=== PATIENT | female | born 1960 | race Caucasian/White ===

== ENCOUNTER 2017-10-02 16:07 | Observation (INO) | payer MEDICAID, SELFPAY ==
[2017-10-02] VITALS (10 sets, daily range): BP systolic 95–159; BP diastolic 58–91; PULSE 98–165; RESP 13–20; TEMP 36.9; O2SAT 95–97; BMI 38.9
--- NOTE | 2017-10-02 16:10 | EKG12_ITS ---
Test Reason : SYNCOPE Blood Pressure : / mmHG Vent. Rate : 105 BPM Atrial Rate : 105 BPM P-R Int : 170 ms QRS Dur : 084 ms QT Int : 352 ms P-R-T Axes : 019 005 010 degrees QTc Int : 465 ms Sinus tachycardia Otherwise normal ECG Confirmed by ASHLEY POTTER, FELIPE ([id number]), food editor EDWIGE FAN ([id number]) on 10/12/2017 6:56:52 PM Referred By: FRIEDA Confirmed By:FELIPE RAMIREZ MD
--- NOTE | 2017-10-02 16:30 | ED.VISSUMM ---
- ER Visit Summary Date of Service: 10/02/17 Chief Complaint: Passed out History of Present Illness: The patient is a 57 F who was at her daughter's graduation ceremony. She states she got up to walk to the car. She became nauseous, lightheaded and significant other commented she was pale and pasty. She passed out. She has had problems with passing out since March. She also reports problems with nausea and vomiting since March. She states she has had problems with dizziness with no determine etiology for 4+ months. She presently feels lightheaded. She denies fever, chills night sweats. She denies any ocular, visual or auditory symptoms. Denies trouble with speech or swallowing. She denies chest pain, palpitations or rapid heartbeat. She denies dyspnea, dyspnea on exertion or cough. She does complain of nausea without abdominal pain, diarrhea or constipation. She denies black or maroon stool. She denies dysuria, frequency, urgency or hematuria. She does report generalized weakness and dizziness, which she means is lightheadedness with standing. She denies headache, trouble with speech swallowing. She denies paresthesia, anesthesia motor weakness. She denies unsteady gait. Please read written note for complete detail Physical Examination: Vital signs remarkable for a pressure of 103/58 heart rate of 130. She appears pale. HEENT exam is remarkable dry mucosa. Heart is rapid and regular without murmur, gallop or rub. Lungs are clear to auscultation. Abdomen soft flabby nontender. There is no asymmetry, swelling, discoloration, leg vein distention, palpable cords or tenderness along the distribution of the deep venous system. Patient is alert and oriented ?3. Motor is 5 over 5. Sensory is intact. DTRs are symmetric with no clonus or Babinski sign. Cranial 2 through 12 are intact. Cerebellar testing is normal. Test Results: H&H 10.8 and 33.2. Electronic panels unremarkable with a normal BUN to creatinine and BUN to creatinine ratio. Emergency Department Course and Treatment: Orthostatic vital signs are positive. EKG was obtained per nursing protocol and reveals a sinus tachycardia 105. She received 1 L of normal saline. Since she reports chronic nausea and vomiting and dizziness BMP and CBC will be obtained. Since patient made no urine after first liter of normal saline she was given a second liter. When orthostatics were checked she was markedly positive. She was able to stand this time. After third liter she still is orthostatic with the increase of heart rate from 105-140. Treatment Plan: IV fluids for orthostatic hypotension. Since patient did not resolve after 3 L hospitalist was paged for 23 observation Disposition: [facility] 23 observation for continued monitoring hydration for orthostatic hypotension Impression: 1. Syncopal episode 2. Orthostatic hypotension This note was generated with [employer] dictation software. It may contain incorrect words, spelling, and punctuation that were not noted in review of the chart prior to signing ED Disposition - Plan for ED Patient: Chief Complaint: Dizziness Referrals: Helen Rouse MD [Primary Care Provider] -
[2017-10-02] MEDS: 0.9% Normal Saline 1,000 ML 1000 ML IV ×3 (16:40→21:51)
[2017-10-02 16:47] LABS: Absolute Lymphocyte Count 1.18 X10^3/ul (0.83-4.51); Absolute Neutrophil Count 4.2 X10^3/uL (2.0-7.7); Basophil# 0.02 X10^3/uL; Basophil% 0.3 % (0-1); Eosinophil# 0.03 X10^3/uL; Eosinophils% 0.5 % (0-5); Hematocrit 33.2 % (37-47); Hemoglobin 10.8 g/dl (12.0-15.0); Lymphocyte # 1.18 X10^3/ul (4.0); Lymphocyte % 19.8 % (19-41); Mean Corp Hgb Conc 32.5 g/gl (32-36); Mean Corpuscular Hgb 26.4 pg (27.0-32.0); Mean Corpuscular Volume 81.2 fL (81-99); Mean Platelet Vol. 11.4 fl (6.2-12.0); Monocyte# 0.53 X10^3/uL; Monocyte% 8.9 % (0-10); Neutrophil % 70.5 % (47-70); Platelet Count 205 K/mm3 (150-450); RBC Distribution Width CV 12.7 % (11.6-14.6); RBC Distribution Width SD 37.1 fl (35.1-43.9); Red Blood Count 4.09 M/mm3 (4.2-5.4)
[2017-10-02 16:53] LABS: POSITIVE COUNT NO; POSITIVE DIFFERENTIAL NO; POSITIVE MORPHOLOGY NO
[2017-10-02 17:07] LABS: BUN 9 mg/dL (7-18); Creatinine, Serum 0.72 mg/dL (0.55-1.02); EST Glomerular Filtration Rate 88 mL/min (>60); Estimated Creatinine Clearance 70.45 ml/min; Glucose 115 mg/dL (74-106)
[2017-10-02 17:08] LABS: Anion Gap 12 (5-15); BUN/Creat Ratio 12.5 RATIO (10-20); Calcium,Total 9.1 mg/dL (8.5-10.1); Chloride 108 mmol/L (98-107); Est Glom Filt Rate - Afr Amer 107 mL/min (>60); Potassium 3.2 mmol/L (3.5-5.1); Sodium Level 141 mmol/L (136-145)
--- NOTE | 2017-10-02 23:20 | DT_ITS ---
This patient was seen during an EMR downtime October 03, 2017 - October 10, 2017. This patient may have a combination of paper and electronic documentation or all paper documentation. All documentation is viewable within the e-chart portion of [employer] for each patient visit.
--- NOTE | 2017-10-02 23:51 | PCM.HP.STD ---
Problem List (1) Hyperthyroidism Status: Acute (2) Tachycardia Status: Acute (3) Orthostatic hypotension Status: Acute (4) Orthostatic hypotension Status: Acute (5) History of acute pyelonephritis Status: Chronic History of Present Illness Date of Admission: 10/02/17 Chief Complaint: Syncope The patient is a 57 year old female w/ h/o depression admitted for syncope. She had an episode of syncope several weeks ago when she was shopping. She does not drink much water. She was at her daughter high school graduation and she felt light-headed whenever she stands. She tried to walk to her car and felt nausea and pale. She felt like passing out but she did not pass out. Whenever she sits down, she would feel better. Standing up made it worse. It would last for hours. Her light-headedness was severe and she went to the ED for further workup. Past Medical History Past Medical History (Chronic Problems): Chronic Problems Gallbladder calculus (Chronic) History of acute pyelonephritis (Chronic) Allergies No Known Allergies Allergy (Verified 10/02/17 16:10) Home Medications: Ambulatory Orders Medication Instructions Recorded Ibuprofen [Ibuprofen] 800 mg PO TID PRN 03/19/17 Lorazepam [Ativan] 0.5 mg PO QHS 03/19/17 Oxycodone HCl/Acetaminophen 1 tablet PO Q6H PRN PRN #20 tablet 03/19/17 [Percocet 5/325] Sertraline HCl [Zoloft] 50 mg PO DAILY 03/19/17 Lives: With Family Smoking Status: Never smoker Alcohol: None Drugs: None - *Family History Maternal History Items: No pertinent history Review of Systems Constitutional: Denies: Chills, Fever, Weight Change HEENT: Reports: Head Aches. Denies: Sinus Congestion, Sinus Drainage Cardiovascular: Denies: Chest Pain, Palpitations Respiratory: Denies: Cough, Shortness of breath at rest, Sputum production Gastrointestinal: Denies: Abdominal Pain, Nausea, Vomiting Genitourinary: Denies: Dysuria Musculoskeletal: Denies: Joint Pain, Joint Tenderness Skin: Denies: Rash, Wounds Neurological: Denies: Numbness, Tingling, Focal weakness Psychiatric: Denies: Anxiety, Depression, Homicidal Ideations, Suicidal Ideations Hematologic/ Lymphatic: Denies: Easy Bruising, Easy Bleeding VTE Information - Inpt Only VTE Present on Admission: No VTE Mechan Device Prophylaxis: SCD's VTE Pharm Prophylaxis ordered?: Yes Patient Problems: Active and Suspected Problems Hyperthyroidism (Acute) Tachycardia (Acute) Orthostatic hypotension (Acute) Orthostatic hypotension (Acute) - Physical Exam General: Alert, Oriented x3, Cooperative HEENT: Atraumatic, PERRLA, EOMI, Normocephalic Neck: Supple, No JVD, Negative Carotid Bruits Lungs: Clear to auscultation, Normal air movement Cardiovascular: Regular rate, No murmurs Abdomen: Bowel Sounds Present, Soft, Non Tender Extremities: No edema, Capillary Refill Less than 3 Seconds Skin: No rashes, No breakdown Musculoskeletal: No Tenderness to Palpation of Joints or Extremities Neurological: Cranial nerves II-XII grossly intact Psych/Mental Status: Normal Affect, Appropriate Vital Signs Temp Pulse Resp BP Pulse Ox 98.5 F 109 H 20 H 154/71 H 97 10/02/17 16:07 10/02/17 23:36 10/02/17 23:36 10/02/17 23:36 10/02/17 23:36 Oxygen Delivery Method Room Air Weight: 99.8 kg Body Mass Index (BMI) 38.9 Laboratory Tests Past 24 Hrs 10/02/17 10/02/17 16:30 16:30 WBC 6.0 RBC 4.09 L Hgb 10.8 L Hct 33.2 L MCV 81.2 MCH 26.4 L MCHC 32.5 RDW 12.7 RDW Differential 37.1 Plt Count 205 MPV 11.4 Immature Gran % (Auto) 0.000 Neut % (Auto) 70.5 H Lymph % (Auto) 19.8 [place] % (Auto) 8.9 Eos % (Auto) 0.5 Baso % (Auto) 0.3 Absolute Neuts (auto) 4.2 Absolute Lymphs (auto) 1.18 Total Counted Not Reportable Sodium 141 Potassium 3.2 L Chloride 108 H Carbon Dioxide 21.0 Anion Gap 12 BUN 9 Creatinine 0.72 Estim Creat Clear Calc 70.45 Est GFR (MDRD) Af Amer 107 Est GFR (MDRD) Non-Af 88 BUN/Creatinine Ratio 12.5 Glucose 115 H Calcium 9.1 Assessment/Plan All Active Problems Hyperthyroidism (Acute) Tachycardia (Acute) Orthostatic hypotension (Acute) Orthostatic hypotension (Acute) 57 year old female w/ h/o depression admitted for syncope. 1) Syncope: Probably orthostatic hypotension given clinical symptoms. However will r/o cardiac etiology with ECHO and stress test. Monitor. 2) Hyperthyroid: Will get T3 and T4. No e/o nodular thyroid on exam. Will consider thyrotropin receptor antibodies, radioactive iodine uptake, and thyroid US with doppler. Currently no anxiety, emotional lability, weakness, tremor, palpitations, heat intolerance, increased perspiration, and weight loss. Likely will need endo followup outpt. 3) Orthostatic hypotension: Tachycardia noted. Hydration. Monitor. 4) Hypokalemia: Replace. Serial labs.
[2017-10-03 00:10] VITALS: BP 140/71; PULSE 110; RESP 18; TEMP 37.4; O2SAT 96
[2017-10-03 00:21] VITALS: PULSE 114
[2017-10-03 00:26] VITALS: BMI 39.0; BMI 39.7
[2017-10-03] MEDS: 0.9% Normal Saline 1,000 ML 150 ML IV (01:20)
[2017-10-03 01:42] LABS: Magnesium 1.3 mg/dL (1.6-2.6); Thyroid Stim Hormone (TSH) < 0.01 uIU/mL (0.358-3.74)
[2017-10-03 01:53] VITALS: PULSE 141
[2017-10-03 03:09] VITALS: BP 125/76; BP 128/90; BP 144/82; PULSE 102; PULSE 115; PULSE 123
[2017-10-03 03:19] VITALS: BP 144/82; PULSE 102; RESP 16; TEMP 36.8; O2SAT 96
--- NOTE | 2017-10-03 05:55 | ECHOD_ITS ---
Reason For Study: HTN Procedure This was a 2D Doppler, Color Flow transthoracic echocardiogram. Exam performed portable in patient room. Left Ventricle Normal LV size. Left ventricular systolic function is normal. The estimated ejection fraction is 65 %. No regional wall motion abnormalities noted. Right Ventricle Normal RV size. Normal systolic function. Atria The left atrium is mildly enlarged. Normal right atrium. No doppler evidence for ASD. Mitral Valve There is no mitral annular calcification. Normal mitral valve. Mild-Moderate (1-2+) mitral valve insufficiency. Tricuspid Valve Normal tricuspid valve. Mild tricuspid valve insufficiency. Right ventricular systolic pressure estimated to be 45 mmHg. Aortic Valve Trisinus/trileaflet aortic valve. Normal aortic valve. Trivial aortic valve insufficiency. Pulmonic Valve The pulmonic valve is not well visualized. Great Vessels Normal sized aortic root. Pericardium/Pleural No pericardial effusion. MMode/2D Measurements & Calculations LVIDd: 4.6 cm IVSd: 1.0 cm Ao root diam: 2.9 cm LVIDs: 3.2 cm LVPWd: 1.0 cm LA dimension: 4.1 cm RVDd: 3.0 cm FS: 31.0 % LAV(MOD-bp): 60.7 ml EDV(MOD-sp4): 92.7 ml SV(MOD-sp4): 48.1 ml LAV(MOD-bp) Indexed: 29.9 ml/m2 ESV(MOD-sp4): 44.6 ml LAV(MOD-sp2): 56.7 ml EF(MOD-sp4): 51.9 % LAV(MOD-sp4): 62.5 ml LA A4 area: 21.8 cm2 RA A4 area: 18.5 cm2 Doppler Measurements & Calculations MV E max [place]: 105.0 cm/sec Lat Peak E' [place]: 15.2 cm/sec Med Peak E' [place]: 11.2 cm/sec MV A max [place]: 94.4 cm/sec E/E' lat: 6.9 E/E' med: 9.3 MV E/A: 1.1 Ao V2 max: 197.1 cm/sec LV V1 max: 142.3 cm/sec PA V2 max: 118.1 cm/sec Ao max P.5 mmHg LV V1 max P.1 mmHg TR max [place]: 321.9 cm/sec TR max P.5 mmHg Interpretation Summary Left ventricular systolic function is normal. The estimated ejection fraction is 65 %. The left atrium is mildly enlarged. Mild-Moderate (1-2+) mitral valve insufficiency. Mild tricuspid valve insufficiency. Trivial aortic valve insufficiency. Right ventricular systolic pressure estimated to be 45 mmHg. Diastolic function: considered indeterminate. Comment / Disclaimer: The offiial transthoracic echocardiogram report was delayed secondary to [facility] Information Systems technical issues. A hand writtern preliminary report was previously made available for review. Ordering Physician: Bobby Amin Referring Physician: Helen Rouse Performed By: Meme Canales RDCS
--- NOTE | 2017-10-03 05:55 | EKG12_ITS ---
Test Reason : AM EKG Blood Pressure : / mmHG Vent. Rate : 102 BPM Atrial Rate : 102 BPM P-R Int : 176 ms QRS Dur : 086 ms QT Int : 358 ms P-R-T Axes : 071 027 046 degrees QTc Int : 466 ms Sinus tachycardia Otherwise normal ECG Confirmed by ASHLEY POTTER, FELIPE ([id number]), map editor EDWIGE FAN ([id number]) on 10/14/2017 2:15:45 PM Referred By: YANCY Confirmed By:FELIPE RAMIREZ MD
--- NOTE | 2017-10-04 11:39 | EKG12_ITS ---
Test Reason : AM EKG Blood Pressure : / mmHG Vent. Rate : 092 BPM Atrial Rate : 092 BPM P-R Int : 150 ms QRS Dur : 086 ms QT Int : 360 ms P-R-T Axes : 033 017 024 degrees QTc Int : 445 ms Normal sinus rhythm Normal ECG Confirmed by ASHLEY POTTER, FELIPE ([id number]), video editor EDWIGE FAN ([id number]) on 10/14/2017 2:12:53 PM Referred By: LINDSAY Confirmed By:FELIPE RAMIREZ MD
--- NOTE | 2017-10-04 11:48 | STEWCON_ITS ---
Reason For Study: Chest Pain Stress Results Protocol: Dobutamine Stress Echocardiogram Maximum Predicted HR: 162 bpm Target HR: 138 bpm% Maximum Predicted HR: 145 % DurationHeart Rate Stage (mm:ss) (bpm) BPDos e Comment BASELINE 96 141/85 DEFINITY 4 CC USED DURING STRESS DSE- 10 MCG 3:15 10 0 142/6610.00 DSE- 20 MCG 4:23 23 5 151/7120.00RUNS OF SVT, VT RECOVERY 106 155/7 0 Stress Duration: 7:38 mm:ss Maximum Stress HR: 235 bpm Baseline Echocardiogram Findings Stress Echo Wall motion Data Resting WMIntermediate WMStress WM Resting Wall Motion Wall Motion Int. Wall Motion Stress All segments Normal. All segments Hyperkinetic. All segments Hyperkinetic. Ejection Fraction 65 %. Ejection Fraction 70 %. Ejection Fraction 75 %. Stress Results Study discontinued secondary to: target heart rate achieved. EKG Data BASELINE EKG: NSR. STRESS EKG: NO OBVIOUS EKG CHANGES. Symptoms with Stress No c/o chest discomfort during infusion / recovery. Interpretation Summary The study was technically difficult. Contrast injection was performed. NEGATIVE(ADEQUATE) DOBUTAMINE STRESS ECHOCARDIOGRAM. CARDIAC RHYTHM: DURING DOBUTMAINE INFUSION: OCCASIONAL PACS/REPETITIVE PACS, OCCASIONAL PVCS/ REPETITIVE PVCS (COUPLETS/TRIPLETS). BRIEF EPISODES OF PSVT. CARDIAC RHYTHM IN RECOVERY: OCCCASIONAL PVCS; RARE VENTRICULAR COUPLETS. Comment / Disclaimer: The offiial transthoracic echocardiogram report was delayed secondary to [facility] Information Systems technical issues. A hand writtern preliminary report was previously made available for review. Doppler Measurements & Calculations TR max taylor: 282.1 cm/sec TR max P.8 mmHg Ordering Physician: Bobby Amin Referring Physician: Helen Rouse Performed By: Pushpa Baptiste, ZANDERCS, RVT
[2017-10-06 16:50] LABS: Hematocrit 27.2 % (37-47); Hemoglobin 8.8 g/dl (12.0-15.0); Mean Corp Hgb Conc 32.4 g/gl (32-36); Mean Corpuscular Hgb 27.4 pg (27.0-32.0); Mean Corpuscular Volume 84.7 fL (81-99); Mean Platelet Vol. 12.8 fl (6.2-12.0); Platelet Count 180 K/mm3 (150-450); RBC Distribution Width SD 38.6 fl (35.1-43.9); Red Blood Count 3.21 M/mm3 (4.2-5.4); White Blood Count 4.5 K/mm3 (4.4-11.0)
[2017-10-06 16:51] LABS: Absolute Lymphocyte Count 1.38 X10^3/ul (0.83-4.51); Absolute Neutrophil Count 2.5 X10^3/uL (2.0-7.7); Basophil# 0.01 X10^3/uL; Basophil% 0.2 % (0-1); Eosinophil# 0.08 X10^3/uL; Eosinophils% 1.8 % (0-5); Lymphocyte # 1.38 X10^3/ul (4.0); Lymphocyte % 3.7 % (19-41); Monocyte# 0.57 X10^3/uL; Monocyte% 12.7 % (0-10); Neutrophil # 2.46 X10^3/uL (2.7-7.7); Neutrophil % 54.6 % (47-70); POSITIVE COUNT NO; POSITIVE DIFFERENTIAL NO; POSITIVE MORPHOLOGY NO
[2017-10-06 17:47] LABS: International Normalized Ratio 1.2; Partial Thromboplast Time 29.5 Seconds (24.1-36.2); Prothrombin Time (Protime)PT. 15.1 SECONDS (11.7-14.9)
[2017-10-07 09:33] LABS: Magnesium 1.3 mg/dL (1.6-2.6); Phosphorus 2.9 mg/dL (2.5-4.9)
[2017-10-07 11:49] LABS: Hematocrit 26.6 % (37-47); Hemoglobin 8.6 g/dl (12.0-15.0); Red Blood Count 3.19 M/mm3 (4.2-5.4); White Blood Count 4.1 K/mm3 (4.4-11.0)
[2017-10-07 11:50] LABS: Mean Corp Hgb Conc 32.3 g/gl (32-36); Mean Corpuscular Volume 83.4 fL (81-99); Mean Platelet Vol. 12.1 fl (6.2-12.0); Platelet Count 180 K/mm3 (150-450); RBC Distribution Width CV 12.5 % (11.6-14.6); RBC Distribution Width SD 36.8 fl (35.1-43.9); Scan Indicated on CBC? Y/N NO
[2017-10-08 11:05] LABS: Anion Gap 7 (5-15); BUN 4 mg/dL (7-18); Calcium,Total 8.1 mg/dL (8.5-10.1); Chloride 114 mmol/L (98-107); EST Glomerular Filtration Rate 174 mL/min (>60); Est Glom Filt Rate - Afr Amer 211 mL/min (>60); Estimated Creatinine Clearance 126.82 ml/min; Glucose 95 mg/dL (74-106); Potassium 3.2 mmol/L (3.5-5.1); Sodium Level 145 mmol/L (136-145)
[2017-10-11 03:14] LABS: International Normalized Ratio 1.2; Partial Thromboplast Time 29.5 Seconds (24.1-36.2); Prothrombin Time (Protime)PT. 15.1 SECONDS (11.7-14.9)
[2017-10-12 14:25] LABS: ALB/GLOB Ratio 0.6 RATIO (0.9-2.4); AST(SGOT) 14 U/L (15-37); Alanine Aminotransfer ALT/SGPT 16 U/L (13-56); Albumin, Serum 2.4 g/dL (3.2-5.0); Alkaline Phosphatase 54 U/L (45-117); BUN 7 mg/dL (7-18); BUN/Creat Ratio 18.9 RATIO (10-20); Calcium,Total 8.1 mg/dL (8.5-10.1); Creatinine, Serum 0.37 mg/dL (0.55-1.02); EST Glomerular Filtration Rate 191 mL/min (>60); Est Glom Filt Rate - Afr Amer 231 mL/min (>60); Globulin 3.7 g/dL (2.2-4.2); Glucose 94 mg/dL (74-106); Protein, Total 6.1 g/dL (6.4-8.2)
[2017-10-12 14:26] LABS: Anion Gap 9 (5-15); Chloride 114 mmol/L (98-107); Potassium 3.3 mmol/L (3.5-5.1); Sodium Level 146 mmol/L (136-145)
== END 2017-10-04 16:35 | disposition home or self-care (01) ==
LOC: ED 18:59 → PCU 10-03 00:13
PROVIDERS: Physician Assistant; Admitting Provider Internal Medicine; Emergency Provider Emergency Medicine; Family Provider Internal Medicine; PCP Internal Medicine; Visit Provider Internal Medicine
DX: I95.1 Orthostatic hypotension (principal); E87.6 Hypokalemia; F41.9 Anxiety disorder, unspecified; F32.9 Major depressive disorder, single episode, unspecified; E66.01 Morbid (severe) obesity due to excess calories; Z68.38 Body mass index [BMI] 38.0-38.9, adult; Z71.3 Dietary counseling and surveillance; D64.9 Anemia, unspecified; E05.90 Thyrotoxicosis, unspecified without thyrotoxic crisis or storm
CPT/HCPCS: 36415; 80048; 80053; 83735; 84100; 84439; 84443; 84480; 84481; 84482; 84484; 85025; 85027; 85610; 85730; 93005; 93017; 93306; 93350; 96361; 96374; 96376; 97110; 97162; 97166; 97530; 97802; 99218; 99285; J7030; J7040; Q9957; A4216; C8928; G0378

== ENCOUNTER 2018-04-21 11:22 | Emergency (ER) | payer MEDICAID, SELFPAY ==
[2018-04-21 11:24] VITALS: BP 163/83; PULSE 74; RESP 16; TEMP 36.7; O2SAT 98; BMI 33.8
[2018-04-21 11:32] VITALS: BP 163/83; PULSE 74; RESP 16; TEMP 36.7; O2SAT 98
[2018-04-21 11:35] LABS: Bedside Glucose 107 mg/dL (70-110)
[2018-04-21 11:36] VITALS: O2SAT 98
--- NOTE | 2018-04-21 11:36 | EKG12_ITS ---
Test Reason : SYNCOPE Blood Pressure : / mmHG Vent. Rate : 071 BPM Atrial Rate : 071 BPM P-R Int : 148 ms QRS Dur : 086 ms QT Int : 396 ms P-R-T Axes : 035 008 047 degrees QTc Int : 430 ms Normal sinus rhythm Nonspecific ST abnormality Abnormal ECG Confirmed by IMMANUEL CEDENO ([id number]), editorial clerk EDWIGE FAN ([id number]) on 04/26/2018 2:35:25 PM Referred By: FRIEDA Confirmed By:IMMANUEL CEDENO
--- NOTE | 2018-04-21 11:43 | RAD_ITS ---
STUDY: X-RAY CHEST REASON FOR EXAM: Female, 57 years old. Chest pain. TECHNIQUE: Single AP portable view of the chest. COMPARISON: Comparison is made with prior study dated March 19, 2017. FINDINGS: EKG electrodes are seen. The lungs are clear and expanded. There is no demonstrated pleural abnormality. Normal size heart. Normal mediastinum and suzie. Normal visualized pulmonary arteries. Normal visualized aortic arch and descending thoracic aorta. There are mild degenerative changes of the visualized thoracic spine. Normal visualized ribs, clavicles, and shoulders. There is no demonstrated abnormality of the visualized soft tissue structures of the upper abdomen. RAD/Chest 1 View (Portable) IMPRESSION: Normal x-ray examination of the chest. Electronically Signed: Jong Hermosillo MD at 12:31 EST Tel [phone], Service support ,
[2018-04-21 11:45] LABS: Absolute Lymphocyte Count 1.02 X10^3/ul (0.83-4.51); Absolute Neutrophil Count 2.7 X10^3/uL (2.0-7.7); Basophil# 0.01 X10^3/uL; Basophil% 0.2 % (0-1); Eosinophil# 0.05 X10^3/uL; Eosinophils% 1.2 % (0-5); Hematocrit 35.6 % (37-47); Hemoglobin 11.9 g/dl (12.0-15.0); Lymphocyte # 1.02 X10^3/ul (4.0); Lymphocyte % 25.1 % (19-41); Mean Corp Hgb Conc 33.4 g/gl (32-36); Mean Corpuscular Hgb 28.4 pg (27.0-32.0); Mean Platelet Vol. 11.1 fl (6.2-12.0); Monocyte# 0.29 X10^3/uL; Monocyte% 7.1 % (0-10); Neutrophil # 2.68 X10^3/uL (2.7-7.7); Neutrophil % 66.2 % (47-70); POSITIVE COUNT NO; POSITIVE DIFFERENTIAL NO; POSITIVE MORPHOLOGY NO; Platelet Count 245 K/mm3 (150-450); RBC Distribution Width SD 36.2 fl (35.1-43.9); Red Blood Count 4.19 M/mm3 (4.2-5.4); White Blood Count 4.1 K/mm3 (4.4-11.0)
--- NOTE | 2018-04-21 11:51 | ED.VISSUMM ---
- ER Visit Summary Date of Service: 04/21/18 Chief Complaint: Passed out History of Present Illness: The patient is a 57 F history of hyperthyroidism. Patient states she has been eating or drinking much for the last several days is because she has not felt like it. She is developed diarrhea in the last 2 days and today while in the bathroom when she was finished having diarrhea bowel movement she passed out. Denies any injuries. No headache. No neck pain. No chest pain or shortness of breath. She is not on any blood thinners. She has passed out before and was worked up for syncope within the last year or so. Physical Examination: Well-appearing middle-age female. Vital signs are stable. She is afebrile. She does not look septic toxic or in distress. Pulse ox 90% on room air no signs of hypoxia. H EENT exam atraumatic. Pupils round reactive light. Moist weeks membranes. Neck nontender. Trachea midline. Lungs clear to auscultation bilaterally. Heart regular rhythm no murmur. Chest wall nontender. Abdomen soft nontender. Normal bowel sounds no peritoneal signs. Pelvic girdle intact. Extremities moves all 4. Neurovascularly intact. Calves nontender, no edema no cords. No shortening or rotation. Back exam nontender. Neurologically she is awake alert with no focal motor deficits. Test Results: Chest x-ray one view portable shows no acute abnormality read both by myself and the radiologist. Normal cardiac silhouette mediastinum. EKG sinus rhythm rate of 71 with normalities. White count of 4. Hemoglobin 11 she is chronically anemic her hemoglobin often runs around 8. Electrolytes unremarkable gap of 9. BUN of 6 creatinine 0.7. Troponin normal. Orthostatic vital signs were positive. Patient's being treated with a liter of normal saline. Emergency Department Course and Treatment: Patient with acute syncopal episode. On repeat exam patient is doing well at 1320. She is receiving IV fluids. Once was written she will be discharged. Treatment Plan: Fluids and rest. Follow-up with your doctor as needed. Return if worse. Disposition: Discharge Impression: Acute syncope Acute diarrhea Acute orthostatic hypotension This note was generated with [employer] dictation software. It may contain incorrect words, spelling, and punctuation that were not noted in review of the chart prior to signing ED Disposition - Plan for ED Patient: Chief Complaint: Syncope Referrals: Helen Rouse MD [Primary Care Provider] -
[2018-04-21 12:03] LABS: Anion Gap 9 (5-15); BUN 6 mg/dL (7-18); BUN/Creat Ratio 7.8 RATIO (10-20); Calcium,Total 9.1 mg/dL (8.5-10.1); Chloride 107 mmol/L (98-107); Creatinine, Serum 0.77 mg/dL (0.55-1.02); EST Glomerular Filtration Rate 82 mL/min (>60); Est Glom Filt Rate - Afr Amer 99 mL/min (>60); Estimated Creatinine Clearance 65.88 ml/min; Glucose 116 mg/dL (74-106); Potassium 3.5 mmol/L (3.5-5.1); Sodium Level 140 mmol/L (136-145)
[2018-04-21] MEDS: 0.9% Normal Saline 1,000 ML 999 ML IV (12:16)
[2018-04-21 12:27] VITALS: BP 104/72; BP 129/71; BP 134/73; PULSE 114; PULSE 66; PULSE 68
--- NOTE | 2018-04-21 13:24 | ED.DEP ---
ED Disposition - Plan for ED Patient: Disposition: Home or Assisted Living Chief Complaint: Syncope Instructions: ED Hypotension Orthostatic Referrals: Helen Rouse MD [Primary Care Provider] - As Needed Additional Instructions: Plenty fluids and rest. Follow-up with your doctor as needed.
[2018-04-21 13:45] VITALS: BP 128/73; PULSE 61; RESP 14; O2SAT 100
== END 2018-04-21 13:47 | disposition home or self-care (01) ==
PROVIDERS: Emergency Provider Emergency Medicine; Family Provider Internal Medicine; PCP Internal Medicine
DX: I95.1 Orthostatic hypotension (principal); R19.7 Diarrhea, unspecified; E05.90 Thyrotoxicosis, unspecified without thyrotoxic crisis or storm; D64.9 Anemia, unspecified; Z79.899 Other long term (current) drug therapy
CPT/HCPCS: 71045; 80048; 82962; 84484; 85025; 93005; 96360; 99285; J7030; A4216

== ENCOUNTER 2022-11-23 13:38 | Inpatient (IN) | payer MEDICAID, SELFPAY ==
[2022-11-23] VITALS (9 sets, daily range): BP systolic 121–140; BP diastolic 58–89; PULSE 71–93; RESP 16–18; TEMP 36.6–37.7; O2SAT 92–99; BMI 41.0
--- NOTE | 2022-11-23 14:10 | CT_ITS ---
STUDY: CT ABDOMEN AND PELVIS WITH CONTRAST - URINARY TRACT REASON FOR EXAM: Female, 62 years old. Lower abd pain RADIATION DOSAGE (If Supplied By Facility): CTDIvol = ( 18.67 ) mGy, DLP = ( 1364.82 ) mGycm TECHNIQUE: IV 100mL Isovue-300 was administered. Transaxial images were obtained from the dome of the diaphragm to the symphysis pubis in the arterial, nephrographic and excretory phases. Multiplanar coronal and sagittal images were reformatted. Individualized Dose Optimization Techniques Were Used For This CT. COMPARISON: No prior examinations are available for comparison. FINDINGS: The visualized lung bases are unremarkable. The visualized portions of the heart are within normal limits. No focal lesion is definitely identified in the liver. Pneumobilia the central intrahepatic biliary ducts extending to the left lobe. Contracted gallbladder. Linear air density extending from the gallbladder fossa to the region of the duodenum which may represent fistula. The spleen is within normal limits in size. Normal pancreas. Normal bilateral adrenal glands. Moderate size hiatal hernia. Markedly dilated fluid-filled proximal small bowel loops. Large calcification in the mid small bowel loop measuring about 2.7 cm. The more distal small bowel loops are normal in caliber. There is obstruction at this level. Gallstone ileus cannot be excluded. Colon is not distended and thickened. The appendix is not identified. The abdominal aorta is not dilated. No retroperitoneal adenopathy. Normal right kidney. Normal left kidney. Normal urinary bladder. Mild free fluid in the pelvis. Normal abdominal wall. No demonstrated acute osseous changes. CT/Abdomen/Pelvis W IV Cont ONLY IMPRESSION: 1. Small bowel obstruction due to large stone in mid ileal loop concerning for gallstone ileus. 2. Pneumobilia. 3. Contracted gallbladder with possible air extending from the gallbladder fossa to the duodenum. Fistula cannot be excluded. Electronically Signed: Brett Guerrero MD at 16:19 EDT ,
--- NOTE | 2022-11-23 14:11 | EDS_ITS ---
HPI HPI - GI History of Present Illness Chief Complaint: Nausea/Vomiting Informant: patient Abdominal Pain/Flank Pain Onset: Days (2-3) Context: Gradual Onset Timing: Continuous and Waxes and wanes Quality: Aching and Cramping Location: - (lower abd, worse on L) Current Severity: Severe Maximum Severity: Severe Worsened by: Nothing Relieved by: Nothing Nausea/Vomiting/Emesis GI Symptom: Positive for Nausea and Vomiting Quality: Negative for Blood streaks or Coffee ground Diarrhea/Melena/Hematochezia GI Symptom: Negative for Diarrhea, Melena or Hematochezia Associated Symptoms Associated Symptoms: Negative for Dysuria, Frequency or Hematuria Narrative Narrative: Patient with a couple days of lower abdominal pain, nausea, vomiting. No fevers or chills. No diarrhea. No blood in her stool or melena. No urinary symptoms. Prior no other abdominal surgeries in the past. Never had this before. Pain occasionally goes into her right mid back. Usually not radiating. Also has some discomfort of her chest after vomiting. No dyspnea, cough. PFSH PFS Medical History (Updated 11/23/22 @ 15:[address] Sean Sanders MD) Anxiety Gallbladder calculus Graves disease History of acute pyelonephritis Home Medications lorazepam 0.5 mg tablet 0.5 mg PO QHS PRN Anxiety 03/19/17 [History Last Taken 10/02/17 20:00] sertraline 50 mg tablet 25 mg PO DAILY 03/19/17 [History Last Taken 10/02/17 10:00] atenolol 25 mg tablet 25 mg PO DAILY 04/21/18 [History Last Taken Unknown] methimazole 5 mg tablet (Tapazole) 5 mg PO TID 04/21/18 [History Last Taken Unknown] Allergy/AdvReac Type Severity Reaction Status Date / Time azithromycin Allergy Itching Verified 11/23/22 13:43 Surgical History (Updated 11/23/22 @ 14:[address] Sean Sanders MD) Previous section Social History Smoking Status: Never smoker ROS ROS ED Constitutional Constitutional ED: Denies chills or fever(s) Eyes Eyes: Denies change in vision or diplopia ENT ENT ED: Denies rhinorrhea or sore throat Cardiovascular Cardiovascular: Reports as per HPI and chest pain; Denies palpitations Respiratory/Chest Respiratory/Chest: Denies cough or dyspnea Gastrointestinal Gastrointestinal: Reports abdominal pain, nausea and vomiting; Denies diarrhea, hematemesis, hematochezia or melena Genitourinary Genitourinary ED: Denies dysuria or hematuria Musculoskeletal Musculoskeletal: Reports back pain; Denies neck pain Integumentary Denies abscess or rash Neurologic Neurologic: Denies headache(s), paresthesias or weakness Psychiatric Psychiatric: Denies anxiety or suicidal thoughts EXAM Physical Exam Const Vital Signs: 11/23/22 13:39 Temperature 98.4 F Temperature Source Temporal Pulse Rate 93 Respiratory Rate 16 Blood Pressure 131/89 H Blood Pressure Mean 103 Pulse Ox 95 Oxygen Delivery Method Room Air Positive well nourished, well developed and obese General Appearance ED: well developed and NAD Nutritional Appearance: obese HEENT Reports moist mucous membranes normocephalic and atraumatic Eyes PERRL and EOMs intact bilaterally Neck full ROM and supple Resp normal respiratory effort and clear to auscultation bilaterally Cardio regular rate, regular rhythm and no murmurs GI non-distended GI Narrative: Very tender lower abdomen worse on the left than the right, but includes the suprapubic area as well. No guarding or rebound tenderness. No pulsatile mass. No [place] sign. Auscultation: hypoactive bowel sounds Palpation: soft Back/Spine no CVA tenderness General Back: other FROM Extremity normal to inspection General Extremety ED: Negative for edema, pulses abnormal or tenderness General Extremity: Negative for edema or pulses abnormal Neuro oriented x3, CN's II-XII intact bilaterally and no sensory deficits noted Sensorium / Orientation: awake and alert Motor Exam: strength 5/5 throughout Skin no rashes or lesions noted and no wounds MDM MDM MDM Narrative Medical decision making narrative: Labs, CT were obtained, I reviewed the images and the report which I agree with, and spoke with Dr. Camacho. Basically patient has a gallstone ileus/jejunal obstruction because of a gallstone that eroded into the duodenum from the gallbladder. Patient is doing better after IV fluids, morphine, Zofran, we will place an NG tube, add liver enzymes upon request, and patient is going to the OR for definitive repair. Lab Data Attestation: I reviewed the patient's lab results. Labs: Laboratory Results - last 24 hr 11/23/22 13:27 WBC 7.9 RBC 4.46 Hgb 12.7 Hct 38.9 MCV 87.2 MCH 28.5 MCHC 32.6 RDW Std Deviation 41.4 RDW Coeff of Peace 13.2 Plt Count 262 MPV 11.6 Immature Gran % (Auto) 0.300 Neut % (Auto) 80.6 H Lymph % (Auto) 8.7 L [place] % (Auto) 10.0 Eos % (Auto) 0.0 Baso % (Auto) 0.4 Absolute Neuts (auto) 6.4 Absolute Lymphs (auto) 0.69 L Nucleated RBC % 0 Sodium 138 Potassium 3.3 L Chloride 106 Carbon Dioxide 23.0 Anion Gap 9 BUN 17 Creatinine 1.02 Estim Creat Clear Calc 46.70 Est GFR (MDRD) Af Amer 70 Est GFR (MDRD) Non-Af 58 L BUN/Creatinine Ratio 16.7 Glucose 144 H Calcium 9.2 Management Discussion w/another healthcare provider: Airline Transport Pilot Critical Care Time Critical Care Time: Yes Critical care time (excluding procedures): 30-74 minutes (33 min), Including time spent:, Discussing w/Patient &/or Family/Eyeglass Frames Inspector, Discussing w/Consultants, Arranging Admission or Transfer and Performing Direct Patient Care at Bedside Discharge Plan Triage Chief Complaint: Nausea/Vomiting ED Provider: Sean Sanders Dx/Rx/DC Orders Clinical Impression: Gallstone ileus of small intestine Prescriptions: No Action lorazepam 0.5 MG tablet 0.5 mg PO QHS PRN (Reason: Anxiety) Patient Comments: TAKE 1 TABLET THREE TIMES DAILY NEEDED sertraline 50 MG tablet 25 mg PO DAILY Patient Comments: Take 1 tablet by mouth once daily. atenolol 25 tablet 25 mg PO DAILY methimazole [Tapazole] 5 MG tablet 5 mg PO TID Primary Care Provider: Helen Rouse Referrals: Helen Rouse MD [Primary Care Provider] - Disposition Disposition: Acute Care Hospital [facility]
[2022-11-23] MEDS: 0.9% Normal Saline 1,000 ML 1000 ML IV (14:23)
[2022-11-23] MEDS: Ondansetron 4 MG/2 ML Vial IV (14:24)
[2022-11-23] MEDS: Morphine 4 MG/ML Syringe IV (14:24)
[2022-11-23 14:38] LABS: Absolute Lymphocyte Count 0.69 X10^3/uL (0.83-4.51); Absolute Neutrophil Count 6.4 X10^3/uL (2.0-7.7); Basophil# 0.03 X10^3/uL; Basophil% 0.4 % (0-1); Hematocrit 38.9 % (37-47); Hemoglobin 12.7 g/dL (12.0-15.0); Lymphocyte # 0.69 X10^3/ul (0.83-4.51); Lymphocyte % 8.7 % (19-41); Mean Corp Hgb Conc 32.6 g/dL (32-36); Mean Corpuscular Hgb 28.5 pg (27.0-32.0); Mean Corpuscular Volume 87.2 fL (81-99); Mean Platelet Vol. 11.6 fl (6.2-12.0); Monocyte# 0.79 X10^3/uL; NRBC Flagged by Analyzer 0 % (0-5); Neutrophil # 6.39 X10^3/uL (2.7-7.7); Neutrophil % 80.6 % (47-70); Platelet Count 262 K/mm3 (150-450); RBC Distribution Width CV 13.2 % (11.6-14.6); RBC Distribution Width SD 41.4 fl (35.1-43.9); Red Blood Count 4.46 M/mm3 (4.2-5.4); White Blood Count 7.9 K/mm3 (4.4-11.0)
[2022-11-23 14:50] LABS: Anion Gap 9 (5-15); BUN 17 mg/dL (7-18); BUN/Creat Ratio 16.7 RATIO (10-20); Calcium,Total 9.2 mg/dL (8.5-10.1); Chloride 106 mmol/L (98-107); Creatinine, Serum 1.02 mg/dL (0.55-1.02); EST Glomerular Filtration Rate 58 mL/min (>60); Est Glom Filt Rate - Afr Amer 70 mL/min (>60); Glucose 144 mg/dL (74-106); Potassium 3.3 mmol/L (3.5-5.1); Sodium Level 138 mmol/L (136-145)
--- NOTE | 2022-11-23 15:35 | CON.PCM.SX_ITS ---
Assessment & Plan Assessment/Plan (1) Gallstone ileus of small intestine: HPI Consult Data Date of Consult: 11/23/22 HPI Narrative HPI Narrative: SUSANNA LEIJA, is a 62 F who presents [facility] Medical History (Updated 11/23/22 @ 15:[address] Alma Camacho MD) Anxiety Gallbladder calculus Graves disease History of acute pyelonephritis Home Medications lorazepam 0.5 mg tablet 0.5 mg PO QHS PRN Anxiety 03/19/17 [History Last Taken 10/02/17 20:00] sertraline 50 mg tablet 25 mg PO DAILY 03/19/17 [History Last Taken 10/02/17 10:00] atenolol 25 mg tablet 25 mg PO DAILY 04/21/18 [History Last Taken Unknown] methimazole 5 mg tablet (Tapazole) 5 mg PO TID 04/21/18 [History Last Taken Unknown] Allergy/AdvReac Type Severity Reaction Status Date / Time azithromycin Allergy Itching Verified 11/23/22 13:43 Surgical History (Updated 11/23/22 @ 14:[address] Sean Sanders MD) Previous section Social History Smoking Status: Never smoker Lab / Micro Data 11/23/22 13:27 11/23/22 13:27 Labs: Laboratory Results - last 24 hr 11/23/22 13:27: WBC 7.9, RBC 4.46, Hgb 12.7, Hct 38.9, MCV 87.2, MCH 28.5, MCHC 32.6, RDW Std Deviation 41.4, RDW Coeff of Peace 13.2, Plt Count 262, MPV 11.6, Immature Gran % (Auto) 0.300, Neut % (Auto) 80.6 H, Lymph % (Auto) 8.7 L, [place] % (Auto) 10.0, Eos % (Auto) 0.0, Baso % (Auto) 0.4, Absolute Neuts (auto) 6.4, Absolute Lymphs (auto) 0.69 L, Nucleated RBC % 0, Sodium 138, Potassium 3.3 L, Chloride 106, Carbon Dioxide 23.0, Anion Gap 9, BUN 17, Creatinine 1.02, Estim Creat Clear Calc 46.70, Est GFR (MDRD) Af Amer 70, Est GFR (MDRD) Non-Af 58 L, BUN/Creatinine Ratio 16.7, Glucose 144 H, Calcium 9.2
--- NOTE | 2022-11-23 15:39 | RAD_ITS ---
INDICATION: NG Insertion 1 OF 2 EXAMINATION/TECHNIQUE: X-RAY - XR Abdomen 1 View COMPARISON: None RAD/Abdomen Single View (Portable) IMPRESSION: Enteric tube loops over the distal esophagus. Electronically Signed: Ricky Roblero MD at 16:31 EDT ,
--- NOTE | 2022-11-23 16:02 | RAD_ITS ---
INDICATION: NG INSERT 2 OF 2 EXAMINATION/TECHNIQUE: X-RAY - XR Abdomen 1 View COMPARISON: 3 minutes earlier RAD/Abdomen Single View IMPRESSION: NG tube terminates over the gastric fundus with sidehole below the diaphragm. Partially visualized bowel gas pattern is nonobstructive. Electronically Signed: Ricky Roblero MD at 16:30 EDT ,
--- NOTE | 2022-11-23 16:06 | PCM.HP.STD ---
HPI - General General Date of Admission: 11/23/22 HPI Narrative SUSANNA ELIJA, is a 62 F who presents to the ER due to abdominal pain nausea vomiting. Patient states her abdominal pain started on Tuesday along with her nausea and vomiting nothing really eat since then. Patient CT abdomen pelvis shows a gallstone ileus in the mid jejunum along with pneumobilia. Patient states has been having right upper quadrant pain for about the last year. Patient white blood count is within. [facility] Medical History (Updated 11/23/22 @ 15:[address] Sean Sanders MD) Anxiety Gallbladder calculus Graves disease History of acute pyelonephritis Home Medications lorazepam 0.5 mg tablet 0.5 mg PO QHS PRN Anxiety 03/19/17 [History Last Taken 10/02/17 20:00] sertraline 50 mg tablet 25 mg PO DAILY 03/19/17 [History Last Taken 10/02/17 10:00] atenolol 25 mg tablet 25 mg PO DAILY 04/21/18 [History Last Taken Unknown] methimazole 5 mg tablet (Tapazole) 5 mg PO TID 04/21/18 [History Last Taken Unknown] Allergy/AdvReac Type Severity Reaction Status Date / Time azithromycin Allergy Itching Verified 11/23/22 13:43 Surgical History (Updated 11/23/22 @ 14:[address] Sean Sanders MD) Previous section Social History Smoking Status: Never smoker Vital Signs Vital Signs Vital Signs: 11/23/22 13:39 Temperature 98.4 F Temperature Source Temporal Pulse Rate 93 Respiratory Rate 16 Blood Pressure 131/89 H Blood Pressure Mean 103 Pulse Ox 95 Oxygen Delivery Method Room Air Weight Weight: 231 lb 7.766 oz Body Mass Index (BMI) 41.0 Physical Exam Const oriented x3 Resp normal respiratory effort Cardio regular rate GI soft to palpation GI Narrative: Tender mid abdomen, no guarding or rebound. Extremity General Extremity: edema Results Lab / Micro Data 11/23/22 13:27 11/23/22 13:27 Labs: Laboratory Results - last 24 hr 11/23/22 13:27: WBC 7.9, RBC 4.46, Hgb 12.7, Hct 38.9, MCV 87.2, MCH 28.5, MCHC 32.6, RDW Std Deviation 41.4, RDW Coeff of Peace 13.2, Plt Count 262, MPV 11.6, Immature Gran % (Auto) 0.300, Neut % (Auto) 80.6 H, Lymph % (Auto) 8.7 L, [place] % (Auto) 10.0, Eos % (Auto) 0.0, Baso % (Auto) 0.4, Absolute Neuts (auto) 6.4, Absolute Lymphs (auto) 0.69 L, Nucleated RBC % 0, Sodium 138, Potassium 3.3 L, Chloride 106, Carbon Dioxide 23.0, Anion Gap 9, BUN 17, Creatinine 1.02, Estim Creat Clear Calc 46.70, Est GFR (MDRD) Af Amer 70, Est GFR (MDRD) Non-Af 58 L, BUN/Creatinine Ratio 16.7, Glucose 144 H, Calcium 9.2 Assessment & Plan Assessment/Plan (1) Gallstone ileus of small intestine: PLAN: Plan We will plan for laparotomy, removal of gallstone, possible small bowel resection. Discussed with procedure including but not limited to risk of bleeding, infection, injury to another organ, and anesthesia. Also discussed with patient there and does not appear to be any other stones in the gallbladder would not plan to do any surgery for the fistula tract between the duodenum and gallbladder. IV Zosyn. NG placed in the ER. Alma Camacho M.D. Pager: [phone] [facility] [address] [place] [address], [address] [place] [address] Office: [phone]
[2022-11-23] MEDS: Oxymetazoline 0.05% 1 SPRAY SPRAY.BTL 2 SPRAY NASAL (16:16)
[2022-11-23 16:22] LABS: Mucous, Urine 0 SEEN /hpf (<or=2+)
[2022-11-23 16:29] LABS: Color, Urine Yellow (Yellow); Glucose, Dipstick Normal (Normal); Ketone-Dipstick 5 mg/dl (Negative); Leukocyte Esterase-Dipstick 25 /ul (Negative); Nitrite-Dipstick Negative (Negative); Occult Blood-Urine 25 /ul (Negative); Protein-Dipstick 30 mg/dl (Negative); Urine Bilirubin Dipstick Negative (Negative); Urine Clarity Clear (Clear); Urine Urobilinogen Normal (Normal); Urine pH 6.5 (5.0 - 8.0)
[2022-11-23] MEDS: Lactated Ringers 1,000 ML 15 ML IV (16:41)
[2022-11-23 16:42] LABS: Bacteria RARE /hpf (None Seen); Red Blood Cells-Urine 0-5 SEEN /hpf (0-5); Squamous Epithelial Cells - UA 0-5 SEEN /hpf (5-10); White Blood Cells 0-5 SEEN /hpf (0-5)
[2022-11-23 16:51] LABS: AST(SGOT) 12 U/L (15-37); Alanine Aminotransfer ALT/SGPT 13 U/L (13-56); Albumin, Serum 3.3 g/dL (3.2-5.0); Alkaline Phosphatase 67 U/L (45-117); Bilirubin, Direct 0.25 mg/dL (0.00-0.30); Globulin 4.7 g/dL (2.2-4.2)
[2022-11-23] MEDS: Bupivacaine Mpf 0.5% 30 ML VIAL (17:47)
--- NOTE | 2022-11-23 17:47 | OP.PCM_ITS ---
Report of Operation Date of Procedure: 11/23/22 Pre-Operative Diagnosis: Gallstone ileus Post-Operative Diagnosis: Same Surgery/Procedure Performed:: Laparotomy, removal of gallstone from small bowel Surgeon: Alma Camacho stove refinisher: Angela Enriquez Type of Anesthesia: General/Supplemental Anesthesiologist: Alma Camacho Special Medications: Zosyn 3.375 g IV x1 Specimen's removed: gallstone Drains: none Estimated Blood Loss (mL): 10 cc Description of Procedure: Patient presents operating room placed spine on operating table. Timeout was completed verifying correct patient, procedure, site, positioning, special equipment and procedure. General anesthesia was induced. Midline laparotomy incision was made with a 15 blade scalpel this was deepened to the fascia with electrocautery. Entry into the abdomen after elevating the fascia with hemostats. No injury was noted upon entry to the abdomen. Wound protector was placed. The gallstone and obstructive transition site of the small bowel was brought into the wound. Small bowel was run proximally to the ligament of Treitz. All small bowel appeared viable. The gallstone was milked proximally and a longitudinal enterotomy was made with Metzenbaums small bowel to allow removal of the gallstone. Incision was closed transversely 2 layers?running 3-0 Vicryl then [place]bert 3-0 silk. Small bowel contents were milked distally no leakage from small bowel enterotomy repair site. Fluid was suctioned. Incision was closed with 1 PDS running sutures. A few interrupted subdermal 3-0 Vicryl sutures were placed. Skin was closed with skin candelaria. Incision was dressed with Telfa and OpSite. Patient was extubated. Patient tolerated procedure well was taken the postanesthesia care unit in stable condition. Complications none
[2022-11-23] MEDS: 0.9% Normal Saline 1,000 ML 120 ML IV (19:09)
[2022-11-23] MEDS: Sertraline 50 MG Tablet 25 MG PO (21:55)
--- NOTE | 2022-11-24 | CALC_PTH ---
PATIENT: SUSANNA LEIJA LOC: MS3 U#:[id number] AGE/SX: 62/F ROOM: [facility] RE11/23/[address]: Dr. Alma Camacho MD : 1960 BED: 1 DIS: 11/27/2022 SPEC #: [id number] RECD: 11/24/22 11:52 STATUS: ROBERT RERyan #: [id number] NILS: 11/24/22 00:[address]: Alma Camacho DEPT: SURGICAL PATHOLOGY RECD BY: Blake Mortensen ENTERED: 11/24/22 11:53 SP TYPE: Calculi OTHR DR: Dr. Helen Rouse MD Tissues: CALCULI Procedures: Surgery Specimen Level I HEADER OPERATION: Exploratory laparotomy, removal of gallstone PRE-OP DIAGNOSIS: Gallstone ileus of small intestine TISSUE SUBMITTED: Gallstone GROSS DIAGNOSIS A stone, clinically gallstone (gross only). EDISON:geoffrey 11/25/2022 MICROSCOPIC DESCRIPTION Slides are reviewed. GROSS DESCRIPTION Received is one container labeled with the patient's name and designated gallstone. The specimen consists of a ovoid rough surfaced greenish-brown stone measuring 3.5 x 2.5 x 2.0 cm. The specimen is for gross identification only. / EDISNO:geoffrey 11/24/2022 CPT: 32550
[2022-11-24] MEDS: Acetaminophen 325 MG Tablet 650 MG PO (01:38)
[2022-11-24 02:33] VITALS: BP 113/67; PULSE 103; RESP 16; TEMP 37.2; O2SAT 94
[2022-11-24] MEDS: 0.9% Normal Saline 1,000 ML 120 ML IV ×3 (03:20→21:24)
[2022-11-24 06:13] LABS: Absolute Lymphocyte Count 0.93 X10^3/uL (0.83-4.51); Basophil# 0.02 X10^3/uL; Basophil% 0.4 % (0-1); Eosinophil# 0.01 X10^3/uL; Eosinophils% 0.2 % (0-5); Hematocrit 31.9 % (37-47); Hemoglobin 10.4 g/dL (12.0-15.0); Lymphocyte # 0.93 X10^3/ul (0.83-4.51); Lymphocyte % 16.8 % (19-41); Mean Corp Hgb Conc 32.6 g/dL (32-36); Mean Corpuscular Hgb 28.7 pg (27.0-32.0); Mean Corpuscular Volume 88.1 fL (81-99); Mean Platelet Vol. 11.5 fl (6.2-12.0); Monocyte# 0.58 X10^3/uL; Monocyte% 10.5 % (0-10); NRBC Flagged by Analyzer 0 % (0-5); Neutrophil # 3.98 X10^3/uL (2.7-7.7); Neutrophil % 71.7 % (47-70); Platelet Count 201 K/mm3 (150-450); RBC Distribution Width CV 13.2 % (11.6-14.6); RBC Distribution Width SD 42.7 fl (35.1-43.9); Red Blood Count 3.62 M/mm3 (4.2-5.4); White Blood Count 5.5 K/mm3 (4.4-11.0)
[2022-11-24] MEDS: methIMAzole 10 MG TABLET 5 MG PO ×3 (06:22→22:12)
[2022-11-24 06:33] VITALS: BP 99/58; PULSE 88; RESP 16; TEMP 36.9; O2SAT 94
[2022-11-24 07:00] VITALS: BP 122/62; PULSE 84; RESP 16; TEMP 36.6; O2SAT 97
--- NOTE | 2022-11-24 07:21 | PN.SURG_ITS ---
Subjective Subjective Patient denies any nausea or vomiting overnight states Tylenol controls pain. Patient states she has had minimal flatus. Objective Data Objective Data Vital Signs: Vital Signs Temp Pulse Resp BP Pulse Ox O2 Del Method O2 Flow Rate 98 F 84 16 122/62 H 97 Room Air 4 11/24/22 07:00 11/24/22 07:00 11/24/22 07:00 11/24/22 07:00 11/24/22 07:00 11/24/22 07:00 11/23/22 18:00 Oxygen Flow Rate (L/min) 4 Oxygen Delivery Method Room Air Weight: 231 lb 7.766 oz Body Mass Index (BMI) 41.0 Intake & Output: Intake and Output for Last 24 Hours 11/22/22 11/23/22 11/24/22 23:59 23:59 23:59 Intake Total 1192.25 / 1192.25 1032 / 1032 Output Total 775 / 775 Balance 1192.25 / 792.25 257 / 257 Lab / Micro Data 11/24/22 05:18 11/24/22 05:18 Labs: Laboratory Results - last 24 hr 11/23/22 13:27: WBC 7.9, RBC 4.46, Hgb 12.7, Hct 38.9, MCV 87.2, MCH 28.5, MCHC 32.6, RDW Std Deviation 41.4, RDW Coeff of Peace 13.2, Plt Count 262, MPV 11.6, Immature Gran % (Auto) 0.300, Neut % (Auto) 80.6 H, Lymph % (Auto) 8.7 L, [place] % (Auto) 10.0, Eos % (Auto) 0.0, Baso % (Auto) 0.4, Absolute Neuts (auto) 6.4, Absolute Lymphs (auto) 0.69 L, Nucleated RBC % 0, Sodium 138, Potassium 3.3 L, Chloride 106, Carbon Dioxide 23.0, Anion Gap 9, BUN 17, Creatinine 1.02, Estim Creat Clear Calc 46.70, Est GFR (MDRD) Af Amer 70, Est GFR (MDRD) Non-Af 58 L, BUN/Creatinine Ratio 16.7, Glucose 144 H, Calcium 9.2, Total Bilirubin 0.80, Direct Bilirubin 0.25, AST 12 L, ALT 13, Alkaline Phosphatase 67, Total Protein 8.0, Albumin 3.3, Globulin 4.7 H 11/23/22 16:10: Urine Color Yellow, Urine Clarity Clear, Urine pH 6.5, Ur Specific [place] 1.010, Urine Protein 30 H, Urine Glucose (UA) Normal, Urine Ketones 5 H, Urine Occult Blood 25 H, Urine Nitrite Negative, Urine Bilirubin Negative, Urine Urobilinogen Normal, Ur Leukocyte Esterase 25 H, Urine RBC 0-5 SEEN, Urine WBC 0-5 SEEN, Ur Squamous Epith Cells 0-5 SEEN, Urine Bacteria RARE, Urine Mucus 0 SEEN 11/24/22 05:18: WBC 5.5, RBC 3.62 L, Hgb 10.4 L, Hct 31.9 L, MCV 88.1, MCH 28.7, MCHC 32.6, RDW Std Deviation 42.7, RDW Coeff of Peace 13.2, Plt Count 201, MPV 11.5, Immature Gran % (Auto) 0.400, Neut % (Auto) 71.7 H, Lymph % (Auto) 16.8 L, [place] % (Auto) 10.5 H, Eos % (Auto) 0.2, Baso % (Auto) 0.4, Absolute Neuts (auto) 4.0, Absolute Lymphs (auto) 0.93, Nucleated RBC % 0 Radiography Diagnostic Testing: Radiology Impression Abdomen/Pelvis CT 11/23/22 14:10 IMPRESSION: 1. Small bowel obstruction due to large stone in mid ileal loop concerning for gallstone ileus. 2. Pneumobilia. 3. Contracted gallbladder with possible air extending from the gallbladder fossa to the duodenum. Fistula cannot be excluded. Electronically Signed: Brett Guerrero MD at 16:19 EDT , KUB X-Ray 11/23/22 15:39 IMPRESSION: Enteric tube loops over the distal esophagus. Electronically Signed: Ricky Roblero MD at 16:31 EDT , KUB X-Ray 11/23/22 16:02 IMPRESSION: NG tube terminates over the gastric fundus with sidehole below the diaphragm. Partially visualized bowel gas pattern is nonobstructive. Electronically Signed: Ricky Roblero MD at 16:30 EDT , Physical Exam Resp normal respiratory effort Cardio regular rate GI GI Narrative: Abdomen: Soft, nondistended, tender near incision's dressed clean dry and intact, no peritoneal signs Assessment & Plan Assessment/Plan (1) Gallstone ileus of small intestine: (2) Hyperthyroidism: (3) Hypertension: (4) Morbid obesity: PLAN: Plan Okay for patient to have sips if patient does have increased flatus will advance to clears. Hypertension continue home meds, Graves' disease continue home meds Continue ambulating out of bed to chair. Continue IV Zosyn due to inflammation in the right upper quadrant with the fistula tract. Alma Camacho M.D. Pager: [phone] [facility] [address] [place] [address], [facility], [address] [place] [address] Office: [phone]
[2022-11-24 07:28] LABS: Anion Gap 4 (5-15); BUN 12 mg/dL (7-18); BUN/Creat Ratio 15.6 RATIO (10-20); Calcium,Total 7.6 mg/dL (8.5-10.1); Chloride 113 mmol/L (98-107); Creatinine, Serum 0.77 mg/dL (0.55-1.02); EST Glomerular Filtration Rate 80 mL/min (>60); Est Glom Filt Rate - Afr Amer 97 mL/min (>60); Estimated Creatinine Clearance 61.86 ml/min; Glucose 114 mg/dL (74-106); Potassium 3.1 mmol/L (3.5-5.1); Sodium Level 142 mmol/L (136-145)
[2022-11-24] MEDS: Atenolol 25 MG Tablet PO (09:24)
[2022-11-24 10:00] VITALS: BP 128/64; PULSE 81; RESP 16; TEMP 36.7; O2SAT 96
[2022-11-24] MEDS: Potassium Chloride Oral Tablet 20 MEQ 40 MEQ PO (13:12)
--- NOTE | 2022-11-24 13:35 | CASEMGMT ---
JIMMY RIGGS Assessment: Face to Face with pt for initial transition planning/care coordination assessment. RN KEELY introduced self and role at [facility], pt voices understanding and consents to assessment. Pt is A/O x4 and answers all questions appropriately at this time. Pt sitting up in bed in no distress with sister at bedside. Pt agreeable to assessment with sister present. Care providers, pharmacy, and demographics verified/updated. Admitting Dx: nausea, vomiting PCP:Padma Specialists: sen Jacobs Pharmacy: [facility] Insurance: [facility] Prescription Benefit: yes LNOK: Fer Vu, ; Kalyn Perez, dtr Living Arrangements: Pt lives with and dtr in a single story home with no steps to enter. Pt reports she is I in ADL's and denies concerns at home. Transportation: Pt drives self and denies concerns with transportation. DME/HHC/SNF: Pt denies having any DME in the home, previous HHC or SNF stays. Pt states no concerns with going home at time of dc. Pt states no further concerns/needs. CM to follow. Advised pt to ask CM if any further question/concerns/needs arise, voices understanding. Pt Goal: Home Plan: Home
[2022-11-24 16:00] VITALS: BP 130/68; PULSE 80; RESP 18; TEMP 36.8; O2SAT 97
[2022-11-24 22:00] VITALS: BP 130/76; PULSE 86; RESP 16; TEMP 36.9; O2SAT 96
[2022-11-24] MEDS: Sertraline 50 MG Tablet 25 MG PO (22:12)
[2022-11-25 04:00] VITALS: BP 145/66; PULSE 88; RESP 16; TEMP 36.9; O2SAT 94
[2022-11-25] MEDS: 0.9% Normal Saline 1,000 ML 120 ML IV (05:25)
[2022-11-25] MEDS: methIMAzole 10 MG TABLET 5 MG PO ×3 (05:26→21:32)
[2022-11-25 06:03] LABS: Absolute Lymphocyte Count 0.74 X10^3/uL (0.83-4.51); Absolute Neutrophil Count 4.5 X10^3/uL (2.0-7.7); Basophil# 0.03 X10^3/uL; Basophil% 0.5 % (0-1); Eosinophil# 0.02 X10^3/uL; Eosinophils% 0.3 % (0-5); Hematocrit 30.8 % (37-47); Hemoglobin 9.6 g/dL (12.0-15.0); Lymphocyte # 0.74 X10^3/ul (0.83-4.51); Lymphocyte % 12.6 % (19-41); Mean Corp Hgb Conc 31.2 g/dL (32-36); Mean Corpuscular Hgb 28.2 pg (27.0-32.0); Mean Corpuscular Volume 90.3 fL (81-99); Mean Platelet Vol. 11.6 fl (6.2-12.0); Monocyte# 0.54 X10^3/uL; Monocyte% 9.2 % (0-10); NRBC Flagged by Analyzer 0 % (0-5); Neutrophil # 4.51 X10^3/uL (2.7-7.7); Neutrophil % 76.9 % (47-70); Platelet Count 178 K/mm3 (150-450); RBC Distribution Width SD 42.6 fl (35.1-43.9); Red Blood Count 3.41 M/mm3 (4.2-5.4); White Blood Count 5.9 K/mm3 (4.4-11.0)
[2022-11-25 06:34] LABS: Anion Gap 6 (5-15); BUN 7 mg/dL (7-18); BUN/Creat Ratio 9.3 RATIO (10-20); Calcium,Total 7.8 mg/dL (8.5-10.1); Chloride 112 mmol/L (98-107); Creatinine, Serum 0.75 mg/dL (0.55-1.02); EST Glomerular Filtration Rate 83 mL/min (>60); Est Glom Filt Rate - Afr Amer 100 mL/min (>60); Estimated Creatinine Clearance 63.51 ml/min; Glucose 101 mg/dL (74-106); Magnesium 1.7 mg/dL (1.6-2.6); Potassium 3.1 mmol/L (3.5-5.1); Sodium Level 141 mmol/L (136-145)
--- NOTE | 2022-11-25 08:23 | PCM.PN.SRG ---
Subjective Subjective Patient denies any nausea or vomiting or pain. Patient has been ambulating up in the chair. Patient only has minimal flatus. Patient has not been tolerating sips. Objective Data Objective Data Vital Signs: Vital Signs Temp Pulse Resp BP Pulse Ox O2 Del Method O2 Flow Rate 98.4 F 88 16 145/66 H 94 Room Air 4 11/25/22 04:00 11/25/22 04:00 11/25/22 04:00 11/25/22 04:00 11/25/22 04:00 11/25/22 04:00 11/23/22 18:00 Oxygen Flow Rate (L/min) 4 Oxygen Delivery Method Room Air Weight: 231 lb 7.766 oz Body Mass Index (BMI) 41.0 Intake & Output: Intake and Output for Last 24 Hours 11/23/22 11/24/22 11/25/22 23:59 23:59 23:59 Intake Total 1192.25 / 1192.25 3242 / 3242 1012 / 1012 Output Total 775 / 775 Balance 1192.25 / 792.25 2467 / 2467 1012 / 1012 Lab / Micro Data 11/25/22 05:17 11/25/22 05:17 Labs: Laboratory Results - last 24 hr 11/25/22 05:17: WBC 5.9, RBC 3.41 L, Hgb 9.6 L, Hct 30.8 L, MCV 90.3, MCH 28.2, MCHC 31.2 L, RDW Std Deviation 42.6, RDW Coeff of Peace 13.0, Plt Count 178, MPV 11.6, Immature Gran % (Auto) 0.500, Neut % (Auto) 76.9 H, Lymph % (Auto) 12.6 L, [place] % (Auto) 9.2, Eos % (Auto) 0.3, Baso % (Auto) 0.5, Absolute Neuts (auto) 4.5, Absolute Lymphs (auto) 0.74 L, Nucleated RBC % 0, Sodium 141, Potassium 3.1 L, Chloride 112 H, Carbon Dioxide 23.0, Anion Gap 6, BUN 7, Creatinine 0.75, Estim Creat Clear Calc 63.51, Est GFR (MDRD) Af Amer 100, Est GFR (MDRD) Non-Af 83, BUN/Creatinine Ratio 9.3 L, Glucose 101, Calcium 7.8 L, Magnesium 1.7 Physical Exam Resp normal respiratory effort Cardio regular rate GI GI Narrative: Abdomen: Soft, nondistended, tender near incision's dressed clean dry and intact, no peritoneal signs Assessment & Plan Assessment/Plan (1) Gallstone ileus of small intestine: (2) Hyperthyroidism: (3) Hypertension: (4) Morbid obesity: (5) Hypokalemia: PLAN: Plan Continue sips of clears patient has increased flatus. Hypertension continue home meds, Graves' disease continue home meds Continue ambulating/out of bed to chair. Continue IV Zosyn due to inflammation in the right upper quadrant with the fistula tract. Hypokalemia?replace Alma Camacho M.D. Pager: [phone] [facility] [address] [place] [address], [address] [place] [address] Office: [phone]
[2022-11-25] MEDS: Potassium Chloride Oral Tablet 20 MEQ 60 MEQ PO (09:23)
[2022-11-25] MEDS: Atenolol 25 MG Tablet PO (09:24)
[2022-11-25 09:33] VITALS: O2SAT 93
[2022-11-25 09:59] VITALS: BP 121/64; PULSE 85; RESP 14; TEMP 37; O2SAT 95
[2022-11-25 11:00] VITALS: BP 120/61; PULSE 75; RESP 18; TEMP 36.4; O2SAT 97
[2022-11-25 16:42] VITALS: BP 131/63; PULSE 73; RESP 16; TEMP 36.6; O2SAT 97
[2022-11-25 21:27] VITALS: BP 137/72; PULSE 75; RESP 18; TEMP 36.7; O2SAT 96
[2022-11-25] MEDS: Sertraline 50 MG Tablet 25 MG PO (21:31)
[2022-11-26 00:21] VITALS: BP 132/72; PULSE 78; RESP 18; TEMP 37.2; O2SAT 95
[2022-11-26 03:46] VITALS: BP 140/76; PULSE 72; RESP 20; TEMP 36.8; O2SAT 96
[2022-11-26] MEDS: methIMAzole 10 MG TABLET 5 MG PO ×3 (05:34→20:52)
[2022-11-26 08:14] VITALS: BP 143/69; PULSE 67; RESP 16; TEMP 36.6; O2SAT 96
[2022-11-26 09:34] LABS: Anion Gap 5 (5-15); BUN 4 mg/dL (7-18); BUN/Creat Ratio 6.2 RATIO (10-20); Calcium,Total 8.1 mg/dL (8.5-10.1); Chloride 110 mmol/L (98-107); Creatinine, Serum 0.64 mg/dL (0.55-1.02); EST Glomerular Filtration Rate 99 mL/min (>60); Est Glom Filt Rate - Afr Amer 120 mL/min (>60); Estimated Creatinine Clearance 74.43 ml/min; Glucose 95 mg/dL (74-106); Magnesium 1.8 mg/dL (1.6-2.6); Potassium 3.2 mmol/L (3.5-5.1); Sodium Level 141 mmol/L (136-145)
[2022-11-26] MEDS: Atenolol 25 MG Tablet PO (09:42)
--- NOTE | 2022-11-26 11:16 | PN.SURG_ITS ---
Subjective Subjective Patient is having more flatus denies any nausea or vomiting, tolerating clears Objective Data Objective Data Vital Signs: Vital Signs Temp Pulse Resp BP Pulse Ox O2 Del Method O2 Flow Rate 97.9 F 67 16 143/69 H 96 Room Air 4 11/26/22 08:14 11/26/22 08:14 11/26/22 08:14 11/26/22 08:14 11/26/22 08:14 11/26/22 08:21 11/23/22 18:00 Oxygen Flow Rate (L/min) 4 Oxygen Delivery Method Room Air Weight: 231 lb 7.766 oz Body Mass Index (BMI) 41.0 Intake & Output: Intake and Output for Last 24 Hours 11/24/22 11/25/22 11/26/22 23:59 23:59 23:59 Intake Total 3242 / 3242 2934 / 3134 805.75 / 805.75 Output Total 775 / 775 300 / 300 Balance 2467 / 2467 2934 / 3034 505.75 / 505.75 Lab / Micro Data 11/25/22 05:17 11/26/22 08:30 Labs: Laboratory Results - last 24 hr 11/26/22 08:30: Sodium 141, Potassium 3.2 L, Chloride 110 H, Carbon Dioxide 26.0, Anion Gap 5, BUN 4 L, Creatinine 0.64, Estim Creat Clear Calc 74.43, Est GFR (MDRD) Af Amer 120, Est GFR (MDRD) Non-Af 99, BUN/Creatinine Ratio 6.2 L, Glucose 95, Calcium 8.1 L, Magnesium 1.8 Physical Exam Resp normal respiratory effort Cardio regular rate GI GI Narrative: Abdomen: Soft, nondistended, tender near incision's dressed clean dry and intact, no peritoneal signs Assessment & Plan Assessment/Plan (1) Gallstone ileus of small intestine: (2) Hyperthyroidism: (3) Hypertension: (4) Morbid obesity: (5) Hypokalemia: PLAN: Plan Tolerating clears did have more flatus will advance to transitional diet Hypertension continue home meds, Graves' disease continue home meds Continue ambulating/out of bed to chair. We will DC Zosyn after this bag this morning. Hypokalemia?replace Alma Camacho M.D. Pager: [phone] [facility] [address] [place] [address], [facility], [address] [place] [address] Office: [phone]
[2022-11-26] MEDS: Potassium Chloride Oral Tablet 20 MEQ 60 MEQ PO (11:36)
[2022-11-26 14:47] VITALS: BP 118/65; PULSE 76; RESP 16; TEMP 36.7; O2SAT 98
--- NOTE | 2022-11-26 16:48 | PCM.DC.SUM ---
Providers Date of Admission: 11/23/22 Primary Care Physician: Dr. Helen Rouse MD Reason For Visit: GALLSTONE ILEUS Diagnosis Discharge Diagnosis (1) Gallstone ileus of small intestine: Status: Resolved Code(s): K56.3 - Gallstone ileus (2) Hyperthyroidism: Status: Acute Code(s): E05.90 - Thyrotoxicosis, unspecified without thyrotoxic crisis or storm (3) Hypertension: Status: Chronic Code(s): I10 - Essential (primary) hypertension (4) Morbid obesity: Status: Acute Code(s): E66.01 - Morbid (severe) obesity due to excess calories (5) Hypokalemia: Status: Acute Code(s): E87.6 - Hypokalemia Plan Tolerating clears did have more flatus will advance to transitional diet Hypertension continue home meds, Graves' disease continue home meds Continue ambulating/out of bed to chair. We will DC Zosyn after this bag this morning. Hypokalemia?replace Alma Camacho M.D. Pager: [phone] [facility] [address] [place] [address], [facility], [address] [place] [address] Office: [phone] Medications at Discharge Home Medications lorazepam 0.5 mg tablet 0.5 mg PO QHS PRN Anxiety 03/19/17 atenolol 25 mg tablet 25 mg PO DAILY blood pressure 04/21/18 ibuprofen 800 mg tablet 800 mg PO TID PRN pain 11/23/22 methimazole 5 mg tablet 10 mg PO BID thyroid 11/23/22 sertraline 50 mg tablet 50 mg PO BID depression 11/23/22 tramadol 50 mg tablet 50 mg PO Q6H PRN pain 3 days #3 tabs 11/26/22 Hospital Course Operations - (Laparotomy-removal of gallstone from small bowel and repair of enterotomy 10/2022) Procedures None Summary of Care Provided Minutes Spent on Discharge: 15 Hospital Course: Patient initially came in CT abdomen pelvis showed gallstone ileus in patient's mid small bowel. patient was taken to surgery for laparotomy removal of gallstone and repair of enterotomy. Postoperatively patient is doing well denies any nausea or vomiting having minimal flatus which did increase over couple days. Patient was tolerating clear liquids and then advance to transitional and again tolerated was able to have a bowel movement and DC'd. During this time patient was kept on her home medications for hypertension and Graves' disease and depression. Physical Exam Resp normal respiratory effort Cardio regular rate GI GI Narrative: Abdomen: Soft, nondistended, tender near incision's dressed clean dry and intact-?with candelaria, no peritoneal signs Weight / BMI Weight Weight: 231 lb 7.766 oz Body Mass Index (BMI) 41.0 ABG / Lab / Microbiology Data 11/25/22 05:17 11/26/22 08:30 Laboratory: Laboratory Results - last 24 hr 11/26/22 08:30: Sodium 141, Potassium 3.2 L, Chloride 110 H, Carbon Dioxide 26.0, Anion Gap 5, BUN 4 L, Creatinine 0.64, Estim Creat Clear Calc 74.43, Est GFR (MDRD) Af Amer 120, Est GFR (MDRD) Non-Af 99, BUN/Creatinine Ratio 6.2 L, Glucose 95, Calcium 8.1 L, Magnesium 1.8 D/C Instructions Discharge Diet: - (Transitional diet/low fiber) Discharge Activity: May Not Drive (while taking narcotic pain medications.) May shower in (days): 1 Lifting Restrictions: no lifting >20 lbs x 2 wks, no strenuous exercise for 4 wks Call your doctor if your incision/area has: Continuous Slow Oozing, Sudden Increased Bleeding, Increased Pain/ Swelling, Increased Redness, Foul Smelling Discharge and Swelling at the incision site Call your doctor if you observe: Fever of 101 or Higher Cleanse incision/area with: Soap & Water Please Follow Up With: Alma Camacho MD When: Call the office for a follow-up appointment 10 to 12 days from surgery for staple removal; after 5:00 PM and on the weekends call [phone] with any concerns Meaningful Use Info Meaningful Use Diagnoses (Choose all that apply): None applicable Discharge Plan Admission Admit Date/Time: 11/23/22 16:08 Attending Provider: Alma Camacho Primary Care Provider: Helen Rouse Discharge Orders/Prescriptions Prescriptions: New tramadol 50 mg tablet 50 mg PO Q6H PRN (Reason: pain) 3 Days Qty: 3 0RF Continued lorazepam 0.5 MG tablet 0.5 mg PO QHS PRN (Reason: Anxiety) atenolol 25 tablet 25 mg PO DAILY ibuprofen 800 mg tablet 800 mg PO TID PRN (Reason: pain) methimazole 5 mg tablet 10 mg PO BID sertraline 50 mg tablet 50 mg PO BID Referrals / Follow Up: Helen Rouse MD [Primary Care Provider] -
[2022-11-26 20:47] VITALS: BP 151/79; PULSE 70; RESP 18; TEMP 36.9; O2SAT 98
[2022-11-26] MEDS: Sertraline 50 MG Tablet PO (20:52)
[2022-11-26] MEDS: 0.9% Saline Lock 10 ML Syringe IV (20:53)
[2022-11-26 23:52] VITALS: BP 145/69; PULSE 66; RESP 18; TEMP 36.7; O2SAT 96
[2022-11-27 05:54] VITALS: BP 136/79; PULSE 66; RESP 18; TEMP 36.5; O2SAT 95
[2022-11-27] MEDS: methIMAzole 10 MG TABLET 5 MG PO ×2 (06:12→13:16)
[2022-11-27 07:34] LABS: Anion Gap 5 (5-15); BUN 2 mg/dL (7-18); BUN/Creat Ratio 3.8 RATIO (10-20); Calcium,Total 8.5 mg/dL (8.5-10.1); Chloride 110 mmol/L (98-107); Creatinine, Serum 0.52 mg/dL (0.55-1.02); EST Glomerular Filtration Rate 126 mL/min (>60); Est Glom Filt Rate - Afr Amer 152 mL/min (>60); Glucose 98 mg/dL (74-106); Magnesium 1.7 mg/dL (1.6-2.6); Sodium Level 141 mmol/L (136-145)
[2022-11-27] MEDS: Atenolol 25 MG Tablet PO (07:52)
[2022-11-27] MEDS: Sertraline 50 MG Tablet PO (07:52)
--- NOTE | 2022-11-27 08:01 | PCM.PN.SRG ---
Subjective Subjective Patient tolerated transitional diet, had bowel movement last night. Objective Data Objective Data Vital Signs: Vital Signs Temp Pulse Resp BP Pulse Ox O2 Del Method O2 Flow Rate 97.7 F L 66 18 136/79 H 95 Room Air 4 11/27/22 05:54 11/27/22 05:54 11/27/22 05:54 11/27/22 05:54 11/27/22 05:54 11/27/22 05:54 11/23/22 18:00 Oxygen Flow Rate (L/min) 4 Oxygen Delivery Method Room Air Weight: 231 lb 7.766 oz Body Mass Index (BMI) 41.0 Intake & Output: Intake and Output for Last 24 Hours 11/25/22 11/26/22 11/27/22 23:59 23:59 23:59 Intake Total 2934 / 3134 805.75 / 805.75 Output Total 300 / 300 Balance 2934 / 3034 505.75 / 505.75 Lab / Micro Data 11/25/22 05:17 11/27/22 06:27 Labs: Laboratory Results - last 24 hr 11/26/22 08:30: Sodium 141, Potassium 3.2 L, Chloride 110 H, Carbon Dioxide 26.0, Anion Gap 5, BUN 4 L, Creatinine 0.64, Estim Creat Clear Calc 74.43, Est GFR (MDRD) Af Amer 120, Est GFR (MDRD) Non-Af 99, BUN/Creatinine Ratio 6.2 L, Glucose 95, Calcium 8.1 L, Magnesium 1.8 11/27/22 06:27: Sodium 141, Potassium 3.0 L, Chloride 110 H, Carbon Dioxide 26.0, Anion Gap 5, BUN 2 L, Creatinine 0.52 L, Estim Creat Clear Calc 91.60, Est GFR (MDRD) Af Amer 152, Est GFR (MDRD) Non-Af 126, BUN/Creatinine Ratio 3.8 L, Glucose 98, Calcium 8.5, Magnesium 1.7 Physical Exam Resp normal respiratory effort Cardio regular rate GI GI Narrative: Abdomen: Soft, nondistended, tender near incision's dressed clean dry and intact-?with candelaria, no peritoneal signs Assessment & Plan Assessment/Plan (1) Gallstone ileus of small intestine: (2) Hyperthyroidism: (3) Hypertension: (4) Morbid obesity: (5) Hypokalemia: PLAN: Plan Tolerated transitional diet, had bowel movement. May DC today. Hypertension continue home meds, Graves' disease continue home meds Continue ambulating/out of bed to chair. Hypokalemia?replace 60 now and 40 at 1 PM with plan to give patient KCl to go home with. Also encourage high potassium foods and have a recheck of her potassium in a couple days. Alma Camacho M.D. Pager: [phone] [facility] [address] [place] [address], [address] [place] [address] Office: [phone]
[2022-11-27 09:05] VITALS: BP 152/88; PULSE 68; RESP 16; TEMP 36.7; O2SAT 95
[2022-11-27] MEDS: Potassium Chloride Oral Tablet 20 MEQ 60 MEQ PO (09:21)
[2022-11-27 11:34] VITALS: BP 135/77; PULSE 65; RESP 16; TEMP 36.6; O2SAT 97
[2022-11-27] MEDS: Potassium Chloride Oral Tablet 20 MEQ 40 MEQ PO (13:15)
== END 2022-11-27 13:38 | disposition home or self-care (01) | DRG 223 ==
LOC: ED 15:46 → SDC 15:50 → MS3 11-24 08:39
PROVIDERS: Admitting Provider Surgery; Emergency Provider Emergency Medicine; PCP Internal Medicine; Visit Provider Surgery
PROC: 0DC80ZZ Extirpation of Matter from Small Intestine, Open Approach (ICD-10-PCS; CPT 49000; principal; 2022-11-23 16:30)
DX: K56.3 Gallstone ileus (principal); K82.3 Fistula of gallbladder; E66.01 Morbid (severe) obesity due to excess calories; Z68.41 Body mass index [BMI] 40.0-44.9, adult; K80.21 Calculus of gallbladder without cholecystitis with obstruction; E05.00 Thyrotoxicosis with diffuse goiter without thyrotoxic crisis or storm; I10 Essential (primary) hypertension; E87.6 Hypokalemia; Z79.899 Other long term (current) drug therapy
CPT/HCPCS: 36415; 74018; 74177; 80048; 80076; 81001; 83735; 85025; 88300; 88304; 94668; 99252; 99285; J7030; J7120; Q9967; A4216; G0463; J2405

== ENCOUNTER 2025-02-01 22:51 | Emergency (ER) | payer MEDICARE, MEDICAID, SELFPAY ==
[2025-02-01 22:53] VITALS: BP 168/76; PULSE 77; RESP 18; TEMP 36.9; O2SAT 95; BMI 39.9
[2025-02-01 22:56] VITALS: O2SAT 96
[2025-02-01] MEDS: Lidocaine/Epi/Tetracaine 50 ML 1 APPLIC TOPICAL (23:30)
--- OUTSIDE RECORDS SUMMARY | 2025-02-01 23:53 | XMS RPT_ITS | CCD ---
Author Organization [facility] CliniSyms Care Team Providers Care Lifestyle Block Farmer Name Role Phone Padma POTTER, Eduardo Primary Care Provider Dr. Eduardo Sheffield Primary Care Provider Dr. Sean Sanders Emergency Provider Dr. Alma Camacho Attending Provider Dr. Alma Camacho Other Provider Dr. Alma Camacho Admit Provider Padma POTTER, Eduardo Primary Care Provider RobotDanyel kimera Attending Unavailable Ganta, Eduardo Primary Care Unavailable Robotham, Alma Consulting Unavailable Ganta, Eduardo Primary Care Unavailable Robotham, Alma Admitting Unavailable Robotham, Alma Consulting Unavailable Robotham, Alma Attending Unavailable Robotham, Alma Attending Unavailable Ganta, Eduardo Primary Care Unavailable Robotham, Alma Admitting Unavailable Robotham, Alma Referring Unavailable Robotham, Alma Attending Unavailable Ganta, Eduardo Primary Care Unavailable Eduardo Sheffield MD Primary Care Provider Margaret Page PA-C Unavailable [phone] Older FIELD AUTO APPRAISER.ORE WASHER, Kerline Unavailable Jocelin Swenson PA-C Unavailable Margaret Page PA-C Unavailable Jocelin Swenson PA-C Unavailable TRUDY STEWRAT Attending Unavailable GANTA, EDUARDO Primary Care Unavailable HASAN, SASKIA Referring Unavailable GANTA, EDUARDO Primary Care Unavailable HASAN, SASKIA Attending Unavailable GANTA, EDUARDO Primary Care Unavailable GANTA, EDUARDO Referring Unavailable GANTA, EDUARDO Primary Care Unavailable EDUARDO SHEFFIELD Attending Unavailable EDUARDO SHEFFIELD Primary Care Unavailable ROSSI BUTCHER Attending Unavailable EDUARDO SHEFFIELD Referring Unavailable EDUARDO SHEFFIELD Primary Care Unavailable Allergies Allergy Classification Reported Allergen(s) Allergy Type Date of Onset Reaction(s) Facility (20 sources) Azithromycin; Translations: [AZITHROMYCIN] Drug Allergy 03-03-2006 Itching [facility] Work Phone: (1 source) Azithromycin Drug Allergy 12-02-2022 [facility] Medications Current Medications Medication Drug Class(es) Dates Sig (Normalized) Sig (Original) atenolol 25 mg oral tablet (20 sources) beta-Adrenergic Maria Fernanda Start: 06-12-2024 take 0.5 tablet by mouth once daily atenolol (TENORMIN) 25 mg tablet Indications: Hyperthyroidism Take 0.5 tablets by mouth once daily. 90 tablet 3 06/12/2024 Active Start: 04-21-2018 End: 06-12-2024 take 1 tablet by mouth once daily atenolol (TENORMIN) 25 mg tablet Indications: Hyperthyroidism Take 1 tablet by mouth once daily. 90 tablet 3 06/12/2024 06/12/2024 Discontinued (Adjust Sig - Block E-Cancel) Comment on above: Take 1 tablet by roshni once daily. fluticasone propionate 0.05 mg/actuat metered dose nasal spray (20 sources) Corticosteroid Start: 4 take 2 spray(s) by mouth once daily fluticasone (FLONASE) 50 mcg/actuation nasal spray Indications: Suspected COVID-19 virus infection Use 2 Sprays in each nostril once daily. Rinse mouth after use. 1 Each 1 01/16/2024 Active Start: 01-26-2021 End: 01-14-2024 take 2 spray(s) by mouth once daily fluticasone (FLONASE) 50 mcg/actuation nasal spray Indications: Suspected COVID-19 virus infection Use 2 Sprays in each nostril once daily. Rinse mouth after use. 1 Each 1 04/15/2022 01/14/2024 Discontinued Comment on above: Use 2 Sprays in each nostril once daily. Rinse mouth after use. ibuprofen 800 mg oral tablet (20 sources) Nonsteroidal Anti-inflammatory Drug Start: 5 take 1 tablet by mouth three times daily as needed for pain ibuprofen (MOTRIN) 800 mg tablet Indications: Left knee pain, unspecified chronicity Take 1 tablet by mouth three times a day as needed for pain. Take with food. 90 tablet 08/17/2024 Active Start: 09-07-2022 End: 08-15-2024 take 1 tablet by mouth three times daily as needed for pain ibuprofen (MOTRIN) 800 mg tablet Indications: Left knee pain, unspecified chronicity Take 1 tablet by mouth three times a day as needed for pain. Take with food. 90 tablet 06/15/2024 08/15/2024 Discontinued Start: 01-26-2021 End: 04-15-2022 take 1 tablet by mouth three times daily as needed for pain ibuprofen (MOTRIN) 800 mg tablet Indications: Left knee pain, unspecified chronicity Take 1 tablet by mouth three times daily as needed for pain. Take with food. 90 tablet 0 04/15/2022 Active Comment on above: Take 1 tablet by roshni th three times daily as needed for pain. Take with food. LORazepam 0.5 mg oral tablet (4 sources) Benzodiazepine Start: 3 End: 3 take 1 tablet by mouth at bedtime as needed LORazepam (ATIVAN) 0.5 mg Indications: Insomnia, unspecified type Take 1 tablet by mouth at bedtime as needed for up to 90 days. 30 tablet 0 12/17/2022 03/17/2023 Active Start: 03-19-2017 take 0.5 mg by mouth at bedtim e Lorazepam Active 0.5 MG PO AT BEDTIME March 19, 2017 1:00am Comment on above: Take 1 tablet by roshni th at bedtime as needed for up to 90 days. methIMAzole 5 mg oral tablet (20 sources) Thyroid Hormone Synthesis Inhibitor Start: take 1 tablet by mouth once daily methIMAzole (TAPAZOLE) 5 mg tablet Indications: Hyperthyroidism Take 1/2 tablet by mouth once daily. 45 tablet 1 11/05/2024 Active Start: 10-13-2023 End: 11-05-2024 take 0.5 tablet by mouth once daily methIMAzole (TAPAZOLE) 5 mg tablet Indications: Hyperthyroidism Take 0.5 tablets by mouth once daily. 45 tablet 1 03/15/2024 11/05/2024 Discontinued Start: 12-23-2022 End: 10-13-2023 take 1 tablet by mouth once daily methIMAzole (TAPAZOLE) 5 mg tablet Indications: Hyperthyroidism take 1 tablet by mouth once daily. 90 tablet 1 03/09/2023 10/13/2023 Discontinued Start: 12-10-2022 take 1 tablet by roshni th twice daily methIMAzole (TAPAZOLE) 10 mg tablet Indications: Graves disease Take 1 tablet by mouth twice daily 180 tablet 3 12/10/2022 Active Start: 11-23-2022 take 10 mg by mouth twice daily Methimazole Active 10 MG PO TWICE A DAY November 23, 2022 12:00am Start: 10-26-2021 End: 12-10-2022 take 1 tablet by mouth twice daily methIMAzole (TAPAZOLE) 5 mg tablet Indications: Graves disease Take 1 tablet by mouth twice daily. 180 tablet 2 10/26/2021 12/10/2022 Discontinued Start: 04-21-2018 End: 11-23-2022 methIMAzole (TAPAZOLE) 5 mg tablet Indications: Graves disease TAKE 2 TABLETS TWICE DAILY 360 tablet 3 10/06/2021 10/26/2021 Discontinued Comment on above: Take 2 tablets by mo [facility] twice daily. TAKE 2 TABLETS TWICE DAILY Take 1 tablet by roshni th twice daily. Take 1 tablet by roshni th twice daily take 1 tablet by roshni th once daily. omeprazole 20 mg delayed release oral capsule (20 sources) Proton Pump Inhibitor Start: 06-20-19 End: 10-06-19 take 1 capsule by mouth once daily before breakfast omeprazole (PRILOSEC) 20 mg capsule Indications: gastroesophageal reflux disease , heartburn Take 1 capsule by mouth daily before breakfast. 90 capsule 3 10/11/2023 10/05/2024 Active Start: 03-10-2023 End: 06-08-2023 take 1 capsule by mouth once daily before breakfast omeprazole (PRILOSEC) 20 mg capsule Indications: gastroesophageal reflux disease , heartburn Take 1 capsule by mouth daily before breakfast. 90 capsule 0 03/10/2023 Active Start: 05-29-2022 End: 08-27-2022 take 1 capsule by mouth once daily before breakfast omeprazole (PRILOSEC) 20 mg capsule Indications: gastroesophageal reflux disease , heartburn Take 1 capsule by mouth daily before breakfast. 90 capsule 0 05/29/2022 Active Start: 05-29-2022 End: 04-15-2022 take 1 capsule by mouth once daily before breakfast omeprazole (PRILOSEC) 20 mg capsule Indications: gastroesophageal reflux disease , heartburn Take 1 capsule by mouth daily before breakfast. 30 capsule 2 05/29/2022 04/15/2022 Discontinued Start: 05-29-2022 End: 08-27-2022 take 1 capsule by mouth once daily before breakfast omeprazole (PRILOSEC) 20 mg capsule Indications: gastroesophageal reflux disease , heartburn Take 1 capsule by mouth daily before breakfast. 90 capsule 0 05/29/2022 08/27/2022 Active Start: 01-26-2021 End: 04-15-2022 take 1 capsule by mouth once daily before breakfast omeprazole (PRILOSEC) 20 mg capsule Indications: gastroesophageal reflux disease , heartburn Take 1 capsule by mouth daily before breakfast. 30 capsule 2 02/27/2022 04/15/2022 Discontinued Comment on above: Take 1 capsule by mo [facility] daily before breakfast. polymyxin b [id number] unt/ml / trimethoprim 1 mg/ml ophthalmic solution (1 source) Dihydrofolate Reductase Inhibitor Antibacterial, Polymyxin-class Antibacterial Start: 2 End: 2 take 1 drop(s) into the eye(s) every four hours trimethoprim-polym yxin (POLYTRIM) 10,000 unit- 1 mg/mL ophthalmic solution Use 1 Drop in both eyes every 4 hours for 7 days. 10 mL 0 04/15/2022 04/22/2022 Active Comment on above: Use 1 Drop in both e yes every 4 hours for 7 days. potassium chloride 20 meq extended release oral tablet (1 source) Start: 3 take 20-40 mEq by mouth once daily Potassium Chloride Active 20 - 40 MEQ PO DAILY November 27, 2022 10:23am sertraline 50 mg oral tablet (20 sources) Serotonin Reuptake Inhibitor Start: 4 take 1 tablet by mouth twice daily sertraline (ZOLOFT) 50 mg tablet Take 1 tablet by mouth two times a day. 180 tablet 3 01/16/2024 Active Start: 11-23-2022 End: 11-23-2022 take 50 mg by mouth twice daily Sertraline Discontinue d 50 MG PO TWICE A DAY November 23, 2022 12:00am November 23, 2022 4:32pm Start: 03-01-2022 End: 01-14-2024 take 1 tablet by mouth twice daily sertraline (ZOLOFT) 50 mg tablet Take 1 tablet by mouth two times a day. 180 tablet 3 10/11/2023 01/14/2024 Discontinued Start: 06-04-2021 End: 02-26-2022 take 1 tablet by mouth twice daily sertraline (ZOLOFT) 50 mg tablet Take 1 tablet by mouth twice daily. 60 tablet 5 06/04/2021 02/26/2022 Discontinued Start: 03-19-2017 End: 11-23-2022 take 25 mg by mouth once daily Sertraline Discontinued 25 MG PO DAILY March 19, 2017 1:00am November 23, 2022 4:28pm Comment on above: Take 1 tablet by roshni twice daily. Take 1 tablet by roshni two times a day. traMADol hydrochloride 50 mg oral tablet (1 source) Opioid Agonist Start: 11-26-2022 take 50 mg by mouth every six hours Tramadol Active 50 MG PO EVERY 6 HOURS 3 3 November 26, 2022 12:00am Completed/Discontinued Medications Medication Drug Class(es) Dates Sig (Normalized) Sig (Original) benzonatate 100 mg oral capsule (20 sources) Non-narcotic Antitussive Start: End: 3 take 1-2 capsules by mouth three times daily as needed for cough benzonatate (TESSALON PERLES) 100 mg capsule Indications: Suspected COVID-19 virus infection Take 1-2 capsules by mouth three times daily as needed for cough. 60 capsule 0 04/15/2022 12/17/2022 Discontinued Comment on above: Take 1 capsule by mo [facility] three times daily as needed. Take 1-2 capsules by mouth three times daily as needed for cough. cholecalciferol 1.25 mg oral capsule (1 source) Vitamin D Start: 8 take 1 capsule by mouth every week cholecalciferol, Vitamin D3, (VITAMIN D3) 50,000 unit cap capsule Indications: Vitamin D deficiency Take 1 capsule by mouth once each week. 4 capsule 3 11/23/2017 Active Comment on above: Take 1 capsule by [facility] once each week. hydrOXYzine pamoate 25 mg oral capsule (12 sources) Antihistamine Start: 1 End: 2 take 1 capsule by mouth three times daily as needed hydrOXYzine pamoate (VISTARIL) 25 mg capsule Indications: Panic disorder with agoraphobia , Depression, unspecified depression type Take 1 capsule by mouth three times daily as needed. 30 capsule 2 01/26/2021 04/15/2022 Discontinued Comment on above: Take 1 capsule by [facility] three times daily as needed. methylPREDNISolone (20 sources) Corticosteroid Start: 2 End: 3 methylPREDNISolone (MEDROL DOSE-PACK) 4 mg Dose-Pack Indications: Suspected COVID-19 virus infection Take medications as directed on packaging. Take with food. 21 tablet 0 04/15/2022 12/17/2022 Discontinued Start: 04-15-2022 methylPREDNISo lone (MEDROL DOSE-PACK) 4 mg Dose-Pack Indications: Suspected COVID-19 virus infection Take medications as directed on packaging. Take with food. 21 tablet 0 04/15/2022 Active Start: 01-26-2021 End: 04-15-2022 methylPREDNISolone (MEDROL D OSE-PACK) 4 mg Dose-Pack Indications: Suspected COVID-19 virus infection Take medications as directed on packaging. Take with food. 1 Package 0 01/26/2021 04/15/2022 Discontinued Start: 01-26-2021 methylPREDNISo lone (MEDROL DOSE-PACK) 4 mg Dose-Pack Indications: Suspected COVID-19 virus infection Take medications as directed on packaging. Take with food. 1 Package 0 01/26/2021 Active Comment on above: Take medications as directed on packaging. Take with food. ondansetron 4 mg disintegrating oral tablet (20 sources) Serotonin-3 Receptor Antagonist Start: 10-11-19 24 End: 07-12-19 take 1 tablet by mouth every six hours as needed for nausea and vomiting ondansetron orally disintegrating (ZOFRAN ODT) 4 mg disintegrating tablet Indications: Gallstone ileus (HCC) Take 1 tablet by mouth every 6 hours as needed. For nausea and vomiting 20 tablet 10/11/2023 07/11/2024 Discontinued (Discontinued by Patient) Start: 01-26-2021 End: 12-17-2022 take 1 tablet by mouth every six hours as needed for nausea ondansetron orally disintegrating (ZOFRAN ODT) 4 mg disintegrating tablet Indications: Gallbladder disease , Nausea and vomiting, unspecified vomiting type Take 1 tablet by mouth every 6 hours as needed for nausea/vomiting. 10 tablet 0 04/15/2022 12/17/2022 Discontinued Comment on above: Take 1 tablet by roshni every 6 hours as needed for nausea/vomiting. Problems Active Problems Problem Classification Problem Date Documented Date Episodic/Chronic Abdominal pain (1 source) Left upper quadrant pain; Translations: [Left upper quadrant pain] 07-11-2024 Episodic Adjustment disorders (1 source) Grief finding; Translations: [Adjustment disorder with depressed mood] Chronic Anxiety disorders (20 sources) Panic disorder with agoraphobia; Translations: [Agoraphobia with panic disorder] Onset: 12-27-2005 04-04-2015 Chronic Deficiency and other anemia (1 source) Anemia due to blood loss; Translations: [Iron deficiency anemia secondary to blood loss (chronic)] 12-17-2022 Chronic Disorders usually diagnosed in infancy, childhood, or adolescence (20 sources) Eating disorder; Translations: [Other disorders of eating] Onset: 09-16-2009 09-16-2009 Chronic Esophageal disorders (20 sources) Gastroesophageal reflux disease; Translations: [Gastro-esophageal reflux disease without esophagitis] 02-24-2005 Chronic Essential hypertension (20 sources) Essential hypertension; Translations: [Essential (primary) hypertension] Onset: 12-11-2014 12-11-2014 Chronic Fluid and electrolyte disorders (3 sources) Hypokalemia; Translations: [Hypokalemia] Onset: 12-10-2022 11-25-2022 Episodic Heart valve disorders (20 sources) Rheumatic mitral valve disease, unspecified; Translations: [Mitral valve disorders] 02-24-2005 Chronic Intestinal obstruction without hernia (7 sources) Gallstone ileus of small intestine; Translations: [Gallstone ileus] Onset: 12-13-2022 11-24-2022 Episodic Mood disorders (20 sources) Recurrent major depression in partial remission; Translations: [Major depressive disorder, recurrent, in partial remission] Onset: 04-16-2006 08-21-2015 Chronic Nausea and vomiting (20 sources) Nausea; Translations: [Nausea] Onset: 07-11-2024 Episodic Nutritional deficiencies (4 sources) Vitamin D deficiency; Translations: [Vitamin D deficiency, unspecified] Chronic Nutritional deficiencies (1 source) Cobalamin deficiency; Translations: [Deficiency of other specified B group vitamins] 06-12-2024 Episodic Osteoarthritis (20 sources) Osteoarthritis; Translations: [Osteoarthrosis, unspecified whether generalized or localized, lower leg] Onset: 01-03-2008 01-03-2008 Chronic Other complications of (20 sources) Recurrent loss, unspecified as to episode of care or not applicable; Translations: [Recurrent loss, unspecified as to episode of care or not applicable(646.30)] 02-24-2005 Episodic Other disorders of stomach and duodenum (3 sources) Indigestion; Translations: [Epigastric pain] 06-12-2024 Episodic Other nervous system disorders (1 source) Other acute postprocedural pain; Translations: [Other acute postprocedural pain] Onset: 12-10-2022 Episodic Other non-traumatic joint disorders (6 sources) Pain in left knee; Translations: [Pain in joint, lower leg] Episodic Other nutritional; endocrine; and metabolic disorders (20 sources) Body mass index 40+ - severely obese; Translations: [Morbid (severe) obesity due to excess calories] Onset: 11-25-2005 09-12-2017 Chronic Other nutritional; endocrine; and metabolic disorders (1 source) Morbid obesity; Translations: [Morbid (severe) obesity due to excess calories] 11-24-2022 Chronic Other nutritional; endocrine; and metabolic disorders (2 sources) Morbid (severe) obesity due to excess calories; Translations: [Morbid obesity] Onset: 12-10-2022 11-27-2022 Chronic Other nutritional; endocrine; and metabolic disorders (1 source) Abnormal weight loss; Translations: [Abnormal weight loss] 04-10-2024 Episodic Other nutritional; endocrine; and metabolic disorders (5 sources) Weight loss; Translations: [Abnormal weight loss] 06-12-2024 Episodic Other nutritional; endocrine; and metabolic disorders (1 source) Abnormal weight loss; Translations: [Weight loss] Onset: 07-11-2024 Episodic Residual codes; unclassified (1 source) Insomnia; Translations: [Insomnia, unspecified] 12-17-2022 Episodic Residual codes; unclassified (2 sources) Menopause present; Translations: [Asymptomatic menopausal state] 06-12-2024 Episodic Thyroid disorders (20 sources) Hyperthyroidism; Translations: [Thyrotoxicosis, unspecified without thyrotoxic crisis or storm] Onset: 04-15-2022 Chronic Unclassified (1 source) Patient encounter status 06-12-2024 Past or Other Problems Problem Classification Problem Date Documented Date Episodic/Chronic Biliary tract disease (20 sources) Gallstone; Translations: [Calculus of gallbladder without cholecystitis without obstruction] Onset: 06-09-2011 06-09-2011 Episodic Cardiac dysrhythmias (20 sources) Tachycardia; Translations: [Tachycardia, unspecified] Onset: 11-28-2017 04-15-2022 Episodic Genitourinary symptoms and ill-defined conditions (20 sources) H/O: kidney infection; Translations: [Personal history of urinary (tract) infections] Onset: 04-15-2022 04-15-2022 Episodic Immunizations and screening for infectious disease (6 sources) Suspected disease caused by 2019-nCoV; Translations: [Suspected COVID-19 virus infection] Onset: 10-11-2023 Episodic Other circulatory disease (20 sources) Orthostatic hypotension; Translations: [Orthostatic hypotension] Onset: 10-02-2017 10-11-2017 Episodic Other connective tissue disease (20 sources) Soft tissue lesion of shoulder region; Translations: [Bursopathy, unspecified] Onset: 06-14-2011 06-14-2011 Episodic Other screening for suspected conditions (not mental disorders or infectious disease) (10 sources) Patient encounter status; Translations: [Encounter for screening mammogram for malignant neoplasm of breast] Onset: 10-11-2023 Episodic Syncope (20 sources) Syncope and collapse; Translations: [Syncope and collapse] Onset: 11-09-2017 04-15-2022 Episodic Results Test Name Value Interpretation Reference Range Facility [facility] 07-11-2024 CNOV Office Visit (GENSWS) SUSANNA VU ([id number]) 1960 F Date Time Provider Department 07/11/24 11:30 AM ROSSI BUTCHER During your visit today, we recorded the following information about you: Temperature Pulse Respiration Blood pressure 97 degrees 90/minute 14/minute 106/70 Weight Height 94.3 kg 1.6 m Rossi Butcher APRN.CNP 07/11/2024 1:38 PM Addendum HISTORY AND PHYSICAL Susanna Vu : 1960 REFERRING PHYSICIAN: Eduardo Sheffield [address] [facility] [id number] CHIEF COMPLAINT: Patient presents with: Consult HPI: Susanna is a 64 year old female referred for endoscopy. Susanna notes nausea, vomiting AND weight loss. October 2022 she was admitted to [facility] for gallstone ileus. Dr. Bustamante preformed laparotomy, removal of gallstone and repair of enterotomy. 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 Susanna was seen by Trudy Stewart CNP in October 2023 with c/o intermittent vomitng d/t food intolerance especially eggs. RUQ US was ordered/recommended at this time along with follow up with Dr. Camacho who she hasn't seen since her procedure Susanna was seen by Dr. Sheffield 06/12/24 with c/o unintentional weight loss d/t vomiting with every meal. RUQ US AND Gastric emptying study was also recommended at this visit Susanna denies heartburn. Ssuanna denies dysphagia. Susanna denies a history of ulcers/ peptic ulcer disease. Susanna notes 38lb weight loss- she is unable to identify a time frame -vomiting about everything she eats -able to tolerate protein shakes -LUQ pain- no radiation to RUQ or back -pain is constant, is not aggravated by food, not relieved by anything - PCP has ordered gastric emptying study and RUQ US which haven't been completed yet - Pt was also taking Zofran but didn't notice any improvement Susanna has not undergone prior endoscopy. Current Outpatient Medications Medication Sig ibuprofen (MOTRIN) 800 mg tablet Take 1 tablet by mouth three times a day as needed for pain. Take with food. atenolol (TENORMIN) 25 mg tablet Take 0.5 tablets by mouth once daily. methIMAzole (TAPAZOLE) 5 mg tablet Take 0.5 tablets by mouth once daily. fluticasone (FLONASE) 50 mcg/actuation nasal spray Use 2 Sprays in each nostril once daily. Rinse mouth after use. sertraline (ZOLOFT) 50 mg tablet Take 1 tablet by mouth two times a day. omeprazole (PRILOSEC) 20 mg capsule Take 1 capsule by mouth daily before breakfast. ondansetron orally disintegrating (ZOFRAN ODT) 4 mg disintegrating tablet Take 1 tablet by mouth every 6 hours as needed. For nausea and vomiting No current facility-administere d medications for this visit. ALLERGIES: Zithromax [Azithromycin] PAST MEDICAL HISTORY Diagnosis Date Dysthymic disorder Depression (non-psychotic) Esophageal reflux Graves disease Mitral valve disorders(424.0) Panic disorder without agoraphobia PMH - PAST MEDICAL HISTORY OF ?arthritis, knee problem Recurrent loss, unspecified as to episode of care or not applicable(646.30) PAST SURGICAL HISTORY Procedure Laterality Date DILATION AND CURETTAGE DXAND/THER NONOBSTETRIC Dilation AND curettage LIG/TRNSXJ FLP TUBE ABDL/VAG APPR UNI/BI 05/02/1999 Tubal ligation PAST SURGICAL HISTORY OF 05/02/1999 /TL PT ED DIGESTIVE DISEASE 10/2022 Gallstone removed from lower intestine FAMILY HISTORY Problem Relation Age of Onset other (Intestinal problem) Mother Diabetes Father Cancer Father lung ca., skin cancer No Known Problems Sister Diabetes Sister other (Paralyzed) Sister other (Diya barre syndrome) Sister No Known Problems Brother Diabetes Maternal Grandmother No Known Problems Maternal Grandfather No Known Problems Paternal Grandmother Diabetes Paternal Grandfather Social History Tobacco Use Smoking status: Never Smokeless tobacco: Never Vaping Use Vaping status: Never Used Substance Use Topics Alcohol use: Not Currently Drug use: Not Currently Types: Marijuana REVIEW OF SYMPTOMS: REVIEW OF SYSTEMS: General: The patient + fatigue, + weight loss, denies weight gain, + feeling hot, and feelings of cold. Eyes: The patient denies glaucoma, denies eye injury/surgery, + glasses or contacts. Ear/Nose/Throat: The patient + allergies, denies hayfever, denies ear infections, and denies bloody noses. Cardiovascular: The patient denies chest pain, denies heart disease, denies high blood pressure, denies high cholesterol, and denies poor circulation. Respiratory: The patient denies tuberculosis, denies pneumonia, denies frequent cough, denies shortness of breath, and denies coughing up blood. Gastrointestinal: The patient denies difficulty swallowing, + acid reflux, denies (more content not included)... Normal [facility] CNPNon 07-05-2024 [facility] Telephone (4CQ) SUSANNA VU ([id number]) 1960 F Date Time Provider Department 07/05/24 EDUARDO SHEFFIELD 4CQ During your visit today, we recorded the following information about you: Chanel Rodriguez 07/05/2024 12:56 PM Signed Patient is calling to cancel and declining to r/s solid gastric empty test until after she see's General Surgery. Allergies As of Date: 07/05/2024 Noted Allergy Reaction ZITHROMAX (AZITHROMYCIN) 03/03/2006 9 - Itching Comments: caused roof of mouth to itch and pt unable to complete course of medication. Date Reviewed: 06/12/2024 Reviewed by: Ly Jeffrey LPN - Fully Assessed Reason for Visit: Orders [681] Patient Update [1234] Prescriptions as of 09/03/2024 - ibuprofen (MOTRIN) 800 mg tablet Take 1 tablet by mouth three times a day as needed for pain. Take with food. - atenolol (TENORMIN) 25 mg tablet Take 0.5 tablets by mouth once daily. - methIMAzole (TAPAZOLE) 5 mg tablet Take 0.5 tablets by mouth once daily. - fluticasone (FLONASE) 50 mcg/actuation nasal spray Use 2 Sprays in each nostril once daily. Rinse mouth after use. - sertraline (ZOLOFT) 50 mg tablet Take 1 tablet by mouth two times a day. - omeprazole (PRILOSEC) 20 mg capsule Take 1 capsule by mouth daily before breakfast. Problem List As Of Date 07/05/2024 Noted Resolved HABITUAL ABORTER-UNSPEC [[id number]] MITRAL VALVE DISORDER [I05.9] ESOPHAGEAL REFLUX [K21.9] Obesity, Class III, BMI 40-49.9 (morbid obesity*11/25/2005 AGORAPHOBIA W PANIC ATTACKS [F40.01] 12/27/2005 Recurrent major depression in partial remission*04/16/2006 OSTEOARTHROS NOS-L/LEG [PSN5916] 01/03/2008 Panic Disorder with Agoraphobia [F40.01] 09/16/2009 Eating Disorder NEC 09/16/2009 Depression [F32.A] 09/16/2009 Cholelithiasis [K80.20] 06/09/2011 Disorders of bursae and tendons in shoulder reg*06/14/2011 Primary hypertension [I10] 12/11/2014 Orthostatic hypotension [I95.1] 10/02/2017 Tachycardia [R00.0] 11/28/2017 Syncope and collapse [R55] 11/09/2017 Hyperthyroidism [E05.90] 04/15/2022 History of kidney infection [Z87.440] 04/15/2022 Encounter Status:Closed by CHANEL RODRIGUEZ on 09/03/24 [facility] S[facility] VU ([id number]) 1960 F Date Time Provider Department 06/19/24 EDUARDO SHEFFIELD INTMWS During your visit today, we recorded the following information about you: Cheryle Woodruff LPN 06/19/2024 12:33 PM Signed Pt calling to see if you received a fax from [facility]. This is regarding the protein shakes. They had received paperwork but something was incorrect and they had to fax iit back this am to be corrected. As soon as they get this back they can send out the protein shakes to pt. Please advise pt also . Please look fax. SWATI Arnold LPN Stoll, Mary, LPN 06/21/2024 10:43 AM Addendum See additional message from 06/07/24 regarding same Called and spoke to patient who gave us the number to call and contact the Nutritional Supplier ([facility]) Paper work on Dr Padma comer to be completed. [phone] Meeta Prabhakar MA 06/25/2024 8:20 AM Signed Paper completed. Faxed to:[phone]. Meeta Prabhakar MA Allergies As of Date: 06/19/2024 Noted Allergy Reaction ZITHROMAX (AZITHROMYCIN) 03/03/2006 9 - Itching Comments: caused roof of mouth to itch and pt unable to complete course of medication. Date Reviewed: 06/12/2024 Reviewed by: Ly Jeffrey LPN - Fully Assessed Reason for Visit: [facility] [Other] Cmt: RE: protein shakes Prescriptions as of 06/25/2024 - ibuprofen (MOTRIN) 800 mg tablet Take 1 tablet by mouth three times a day as needed for pain. Take with food. - atenolol (TENORMIN) 25 mg tablet Take 0.5 tablets by mouth once daily. - methIMAzole (TAPAZOLE) 5 mg tablet Take 0.5 tablets by mouth once daily. - fluticasone (FLONASE) 50 mcg/actuation nasal spray Use 2 Sprays in each nostril once daily. Rinse mouth after use. - sertraline (ZOLOFT) 50 mg tablet Take 1 tablet by mouth two times a day. - omeprazole (PRILOSEC) 20 mg capsule Take 1 capsule by mouth daily before breakfast. - ondansetron orally disintegrating (ZOFRAN ODT) 4 mg disintegrating tablet Take 1 tablet by mouth every 6 hours as needed. For nausea and vomiting Problem List As Of Date 06/19/2024 Noted Resolved HABITUAL ABORTER-UNSPEC [[id number]] MITRAL VALVE DISORDER [I05.9] ESOPHAGEAL REFLUX [K21.9] Obesity, Class III, BMI 40-49.9 (morbid obesity*11/25/2005 AGORAPHOBIA W PANIC ATTACKS [F40.01] 12/27/2005 Recurrent major depression in partial remission*04/16/2006 OSTEOARTHROS NOS-L/LEG [IBG1716] 01/03/2008 Panic Disorder with Agoraphobia [F40.01] 09/16/2009 Eating Disorder NEC 09/16/2009 Depression [F32.A] 09/16/2009 Cholelithiasis [K80.20] 06/09/2011 Disorders of bursae and tendons in shoulder reg*06/14/2011 Primary hypertension [I10] 12/11/2014 Orthostatic hypotension [I95.1] 10/02/2017 Tachycardia [R00.0] 11/28/2017 Syncope and collapse [R55] 11/09/2017 Hyperthyroidism [E05.90] 04/15/2022 History of kidney infection [Z87.440] 04/15/2022 Encounter Status:Closed by MEETA PRABHAKAR on 06/25/24 [facility] CNOVon 06-12-2024 CNOV Office Visit (INTMWS) SUSANNA VU ([id number]) 1960 F Date Time Provider Department 06/12/24 2:00 PM EDUARDO SHEFFIELD INTMWS During your visit today, we recorded the following information about you: Pulse Blood pressure Weight Height 76/minute 95/59 94.1 kg 1.6 m Eduardo Sheffield MD 06/12/2024 3:12 PM Signed Reason for Visit Susanna Horace is a 64 year oldfemale who presents here Patient presents with: Recheck: Nutritional suppliment, Gastro consult? Gallbladder, unintentional weight loss, d/t vomiting after eating almost everyday Health Maintenance Shingrix Vaccine(1 of 2) Pneumococcal Vaccine: 50+(1 of 1 - PCV) Mammogram Screening Colorectal Cancer Screening RSV Vaccine(1 - Risk 60-74 years 1-dose series) Annual PCP Team Chronic Disease Visit Influenza Vaccine(1) Covid-19 Vaccine(3 - season) Bone Density Screening Advance Directive Discussion HPI This is a 64-year-old woman with a past medical history of primary hypertension, hypothyroidism, depression, obesity. Since 2022 after intestinal obstruction surgery, she has not been able to eat well. She vomits each time after eating after surgery, at least majority of time. She is able to tolerate the protein shakes well. She is vomiting eggs, spaghetti , chilli, greasy foods, anything fatty. She has lost around 38 pounds Not very active, bp is on the lower side today but denies feeling tired, or lightheaded. No problem-specific Assessment AND Plan notes found for this encounter. PAST MEDICAL HISTORY Diagnosis Date Dysthymic disorder Depression (non-psychotic) Esophageal reflux Graves disease Mitral valve disorders(424.0) Panic disorder without agoraphobia PMH - PAST MEDICAL HISTORY OF ?arthritis, knee problem Recurrent loss, unspecified as to episode of care or not applicable(646.30) PAST SURGICAL HISTORY Procedure Laterality Date DILATION AND CURETTAGE DXAND/THER NONOBSTETRIC Dilation AND curettage LIG/TRNSXJ FLP TUBE ABDL/VAG APPR UNI/BI 1999 Tubal ligation PAST SURGICAL HISTORY OF 1999 /TL FAMILY HISTORY Problem Relation Age of Onset Colon Cancer Mother Diabetes Father Cancer Father lung ca., skin cancer Diabetes Maternal Grandmother Diabetes Paternal Grandfather Social History Tobacco Use Smoking status: Never Smokeless tobacco: Never Vaping Use Vaping status: Never Used Substance Use Topics Alcohol use: Yes Comment: occasional Drug use: No Past medical history, appointments, medications, allergies reviewed. Pertinent Lab/Diagnostic Studies are reviewed and discussed today Current Outpatient Medications: atenolol (TENORMIN) 25 mg tablet ibuprofen (MOTRIN) 800 mg tablet methIMAzole (TAPAZOLE) 5 mg tablet fluticasone (FLONASE) 50 mcg/actuation nasal spray sertraline (ZOLOFT) 50 mg tablet omeprazole (PRILOSEC) 20 mg capsule ondansetron orally disintegrating (ZOFRAN ODT) 4 mg disintegrating tablet Review of Systems CONSTITUTIONAL: No fevers, chills night sweats, unintended weight loss CARDIOVASCULAR: No chest pain, dyspnea, palpitations, orthopnea, PND, ankle edema. PULM: No dyspnea, unexplained cough. GI: No dysphagia/odynophagi a, problematic reflux, constipation, diarrhea, changes in stool habits, hematochezia, melena. : No new urinary complaints, including dysuria, gross hematuria or pyuria. NEURO: No new balance problems, peripheral weakness/paresthesia s or numbness of concern. Physical Exam BP 95/59 Pulse 76 Ht 160 cm (5' 3) Wt 94.1 kg (207 lb 6.4 oz) LMP 08/21/2007 SpO2 99% BMI 36.74 kg/m? General appearance: Well appearing, alert, in no acute distress, well nourished. Skin: Skin color, texture, turgor normal, no suspicious rashes or lesions Head: Normocephalic, no masses, lesions, tenderness or abnormalities Eyes: Anicteric sclera. Pupils are equally round and reactive to light. Extraocular movements are intact. Lungs:Normal breathing efforts, Lungs clear to auscultation. No wheezing, rhonchi, rales Heart: RRR without murmur, gallop, or rubs. Extremities: No deformities, edema, skin discoloration, clubbing or cyanosis. Good capillary refill. ASSESSMENT/PLAN: 1. Vomiting without nausea, unspecified vomiting type - ICD9: 787.03, ICD10: R11.11 (primary diagnosis) - US ABD RIGHT UPPER QUADRANT - CONSULT TO GENERAL SURGERY 2. Hyperthyroidism - ICD9: 242.90, ICD10: E05.90 - ATENOLOL 25 MG TABLET - ATENOLOL 25 MG TABLET 3. Recurrent vomiting - ICD9: 787.03, ICD10: R11.10 - US ABD RIGHT UPPER QUADRANT 4. Dyspepsia - ICD9: 536.8, ICD10: R10.13 - US ABD RIGHT UPPER QUADRANT - NM GASTRIC EMPTYING SOLID 5. Weight loss - ICD9: 783.21, ICD10: R63.4 - US ABD RIGHT UPPER QUADRANT - CONSULT TO GENERAL SURGERY 6. Nausea and vomiting, unspecified vomiting type - ICD9: 787.01, ICD10: R11.2 - US ABD (more content not included)... Normal [facility] HORACESUSANNA ([id number]) 1960 F Date Time Provider Department 06/07/24 EDUARDO SHEFFIELD INTMWS During your visit today, we recorded the following information about you: Carmelita Conte RN 06/07/2024 1:06 PM Signed Jovita Castellano from [facility] calls and reports that she is faxing over [facility] for Nutritional supplies. Asking if this can be filled out and faxed back to [phone]. Please watch for this fax. JIMMY LamarrChe MA 06/07/2024 1:36 PM Addendum Fax received and can be addressed at upcoming appointment. Patient has not been seen by PCP in over a year. Cheryle Woodruff LPN 06/08/2024 9:23 AM Signed Spoke with pt and information listed below given. Pt verbalizes understanding. Cheryle Woodruff LPN Allergies As of Date: 06/07/2024 Noted Allergy Reaction ZITHROMAX (AZITHROMYCIN) 03/03/2006 9 - Itching Comments: caused roof of mouth to itch and pt unable to complete course of medication. Date Reviewed: 10/11/2023 Reviewed by: Tomasa Arechiga LPN - Fully Assessed Reason for Visit: Electronic Communication [890] Prescriptions as of 06/08/2024 - atenolol (TENORMIN) 25 mg tablet Take 1 tablet by mouth once daily. - ibuprofen (MOTRIN) 800 mg tablet Take 1 tablet by mouth three times a day as needed for pain. Take with food. - methIMAzole (TAPAZOLE) 5 mg tablet Take 0.5 tablets by mouth once daily. - fluticasone (FLONASE) 50 mcg/actuation nasal spray Use 2 Sprays in each nostril once daily. Rinse mouth after use. - sertraline (ZOLOFT) 50 mg tablet Take 1 tablet by mouth two times a day. - omeprazole (PRILOSEC) 20 mg capsule Take 1 capsule by mouth daily before breakfast. - ondansetron orally disintegrating (ZOFRAN ODT) 4 mg disintegrating tablet Take 1 tablet by mouth every 6 hours as needed. For nausea and vomiting Problem List As Of Date 06/07/2024 Noted Resolved HABITUAL ABORTER-UNSPEC [[id number]] MITRAL VALVE DISORDER [I05.9] ESOPHAGEAL REFLUX [K21.9] Obesity, Class III, BMI 40-49.9 (morbid obesity*11/25/2005 AGORAPHOBIA W PANIC ATTACKS [F40.01] 12/27/2005 Recurrent major depression in partial remission*04/16/2006 OSTEOARTHROS NOS-L/LEG [SLB8673] 01/03/2008 Panic Disorder with Agoraphobia [F40.01] 09/16/2009 Eating Disorder NEC 09/16/2009 Depression [F32.A] 09/16/2009 Cholelithiasis [K80.20] 06/09/2011 Disorders of bursae and tendons in shoulder reg*06/14/2011 Primary hypertension [I10] 12/11/2014 Orthostatic hypotension [I95.1] 10/02/2017 Tachycardia [R00.0] 11/28/2017 Syncope and collapse [R55] 11/09/2017 Hyperthyroidism [E05.90] 04/15/2022 History of kidney infection [Z87.440] 04/15/2022 Encounter Status:Closed by CHERYLE WOODRUFF on 06/08/24 Normal [facility] Lipid 1996 panelon 4 Cholesterol [Mass/Vol] 280 mg/dL High <200 Cl [facility] Comment on above: Order Comment: Speci men Type: BLOOD SPECIMENOrdering Facility: [facility] Address: [address] [place] [address] Result Comment: <200 mg/dL, Desirable 200-239 mg/dL, Borderline high >239 mg/dL, High Performed By: #### 3 016-3, 98853-0, 3023-10 ####[facility] LABCLIA [id number] [address] [place] Cholesterol in HDL [Mass/Vol] 47 mg/dL Normal >39 [facility] Comment on above: Order Comment: [place] Type: BLOOD SPECIMENOrdering Facility: [facility] Address: [address] [place] [address] Result Comment: 40-5 9 mg/dL, Acceptable >59 mg/dL, High: Negative risk factor for coronary heart disease <40 mg/dL, Low: Positive risk factor for coronary heart disease Performed By: #### 3 016-3, 17723-6, 3023-10 ####[facility] LABCLIA [id number] [address] [place] Cholesterol in LDL [Mass/Vol] 205 mg/dL High <100 [facility] Comment on above: Order Comment: [place] Type: BLOOD SPECIMENOrdering Facility: [facility] Address: [address] [place] [address] Result Comment: <100 mg/dL, Optimal 100-129 mg/dL, Near optimal/above optimal 130-159 mg/dL, Borderline high 160-189 mg/dL, High >189 mg/dL, Very high Secondary prevention optimal LDL Cholesterol levels are recommended to be < 70 mg/dL Performed By: #### 3 016-3, 23141-9, 3023-10 ####[facility] LABIA [id number] [address] STATES OF [facility] Cholesterol in LDL/Cholesterol in HDL [Mass ratio] 4.36 {ratio} High <2.54 [facility] Comment on above: Order Comment: [place] Type: BLOOD SPECIMENOrdering Facility: [facility] Address: [address] [place] [address] Result Comment: Refe rence: 1. National Cholesterol Education Program ATP III Guideline At-A-Glance Quick Desk Reference: National Heart, Lung, and Blood [place]. National Institutes of Health. 2001: NIH Publication No. 01-3305. 2. An International Atherosclerosis Society position paper: global recommendations for the management of dyslipidemia: executive summary, Atherosclerosis. 2014: 232(2):410-413. Performed By: #### 3 016-3, 04250-4, 3023-10 ####[facility] LABCLIA [id number] [place] [id number] [place] Cholesterol in VLDL [Mass/Vol] 28 mg/dL Normal <30 [facility] Comment on above: Order Comment: [place] Type: BLOOD SPECIMENOrdering Facility: [facility] Address: [address] [place] [address] Performed By: #### 3 016-3, 06166-7, 3023-10 ####[facility] LABCLIA [id number] [place] [address] [place] Cholesterol non HDL [Mass/Vol] 233 mg/dL High <130 [facility] Comment on above: Order Comment: [place] men Type: BLOOD SPECIMENOrdering Facility: [facility] Address: [address] [place] [address] Result Comment: <130 mg/dL, Optimal 130-159 mg/dL, Near optimal/above optimal 160-189 mg/dL, Borderline high 190-219 mg/dL, High >219 mg/dL, Very high Secondary prevention optimal non HDL Cholesterol levels are recommended to be <100 mg/dL Performed By: #### 3 016-3, 62285-7, 3023-10 ####[facility] LABCLIA [id number] [place] [address] [place] Cholesterol.total/Choles terol in HDL [Mass ratio] 5.96 {ratio} High <5.10 [facility] Comment on above: Order Comment: [place] Type: BLOOD SPECIMENOrdering Facility: [facility] Address: [address] [place] [address] Performed By: #### 3 016-3, 59670-3, 3023-10 ####[facility] LABCLIA [id number] [place] [id number] [place] FASTING TIME 12 hrs Normal [facility] Comment on above: Order Comment: Speci men Type: BLOOD SPECIMENOrdering Facility: [facility] Address: [address] [place] [address] Performed By: #### 3 016-3, 33307-3, 3023-10 ####[facility] LABCLIA [id number] [place] [address] [place] Triglyceride [Mass/Vol] 138 mg/dL Normal <150 [facility] Comment on above: Order Comment: Speci men Type: BLOOD SPECIMENOrdering Facility: [facility] Address: [address] [place] [address] Result Comment: <150 mg/dL, Normal 150-199 mg/dL, Borderline high 200-499 mg/dL, High >499 mg/dL, Very high Performed By: #### 3 016-3, 00485-8, 3023-10 ####[facility] LABCLIA [id number] [place] [address] [place] T4 Free SerPl-mCncon 024 Free T4 [Mass/Vol] 0.9 ng/dL Normal 0.9-1.7 [facility] Comment on above: Order Comment: Speci men Type: BLOOD SPECIMENOrdering Facility: [facility] Address: [address] [place] [address] Performed By: #### 3 016-3, 96570-3, 3023-10 ####[facility] LABCLIA [id number] [place] [address] [place] TSH SerPl-aCncon 04-26-2024 TSH Qn 1.680 m[IU]/L Normal 0.270-4.200 [facility] Comment on above: Order Comment: Speci men Type: BLOOD SPECIMENOrdering Facility: [facility] Address: [address] [place] [address] Performed By: #### 3 016-3, 65038-1, 3024-7 ####[facility] LABCLIA [id number] [place] [address] [place] CBC W Auto Differential pane l (Bld)on 10-11-2023 Basophils (Bld) [#/Vol] 0.10 10*3/uL Normal <0.11 [facility] Comment on above: Order Comment: Speci men Type: BLOOD SPECIMENOrdering Facility: [facility] Address: [address] [place] [address] Performed By: #### 5 7021-8 ####[facility] LABCLIA [id number] [place] [address] [place] Basophils/100 WBC (Bld) 2.0 % Normal [facility] Comment on above: Order Comment: Speci men Type: BLOOD SPECIMENOrdering Facility: [facility] Address: [address] [place] [address] Performed By: #### 5 7021-8 ####[facility] LABCLIA [id number] [place] [address] [place] Differential cell count method Nom (Bld) Auto Normal [facility] Comment on above: Order Comment: Speci men Type: BLOOD SPECIMENOrdering Facility: [facility] Address: [address] [place] [address] Performed By: #### 5 7021-8 ####[facility] LABCLIA [id number] [place] [address] [place] Eosinophils (Bld) [#/Vol] 0.24 10*3/uL Normal <0.46 [facility] Comment on above: Order Comment: Speci men Type: BLOOD SPECIMENOrdering Facility: [facility] Address: [address] [place] [address] Performed By: #### 5 7021-8 ####[facility] LABCLIA [id number] [place] [address] [place] Eosinophils/100 WBC (Bld) 4.7 % Normal [facility] Comment on above: Order Comment: Speci men Type: BLOOD SPECIMENOrdering Facility: [facility] Address: [address] [place] [address] Performed By: #### 5 7021-8 ####[facility] LABIA [id number] [place] [address] [place] Erythrocyte distribution width (RBC) [Ratio] 13.3 % Normal 11.5-15.0 [facility] Comment on above: Order Comment: Speci men Type: BLOOD SPECIMENOrdering Facility: [facility] Address: [address] [place] [address] Performed By: #### 5 7021-8 ####[facility] LABIA [id number] [place] [address] [place] Hematocrit (Bld) [Volume fraction] 41.0 % Normal 36.0-46.0 [facility] Comment on above: Order Comment: Speci men Type: BLOOD SPECIMENOrdering Facility: [facility] Address: [address] [place] [address] Performed By: #### 5 7021-8 ####[facility] LABIA [id number] [place] [address] [place] Hemoglobin (Bld) [Mass/Vol] 13.1 g/dL Normal 11.5-15.5 [facility] Comment on above: Order Comment: Speci men Type: BLOOD SPECIMENOrdering Facility: [facility] Address: [address] [place] [address] Performed By: #### 5 7021-8 ####[facility] LABIA [id number] [place] [address] [place] Immature granulocytes (Bld) [#/Vol] 10*3/uL Normal <0.10 [facility] Comment on above: Order Comment: Speci men Type: BLOOD SPECIMENOrdering Facility: [facility] Address: [address] [place] [address] Performed By: #### 5 7021-8 ####[facility] LABCLIA [id number] [place] [address] [place] Immature granulocytes/100 WBC (Bld) 0.2 % Normal [facility] Comment on above: Order Comment: Speci men Type: BLOOD SPECIMENOrdering Facility: [facility] Address: [address] [place] [address] Performed By: #### 5 7021-8 ####[facility] LABCLIA [id number] [place] [address] [place] Lymphocytes (Bld) [#/Vol] 1.60 10*3/uL Normal 1.00-4.00 [facility] Comment on above: Order Comment: Speci men Type: BLOOD SPECIMENOrdering Facility: [facility] Address: [address] [place] [address] Performed By: #### 5 7021-8 ####[facility] LABIA [id number] [place] [address] [place] Lymphocytes/100 WBC (Bld) 31.3 % Normal [facility] Comment on above: Order Comment: Speci men Type: BLOOD SPECIMENOrdering Facility: [facility] Address: [address] [place] [address] Performed By: #### 5 7021-8 ####[facility] LABCLIA [id number] [place] [address] [place] MCH (RBC) [Entitic mass] 28.4 pg Normal 26.0-34.0 [facility] Comment on above: Order Comment: Speci men Type: BLOOD SPECIMENOrdering Facility: [facility] Address: [address] [place] [address] Performed By: #### 5 7021-8 ####[facility] LABCLIA [id number] [place] [address] [place] MCHC (RBC) [Mass/Vol] 32.0 g/dL Normal 30.5-36.0 [facility] Comment on above: Order Comment: Speci men Type: BLOOD SPECIMENOrdering Facility: [facility] Address: [address] [place] [address] Performed By: #### 5 7021-8 ####[facility] LABCLIA [id number] [place] [address] [place] MCV (RBC) [Entitic vol] 88.9 fL Normal 80.0-100.0 [facility] Comment on above: Order Comment: Speci men Type: BLOOD SPECIMENOrdering Facility: [facility] Address: [address] [place] [address] Performed By: #### 5 7021-8 ####[facility] LABCLIA [id number] [place] [address] [place] Monocytes (Bld) [#/Vol] 0.46 10*3/uL Normal <0.87 [facility] Comment on above: Order Comment: Speci men Type: BLOOD SPECIMENOrdering Facility: [facility] Address: [address] [place] [address] Performed By: #### 5 7021-8 ####[facility] LABCLIA [id number] [place] [address] [place] Monocytes/100 WBC (Bld) 9.0 % Normal [facility] Comment on above: Order Comment: Speci men Type: BLOOD SPECIMENOrdering Facility: [facility] Address: [address] [place] [address] Performed By: #### 5 7021-8 ####[facility] LABIA [id number] [place] [address] [place] Neutrophils (Bld) [#/Vol] 2.70 10*3/uL Normal 1.45-7.50 [facility] Comment on above: Order Comment: Speci men Type: BLOOD SPECIMENOrdering Facility: [facility] Address: [address] [place] [address] Performed By: #### 5 7021-8 ####[facility] LABCLIA [id number] [place] [address] [place] Neutrophils/100 WBC (Bld) 52.8 % Normal [facility] Comment on above: Order Comment: Speci men Type: BLOOD SPECIMENOrdering Facility: [facility] Address: [address] [place] [address] Performed By: #### 5 7021-8 ####[facility] LABCLIA [id number] [place] [address] [place] Nucleated RBC (Bld) [#/Vol] 10*3/uL Normal <0.01 [facility] Comment on above: Order Comment: Speci men Type: BLOOD SPECIMENOrdering Facility: [facility] Address: [address] [place] [address] Performed By: #### 5 7021-8 ####[facility] LABIA [id number] [place] [address] [place] Nucleated RBC/100 WBC (Bld) [Ratio] 0.0 /100 WBC Normal [facility] Comment on above: Order Comment: Speci men Type: BLOOD SPECIMENOrdering Facility: [facility] Address: [address] [place] [address] Performed By: #### 5 7021-8 ####[facility] LABCLIA [id number] [place] [address] [place] Platelet mean volume (Bld) [Entitic vol] 11.9 fL Normal 9.0-12.7 [facility] Comment on above: Order Comment: Speci men Type: BLOOD SPECIMENOrdering Facility: [facility] Address: [address] [place] [address] Performed By: #### 5 7021-8 ####[facility] LABCLIA [id number] [place] [address] [place] Platelets (Bld) [#/Vol] 237 10*3/uL Normal 150-400 [facility] Comment on above: Order Comment: Speci men Type: BLOOD SPECIMENOrdering Facility: [facility] Address: [address] [place] [address] Performed By: #### 5 7021-8 ####[facility] LABCLIA [id number] [place] [address] [place] RBC (Bld) [#/Vol] 4.61 10*6/uL Normal 3.90-5.20 [facility] Comment on above: Order Comment: Speci men Type: BLOOD SPECIMENOrdering Facility: [facility] Address: [address] [place] [address] Performed By: #### 5 7021-8 ####[facility] LABCLIA [id number] [place] [address] [place] WBC (Bld) [#/Vol] 5.11 10*3/uL Normal 3.70-11.00 [facility] Comment on above: Order Comment: Speci men Type: BLOOD SPECIMENOrdering Facility: [facility] Address: [address] [place] [address] Performed By: #### 5 7021-8 ####[facility] LABIA [id number] [place] [address] [place] CNOVon 10-11-2023 CNOV Office Visit (INTMWS) SUSANNA VU ([id number]) 1960 F Date Time Provider Department 10/11/23 10:40 AM TRUDY STEWART INTMWS During your visit today, we recorded the following information about you: Pulse Respiration Blood pressure 61/minute 16/minute 104/65 Trudy Stewart, FIELD AUTO APPRAISER.ENTERTAINMENT & MEDIA CORRESPONDENT 10/11/2023 11:32 AM Signed SUBJECTIVE: Shingrix Vaccine(1 of 2) Never done Mammogram Screening due on 12/26/2015 Colorectal Cancer Screening due on 10/17/2018 RSV Vaccine(1 - 1-dose 60+ series) Never done Cervical Cancer Screening due on 08/09/2021 Covid-19 Vaccine( season) due on 12/31/2022 HPI Susanna Vu is a 63 year old female. 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 Since last seen she had an appointment with Dr. Carrizales endocrinology August 2023. Lab work was recommended but not yet completed. HPI excerpted from previous visit: She was admitted to the hospital November 23 through for gallstone ileus. She came in through the ER via squad. CT of abdomen and pelvis showed gallstone ileus in the mid small bowel. She was taken to surgery for laparotomy, removal of gallstone and repair of enterotomy. She underwent surgery November 23, 2022. She had a follow-up appointment with her surgeon Dr. Alma Camacho December 02, 2022. She underwent staple removal at this visit. Noted to be recovering well. She noted tolerating diet and having normal bowel function. 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 Follow-up in 2 weeks advised. Today Susanna Vu reports overall feeling improved. Still with some fatigue. She was anemic postoperatively. Reports tolerating a mild diet but intolerant of harder to digest foods. Noted nausea and loose stools with tomato soup and salad. She reports appetite is down. Weight is decreased. Has been able to maintain oral fluid intake. No fever. Incision is well-healed with scant amount of drainage at the umbilicus where she has a tiny partial-thickness open area. Currently open to air. Decreased pain at the incision site. Today notes continued nausea, vomiting 2-3 times per week of late. She notes certain foods are bothersome such as eggs. Has not followed up with surgeon since her surgery in 2022. Without report of GERD or abdominal pain currently. No reported diarrhea or constipation, BRBPR or black or tarry stools. She notes mood is stable on current medication. Likes taking the dose of Zoloft twice daily, seems more effective now. Review of Systems Gastrointestinal: Positive for nausea and vomiting. Objective BP 104/65 Pulse 61 Resp 16 LMP 08/21/2007 Physical Exam Vitals and nursing note reviewed. Constitutional: Appearance: Normal appearance. HENT: Head: Normocephalic and atraumatic. Eyes: Conjunctiva/sclera: Conjunctivae normal. Neck: Thyroid: No thyromegaly. Vascular: Normal carotid pulses. No JVD. Cardiovascular: Rate and Rhythm: Normal rate and regular rhythm. Pulses: Carotid pulses are 2+ on the right side and 2+ on the left side. Radial pulses are 2+ on the right side and 2+ on the left side. Heart sounds: Normal heart sounds. Pulmonary: Effort: Pulmonary effort is normal. Breath sounds: Normal breath sounds. Abdominal: General: Bowel sounds are normal. Palpations: Abdomen is soft. Musculoskeletal: Right lower leg: No edema. Left lower leg: No edema. Skin: General: Skin is warm and dry. Neurological: General: No focal deficit present. Mental Status: She is alert and oriented to person, place, and time. ALLERGIES Allergen Reactions Zithromax [Azithrom* Itching caused roof of mouth to itch and pt unable to complete course of medication. Medication atenolol (TENORMIN) 25 mg tablet Take 1 tablet by mouth once daily. methIMAzole (TAPAZOLE) 5 mg tablet take 1 tablet by mouth once daily. fluticasone (FLONASE) 50 mcg/actuation nasal spray Use 2 Sprays in each nostril once daily. Rinse mouth after use. ibuprofen (MOTRIN) 800 mg tablet Take 1 tablet by mouth three times a day as needed for pain. Take with food. omeprazole (PRILOS (more content not included)... Normal [facility] Comprehensive metabolic 2000 panelon 10-11-2023 Albumin [Mass/Vol] 4.1 g/dL Normal 3.9-4.9 [facility] Comment on above: Order Comment: Speci men Type: BLOOD SPECIMENOrdering Facility: [facility] Address: [address] [place] [address] Performed By: #### 3 016-3, 91834-6, 3023-10 ####[facility] LABCLIA [id number] [place] [address] [place] ALP [Catalytic activity/Vol] 75 U/L Normal 34-123 [facility] Comment on above: Order Comment: Speci men Type: BLOOD SPECIMENOrdering Facility: [facility] Address: [address] [place] [address] Performed By: #### 3 016-3, 43754-9, 7 ####[facility] LABCLIA [id number] [place] [address] [place] ALT [Catalytic activity/Vol] 9 U/L Normal 7-38 [facility] Comment on above: Order Comment: Speci men Type: BLOOD SPECIMENOrdering Facility: [facility] Address: [address] [place] [address] Performed By: #### 3 016-3, 53786-0, 7 ####[facility] LABCLIA [id number] [facility] [place] [id number] [place] Anion gap [Moles/Vol] 12 mmol/L Normal 8-15 [facility] Comment on above: Order Comment: Speci men Type: BLOOD SPECIMENOrdering Facility: [facility] Address: [address] [place] [address] Performed By: #### 3 016-3, 03710-2, 7 ####[facility] LABCLIA [id number] [place] [address] [place] AST [Catalytic activity/Vol] 16 U/L Normal 13-35 [facility] Comment on above: Order Comment: Speci men Type: BLOOD SPECIMENOrdering Facility: [facility] Address: [address] [place] [address] Performed By: #### 3 016-3, 11477-9, 3023-10 ####[facility] LABCLIA [id number] [place] [address] [place] Bilirubin [Mass/Vol] 0.4 mg/dL Normal 0.2-1.3 [facility] Comment on above: Order Comment: Speci men Type: BLOOD SPECIMENOrdering Facility: [facility] Address: [address] [place] [address] Performed By: #### 3 016-3, 56412-5, 3023-10 ####[facility] LABCLIA [id number] [place] [address] [place] Calcium [Mass/Vol] 9.7 mg/dL Normal 8.5-10.2 [facility] Comment on above: Order Comment: Speci men Type: BLOOD SPECIMENOrdering Facility: [facility] Address: [address] [place] [address] Performed By: #### 3 016-3, 10911-0, 3023-10 ####[facility] LABCLIA [id number] [place] [address] [place] Chloride [Moles/Vol] 105 mmol/L Normal 98-107 [facility] Comment on above: Order Comment: Speci men Type: BLOOD SPECIMENOrdering Facility: [facility] Address: [address] [place] [address] Performed By: #### 3 016-3, 58813-2, 3023-10 ####[facility] LABCLIA [id number] [place] [address] [place] CO2 [Moles/Vol] 22 mmol/L Normal 22-30 [facility] Comment on above: Order Comment: Speci men Type: BLOOD SPECIMENOrdering Facility: [facility] Address: [address] [place] [address] Performed By: #### 3 016-3, 30184-7, 3023-10 ####[facility] LABCLIA [id number] [place] [address] [place] Creatinine [Mass/Vol] 0.82 mg/dL Normal 0.58-0.96 [facility] Comment on above: Order Comment: Speci men Type: BLOOD SPECIMENOrdering Facility: [facility] Address: [address] [place] [address] Performed By: #### 3 016-3, 80418-2, 3023-10 ####[facility] LABCLIA [id number] [place] [address] [place] Creatinine and Glomerular filtration rate.predicted panel (S/P/Bld) 80 mL/min/1.73m??? Normal >=60 [facility] Comment on above: Order Comment: Speci men Type: BLOOD SPECIMENOrdering Facility: [facility] Address: [address] [place] [address] Result Comment: Fiona mated Glomerular Filtration Rate (eGFR) is calculated using the 2020 CKD-EPI creatinine equation. This equation utilizes serum creatinine, sex, and age as parameters. The creatinine assay has traceable calibration to isotope dilution-mass spectrometry. Refer to KDIGO guidelines for clinical interpretation. In patients with unstable renal function, e.g. those with acute kidney injury, the eGFR may not accurately reflect actual GFR. Performed By: #### 3 016-3, 22691-1, 3023-10 ####[facility] LABCLIA [id number] [place] [address] [place] Glucose [Mass/Vol] 101 mg/dL High 74-99 [facility] Comment on above: Order Comment: Speci men Type: BLOOD SPECIMENOrdering Facility: [facility] Address: [address] [place] [id number] Result Comment: The [place] Diabetes Association (ADA) provides guidance for cutoff values for fasting glucose and random glucose. The ADA defines fasting as no caloric intake for at least 8 hours. Fasting plasma glucose results between 100 to 125 mg/dL indicate increased risk for diabetes (prediabetes). Fasting plasma glucose results greater than or equal to 126 mg/dL meet the criteria for diagnosis of diabetes. In the absence of unequivocal hyperglycemia, results should be confirmed by repeat testing. In a patient with classic symptoms of hyperglycemia or hyperglycemic crisis, random plasma glucose results greater than or equal to 200 mg/dL meet the criteria for diagnosis of diabetes. Reference: Standards of Medical Care in Diabetes 2016, [place] Diabetes Association. Diabetes Care. 2016.39(Suppl 1). Performed By: #### 3 016-3, 00349-8, 3023-10 ####[facility] LABCLIA [id number] [place] [address] [place] Potassium [Moles/Vol] 4.5 mmol/L Normal 3.7-5.1 [facility] Comment on above: Order Comment: Speci men Type: BLOOD SPECIMENOrdering Facility: [facility] Address: [address] [place] [address] Performed By: #### 3 016-3, 47568-8, 3023-10 ####[facility] LABIA [id number] [place] [id number] [place] Protein [Mass/Vol] 7.5 g/dL Normal 6.3-8.0 [facility] Comment on above: Order Comment: Speci men Type: BLOOD SPECIMENOrdering Facility: [facility] Address: [address] [place] [address] Performed By: #### 3 016-3, 21047-2, 3023-10 ####[facility] LABCLIA [id number] [address] [address] [place] Sodium [Moles/Vol] 139 mmol/L Normal 136-144 [facility] Comment on above: Order Comment: Speci men Type: BLOOD SPECIMENOrdering Facility: [facility] Address: [address] [place] [address] Performed By: #### 3 016-3, 53107-6, 7 ####[facility] LABIA [id number] [place] [address] [place] Urea nitrogen [Mass/Vol] 8 mg/dL Normal 7-21 [facility] Comment on above: Order Comment: Speci men Type: BLOOD SPECIMENOrdering Facility: [facility] Address: [address] [place] [address] Performed By: #### 3 016-3, 73450-5, 7 ####[facility] LABIA [id number] [place] [address] [place] T4 Free SerPl-mCncon 024 Free T4 [Mass/Vol] 0.8 ng/dL Low 0.9-1.7 [facility] Comment on above: Order Comment: Speci men Type: BLOOD SPECIMENOrdering Facility: [facility] Address: [address] [place] [address] Performed By: #### 3 016-3, 29701-5, 3023-10 ####[facility] LABIA [id number] [place] [address] [place] TSH SerPl-aCncon 10-11-2023 TSH Qn 3.830 m[IU]/L Normal 0.270-4.200 [facility] Comment on above: Order Comment: Speci men Type: BLOOD SPECIMENOrdering Facility: [facility] Address: [address] [place] [address] Performed By: #### 3 016-3, 46307-3, 3023-10 ####[facility] LABIA [id number] [place] [address] [place] CBC W Auto Differential pane l (Bld)on 12-17-2022 Basophils (Bld) [#/Vol] 0.04 10*3/uL <0.11 k/uL [facility] Basophils/100 WBC (Bld) 0.9 % [facility] Differential cell count method Nom (Bld) Auto [facility] Eosinophils (Bld) [#/Vol] <0.46 k/uL [facility] Eosinophils/100 WBC (Bld) 0.5 % [facility] Erythrocyte distribution width (RBC) [Ratio] 13.2 % 11.5 - 15.0 % [facility] Hematocrit (Bld) [Volume fraction] 38.0 % 36.0 - 46.0 % [facility] Hemoglobin (Bld) [Mass/Vol] 12.4 g/dL 11.5 - 15.5 g/dL [facility] Immature granulocytes (Bld) [#/Vol] <0.10 k/uL [facility] Immature granulocytes/100 WBC (Bld) 0.2 % [facility] Lymphocytes (Bld) [#/Vol] 1.55 10*3/uL 1.00 - 4.00 k/uL [facility] Lymphocytes/100 WBC (Bld) 35.7 % [facility] MCH (RBC) [Entitic mass] 27.8 pg 26. 0 - 34.0 pg [facility] MCHC (RBC) [Mass/Vol] 32.6 g/dL 30.5 - 36.0 g/dL [facility] MCV (RBC) [Entitic vol] 85.2 fL 80.0 - 100.0 fL [facility] Monocytes (Bld) [#/Vol] 0.48 10*3/uL <0.87 k/uL [facility] Monocytes/100 WBC (Bld) 11.1 % [facility] Neutrophils (Bld) [#/Vol] 2.24 10*3/uL 1.45 - 7.50 k/uL [facility] Neutrophils/100 WBC (Bld) 51.6 % [facility] Nucleated RBC (Bld) [#/Vol] <0.01 k/uL [facility] Nucleated RBC/100 WBC (Bld) [Ratio] 0.0 /100 WBC [facility] Platelet mean volume (Bld) [Entitic vol] 11.9 fL 9.0 - 12.7 fL [facility] Platelets (Bld) [#/Vol] 250 10*3/uL 150 - 400 k/uL [facility] RBC (Bld) [#/Vol] 4.46 10*6/uL 3.90 - 5.2 0 m/uL [facility] WBC (Bld) [#/Vol] 4.34 10*3/uL 3.70 - 11. 00 k/uL [facility] Surgery Visit Reporton 12-02 Surgery Visit Report [facility] [address] [facility]. [address] [place] [address] OFFICE VISIT Date of Service: 12/02/22 MR#: [id number] Acct: [id number] Name: SUSANNA VU Rep #: [id number] : 1960 Provider: Dr. Alma kim MD Age/Sex: 62/F Location: [facility] Status: Signed Intake Vital Signs 11/24/22 15:36 Height 5 ft 3 in Intake Visit Reasons: ER Staple Removal/Gall Stones Ileus Surgery 11/23 Chief Complaint: Staple removal/gall stones ileus surgery 11/23. Is patient in pain?: No Allergies azithromycin Allergy (Verified 12/02/22 08:35) Itching Medications lorazepam 0.5 mg tablet 0.5 mg PO QHS PRN Anxiety 03/19/17 [History Confirmed 12/02/22] atenolol 25 mg tablet 25 mg PO DAILY blood pressure 04/21/18 [History Confirmed 12/02/22] ibuprofen 800 mg tablet 800 mg PO TID PRN pain 11/23/22 [History Confirmed 12/02/22] methimazole 5 mg tablet 10 mg PO BID thyroid 11/23/22 [History Confirmed 12/02/22] sertraline 50 mg tablet 50 mg PO BID depression 11/23/22 [History Confirmed 12/02/22] tramadol 50 mg tablet 50 mg PO Q6H PRN pain 3 days #3 tabs 11/26/22 [Rx Confirmed 12/02/22] potassium chloride 20 mEq tablet,extended release 20 - 40 meq (1 - 2 x 20 mEq) PO DAILY PRN hypokalemia #7 tabs 11/27/22 [Rx Confirmed 12/02/22] Subjective Details: 62-year-old female presents status post laparotomy and removal of gallstone for gallstone ileus for follow-up/staple removal. Patient is doing well tolerating diet having bowel function. Patient has only ever taken Tylenol for pain postoperatively. Objective Details: Abdomen: Soft, nondistended, nontender incision well-healed with candelaria???candelaria removed in office. Patient tolerated well. No peritoneal signs Coding Level of Care Code Global Post Op Diagnoses S/P laparotomy Z98.890 [facility] Medical History Anxiety Graves disease History of acute pyelonephritis Hypertension Surgical History Previous section S/P laparotomy Social History Smoking Status: Never smoker Assessment and Plan (No Qualifiers) Assessment and Plan (1) S/P laparotomy: Status: Acute Comment: removal of gallstone from sB Plan Patient candelaria were removed in office. Patient tolerated procedure well. Patient is tolerating diet and having bowel function. 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 Follow-up in 2 weeks. Patient is agreeable with plan. Alma Camacho M.D. Pager: [phone] [facility] [address] [place] [address], [address] [place] [address] Office: [phone] 12/03/22 1340 Date Alma Camacho MD Cosigner Signature: Date (if applicable) CC: Dr. Eduardo Sheffield MD Normal [facility] Basic Metabolic Profile (BMP )on 11-27-2022 BUN/CRE 3.8 RATIO Low 10-20 [facility] Comment on above: Performed By: #### L 501.5200, L500.2500 #### [facility] [address] [place], [address] CA,Total 8.5 mg/dL Normal 8.5-10.1 [facility] Comment on above: Performed By: #### L 501.5200, L500.2500 #### [facility] [address] [place], [address] Chloride [Moles/Vol] 110 mmol/L High 98-107 [facility] Comment on above: Performed By: #### L 501.5200, L500.2500 #### [facility] [address] [place], [address] CO2 [Moles/Vol] 26.0 mmol/L Normal 21.0-32.0 [facility] Comment on above: Performed By: #### L 501.5200, L500.2500 #### [facility] [address] [place], [address] Creatinine [Mass/Vol] 0.52 mg/dL Low 0.55-1.02 [facility] Comment on above: Result Comment: The validity of the calculated GFR GFRAA in patients over 70 years has not been determined. Clinical correlation is essential. Performed By: #### L 501.5200, L500.2500 #### [facility] [address] [place], [address] ECRCL 91.60 ml/min Normal [facility] Comment on above: Performed By: #### L 501.5200, L500.2500 #### [facility] [address] [place], [address] EST GFR - AA 152 mL/min Normal >60 [facility] Comment on above: Result Comment: Afri can Austrian GFR Calc Performed By: #### L 501.5200, L500.2500 #### [facility] [address] [place], [address] GAP 5 Normal 5-15 [facility] Comment on above: Performed By: #### L 501.5200, L500.2500 #### [facility] [address] [place], [address] GFR/1.73 sq M.predicted among non-blacks MDRD (S/P/Bld) [Vol rate/Area] 126 mL/min/{1.73_m2} Normal >60 [facility] Comment on above: Result Comment: Non- GFR Calc Performed By: #### L 501.5200, L500.2500 #### [facility] [address] [place], [address] Glucose [Mass/Vol] 98 mg/dL Normal 74-106 [facility] Comment on above: Performed By: #### L 501.5200, L500.2500 #### [facility] [address] [place], [address] Potassium [Moles/Vol] 3.0 mmol/L Low 3.5-5.1 [facility] Comment on above: Performed By: #### L 501.5200, L500.2500 #### [facility] [address] [place], [address] Sodium [Moles/Vol] 141 mmol/L Normal 136-145 [facility] Comment on above: Performed By: #### L 501.5200, L500.2500 #### [facility] [address] [place], [address] Urea nitrogen [Mass/Vol] 2 mg/dL Low 7-18 [facility] Comment on above: Performed By: #### L 501.5200, L500.2500 #### [facility] [address] [place], [address] Basophil percentageOrdered B y: [facility]-27-2022 Chloride [Moles/Vol] 110 mmol/L 98-107 [facility] Glucose [Mass/Vol] 98 mg/dL 74-106 [facility] Potassium [Moles/Vol] 3.0 mmol/L 3.5-5.1 [facility] Sodium [Moles/Vol] 141 mmol/L 136-145 [facility] Laboratory - Chemistry and C hemistry - challengeOrdered By: Alma Camacho on 11-27-2022 CO2 [Moles/Vol] 26.0 mmol/L 21.0-32.0 [facility] Magnesium [Mass/Vol] 1.7 mg/dL 1.6-2.6 [facility] Urea nitrogen/Creatinine [Mass ratio] 3.8 mg/mg 10-20 [facility] Magnesiumon 11-27-2022 Magnesium [Mass/Vol] 1.7 mg/dL Normal 1.6-2.6 [facility] Comment on above: Performed By: #### L 501.5200, L500.2500 #### [facility] [address] [place], [place] [address], [place], [address] No Panel InformationOrdered By: Alma Camacho on 11-27-2022 Estimated Creatinine Clearance Calc 91.60 ml/min [facility] Estimated GFR (MDRD) Amer 152 mL/min >60 [facility] Comment on above: GFR Calc Estimated GFR (MDRD) Non-Af Amer 126 mL/min >60 [facility] Comment on above: Non- GFR Calc Serum or plasma calcium vanesa urement (mass/volume)Ordered By: Alma Camacho on 11-27-2022 Calcium [Mass/Vol] 8.5 mg/dL 8.5-10.1 [facility] Serum or plasma creatinine m easurement (mass/volume)Ordered By: Alma Camacho on 11-27-2022 Creatinine [Mass/Vol] 0.52 mg/dL 0.55-1.02 [facility] Comment on above: The validity of the calculated GFR & GFRAA in patients over 70 years has not been determined. Clinical correlation is essential. Serum or plasma urea nitroge n measurement (mass/volume)Ordered By: Alma Camacho on 11-27-2022 Urea nitrogen [Mass/Vol] 2 mg/dL 7-18 [facility] Thin prep Papanicolaou smear with manual screeningOrdered By: Almadevonte Camacho on 11-27-2022 Thin prep Papanicolaou smear with manual screening 5 5-15 [facility] Basic Metabolic Profile (BMP )on 11-26-2022 BUN/CRE 6.2 RATIO Low 10-20 [facility] Comment on above: Performed By: #### L 500.2500, L501.5200 #### [facility] [address] [place], [address] CA,Total 8.1 mg/dL Low 8.5-10.1 [facility] Comment on above: Performed By: #### L 500.2500, L501.5200 #### [facility] [address] [place], [address] Chloride [Moles/Vol] 110 mmol/L High 98-107 [facility] Comment on above: Performed By: #### L 500.2500, L501.5200 #### [facility] [address] [place], [address] CO2 [Moles/Vol] 26.0 mmol/L Normal 21.0-32.0 [facility] Comment on above: Performed By: #### L 500.2500, L501.5200 #### [facility] [address] [place], [address] Creatinine [Mass/Vol] 0.64 mg/dL Normal 0.55-1.02 [facility] Comment on above: Result Comment: The validity of the calculated GFR GFRAA in patients over 70 years has not been determined. Clinical correlation is essential. Performed By: #### L 500.2500, L501.5200 #### [facility] [address] [place], [address] ECRCL 74.43 ml/min Normal [facility] Comment on above: Performed By: #### L 500.2500, L501.5200 #### [facility] [address] [place], [address] EST GFR - AA 120 mL/min Normal >60 [facility] Comment on above: Result Comment: Afri can Austrian GFR Calc Performed By: #### L 500.2500, L501.5200 #### [facility] [address] [place], [address] GAP 5 Normal 5-15 [facility] Comment on above: Performed By: #### L 500.2500, L501.5200 #### [facility] [address] [place], [address] GFR/1.73 sq M.predicted among non-blacks MDRD (S/P/Bld) [Vol rate/Area] 99 mL/min/{1.73_m2} Normal >60 [facility] Comment on above: Result Comment: Non- GFR Calc Performed By: #### L 500.2500, L501.5200 #### [facility] [address] [place], [address] Glucose [Mass/Vol] 95 mg/dL Normal 74-106 [facility] Comment on above: Performed By: #### L 500.2500, L501.5200 #### [facility] [address] [place], [address] Potassium [Moles/Vol] 3.2 mmol/L Low 3.5-5.1 [facility] Comment on above: Performed By: #### L 500.2500, L501.5200 #### [facility] [address] [place], [address] Sodium [Moles/Vol] 141 mmol/L Normal 136-145 [facility] Comment on above: Performed By: #### L 500.2500, L501.5200 #### [facility] [address] [place], [address] Urea nitrogen [Mass/Vol] 4 mg/dL Low 7-18 [facility] Comment on above: Performed By: #### L 500.2500, L501.5200 #### [facility] [address] [place], [address] Magnesiumon 11-26-2022 Magnesium [Mass/Vol] 1.8 mg/dL Normal 1.6-2.6 [facility] Comment on above: Performed By: #### L 500.2500, L501.5200 #### [facility] [address] [place], [address] Absolute lymphocyte countOrd ered By: Alma Camacho on 11-25-2022 Lymphocytes Auto (Unsp spec) [#/Vol] 0.74 10*3/uL 0.83-4.51 [facility] Basic Metabolic Profile (BMP )on 11-25-2022 BUN/CRE 9.3 RATIO Low 10-20 [facility] Comment on above: Performed By: #### L 500.2500, L100.0100, L501.5200 #### [facility] [address] [place], [address] CA,Total 7.8 mg/dL Low 8.5-10.1 [facility] Comment on above: Performed By: #### L 500.2500, L100.0100, L501.5200 #### [facility] [address] [place], [address] Chloride [Moles/Vol] 112 mmol/L High 98-107 [facility] Comment on above: Performed By: #### L 500.2500, L100.0100, L501.5200 #### [facility] [address] [place], [address] CO2 [Moles/Vol] 23.0 mmol/L Normal 21.0-32.0 [facility] Comment on above: Performed By: #### L 500.2500, L100.0100, L501.5200 #### [facility] [address] [place], [address] Creatinine [Mass/Vol] 0.75 mg/dL Normal 0.55-1.02 [facility] Comment on above: Result Comment: The validity of the calculated GFR GFRAA in patients over 70 years has not been determined. Clinical correlation is essential. Performed By: #### L 500.2500, L100.0100, L501.5200 #### [facility] [address] [place], [address] ECRCL 63.51 ml/min Normal [facility] Comment on above: Performed By: #### L 500.2500, L100.0100, L501.5200 #### [facility] [address] [place], [address] EST GFR - AA 100 mL/min Normal >60 [facility] Comment on above: Result Comment: Afri can Austrian GFR Calc Performed By: #### L 500.2500, L100.0100, L501.5200 #### [facility] [address] [place], [address] GAP 6 Normal 5-15 [facility] Comment on above: Performed By: #### L 500.2500, L100.0100, L501.5200 #### [facility] [address] [place], [address] GFR/1.73 sq M.predicted among non-blacks MDRD (S/P/Bld) [Vol rate/Area] 83 mL/min/{1.73_m2} Normal >60 [facility] Comment on above: Result Comment: Non- GFR Calc Performed By: #### L 500.2500, L100.0100, L501.5200 #### [facility] [address] [place], [address] Glucose [Mass/Vol] 101 mg/dL Normal 74-106 [facility] Comment on above: Result Comment: Fast ing Glucose result from 100 to 125 mg/dL suggests IMPAIRED HOMEOSTASIS per A.D.A. criteria. Performed By: #### L 500.2500, L100.0100, L501.5200 #### [facility] [address] [place], [address] Potassium [Moles/Vol] 3.1 mmol/L Low 3.5-5.1 [facility] Comment on above: Performed By: #### L 500.2500, L100.0100, L501.5200 #### [facility] [address] [place], [address] Sodium [Moles/Vol] 141 mmol/L Normal 136-145 [facility] Comment on above: Performed By: #### L 500.2500, L100.0100, L501.5200 #### [facility] [address] [place], [address] Urea nitrogen [Mass/Vol] 7 mg/dL Normal 7-18 [facility] Comment on above: Performed By: #### L 500.2500, L100.0100, L501.5200 #### [facility] [address] [place], [address] Basophil percentageOrdered B y: Alma Camacho on 11-25-2022 Basophils/100 WBC (Bld) 0.5 % 0-1 [facility] Eosinophils/100 WBC (Bld) 0.3 % 0-5 [facility] Neutrophils (Bld) [#/Vol] 4.5 10*3/uL 2.0-7.7 [facility] Neutrophils/100 WBC (Bld) 76.9 % 47-70 [facility] WBC (Bld) [#/Vol] 5.9 10*3/uL 4.4-11.0 [facility] Blood erythrocytes count (nu mber/volume)Ordered By: Alma Camacho on 11-25-2022 RBC (Bld) [#/Vol] 3.41 10*6/uL 4.2-5.4 [facility] Blood hemoglobin measurement (mass/volume)Ordered By: [facility] 11-25-2022 Hemoglobin (Bld) [Mass/Vol] 9.6 g/dL 12.0-15.0 [facility] Blood lymphocytes/100 leukoc ytesOrdered By: [facility] 11-25-2022 Lymphocytes/100 WBC (Bld) 12.6 % 19-41 [facility] Blood monocytes/100 leukocyt esOrdered By: [facility] on 11-25-2022 Monocytes/100 WBC (Bld) 9.2 % 0-10 [facility] Blood platelet mean volumeOr dered By: [facility] on 11-25-2022 Platelet mean volume (Bld) [Entitic vol] 11.6 fL 6.2-12.0 [facility] CBC W/Diff, Automatedon 10-31 Absolute Lymph 0.74 X10 3/uL Low 0.83-4.51 [facility] Comment on above: Performed By: #### L 500.2500, L100.0100, L501.5200 #### [facility] [address] [place], [address] Absolute Neut 4.5 X10 3/uL Normal 2.0-7.7 [facility] Comment on above: Performed By: #### L 500.2500, L100.0100, L501.5200 #### [facility] [address] [place], [address] Basophils/100 WBC (Bld) 0.5 % Normal 0-1 [facility] Comment on above: Performed By: #### L 500.2500, L100.0100, L501.5200 #### [facility] [address] [place], [address] Eosinophils/100 WBC (Bld) 0.3 % Normal 0-5 [facility] Comment on above: Performed By: #### L 500.2500, L100.0100, L501.5200 #### [facility] [address] [place], [address] Erythrocyte distribution width (RBC) [Ratio] 13.0 % Normal 11.6-14.6 [facility] Comment on above: Performed By: #### L 500.2500, L100.0100, L501.5200 #### [facility] [address] [place], [address] Hematocrit (Bld) [Volume fraction] 30.8 % Low 37-47 [facility] Comment on above: Performed By: #### L 500.2500, L100.0100, L501.5200 #### [facility] [address] [place], [address] Hemoglobin (Bld) [Mass/Vol] 9.6 g/dL Low 12.0-15.0 [facility] Comment on above: Performed By: #### L 500.2500, L100.0100, L501.5200 #### [facility] [address] [place], [address] IG% 0.500 Normal 0.0-0.9 [facility] Comment on above: Result Comment: IG% - Immature Granulocytes (promyelocytes, myelocytes and metamyelocytes) > 1% indicates that a LEFT SHIFT is Present. Performed By: #### L 500.2500, L100.0100, L501.5200 #### [facility] [address] [place], [address] Lymphocytes/100 WBC (Bld) 12.6 % Low 19-41 [facility] Comment on above: Performed By: #### L 500.2500, L100.0100, L501.5200 #### [facility] [address] [place], [address] MCH (RBC) [Entitic mass] 28.2 pg Normal 27.0-32.0 [facility] Comment on above: Performed By: #### L 500.2500, L100.0100, L501.5200 #### [facility] [address] [place], [address] MCHC (RBC) [Mass/Vol] 31.2 g/dL Low 32-36 [facility] Comment on above: Performed By: #### L 500.2500, L100.0100, L501.5200 #### [facility] [address] [place], [address] MCV (RBC) [Entitic vol] 90.3 fL Normal 81-99 [facility] Comment on above: Performed By: #### L 500.2500, L100.0100, L501.5200 #### [facility] [address] [place], [address] Monocytes/100 WBC (Bld) 9.2 % Normal 0-10 [facility] Comment on above: Performed By: #### L 500.2500, L100.0100, L501.5200 #### [facility] [address] [place], [address] Neutrophils/100 WBC (Bld) 76.9 % High 47-70 [facility] Comment on above: Performed By: #### L 500.2500, L100.0100, L501.5200 #### [facility] [address] [place], [address] Nucleated RBC (Bld) [#/Vol] 0 10*3/uL Normal 0-5 [facility] Comment on above: Performed By: #### L 500.2500, L100.0100, L501.5200 #### [facility] [address] [place], [address] Platelet mean volume (Bld) [Entitic vol] 11.6 fL Normal 6.2-12.0 [facility] Comment on above: Performed By: #### L 500.2500, L100.0100, L501.5200 #### [facility] [address] [place], [address] Platelets (Bld) [#/Vol] 178 10*3/uL Normal 150-450 [facility] Comment on above: Performed By: #### L 500.2500, L100.0100, L501.5200 #### [facility] [address] [place], [address] RBC (Bld) [#/Vol] 3.41 10*6/uL Low 4.2-5.4 [facility] Comment on above: Performed By: #### L 500.2500, L100.0100, L501.5200 #### [facility] [address] [place], [address] RDW SD 42.6 fl Normal 35.1-43.9 [facility] Comment on above: Performed By: #### L 500.2500, L100.0100, L501.5200 #### [facility] [address] [place], [address] WBC (Bld) [#/Vol] 5.9 10*3/uL Normal 4.4-11.0 [facility] Comment on above: Performed By: #### L 500.2500, L100.0100, L501.5200 #### [facility] [address] [place], [address] Determination of erythrocyte mean corpuscular volume (MCV)Ordered By: Alma Camacho on 11-25-2022 MCV (RBC) [Entitic vol] 90.3 fL 81-99 [facility] Hematocrit Auto (Bld) [Volum e fraction]Ordered By: Alma Camacho on 11-25-2022 Hematocrit (Bld) [Volume fraction] 30.8 % 37-47 [facility] - Hematology and Cell countsOrdered By: Almadevonte Camacho on 11-25-2022 Erythrocyte distribution width (RBC) [Entitic vol] 42.6 fL 35.1-43.9 [facility] Erythrocyte distribution width (RBC) [Ratio] 13.0 % 11.6-14.6 [facility] Immature granulocytes/100 WBC (Bld) 0.500 % 0.0-0.9 [facility] Comment on above: IG% - Immature Granu locytes (promyelocytes, myelocytes and metamyelocytes) > 1% indicates that a LEFT SHIFT is Present. MCH (RBC) [Entitic mass] 28.2 pg 27.0-32.0 [facility] Nucleated RBC/100 WBC (Bld) [Ratio] 0 % 0-5 [facility] MCHC Auto (RBC) [Mass/Vol]Or dered By: Alma Camacho on 11-25-2022 MCHC (RBC) [Mass/Vol] 31.2 g/dL 32-36 [facility] Magnesiumon 11-25-2022 Magnesium [Mass/Vol] 1.7 mg/dL Normal 1.6-2.6 [facility] Comment on above: Performed By: #### L 500.2500, L100.0100, L501.5200 #### [facility] [address] [place], [address] Platelets bldOrdered By: Danyel Camacho on 11-25-2022 Platelets (Bld) [#/Vol] 178 10*3/uL 150-450 [facility] Basic Metabolic Profile (BMP )on 11-24-2022 BUN/CRE 15.6 RATIO Normal 10-20 [facility] Comment on above: Performed By: #### L 500.2500, L501.5200 #### [facility] [address] [place], [address] CA,Total 7.6 mg/dL Low 8.5-10.1 [facility] Comment on above: Performed By: #### L 500.2500, L501.5200 #### [facility] [address] [place], [address] Chloride [Moles/Vol] 113 mmol/L High 98-107 [facility] Comment on above: Performed By: #### L 500.2500, L501.5200 #### [facility] [address] [place], [address] CO2 [Moles/Vol] 25.0 mmol/L Normal 21.0-32.0 [facility] Comment on above: Performed By: #### L 500.2500, L501.5200 #### [facility] [address] [place], [address] Creatinine [Mass/Vol] 0.77 mg/dL Normal 0.55-1.02 [facility] Comment on above: Result Comment: The validity of the calculated GFR GFRAA in patients over 70 years has not been determined. Clinical correlation is essential. Performed By: #### L 500.2500, L501.5200 #### [facility] [address] [place], [address] ECRCL 61.86 ml/min Normal [facility] Comment on above: Performed By: #### L 500.2500, L501.5200 #### [facility] [address] [place], [address] EST GFR - AA 97 mL/min Normal >60 [facility] Comment on above: Result Comment: Afri can Austrian GFR Calc Performed By: #### L 500.2500, L501.5200 #### [facility] [address] [place], [address] GAP 4 Low 5-15 [facility] Comment on above: Performed By: #### L 500.2500, L501.5200 #### [facility] [address] [place], [address] GFR/1.73 sq M.predicted among non-blacks MDRD (S/P/Bld) [Vol rate/Area] 80 mL/min/{1.73_m2} Normal >60 [facility] Comment on above: Result Comment: Non- GFR Calc Performed By: #### L 500.2500, L501.5200 #### [facility] [address] [place], [address] Glucose [Mass/Vol] 114 mg/dL High 74-106 [facility] Comment on above: Result Comment: Fast ing Glucose result from 100 to 125 mg/dL suggests IMPAIRED HOMEOSTASIS per A.D.A. criteria. Performed By: #### L 500.2500, L501.5200 #### [facility] [address] [place], [address] Potassium [Moles/Vol] 3.1 mmol/L Low 3.5-5.1 [facility] Comment on above: Performed By: #### L 500.2500, L501.5200 #### [facility] [address] [place], [address] Sodium [Moles/Vol] 142 mmol/L Normal 136-145 [facility] Comment on above: Performed By: #### L 500.2500, L501.5200 #### [facility] [address] [place], [address] Urea nitrogen [Mass/Vol] 12 mg/dL Normal 7-18 [facility] Comment on above: Performed By: #### L 500.2500, L501.5200 #### [facility] [address] [place], [address] CBC W/Diff, Automatedon 07-2 Absolute Lymph 0.93 X10 3/uL Normal 0.83-4.51 [facility] Comment on above: Performed By: #### L 500.2500, L501.5200 #### [facility] [address] [place], [address] Absolute Neut 4.0 X10 3/uL Normal 2.0-7.7 [facility] Comment on above: Performed By: #### L 500.2500, L501.5200 #### [facility] [address] [place], [address] Basophils/100 WBC (Bld) 0.4 % Normal 0-1 [facility] Comment on above: Performed By: #### L 500.2500, L501.5200 #### [facility] [address] [place], [address] Eosinophils/100 WBC (Bld) 0.2 % Normal 0-5 [facility] Comment on above: Performed By: #### L 500.2500, L501.5200 #### [facility] [address] [place], [address] Erythrocyte distribution width (RBC) [Ratio] 13.2 % Normal 11.6-14.6 [facility] Comment on above: Performed By: #### L 500.2500, L501.5200 #### [facility] [address] [place], [address] Hematocrit (Bld) [Volume fraction] 31.9 % Low 37-47 [facility] Comment on above: Performed By: #### L 500.2500, L501.5200 #### [facility] [address] [place], [address] Hemoglobin (Bld) [Mass/Vol] 10.4 g/dL Low 12.0-15.0 [facility] Comment on above: Performed By: #### L 500.2500, L501.5200 #### [facility] [address] [place], [address] IG% 0.400 Normal 0.0-0.9 [facility] Comment on above: Result Comment: IG% - Immature Granulocytes (promyelocytes, myelocytes and metamyelocytes) > 1% indicates that a LEFT SHIFT is Present. Performed By: #### L 500.2500, L501.5200 #### [facility] [address] [place], [address] Lymphocytes/100 WBC (Bld) 16.8 % Low 19-41 [facility] Comment on above: Performed By: #### L 500.2500, L501.5200 #### [facility] [address] [place], [address] MCH (RBC) [Entitic mass] 28.7 pg Normal 27.0-32.0 [facility] Comment on above: Performed By: #### L 500.2500, L501.5200 #### [facility] [address] [place], [address] MCHC (RBC) [Mass/Vol] 32.6 g/dL Normal 32-36 [facility] Comment on above: Performed By: #### L 500.2500, L501.5200 #### [facility] [address] [place], [address] MCV (RBC) [Entitic vol] 88.1 fL Normal 81-99 [facility] Comment on above: Performed By: #### L 500.2500, L501.5200 #### [facility] [address] [place], [address] Monocytes/100 WBC (Bld) 10.5 % High 0-10 [facility] Comment on above: Performed By: #### L 500.2500, L501.5200 #### [facility] [address] [place], [address] Neutrophils/100 WBC (Bld) 71.7 % High 47-70 [facility] Comment on above: Performed By: #### L 500.2500, L501.5200 #### [facility] [address] [place], [address] Nucleated RBC (Bld) [#/Vol] 0 10*3/uL Normal 0-5 [facility] Comment on above: Performed By: #### L 500.2500, L501.5200 #### [facility] [address] [place], [address] Platelet mean volume (Bld) [Entitic vol] 11.5 fL Normal 6.2-12.0 [facility] Comment on above: Performed By: #### L 500.2500, L501.5200 #### [facility] [address] [place], [address] Platelets (Bld) [#/Vol] 201 10*3/uL Normal 150-450 [facility] Comment on above: Performed By: #### L 500.2500, L501.5200 #### [facility] [address] [place], [address] RBC (Bld) [#/Vol] 3.62 10*6/uL Low 4.2-5.4 [facility] Comment on above: Performed By: #### L 500.2500, L501.5200 #### [facility] [address] [place], [address] RDW SD 42.7 fl Normal 35.1-43.9 [facility] Comment on above: Performed By: #### L 500.2500, L501.5200 #### [facility] [address] [place], [address] WBC (Bld) [#/Vol] 5.5 10*3/uL Normal 4.4-11.0 [facility] Comment on above: Performed By: #### L 500.2500, L501.5200 #### [facility] [address] [place], [address] Surgery Specimen Level Ion 0 11-24-2022 Surgery Specimen Level I Patient Age/Sex Location Account Attending Physician SUSANNA VU 62/F MS3 [id number] Dr. Alma Camacho MD Specimen: [id number] Received: 11/24/22 Status: ROBERT Foreman Num: [id number] Spec Type: Calculi Subm Dr: Dr. Alma Camacho MD HEADER OPERATION: Exploratory laparotomy, removal of gallstone PRE-OP DIAGNOSIS: Gallstone ileus of small intestine TISSUE SUBMITTED: Gallstone GROSS DIAGNOSIS A stone, clinically gallstone (gross only). EDISON:geoffrey 11/25/2022 MICROSCOPIC DESCRIPTION Slides are reviewed. GROSS DESCRIPTION Received is one container labeled with the patient's name and designated gallstone. The specimen consists of a ovoid rough surfaced greenish-brown stone measuring 3.5 x 2.5 x 2.0 cm. The specimen is for gross identification only. / EDISON:geoffrey 11/24/2022 CPT: 74059 Patient Age/Sex Location Account Attending Physician SUSANNA VU 62/F MS3 [id number] Dr. Alma Camacho MD Signed (signature on file) Dr. Luis Doran MD 11/25/22 0926 [facility] Comment on above: Performed By: #### L 500.2500, L501.5200 #### [facility] [address] [place], [address] Abdomen Single Viewon 2022 Abdomen Single View [facility] Services [address] [place] [address] Abdomen Single View MR#: [id number] Acct: [id number] Name: SUSANNA VU Rep #: [id number] : 1960 F 62 From: Ricky Roblero MD PCP: Dr. Eduardo Sheffield MD Status: [facility] Study: Abdomen Single View Date of Exam: 11/23/22 Exam# [id number] Ordering Dr: Alma Camacho MD INDICATION: NG INSERT 2 OF 2 EXAMINATION/TECHNIQU E: X-RAY - XR Abdomen 1 View COMPARISON: 3 minutes earlier ____ RAD/Abdomen Single View IMPRESSION: NG tube terminates over the gastric fundus with sidehole below the diaphragm. Partially visualized bowel gas pattern is nonobstructive. Electronically Signed: Ricky Roblero MD at 16:30 EDT , CC: Dr. Eduardo Sheffield MD; Dr. Alma Camacho MD Trailer Body Assembler: Signed [facility] Abdomen Single View (Portabl e)on 11-23-2022 Abdomen Single View (Portable) [facility] Services [address] [place] [address] Abdomen Single View (Portable) MR#: [id number] Acct: [id number] Name: SUSANNA VU Rep #: [id number] : 1960 F 62 From: Ricky Roblero MD PCP: Dr. Eduardo Sheffield MD Status: [facility] Study: Abdomen Single View (Portable) Date of Exam: 0 11/23/22 Exam# [id number] Ordering Dr: Sean Sanders MD INDICATION: NG Insertion 1 OF 2 EXAMINATION/TECHNIQU E: X-RAY - XR Abdomen 1 View COMPARISON: None ____ RAD/Abdomen Single View (Portable) IMPRESSION: Enteric tube loops over the distal esophagus. Electronically Signed: Ricky Roblero MD at 16:31 EDT , CC: Dr. Sean Sanders MD; Dr. Eduardo Sheffield MD Trailer Body Assembler: Signed [facility] Abdomen/Pelvis W IV Cont ONL Yon 11-23-2022 Abdomen/Pelvis W IV Cont ONLY [facility] Imaging Services [address] [place] [address] Abdomen/Pelvis W IV Cont ONLY MR#: [id number] Acct: [id number] Name: SUSANNA VU Rep #: [id number] : 1960 F 62 From: Brett Shaw PCP: Dr. Eduardo Sheffield MD Status: [facility] Study: Abdomen/Pelvis W IV Cont ONLY Date of Exam: Exam# [id number] Ordering Dr: Sean Sanders MD STUDY: CT ABDOMEN AND PELVIS WITH CONTRAST - URINARY TRACT REASON FOR EXAM: Female, 62 years old. Lower abd pain RADIATION DOSAGE (If Supplied By Facility): CTDIvol = ( 18.67 ) mGy, DLP = ( 1364.82 ) mGycm TECHNIQUE: IV 100mL Isovue-300 was administered. Transaxial images were obtained from the dome of the diaphragm to the symphysis pubis in the arterial, nephrographic and excretory phases. Multiplanar coronal and sagittal images were reformatted. Individualized Dose Optimization Techniques Were Used For This CT. COMPARISON: No prior examinations are available for comparison. FINDINGS: The visualized lung bases are unremarkable. The visualized portions of the heart are within normal limits. No focal lesion is definitely identified in the liver. Pneumobilia the central intrahepatic biliary ducts extending to the left lobe. Contracted gallbladder. Linear air density extending from the gallbladder fossa to the region of the duodenum which may represent fistula. The spleen is within normal limits in size. Normal pancreas. Normal bilateral adrenal glands. Moderate size hiatal hernia. Markedly dilated fluid-filled proximal small bowel loops. Large calcification in the mid small bowel loop measuring about 2.7 cm. The more distal small bowel loops are normal in caliber. There is obstruction at this level. Gallstone ileus cannot be excluded. Colon is not distended and thickened. The appendix is not identified. The abdominal aorta is not dilated. No retroperitoneal adenopathy. Normal right kidney. Normal left kidney. Normal urinary bladder. Mild free fluid in the pelvis. Normal abdominal wall. No demonstrated acute osseous changes. CT/Abdomen/Pelvis W IV Cont ONLY IMPRESSION: 1. Small bowel obstruction due to large stone in mid ileal loop concerning for gallstone ileus. 2. Pneumobilia. 3. Contracted gallbladder with possible air extending from the gallbladder fossa to the duodenum. Fistula cannot be excluded. Electronically Signed: Brett Guerrero MD at 16:19 EDT , CC: Dr. Sean Sanders MD; Dr. Eduardo Sheffield MD Trailer Body Assembler: Signed [facility] Basic Metabolic Profile (BMP )on 11-23-2022 BUN/CRE 16.7 RATIO Normal 10-20 [facility] Comment on above: Performed By: #### L 100.0100, L500.2500 #### [facility] [address] [place], [address] CA,Total 9.2 mg/dL Normal 8.5-10.1 [facility] Comment on above: Performed By: #### L 100.0100, L500.2500 #### [facility] [address] [place], [address] Chloride [Moles/Vol] 106 mmol/L Normal 98-107 [facility] Comment on above: Performed By: #### L 100.0100, L500.2500 #### [facility] [address] [place], [address] CO2 [Moles/Vol] 23.0 mmol/L Normal 21.0-32.0 [facility] Comment on above: Performed By: #### L 100.0100, L500.2500 #### [facility] [address] [place], [address] Creatinine [Mass/Vol] 1.02 mg/dL Normal 0.55-1.02 [facility] Comment on above: Result Comment: The validity of the calculated GFR GFRAA in patients over 70 years has not been determined. Clinical correlation is essential. Performed By: #### L 100.0100, L500.2500 #### [facility] [address] [place], [address] ECRCL 46.70 ml/min Normal [facility] Comment on above: Performed By: #### L 100.0100, L500.2500 #### [facility] [address] [place], [address] EST GFR - AA 70 mL/min Normal >60 [facility] Comment on above: Result Comment: Afri can Austrian GFR Calc Performed By: #### L 100.0100, L500.2500 #### [facility] [address] [place], [address] GAP 9 Normal 5-15 [facility] Comment on above: Performed By: #### L 100.0100, L500.2500 #### [facility] [address] [place], [address] GFR/1.73 sq M.predicted among non-blacks MDRD (S/P/Bld) [Vol rate/Area] 58 mL/min/{1.73_m2} Low >60 [facility] Comment on above: Result Comment: Non- GFR Calc Performed By: #### L 100.0100, L500.2500 #### [facility] [address] [place], [address] Glucose [Mass/Vol] 144 mg/dL High 74-106 [facility] Comment on above: Result Comment: Fast ing Glucose result greater than or equal to 126 mg/dL suggests DIABETES MELLITUS per A.D.A. criteria. Performed By: #### L 100.0100, L500.2500 #### [facility] [address] [place], [address] Potassium [Moles/Vol] 3.3 mmol/L Low 3.5-5.1 [facility] Comment on above: Performed By: #### L 100.0100, L500.2500 #### [facility] [address] [place], [address] Sodium [Moles/Vol] 138 mmol/L Normal 136-145 [facility] Comment on above: Performed By: #### L 100.0100, L500.2500 #### [facility] [address] [place], [address] Urea nitrogen [Mass/Vol] 17 mg/dL Normal 7-18 [facility] Comment on above: Performed By: #### L 100.0100, L500.2500 #### [facility] [address] [place], [address] Basophil percentageOrdered B y: Sean Sanders on 11-23-2022 Basophil percentage 0-5 SEEN /hpf 0-5 [facility] Bilirubin [Mass/Vol] 0.80 mg/dL 0.20-1.00 [facility] Comment on above: For patients on eltr ombopag therapy, use of Dimension Reddell TBIL is not recommended. Protein [Mass/Vol] 8.0 g/dL 6.4-8.2 [facility] Bilirubin Test strip Ql (U)O rdered By: Sean Sanders on 11-23-2022 Bilirubin Ql (U) Negative Negative [facility] CBC W/Diff, Automatedon 07- Absolute Lymph 0.69 X10 3/uL Low 0.83-4.51 [facility] Comment on above: Performed By: #### L 100.0100, L500.2500 #### [facility] [address] [place], [address] Absolute Neut 6.4 X10 3/uL Normal 2.0-7.7 [facility] Comment on above: Performed By: #### L 100.0100, L500.2500 #### [facility] [address] [place], [address] Basophils/100 WBC (Bld) 0.4 % Normal 0-1 [facility] Comment on above: Performed By: #### L 100.0100, L500.2500 #### [facility] [address] [place], [address] Eosinophils/100 WBC (Bld) 0.0 % Normal 0-5 [facility] Comment on above: Performed By: #### L 100.0100, L500.2500 #### [facility] [address] [place], [address] Erythrocyte distribution width (RBC) [Ratio] 13.2 % Normal 11.6-14.6 [facility] Comment on above: Performed By: #### L 100.0100, L500.2500 #### [facility] [address] [place], [address] Hematocrit (Bld) [Volume fraction] 38.9 % Normal 37-47 [facility] Comment on above: Performed By: #### L 100.0100, L500.2500 #### [facility] [address] [place], [address] Hemoglobin (Bld) [Mass/Vol] 12.7 g/dL Normal 12.0-15.0 [facility] Comment on above: Performed By: #### L 100.0100, L500.2500 #### [facility] [address] [place], [address] IG% 0.300 Normal 0.0-0.9 [facility] Comment on above: Result Comment: IG% - Immature Granulocytes (promyelocytes, myelocytes and metamyelocytes) > 1% indicates that a LEFT SHIFT is Present. Performed By: #### L 100.0100, L500.2500 #### [facility] [address] [place], [address] Lymphocytes/100 WBC (Bld) 8.7 % Low 19-41 [facility] Comment on above: Performed By: #### L 100.0100, L500.2500 #### [facility] [address] [place], [address] MCH (RBC) [Entitic mass] 28.5 pg Normal 27.0-32.0 [facility] Comment on above: Performed By: #### L 100.0100, L500.2500 #### [facility] [address] [place], [address] MCHC (RBC) [Mass/Vol] 32.6 g/dL Normal 32-36 [facility] Comment on above: Performed By: #### L 100.0100, L500.2500 #### [facility] [address] [place], [address] MCV (RBC) [Entitic vol] 87.2 fL Normal 81-99 [facility] Comment on above: Performed By: #### L 100.0100, L500.2500 #### [facility] [address] [place], [address] Monocytes/100 WBC (Bld) 10.0 % Normal 0-10 [facility] Comment on above: Performed By: #### L 100.0100, L500.2500 #### [facility] [address] [place], [address] Neutrophils/100 WBC (Bld) 80.6 % High 47-70 [facility] Comment on above: Performed By: #### L 100.0100, L500.2500 #### [facility] [address] [place], [address] Nucleated RBC (Bld) [#/Vol] 0 10*3/uL Normal 0-5 [facility] Comment on above: Performed By: #### L 100.0100, L500.2500 #### [facility] [address] [place], [address] Platelet mean volume (Bld) [Entitic vol] 11.6 fL Normal 6.2-12.0 [facility] Comment on above: Performed By: #### L 100.0100, L500.2500 #### [facility] [address] [place], [address] Platelets (Bld) [#/Vol] 262 10*3/uL Normal 150-450 [facility] Comment on above: Performed By: #### L 100.0100, L500.2500 #### [facility] [address] [place], [address] RBC (Bld) [#/Vol] 4.46 10*6/uL Normal 4.2-5.4 [facility] Comment on above: Performed By: #### L 100.0100, L500.2500 #### [facility] [address] [place], [address] RDW SD 41.4 fl Normal 35.1-43.9 [facility] Comment on above: Performed By: #### L 100.0100, L500.2500 #### [facility] [address] [place] [place], [address] WBC (Bld) [#/Vol] 7.9 10*3/uL Normal 4.4-11.0 [facility] Comment on above: Performed By: #### L 100.0100, L500.2500 #### [facility] [address] [place], [address] Direct bilirubinOrdered By: Sean Sanders on 11-23-2022 Bilirubin.direct [Mass/Vol] 0.25 mg/dL 0.00-0.30 [facility] Emergency Department Summary on 11-23-2022 Emergency Department Summary [facility] Medical Records Department [address] [place] [address] Emergency Department Summary 11/23/22 MR#: [id number] Acct: [id number] Name: SUSANNA VU Rep #: [id number] : 1960 62 From: Sean Sanders MD PCP: Dr. Eduardo Sheffield MD Status:REG [facility] [place] [facility] HPI HPI - GI History of Present Illness Chief Complaint: Nausea/Vomiting Informant: patient Abdominal Pain/Flank Pain Onset: Days (2-3) Context: Gradual Onset Timing: Continuous and Waxes and wanes Quality: Aching and Cramping Location: - (lower abd, worse on L) Current Severity: Severe Maximum Severity: Severe Worsened by: Nothing Relieved by: Nothing Nausea/Vomiting/Emes is GI Symptom: Positive for Nausea and Vomiting Quality: Negative for Blood streaks or Coffee ground Diarrhea/Melena/Kuldeep tochezia GI Symptom: Negative for Diarrhea, Melena or Hematochezia Associated Symptoms Associated Symptoms: Negative for Dysuria, Frequency or Hematuria Narrative Narrative: Patient with a couple days of lower abdominal pain, nausea, vomiting. No fevers or chills. No diarrhea. No blood in her stool or melena. No urinary symptoms. Prior no other abdominal surgeries in the past. Never had this before. Pain occasionally goes into her right mid back. Usually not radiating. Also has some discomfort of her chest after vomiting. No dyspnea, cough. [facility] Medical History (Updated 11/23/22 @ 15:[address] Sean Sanders MD) Anxiety Gallbladder calculus Graves disease History of acute pyelonephritis Home Medications lorazepam 0.5 mg tablet 0.5 mg PO QHS PRN Anxiety 03/19/17 [History Last Taken 10/02/17 20:00] sertraline 50 mg tablet 25 mg PO DAILY 03/19/17 [History Last Taken 10/02/17 10:00] atenolol 25 mg tablet 25 mg PO DAILY 04/21/18 [History Last Taken Unknown] methimazole 5 mg tablet (Tapazole) 5 mg PO TID 04/21/18 [History Last Taken Unknown] Allergy/AdvReac Type Severity Reaction Status Date / Time azithromycin Allergy Itching Verified 11/23/22 13:43 Surgical History (Updated 11/23/22 @ 14:[address] Sean Sanders MD) Previous section Social History Smoking Status: Never smoker ROS ROS ED Constitutional Constitutional ED: Denies chills or fever(s) Eyes Eyes: Denies change in vision or diplopia ENT ENT ED: Denies rhinorrhea or sore throat Cardiovascular Cardiovascular: Reports as per HPI and chest pain; Denies palpitations Respiratory/Chest Respiratory/Chest: Denies cough or dyspnea Gastrointestinal Gastrointestinal: Reports abdominal pain, nausea and vomiting; Denies diarrhea, hematemesis, hematochezia or melena Genitourinary Genitourinary ED: Denies dysuria or hematuria Musculoskeletal Musculoskeletal: Reports back pain; Denies neck pain Integumentary Denies abscess or rash Neurologic Neurologic: Denies headache(s), paresthesias or weakness Psychiatric Psychiatric: Denies anxiety or suicidal thoughts EXAM Physical Exam Const Vital Signs: 11/23/22 13:39 Temperature 98.4 F Temperature Source Temporal Pulse Rate 93 Respiratory Rate 16 Blood Pressure 131/89 H Blood Pressure Mean 103 Pulse Ox 95 Oxygen Delivery Method Room Air Positive well nourished, well developed and obese General Appearance ED: well developed and NAD Nutritional Appearance: obese HEENT Reports moist mucous membranes normocephalic and atraumatic Eyes PERRL and EOMs intact bilaterally Neck full ROM and supple Resp normal respiratory effort and clear to auscultation bilaterally Cardio regular rate, regular rhythm and no murmurs GI non-distended GI Narrative: Very tender lower abdomen worse on the left than the right, but includes the suprapubic area as well. No guarding or rebound tenderness. No pulsatile mass. No Mobile sign. Auscultation: hypoactive bowel sounds Palpation: soft Back/Spine no CVA tenderness General Back: other FROM Extremity normal to inspection General Extremety ED: Negative for edema, pulses abnormal or tenderness General Extremity: Negative for edema or pulses abnormal Neuro oriented x3, CN's II-XII intact bilaterally and no sensory deficits noted Sensorium / Orientation: awake and alert Motor Exam: strength 5/5 throughout Skin no rashes or lesions noted and no wounds MDM MDM MDM Narrative Medical decision making narrative: Labs, CT were obtained, I reviewed the images and the report which I agree with, and spoke with Dr. Camacho. Basically patient has a gallstone ileus/jejunal obstruction because of a gallstone that eroded into the duodenum from the gallbladder. Patient is doing better after IV fluids, morphine, Zofran, we will place an NG tube, add liver enzymes upon request, and patient is going (more content not included)... [facility] H AND P Exam - Surgicalon H&P Exam - Surgical [facility] Medical Records Department [address] [place] [address] H P Exam - Surgical 11/23/22 1606 MR#: [id number] Acct: [id number] Name: HORACESUSANNA Rep #: [id number] : 1960 62 From: Alma Camacho MD PCP: Dr. Eduardo Sheffield MD Status:REG [facility] Location: [facility] HPI - General General Date of Admission: 11/23/22 HPI Narrative SUSANNA VU, is a 62 F who presents to the ER due to abdominal pain nausea vomiting. Patient states her abdominal pain started on Tuesday along with her nausea and vomiting nothing really eat since then. Patient CT abdomen pelvis shows a gallstone ileus in the mid jejunum along with pneumobilia. Patient states has been having right upper quadrant pain for about the last year. Patient white blood count is within. [facility] Medical History (Updated 11/23/22 @ 15:[address] Sean Sanders MD) Anxiety Gallbladder calculus Graves disease History of acute pyelonephritis Home Medications lorazepam 0.5 mg tablet 0.5 mg PO QHS PRN Anxiety 03/19/17 [History Last Taken 10/02/17 20:00] sertraline 50 mg tablet 25 mg PO DAILY 03/19/17 [History Last Taken 10/02/17 10:00] atenolol 25 mg tablet 25 mg PO DAILY 04/21/18 [History Last Taken Unknown] methimazole 5 mg tablet (Tapazole) 5 mg PO TID 04/21/18 [History Last Taken Unknown] Allergy/AdvReac Type Severity Reaction Status Date / Time azithromycin Allergy Itching Verified 11/23/22 13:43 Surgical History (Updated 11/23/22 @ 14:[address] Sean Sanders MD) Previous section Social History Smoking Status: Never smoker Vital Signs Vital Signs Vital Signs: 11/23/22 13:39 Temperature 98.4 F Temperature Source Temporal Pulse Rate 93 Respiratory Rate 16 Blood Pressure 131/89 H Blood Pressure Mean 103 Pulse Ox 95 Oxygen Delivery Method Room Air Weight Weight: 231 lb 7.766 oz Body Mass Index (BMI) 41.0 Physical Exam Const oriented x3 Resp normal respiratory effort Cardio regular rate GI soft to palpation GI Narrative: Tender mid abdomen, no guarding or rebound. Extremity General Extremity: edema Results Lab / Micro Data 11/23/22 13:27 11/23/22 13:27 Labs: Laboratory Results - last 24 hr 11/23/22 13:27: WBC 7.9, RBC 4.46, Hgb 12.7, Hct 38.9, MCV 87.2, MCH 28.5, MCHC 32.6, RDW Std Deviation 41.4, RDW Coeff of Peace 13.2, Plt Count 262, MPV 11.6, Immature Gran % (Auto) 0.300, Neut % (Auto) 80.6 H, Lymph % (Auto) 8.7 L, [place]asper % (Auto) 10.0, Eos % (Auto) 0.0, Baso % (Auto) 0.4, Absolute Neuts (auto) 6.4, Absolute Lymphs (auto) 0.69 L, Nucleated RBC % 0, Sodium 138, Potassium 3.3 L, Chloride 106, Carbon Dioxide 23.0, Anion Gap 9, BUN 17, Creatinine 1.02, Estim Creat Clear Calc 46.70, Est GFR (MDRD) Af Amer 70, Est GFR (MDRD) Non-Af 58 L, BUN/Creatinine Ratio 16.7, Glucose 144 H, Calcium 9.2 Assessment Plan Assessment/Plan (1) Gallstone ileus of small intestine: PLAN: Plan We will plan for laparotomy, removal of gallstone, possible small bowel resection. Discussed with procedure including but not limited to risk of bleeding, infection, injury to another organ, and anesthesia. Also discussed with patient there and does not appear to be any other stones in the gallbladder would not plan to do any surgery for the fistula tract between the duodenum and gallbladder. IV Zosyn. NG placed in the ER. Alma Camacho M.D. Pager: [phone] [facility] [address] [place] [address], [facility], [address] [place] [id number] Office: [phone] 11/23/22 6213 Cosigner Signature (if applicable): CC: Dr. Eduardo Sheffield MD; Dr. Alma Camacho MD Signed [facility] Ketones Test strip Ql (U)Ord ered By: Sean Sanders on 11-23-2022 Ketones Ql (U) 5 mg/dl Negative [facility] - Chemistry and C hemistry - challengeOrdered By: Sean Sanders on 11-23-2022 ALP [Catalytic activity/Vol] 67 U/L 45-117 [facility] ALT [Catalytic activity/Vol] 13 U/L - [facility] Globulin (S) [Mass/Vol] 4.7 g/dL 2.2-4.2 [facility] Liver Profileon 11-23-2022 Albumin [Mass/Vol] 3.3 g/dL Normal 3.2-5.0 [facility] Comment on above: Performed By: #### L 500.2500, L501.5200 #### [facility] [address] [place], [address] ALK P 67 U/L Normal 45-117 [facility] Comment on above: Performed By: #### L 500.2500, L501.5200 #### [facility] [address] [place], [address] ALT [Catalytic activity/Vol] 13 U/L Normal [facility] Comment on above: Performed By: #### L 500.2500, L501.5200 #### [facility] [address] [place], [address] AST [Catalytic activity/Vol] 12 U/L Low 15-37 [facility] Comment on above: Performed By: #### L 500.2500, L501.5200 #### [facility] [address] [place], [address] Bilirubin [Mass/Vol] 0.80 mg/dL Normal 0.20-1.00 [facility] Comment on above: Result Comment: For patients on eltrombopag therapy, use of Dimension [place] TBIL is not recommended. Performed By: #### L 500.2500, L501.5200 #### [facility] [address] [place], [address] Bilirubin.direct [Mass/Vol] 0.25 mg/dL Normal 0.00-0.30 [facility] Comment on above: Performed By: #### L 500.2500, L501.5200 #### [facility] [address] [place], [address] Globulin (S) [Mass/Vol] 4.7 g/dL High 2.2-4.2 [facility] Comment on above: Performed By: #### L 500.2500, L501.5200 #### [facility] [address] [place], [address] T PROT 8.0 g/dL Normal 6.4-8.2 [facility] Comment on above: Performed By: #### L 500.2500, L501.5200 #### [facility] [address] [place], [address] Mucus LM Ql (Urine sed)Order ed By: Sean Sanders on 11-23-2022 Mucus Ql (Urine sed) 0 SEEN /hpf [facility] Nitrite Test strip Ql (U)Ord ered By: Sean Sanders on 11-23-2022 Nitrite Ql (U) Negative Negative [facility] Operative Reporton 3 Operative Report [facility] Medical Records Department [address] [place] [address] Operative Report 11/23/22 1747 MR#: [id number] Acct: [id number] Name: SUSANNA VU Rep #: [id number] : 1960 62 From: Alma Camacho MD PCP: Dr. Eduardo Sheffield MD Status:REG [facility] Location: [place] [address] Report of Operation Date of Procedure: 11/23/22 Pre-Operative Diagnosis: Gallstone ileus Post-Operative Diagnosis: Same Surgery/Procedure Performed:: Laparotomy, removal of gallstone from small bowel Surgeon: Alma Camacho batch unloader: Angela Enriquez Type of Anesthesia: General/Supplemental Anesthesiologist: Alma Camacho Special Medications: Zosyn 3.375 g IV x1 Specimen's removed: gallstone Drains: none Estimated Blood Loss (mL): 10 cc Description of Procedure: Patient presents operating room placed spine on operating table. Timeout was completed verifying correct patient, procedure, site, positioning, special equipment and procedure. General anesthesia was induced. Midline laparotomy incision was made with a 15 blade scalpel this was deepened to the fascia with electrocautery. Entry into the abdomen after elevating the fascia with hemostats. No injury was noted upon entry to the abdomen. Wound protector was placed. The gallstone and obstructive transition site of the small bowel was brought into the wound. Small bowel was run proximally to the ligament of Treitz. All small bowel appeared viable. The gallstone was milked proximally and a longitudinal enterotomy was made with Metzenbaums small bowel to allow removal of the gallstone. Incision was closed transversely 2 layers???running 3-0 Vicryl then Limbert 3-0 silk. Small bowel contents were milked distally no leakage from small bowel enterotomy repair site. Fluid was suctioned. Incision was closed with 1 PDS running sutures. A few interrupted subdermal 3-0 Vicryl sutures were placed. Skin was closed with skin candelaria. Incision was dressed with Telfa and OpSite. Patient was extubated. Patient tolerated procedure well was taken the postanesthesia care unit in stable condition. Complications none 11/23/222234 Cosigner Signature (if applicable): CC: Dr. Eduardo Sheffield MD; Dr. Alma Camacho MD Signed Normal [facility] Protein Test strip Ql (U)Ord ered By: eSan Sanders on 11-23-2022 Protein Ql (U) 30 mg/dl Negative [facility] Serum or plasma albumin vanesa urement (mass/volume)Ordered By: Sean Sanders on 11-23-2022 Albumin [Mass/Vol] 3.3 g/dL 3.2-5.0 [facility] Squamous epithelial cells de tection in urine sediment by light microscopyOrdered By: Sean Sanders on 11-23-2022 Epithelial cells.squamous LM Ql (Urine sed) 0-5 SEEN /hpf 5-10 [facility] Thin prep Papanicolaou smear with manual screeningOrdered By: Sean Sanders on 11-23-2022 Thin prep Papanicolaou smear with manual screening 12 U/L 15-37 [facility] Urinalysis, Completeon 11-23 BACTERIA RARE Normal None Seen [facility] Comment on above: Order Comment: COLLE CTOR TO SPECIFY Performed By: #### L 500.2500, L501.5200 #### [facility] [address] [place], [address] EPI,SQUAMOUS 0-5 SEEN Normal 5-10 [facility] Comment on above: Order Comment: COLLE CTOR TO SPECIFY Performed By: #### L 500.2500, [id number] #### [facility] [address] [place], [address] RBC 0-5 SEEN Normal 0-5 [facility] Comment on above: Order Comment: RENEA CTOR TO SPECIFY Performed By: #### L 500.2500, L501.5200 #### [facility] [address] [place], [address] WBC 0-5 SEEN Normal 0-5 [facility] Comment on above: Order Comment: RENEA CTOR TO SPECIFY Performed By: #### L 500.2500, L501.5200 #### [facility] [address] [place], [address] Mucus Ql (Urine sed) 0 SEEN Normal [facility] Comment on above: Order Comment: RENEA CTOR TO SPECIFY Performed By: #### L 500.2500, [id number] #### [facility] [address] [place], [address] Urine blood detectionOrdered By: Sean Sanders on 11-23-2022 RBC Ql (U) 25 /ul Negative [facility] RBC Ql (U) 0-5 SEEN /hpf 0-5 [facility] Urine clarityOrdered By: John Sanders on 11-23-2022 Clarity (U) Clear Clear [facility] Urine color determinationOrd ered By: Sean Sanders on 11-23-2022 Color (U) Yellow Yellow [facility] Urine glucose detectionOrder ed By: Sean Sanders on 11-23-2022 Glucose Ql (U) Normal mg/dl Normal [facility] Urine leukocyte esterase det ection by dipstickOrdered By: Sean Sanders on 11-23-2022 Leukocyte esterase Test strip Ql (U) 25 /ul Negative [facility] Urine pHOrdered By: Sean Sanders on 11-23-2022 pH (U) 6.5 [pH] 5.0 - 8.0 [facility] Urine sediment bacteria coun t by microscopy (number/high power field)Ordered By: Sean Sanders on 11-23-2022 Bacteria LM.HPF (Urine sed) [#/Area] RARE /hpf None Seen [facility] Urine specific gravity measu rementOrdered By: Sean Sanders on 11-23-2022 Specific gravity (U) [Rel density] 1.010 1.002-1.030 [facility] Urobilinogen Auto test strip Ql (U)Ordered By: Sean Sanders on 11-23-2022 Urobilinogen Ql (U) Normal mg/dl Normal [facility] Vital Signs Date Time Vital Sign Value Performing Clinician Laithi lity 07-11-2024 11:37-0400 Body height 160 cm Rossi Butcher APRN.ORE WASHER Work Phone: [facility] 07-11-2024 11:37-0400 Body mass index (BMI) [Ratio] 36.85 kg/m2 Rossi Butcher APRN.ORE WASHER Work Phone: [facility] 07-11-2024 11:37-0400 Body temperature 97 [degF] Rossi Butcher APRN.ORE WASHER Work Phone: [facility] 07-11-2024 11:37-0400 Body weight 94.35 kg Rossi Butcher APRN.ORE WASHER Work Phone: [facility] 07-11-2024 11:37-0400 Diastolic blood pressure 70 mm[Hg] Rossi Deleonir FIELD AUTO APPRAISER.ORE WASHER Work Phone: [facility] 07-11-2024 11:37-0400 Heart rate 90 /min Rossi Butcher APRN.ORE WASHER Work Phone: [facility] 07-11-2024 11:37-0400 Respiratory rate 14 /min Rossi Jesse FIELD AUTO APPRAISER.ORE WASHER Work Phone: [facility] 07-11-2024 11:37-0400 SaO2% (BldA) [Mass fraction] 97 % Rossi Jesse FIELD AUTO APPRAISER.ORE WASHER Work Phone: [facility] 07-11-2024 11:37-0400 Systolic blood pressure 106 mm[Hg] Rossi Jesse FIELD AUTO APPRAISER.ORE WASHER Work Phone: [facility] 06-12-2024 14:10-0500 Body height 160 cm Eduardo Sheffield MD Work Phone: [facility] 06-12-2024 14:10-0500 Body mass index (BMI) [Ratio] 36.74 kg/m2 Eduardo Sheffield MD Work Phone: [facility] 06-12-2024 14:10-0500 Body weight 94.08 kg Eduardo Sheffield MD Work Phone: [facility] 06-12-2024 14:10-0500 Diastolic blood pressure 59 mm[Hg] Eduardo Shefifeld MD Work Phone: [facility] 06-12-2024 14:10-0500 Heart rate 76 /min Eduardo Sheffield MD Work Phone: [facility] 06-12-2024 14:10-0500 SaO2% (BldA) [Mass fraction] 99 % Eduardo Sheffield MD Work Phone: [facility] 06-12-2024 14:10-0500 Systolic blood pressure 95 mm[Hg] Eduardo Sheffield MD Work Phone: [facility] 10-11-2023 10:39-0400 Diastolic blood pressure 65 mm[Hg] Trudy Stewart FIELD AUTO APPRAISER.ENTERTAINMENT & MEDIA CORRESPONDENT Work Phone: [facility] 10-11-2023 10:39-0400 Heart rate 61 /min Trudy Stewart FIELD AUTO APPRAISER.ENTERTAINMENT & MEDIA CORRESPONDENT Work Phone: [facility] 10-11-2023 10:39-0400 Respiratory rate 16 /min Trudy Stewart FIELD AUTO APPRAISER.ENTERTAINMENT & MEDIA CORRESPONDENT Work Phone: [facility] 10-11-2023 10:39-0400 Systolic blood pressure 104 mm[Hg] Trudy Stewart FIELD AUTO APPRAISER.ENTERTAINMENT & MEDIA CORRESPONDENT Work Phone: [facility] 12-17-2022 11:19-0400 Body weight 103.87 kg Trudy Stewart FIELD AUTO APPRAISER.ENTERTAINMENT & MEDIA CORRESPONDENT Work Phone: [facility] 12-17-2022 11:19-0400 Diastolic blood pressure 72 mm[Hg] Trudy Stewart FIELD AUTO APPRAISER.ENTERTAINMENT & MEDIA CORRESPONDENT Work Phone: [facility] 12-17-2022 11:19-0400 Heart rate 62 /min Trudy Stewart FIELD AUTO APPRAISER.ENTERTAINMENT & MEDIA CORRESPONDENT Work Phone: [facility] 12-17-2022 11:19-0400 Respiratory rate 16 /min Trudy Stewart FIELD AUTO APPRAISER.ENTERTAINMENT & MEDIA CORRESPONDENT Work Phone: [facility] 12-17-2022 11:19-0400 SaO2% (BldA) [Mass fraction] 98 % Trudy Blancos FIELD AUTO APPRAISER.ENTERTAINMENT & MEDIA CORRESPONDENT Work Phone: [facility] 12-17-2022 11:19-0400 Systolic blood pressure 112 mm[Hg] Trudy Blancos FIELD AUTO APPRAISER.ENTERTAINMENT & MEDIA CORRESPONDENT Work Phone: [facility] 11-27-2022 11:34-0400 Body temperature 98 [degF] Dr. Eduardo Sheffield Work Phone: [facility] 11-27-2022 11:34-0400 Diastolic blood pressure 77 mm[Hg] Dr. Eduardo Sheffield Work Phone: [facility] 11-27-2022 11:34-0400 Heart rate 65 /min Dr. Eduardo Sheffield Work Phone: [facility] 11-27-2022 11:34-0400 Respiratory rate 16 /min Dr. Eduardo Sheffield Work Phone: [facility] 11-27-2022 11:34-0400 SaO2% (BldA) [Mass fraction] 97 % Dr. Eduardo Sheffield Work Phone: [facility] 11-27-2022 11:34-0400 Systolic blood pressure 135 mm[Hg] Dr. Eduardo Sheffield Work Phone: [facility] 11-24-2022 15:36-0400 Body height 160.[address] Eduardo Sheffield Work Phone: [facility] 11-24-2022 15:36-0400 Body weight [address] Eduardo Sheffield Work Phone: [facility] 11-23-2022 18:00-0400 Inhaled oxygen flow rate 4 L/min Dr. Eduardo Sheffield Work Phone: [facility] 11-23-2022 13:39-0400 Body mass index (BMI) [Ratio] 41 kg/m2 Dr. Eduardo Sheffield Work Phone: [facility] 04-15-2022 15:08-0500 Body temperature 97.7 [degF] Trudy Stewart FIELD AUTO APPRAISER.ENTERTAINMENT & MEDIA CORRESPONDENT Work Phone: [facility] 04-15-2022 15:08-0500 Body weight 111.13 kg Trudy Stewart FIELD AUTO APPRAISER.ENTERTAINMENT & MEDIA CORRESPONDENT Work Phone: [facility] 04-15-2022 15:08-0500 Diastolic blood pressure 76 mm[Hg] Trudy Stewart FIELD AUTO APPRAISER.ENTERTAINMENT & MEDIA CORRESPONDENT Work Phone: [facility] 04-15-2022 15:08-0500 Heart rate 88 /min Trudy Stewart FIELD AUTO APPRAISER.ENTERTAINMENT & MEDIA CORRESPONDENT Work Phone: [facility] 04-15-2022 15:08-0500 Respiratory rate 16 /min Trudy Stewart FIELD AUTO APPRAISER.ENTERTAINMENT & MEDIA CORRESPONDENT Work Phone: [facility] 04-15-2022 15:08-0500 SaO2% (BldA) [Mass fraction] 96 % Trudy Stewart FIELD AUTO APPRAISER.ENTERTAINMENT & MEDIA CORRESPONDENT Work Phone: [facility] 04-15-2022 15:08-0500 Systolic blood pressure 100 mm[Hg] Trudy Stewart FIELD AUTO APPRAISER.ENTERTAINMENT & MEDIA CORRESPONDENT Work Phone: [facility] Encounters Encounter Date Encounter Type Care Provider Facility Start: 11-03-2024 End: 11-05-2024 Refill Saskia Carrizales MD Work Phone: Endocrinology Comment on above: Refill Request Start: 08-15-2024 End: 08-17-2024 Refill Kerline Esteves APRN.ORE WASHER Work Phone: [facility] [place] Comment on above: Refill Request Start: 08-07-2024 End: 08-10-2024 ambulatory Eduardo Sheffield MD Work Phone: Internal Medicine [facility] Start: 07-11-2024 End: 07-11-2024 ambulatory ROSSI BUTCHER Facility:[facility] Start: 07-11-2024 End: 07-11-2024 Patient encounter procedure Rossi Butcher GUMARO.ORE WASHER Work Phone: General Surgery Comment on above: Weight loss (Primary Dx); Nausea and vomiting, unspecified vomiting type; LUQ pain Start: 07-05-2024 End: 09-03-2024 Telephone encounter Eduardo Sheffield MD Work Phone: [address] [place] [address] Comment on above: Orders; Patient Upda te Start: 06-17-2024 End: 06-18-2024 Refill Eduardo Sheffield MD Work Phone: [facility] [place] Comment on above: Refill Request Start: 06-14-2024 End: 06-15-2024 Refill Eduardo Sheffield MD Work Phone: [facility] [place] Comment on above: Refill Request Start: 06-12-2024 End: 06-12-2024 ambulatory EDUARDO SHEFFIELD Facility:[facility] Start: 06-12-2024 End: 06-12-2024 Office outpatient visit 25 minutes Eduardo Sheffield MD Work Phone: [facility] [place] Comment on above: Vomiting without dominic sea, unspecified vomiting type (Primary Dx); Hyperthyroidism; Recurrent vomiting; Dyspepsia; Weight loss; Nausea and vomiting, unspecified vomiting type; Vitamin B12 deficiency; Vitamin D deficiency; Low serum prealbumin; Asymptomatic menopause; Encounter for screening for osteoporosis; Encounter for screening mammogram for breast cancer Start: 06-07-2024 End: 06-08-2024 Telephone encounter Eduardo Sheffield MD Work Phone: [facility] [place] Comment on above: Electronic Communica tion Start: 04-26-2024 End: 04-26-2024 ambulatory EDUARDO SHEFFIELD Facility:[facility] Start: 04-10-2024 End: 04-10-2024 ambulatory Saskia Carrizales MD Work Phone: Endocrinology Comment on above: Graves disease (Prim maury Dx); Hyperthyroidism; Abnormal weight loss Start: 04-10-2024 End: 04-10-2024 Telemedicine consultation with patient Saskia Carrizales MD Work Phone: Endocrinology Start: 04-03-2024 End: 04-06-2024 ambulatory Eduardo Sheffield MD Work Phone: Internal Medicine [place] [address] Start: 03-15-2024 End: 03-15-2024 Refill Trudy Stewart FIELD AUTO APPRAISER.ENTERTAINMENT & MEDIA CORRESPONDENT Work Phone: [facility] [place] Comment on above: Refill Request Start: 01-14-2024 End: 01-16-2024 Refill Trudy Stewart FIELD AUTO APPRAISER.ENTERTAINMENT & MEDIA CORRESPONDENT Work Phone: [facility] [place] Comment on above: Refill Request Start: 10-13-2023 Refill Saskia Carrizales MD Work Phone: Endocrinology Start: 10-11-2023 End: 10-11-2023 ambulatory SASKIA CARRIZALES Facility:[facility] Start: 10-11-2023 End: 10-11-2023 Office outpatient visit 25 minutes Trudy Stewart FIELD AUTO APPRAISER.ENTERTAINMENT & MEDIA CORRESPONDENT Work Phone: [facility] [place] Comment on above: Primary hypertension (Primary Dx); Encounter for immunization; Left knee pain, unspecified chronicity; Nausea; Gallstone ileus (HCC); Recurrent major depression in partial remission (HCC) Start: 08-11-2023 Refill Eduardo Shaw Work Phone: [facility] [place] Comment on above: Refill Request Start: 08-02-2023 End: 08-02-2023 ambulatory Saskia Carrizales MD Work Phone: Endocrinology Comment on above: Graves disease (Prim maury Dx) Start: 08-02-2023 End: 08-02-2023 Telemedicine consultation with patient Saskia Carrizales MD Work Phone: [facility] Start: 06-18-2023 Refill David rm MD Work Phone: [facility] [place] Comment on above: Refill Request Start: 06-07-2023 Refill Trudyibng Stewart FIELD AUTO APPRAISER.ENTERTAINMENT & MEDIA CORRESPONDENT Work Phone: Endocrinology Comment on above: Refill Request Start: 03-09-2023 Refill Trudy Stewart FIELD AUTO APPRAISER.ENTERTAINMENT & MEDIA CORRESPONDENT Work Phone: [facility] [place] Comment on above: Refill Request Start: 03-08-2023 Refill Saskia Carrizales MD Work Phone: Endocrinology Comment on above: Refill Request Start: 12-17-2022 End: 12-17-2022 Office outpatient visit 25 minutes Trudy Stewart FIELD AUTO APPRAISER.ENTERTAINMENT & MEDIA CORRESPONDENT Work Phone: [facility] [place] Comment on above: Gallstone ileus (HCC ) (Primary Dx); SBO (small bowel obstruction) (HCC); Blood loss anemia; Panic disorder with agoraphobia; Depression, unspecified depression type; Cervical cancer screening; Colon cancer screening; Insomnia, unspecified type Start: 12-10-2022 Refill Saskia Carrizales MD Work Phone: Endocrinology Comment on above: Refill Request Start: 12-02-2022 End: 12-02-2022 ambulatory [facility] Facility:[facility] Start: 11-30-2022 End: 11-30-2022 ambulatory Saskia Carrizales MD Work Phone: Endocrinology Comment on above: Hyperthyroidism (Tanya ly Dx); Vitamin D deficiency Start: 11-30-2022 End: 11-30-2022 Telemedicine consultation with patient Saskia Carrizales MD Work Phone: [facility] Start: 11-27-2022 Non-patient / Non-visit Dr. Elder Sheffield Work Phone: [facility] Start: 11-26-2022 Non-patient / Non-visit Dr. Elder Sheffield Work Phone: [facility] Start: 11-25-2022 Telephone encounter Eduardo espinoza MD Work Phone: [facility] [place] Comment on above: Orders (Mammogram) Start: 11-25-2022 Non-patient / Non-visit Dr. Elder Sheffield Work Phone: [facility] Start: 11-24-2022 Non-patient / Non-visit Dr. Elder Sheffield Work Phone: [facility] Start: 11-23-2022 End: 11-27-2022 Evaluation and management of inpatient [facility] Facility:[facility] Start: 11-23-2022 [facility] Start: 11-23-2022 End: 11-27-2022 Evaluation and management of inpatient Dr. Eduardo Sheffield Work Phone: [facility] Work Phone: Start: 11-23-2022 Non-patient / Non-visit Dr. Elder Sheffield Work Phone: [facility] Start: 06-20-2022 Get Medical Advice Saskia Has an Work Phone: Endocrinology Comment on above: Blood order Start: 05-20-2022 Refill Eduardo Shaw Work Phone: [facility] [place] Comment on above: Refill Request Start: 04-15-2022 End: 04-15-2022 Office outpatient visit 25 minutes Trudy Stewart APRN.CNS Work Phone: [facility] [place] Comment on above: Primary hypertension (Primary Dx); Encounter for immunization; Screening for cervical cancer; Left knee pain, unspecified chronicity; Gastroesophageal reflux disease, unspecified whether esophagitis present; Encounter for screening for diabetes mellitus; Hyperthyroidism; Obesity, Class III, BMI 40-49.9 (morbid obesity) (HCC); Suspected COVID-19 virus infection; Gallbladder disease; Nausea and vomiting, unspecified vomiting type; Nausea; Depression, unspecified depression type; Recurrent major depression in partial remission (HCC) Start: 04-11-2022 Refill Kerline Esteves FIELD AUTO APPRAISER .ORE WASHER Work Phone: [facility] [place] Comment on above: Refill Request Start: 04-02-2022 End: 04-02-2022 ambulatory Saskia Carrizales MD Work Phone: Endocrinology Comment on above: Graves disease (Prim maury Dx); Grief; Vitamin D deficiency; Vomiting, unspecified vomiting type, unspecified whether nausea present Start: 04-02-2022 End: 04-02-2022 Telemedicine consultation with patient Saskia Carrizales MD Work Phone: [facility] Start: 02-26-2022 Refill Cailin Cherry FIELD AUTO APPRAISER.ORE WASHER Work Phone: [facility] [place] Comment on above: Refill Request Start: 10-28-2021 Refill Trudy Stewart APRN.ENTERTAINMENT & MEDIA CORRESPONDENT Work Phone: [facility] [place] Comment on above: Refill Request Start: 10-26-2021 Refill Saskia Carrizales MD Work Phone: Endocrinology Start: 10-06-2021 Refill Saskia Carrizales MD Work Phone: Endocrinology Comment on above: Refill Request Start: 08-30-2021 Refill Trudy Stewart FIELD AUTO APPRAISER.ENTERTAINMENT & MEDIA CORRESPONDENT Work Phone: [facility] [place] Comment on above: Refill Request Procedures Date Procedure Procedure Detail Performing Clinician Start: 04-26-2024 Lipid 1996 panel - S tuyet or Plasma Eduardo Sheffield MD Work Phone: Start: 11-23-[address] Eduardo Sheffield Work Phone: Start: 11-23-2022 Diagnostic radiograp hy of abdomen Dr. Eduardo Sheffield Work Phone: Start: 11-23-2022 Plain X-ray abdomen Dr. Eduardo Sheffield Work Phone: Start: 11-23-2022 Computed tomography of abdomen and pelvis with intravenous contrast Dr. Eduardo Sheffield Work Phone: Start: 10-21-2021 Lipid 1996 panel - S tuyet or Plasma Saskia Carrizales MD Work Phone: Start: 10-17-2017 Colonoscopy Trudy Johnadelso wolf FIELD AUTO APPRAISER.ENTERTAINMENT & MEDIA CORRESPONDENT Work Phone: Start: 12-25-2014 Mammography Trudy Dylan wolf FIELD AUTO APPRAISER.ENTERTAINMENT & MEDIA CORRESPONDENT Work Phone: H/O: surgery S/P laparotomy Dr. Eduardo nair Work Phone: Plan of Treatment Date Care Activity Detail Author Start: 05-22-2029 Urine microalbumin profile [facility] Start: 04-26-2029 Lipid panel Lipid Screening [facility] Start: 10-21-2026 Lipid 1996 panel - Serum or Plasma Lipid Screening [facility] Start: 10-21-2026 Lipid panel Lipid Screening [facility] Start: 10-21-2026 LIPID SCREEN LIPID SCREEN [facility] Start: 10-10-2026 Diabetes Screening Diabetes Screening [facility] Start: 07-11-2025 BP Controlled (<130/80) BP Controlled (<130/80) [facility] Start: 06-12-2025 Annual PCP Team Chronic Disease Visit Annual PCP Team Chronic Disease Visit [facility] Start: 06-12-2025 BP Controlled (<130/80) BP Controlled (<130/80) [facility] Start: 06-09-2025 DIABETES SCREEN DIABETES SCREEN [facility] Start: 06-09-2025 Diabetes Screening Diabetes Screening [facility] Start: 01-29-2025 End: 01-29-2025 ambulatory 01/29/2025 2:40 PM EDT [facility] Endocrinology [address] [address] Saskia Carrizales MD [address] [address] graves disease Endocrinology Comment on above: graves disease Start: 12-31-2024 Influenza vaccination [facility] Start: 12-11-2024 End: 12-11-2024 Patient encounter procedure 12/11/2024 1:30 PM EDT Appointment Mammogram [address] [place] [address] Mammogram Start: 10-21-2024 DIABETES SCREEN DIABETES SCREEN [facility] Start: 10-10-2024 BP Controlled (<130/80) BP Controlled (<130/80) [facility] Start: 09-12-2024 End: 09-12-2024 Patient encounter procedure 09/12/2024 1:10 PM EDT Appointment Mammogram [address] [place] [address] Mammogram Start: 09-12-2024 End: 09-12-2024 Patient encounter procedure 09/12/2024 10:20 AM EDT Office Visit [facility] [place] [address] [place] [address] Eduardo Sheffield MD [address] [place] [address] Nothing [facility] [place] Comment on above: Nothing Start: 09-11-2024 End: 09-11-2024 ambulatory 09/11/2024 2:40 PM EDT [facility] Endocrinology [address] [id number] Saskia Carrizales MD [address] [address] Weight loss Endocrinology Comment on above: Weight loss Start: 08-24-2024 End: 08-24-2024 Patient encounter procedure 08/24/2024 3:00 PM EDT Office Visit [facility] [place] [address] [place] [address] Eduardo Sheffield MD [address] [place] [address] 2 month follow up [facility] [place] Comment on above: 2 month follow up Start: 08-23-2024 End: 08-23-2024 Patient encounter procedure 08/23/2024 1:30 PM EDT Appointment Mammogram [address] [place] [address] Mammogram Start: 08-23-2024 End: 08-23-2024 ambulatory 08/23/2024 12:45 PM EDT Results Only [facility] [address] [place] [address] [facility] [facility] Start: 08-16-2024 End: 08-16-2024 ambulatory 08/16/2024 1:30 PM EDT Results Only [place] Gonzales [facility] [address] [place] [address] [facility] Austin [facility] Start: 08-16-2024 End: 08-16-2024 Patient encounter procedure 08/16/2024 10:15 AM EDT Appointment Ambulatory Surgery [address] [place] [address] Anoop Solomon MD [address] [place] [address] Ambulatory Surgery Start: 08-07-2024 End: 11-06-2024 Basic metabolic 2000 panel - Serum or Plasma BASIC METABOLIC PANEL Lab Routine Primary hypertension Expected: 08/07/2024, Expires: 11/06/2024 [facility] Work Phone: Comment on above: Expected: 08/07/2024, Expires: Start: 07-16-2024 End: 07-16-2024 Patient encounter procedure Mammogram Comment on above: Encounter for screening mammogram for br east cancer [Z12.31] Dx: Asymptomatic men opause [Z78.0] Start: 07-12-2024 End: 07-12-2024 ambulatory 07/12/2024 1:00 PM EDT Results Only [place] [facility] [address] [place] [address] [facility] [facility] Start: 06-25-2024 End: 06-25-2024 Patient encounter procedure 06/25/2024 11:00 AM EST Office Visit General Surgery [address] [place] [address] Rossi Butcher APRN.ORE WASHER [address] [place] [address] Weight loss [R63.4] General Surgery Comment on above: Weight loss [R63.4] Start: 06-21-2024 End: 06-21-2024 Patient encounter procedure 06/21/2024 11:00 AM EST Appointment Nuclear Medicine [address] [place] [address] Dx: Dyspepsia [R10.13]; Nausea and vomiting, unspecified vomiting type [R11.2] Nuclear Medicine Comment on above: Dx: Dyspepsia [R10.13]; Nausea and vomit ing, unspecified vomiting type [R11.2] Start: 06-20-2024 End: 06-20-2024 ambulatory 06/20/2024 11:30 AM EST Results Only [place] [facility] [address] [place] [address] [place] [facility] Draw Station Start: 06-19-2024 End: 06-19-2024 ambulatory 06/19/2024 1:00 PM EST Results Only [place] [facility] Draw Station [address] [place] [place] [address] [place] [facility] Draw Station Start: 06-18-2024 End: 06-18-2024 Patient encounter procedure 06/18/2024 11:30 AM EST Appointment Radiology [address] [place] [address] Dx: Recurrent vomiting [R11.10]; Dyspepsia [R10.13]; Weight loss [R63.4]; Vomiting without nausea, unspecified vomiting type [R11.11]; Nausea and vomiting, unspecified vomiting type [R11.2] Radiology Comment on above: Dx: Recurrent vomiting [R11.10]; Dyspeps ia [R10.13]; Weight loss [R63.4]; Vomiting without nausea, unspecified vomiting type [R11.11]; Nausea and vomiting, unspecified vomiting type [R11.2] Start: 06-14-2024 End: 06-14-2024 ambulatory 06/14/2024 10:30 AM EST Results Only [place] [facility] Draw Station [address] [place] [address] [facility] Comment on above: lab Start: 06-12-2024 End: 09-11-2024 25-hydroxyvitamin D3 [Mass/volume] in Serum or Plasma VITAMIN D 25 HYDROXY Lab Routine Vitamin D deficiency Expected: 06/12/2024, Expires: 09/11/2024 [facility] Comment on above: Expected: 06/12/2024, Expires: Start: 06-12-2024 End: 09-11-2024 Cobalamin (Vitamin B12) [Mass/volume] in Serum or Plasma VITAMIN B12 Lab Routine Vitamin B12 deficiency Expected: 06/12/2024, Expires: 09/11/2024 [facility] Comment on above: Expected: 06/12/2024, Expires: Start: 06-12-2024 End: 06-12-2024 Patient encounter procedure 06/12/2024 2:00 PM EST Office Visit Internal Medicine [place] [address] [place] [address] Eduardo Sheffield MD [address] [facility] [address] 6 month follow up Internal Medicine [facility] Comment on above: 6 month follow up Start: 06-12-2024 End: 09-11-2024 Prealbumin [Mass/volume] in Serum or Plasma PREALBUMIN Lab Routine Low serum prealbumin Expected: 06/12/2024, Expires: 09/11/2024 [facility] Comment on above: Expected: 06/12/2024, Expires: Start: 2024 Advance Directive Discussion Advance Directive Discussion [facility] Start: 2024 Screening for osteoporosis Bone Density Screening [facility] Start: 05-02-2024 Medicare Advantage Annual Wellness Visit Medicare Advantage Annual Wellness Visit [facility] Start: 04-18-2024 End: 04-18-2024 ambulatory 04/18/2024 11:30 AM EST Results [facility] [address] [place] [address] [facility] Start: 04-17-2024 End: 04-17-2024 ambulatory 04/17/2024 2:20 PM EST Distance [facility] Endocrinology [address] [address] Saskia Carrizales MD [address] [address] [facility] Endocrinology Comment on above: Thyroid Start: 04-16-2024 End: 04-16-2024 Patient encounter procedure 04/16/2024 1:40 PM EST Office Visit Internal Medicine [place] [address] [place], [place] [address] Eduardo Sheffield MD [address] [place] [address] 6 month follow up Internal Medicine [facility] Comment on above: 6 month follow up Start: 04-10-2024 End: 04-10-2024 ambulatory 04/10/2024 2:40 PM EST Distance [facility] Endocrinology [address] [address] Saskia Carrizales MD [address] [address] [facility] Endocrinology Comment on above: Thyroid Start: 04-10-2024 End: 07-10-2024 Thyrotropin [Units/volume] in Serum or Plasma THYROID STIMULATING HORMONE Lab Routine Graves disease Expected: 04/10/2024, Expires: 07/10/2024 [facility] Work Phone: Comment on above: Expected: 04/10/2024, Expires: Start: 04-10-2024 End: 07-10-2024 Thyroxine (T4) free [Mass/volume] in Serum or Plasma T4 FREE/FREE THYROXINE Lab Routine Graves disease Expected: 04/10/2024, Expires: 07/10/2024 [facility] Comment on above: Expected: 04/10/2024, Expires: Start: 04-03-2024 End: 07-03-2024 Lipid 1996 panel - Serum or Plasma LIPID PANEL BASIC Lab Routine Primary hypertension Expected: 04/03/2024, Expires: 07/03/2024 [facility] Work Phone: Comment on above: Expected: 04/03/2024, Expires: Start: 01-01-2024 Covid-19 Vaccine () Covid-19 Vaccine () [facility] Start: 01-01-2024 Covid-19 Vaccine () Covid-19 Vaccine () [facility] Start: 01-01-2024 Influenza vaccination [facility] Start: 12-18-2023 ANNUAL PCP TEAM CHRONIC DISEASE VISIT ANNUAL PCP TEAM CHRONIC DISEASE VISIT [facility] Start: 12-18-2023 BP CONTROLLED (<130/80) BP CONTROLLED (<130/80) [facility] Start: 12-10-2023 Hzv zoster vacc recombinant adjuvanted im njx ZOSTER VACCINE, RECOMBINANT (SHINGRIX) Immunization/Injection Routine Encounter for immunization Expected: 12/10/2023 [facility] Comment on above: Expected: 12/10/2023 Start: 11-10-2023 End: 08-03-2024 CBC W Auto Differential panel - Blood COMPLETE BLOOD COUNT AND DIFFERENTIAL Lab Routine Recurrent major depression in partial remission (HCC) Primary hypertension Expected: 11/10/2023 (Approximate), Expires: 08/03/2024 [facility] Work Phone: Comment on above: Expected: 11/10/2023 (Approximate), Expi res: 08/03/2024 Start: 11-10-2023 End: 08-03-2024 Comprehensive metabolic 2000 panel - Serum or Plasma COMPREHENSIVE METABOLIC PANEL Lab Routine Recurrent major depression in partial remission (HCC) Primary hypertension Expected: 11/10/2023 (Approximate), Expires: 08/03/2024 [facility] Work Phone: Comment on above: Expected: 11/10/2023 (Approximate), Expi res: 08/03/2024 Start: 10-21-2023 End: 10-21-2023 Patient encounter procedure 10/21/2023 1:45 PM EDT Appointment Radiology [address] [place] [address] Gallstone ileus (HCC) [K56.3] Radiology Comment on above: Gallstone ileus (HCC) [K56.3] Start: 08-02-2023 End: 11-01-2023 Thyrotropin [Units/volume] in Serum or Plasma TSH BLD Lab Routine Graves disease Expected: 08/02/2023, Expires: 11/01/2023 [facility] Work Phone: Comment on above: Expected: 08/02/2023, Expires: 4 Start: 08-02-2023 End: 11-01-2023 Thyroxine (T4) free [Mass/volume] in Serum or Plasma T4 FREE/FREE THYROX Lab Routine Graves disease Expected: 08/02/2023, Expires: 11/01/2023 [facility] Work Phone: Comment on above: Expected: 08/02/2023, Expires: 4 Start: 04-15-2023 BP CONTROLLED (<130/80) BP CONTROLLED (<130/80) [facility] Start: 12-31-2022 Covid-19 Vaccine () Covid-19 Vaccine ( season) [facility] Start: 12-31-2022 Influenza vaccination [facility] Start: 11-30-2022 End: 01-30-2023 25-hydroxyvitamin D3 [Mass/volume] in Serum or Plasma VITAMIN D 25 HYDROXY Lab Routine Vitamin D deficiency Expected: 11/30/2022, Expires: 01/30/2023 [facility] Work Phone: Comment on above: Expected: 11/30/2022, Expires: 3 Start: 11-30-2022 End: 01-30-2023 Thyrotropin [Units/volume] in Serum or Plasma TSH BLD Lab Routine Hyperthyroidism Expected: 11/30/2022, Expires: 01/30/2023 [facility] Work Phone: Comment on above: Expected: 11/30/2022, Expires: 3 Start: 11-30-2022 End: 01-30-2023 Thyroxine (T4) free [Mass/volume] in Serum or Plasma T4 FREE/FREE THYROX Lab Routine Hyperthyroidism Expected: 11/30/2022, Expires: 01/30/2023 [facility] Work Phone: Comment on above: Expected: 11/30/2022, Expires: 3 Start: 11-27-2022 Patient discharge [facility] Start: 11-26-2022 DIABETES SCREEN DIABETES SCREEN [facility] Start: 11-23-2022 Following clinical pathway protocol [facility] Start: 11-23-2022 Application of intermittent pneumatic compression device [facility] Start: 11-23-2022 Ambulation without limitation [facility] Start: 11-23-2022 Catheterization of vein [facility] Start: 11-23-2022 Measuring intake and output [facility] Start: 11-23-2022 Notification of physician [facility] Start: 11-23-2022 Vital signs measurements [facility] Start: 11-23-2022 [facility] Start: 11-23-2022 Admission procedure [facility] Start: 11-23-2022 [facility] Start: 06-21-2022 End: 08-21-2022 25-hydroxyvitamin D3 [Mass/volume] in Serum or Plasma VITAMIN D 25 HYDROXY Lab Routine Vitamin D deficiency Expected: 06/21/2022, Expires: 08/21/2022 [facility] Work Phone: Comment on above: Expected: 06/21/2022, Expires: 3 Start: 06-21-2022 End: 08-21-2022 Thyrotropin [Units/volume] in Serum or Plasma TSH BLD Lab Routine Hyperthyroidism Expected: 06/21/2022, Expires: 08/21/2022 [facility] Work Phone: Comment on above: Expected: 06/21/2022, Expires: 3 Start: 06-21-2022 End: 08-21-2022 Thyroxine (T4) free [Mass/volume] in Serum or Plasma T4 FREE/FREE THYROX Lab Routine Hyperthyroidism Expected: 06/21/2022, Expires: 08/21/2022 [facility] Work Phone: Comment on above: Expected: 06/21/2022, Expires: 3 Start: 06-21-2022 End: 08-21-2022 Triiodothyronine (T3) Free [Mass/volume] in Serum or Plasma T3 FREE BLD Lab Routine Hyperthyroidism Expected: 06/21/2022, Expires: 08/21/2022 [facility] Work Phone: Comment on above: Expected: 06/21/2022, Expires: 3 Start: 05-03-2022 SHINGRIX VACCINE (1 of 2) SHINGRIX VACCINE (1 of 2) [facility] Comment on above: Postponed from 2009 (Insurance Cov erage) Start: 04-15-2022 End: 06-15-2022 CBC W Auto Differential panel - Blood CBC + DIFF Lab Routine Gastroesophageal reflux disease, unspecified whether esophagitis present Primary hypertension Expected: 04/15/2022, Expires: 06/15/2022 [facility] Work Phone: Comment on above: Expected: 04/15/2022, Expires: 3 Start: 04-15-2022 End: 06-15-2022 Comprehensive metabolic 2000 panel - Serum or Plasma COMP METABOLIC PANEL Lab Routine Primary hypertension Expected: 04/15/2022, Expires: 06/15/2022 [facility] Work Phone: Comment on above: Expected: 04/15/2022, Expires: 3 Start: 04-15-2022 End: 06-15-2022 Hemoglobin A1c in Blood HGB A1C Lab Routine Encounter for screening for diabetes mellitus Expected: 04/15/2022, Expires: 06/15/2022 [facility] Work Phone: Comment on above: Expected: 04/15/2022, Expires: 3 Start: 04-02-2022 End: 06-02-2022 25-hydroxyvitamin D3 [Mass/volume] in Serum or Plasma VITAMIN D 25 HYDROXY Lab Routine Vitamin D deficiency Expected: 04/02/2022, Expires: 06/02/2022 [facility] Work Phone: Comment on above: Expected: 04/02/2022, Expires: 3 Start: 04-02-2022 End: 06-02-2022 Thyrotropin [Units/volume] in Serum or Plasma TSH BLD Lab Routine Graves disease Expected: 04/02/2022, Expires: 06/02/2022 [facility] Work Phone: Comment on above: Expected: 04/02/2022, Expires: 3 Start: 04-02-2022 End: 06-02-2022 Thyroxine (T4) free [Mass/volume] in Serum or Plasma T4 FREE/FREE THYROX Lab Routine Graves disease Expected: 04/02/2022, Expires: 06/02/2022 [facility] Work Phone: Comment on above: Expected: 04/02/2022, Expires: 3 Start: 04-02-2022 End: 06-02-2022 Triiodothyronine (T3) Free [Mass/volume] in Serum or Plasma T3 FREE BLD Lab Routine Graves disease Expected: 04/02/2022, Expires: 06/02/2022 [facility] Work Phone: Comment on above: Expected: 04/02/2022, Expires: 3 Start: 01-26-2022 BP CONTROLLED (<130/80) BP CONTROLLED (<130/80) [facility] Start: 12-31-2021 Influenza vaccination [facility] Start: 08-09-2021 HPV TESTING HPV TESTING [facility] Start: 08-09-2021 PAP TESTING PAP TESTING [facility] Start: 08-09-2021 Screening for malignant neoplasm of cervix [facility] Start: 06-24-2021 ANNUAL PCP TEAM CHRONIC DISEASE VISIT ANNUAL PCP TEAM CHRONIC DISEASE VISIT [facility] Start: 05-26-2021 COVID-19 VACCINE (3 - Booster for Pfizer series) COVID-19 VACCINE (3 - Booster for Pfizer series) [facility] Start: 02-18-2021 COVID-19 VACCINE (3 - Booster for Pfizer series) COVID-19 VACCINE (3 - Booster for Pfizer series) [facility] Start: 02-18-2021 COVID-19 VACCINE (3 - Pfizer series) COVID-19 VACCINE (3 - Pfizer series) [facility] Start: 2019 RSV Vaccine (1 - 1-dose 60+ series) RSV Vaccine (1 - 1-dose 60+ series) [facility] Start: 2019 RSV Vaccine (1 - Risk 60-74 years 1-dose series) RSV Vaccine (1 - Risk 60-74 years 1-dose series) [facility] Start: 10-17-2018 Colonoscopy COLONOSCOPY [facility] Start: 10-17-2018 COLORECTAL CANCER SCREENING COLORECTAL CANCER SCREENING [facility] Start: 10-17-2018 Screening for malignant neoplasm of colon [facility] Start: 10-16-2018 FECAL OCCULT BLOOD FECAL OCCULT BLOOD [facility] Start: 10-16-2018 Screening for malignant neoplasm of colon Fecal Occult Blood [facility] Start: 09-14-2018 LIPID SCREEN LIPID SCREEN [facility] Start: 12-26-2015 Mammography [facility] Start: 12-26-2015 Screening for malignant neoplasm of breast Mammogram Screening [facility] Start: 2009 Pneumococcal Vaccine: 50+ (1 of 1 - PCV) Pneumococcal Vaccine: 50+ (1 of 1 - PCV) [facility] Start: 2009 SHINGRIX VACCINE (1 of 2) SHINGRIX VACCINE (1 of 2) [facility] Start: 2004 COLOGUARD (FIT-DNA) COLOGUARD (FIT-DNA) [facility] Start: [address] COLONOGRAPHY [facility] Start: 2004 Screening for malignant neoplasm of colon [facility] Start: 2004 SIGMOIDOSCOPY SIGMOIDOSCOPY [facility] Start: 1977 HEPATITIS C SCREENING HEPATITIS C SCREENING [facility] Start: 1977 HIV SCREENING HIV SCREENING [facility] End: 07-12-2025 BD DXA TRABECULAR BONE SCORE (TBS) BD DXA TRABECULAR BONE SCORE (TBS) Radiology Routine Asymptomatic menopause 1 Occurrences starting 06/12/2024 until 07/12/2025 [facility] Comment on above: 1 Occurrences starting 06/12/2024 until 07/12/2025 COLOGUARD COLOGUARD Lab Ro utine Colon cancer screening Ordered: 12/17/2022 [facility] Work Phone: Comment on above: Ordered: 12/17/2022 End: 07-12-2025 DBT Breast - bilateral screening RIO SCREENING W DOT Radiology Routine Encounter for screening mammogram for breast cancer 1 Occurrences starting 06/12/2024 until 07/12/2025 [facility] Comment on above: 1 Occurrences starting 06/12/2024 until 07/12/2025 End: 07-12-2025 DXA Skeletal system.axial Views for bone density DXA-AXIAL SKELETON Radiology Routine Asymptomatic menopause 1 Occurrences starting 06/12/2024 until 07/12/2025 [facility] Comment on above: 1 Occurrences starting 06/12/2024 until 07/12/2025 End: 07-11-2025 EGD DIAGNOSTIC EGD DIAGNOSTIC Endoscopy Routine Weight loss Nausea and vomiting, unspecified vomiting type 1 Occurrences starting 07/11/2024 until 07/11/2025 [facility] Work Phone: Comment on above: 1 Occurrences starting 07/11/2024 until 07/11/2025 Hzv zoster vacc recombinant adjuvanted im njx ZOSTER VACCINE, RECOMBINANT (SHINGRIX) Immunization/Injection Routine Encounter for immunization 1 Occurrences starting 10/11/2023 [facility] Work Phone: Comment on above: 1 Occurrences starting 10/11/2023 INFLUENZA VACCINE QUADRIVALENT 6 MO - 64 YRS IM INFLUENZA VACCINE QUADRIVALENT 6 MO - 64 YRS IM Immunization/Injection Routine Encounter for immunization 1 Occurrences starting 04/15/2022 [facility] Work Phone: Comment on above: 1 Occurrences starting 04/15/2022 Influenza virus A an d B RNA and SARS-CoV-2 (COVID-19) N gene panel - Respiratory specimen by ERUM with probe detection COVID WITH FLUA+B, ROUTINE Microbiology Routine Suspected COVID-19 virus infection Ordered: 04/15/2022 [facility] Work Phone: Comment on above: Ordered: 04/15/2022 End: 12-25-2023 RIO SCREENING RIO SCREENING Radiology Routine Encounter for screening mammogram for breast cancer 1 Occurrences starting 11/25/2022 until 12/25/2023 [facility] Work Phone: Comment on above: 1 Occurrences starting 11/25/2022 until 12/25/2023 End: 12-25-2023 RIO SCREENING W DOT RIO SCREENING W DOT Radiology Routine Encounter for screening mammogram for breast cancer 1 Occurrences starting 11/25/2022 until 12/25/2023 [facility] Work Phone: Comment on above: 1 Occurrences starting 11/25/2022 until 12/25/2023 End: 07-12-2025 NM Stomach Views for gastric emptying solid phase W radionuclide PO NM GASTRIC EMPTYING SOLID Radiology Routine Dyspepsia Nausea and vomiting, unspecified vomiting type 1 Occurrences starting 06/12/2024 until 07/12/2025 [facility] Comment on above: 1 Occurrences starting 06/12/2024 until 07/12/2025 Patient referral [facility] Work Phone: PFIZER-BIONTECH COVI D-19 BIVALENT BOOSTER VACCINE, AGE 12+ YR PFIZER-BIONTECH COVID-19 BIVALENT BOOSTER VACCINE, AGE 12+ YR Immunization/Injection Routine Encounter for immunization 1 Occurrences starting 04/15/2022 [facility] Work Phone: Comment on above: 1 Occurrences starting 04/15/2022 PFIZER-BIONTECH COVI D-19 VACCINE (2022- SEASON) AGE 12+ YR PFIZER-BIONTECH COVID-19 VACCINE (2022- SEASON) AGE 12+ YR Immunization/Injection Routine Encounter for immunization 1 Occurrences starting 10/11/2023 [facility] Comment on above: 1 Occurrences starting 10/11/2023 Potassium [Moles/vol ume] in Serum or Plasma [facility] RSV VACCINE, BIVALEN T (ABRYSVO) RSV VACCINE, BIVALENT (ABRYSVO) Immunization/Injection Routine Encounter for immunization 1 Occurrences starting 10/11/2023 [facility] Comment on above: 1 Occurrences starting 10/11/2023 End: 11-27-2022 Screening mammography bi 2-view breast inc cad RIO SCREENING Radiology Routine Encounter for screening mammogram for breast cancer 1 Occurrences starting 10/28/2021 until 11/27/2022 [facility] Work Phone: Comment on above: 1 Occurrences starting 10/28/2021 until 11/27/2022 End: 11-09-2024 US Abdomen RUQ US ABD RIGHT UPPER QUADRANT Radiology Routine Gallstone ileus (HCC) 1 Occurrences starting 10/11/2023 until 11/09/2024 [facility] Comment on above: 1 Occurrences starting 10/11/2023 until 11/09/2024 End: 07-12-2025 US Abdomen RUQ US ABD RIGHT UPPER QUADRANT Radiology Routine Recurrent vomiting Dyspepsia Weight loss Vomiting without nausea, unspecified vomiting type Nausea and vomiting, unspecified vomiting type 1 Occurrences starting 06/12/2024 until 07/12/2025 [facility] Work Phone: Comment on above: 1 Occurrences starting 06/12/2024 until 07/12/2025 End: 05-15-2023 Us abdominal real time w/image limited US ABD RT UPPER QUADRANT Radiology Routine Gallbladder disease 1 Occurrences starting 04/15/2022 until 05/15/2023 [facility] Work Phone: Comment on above: 1 Occurrences starting 04/15/2022 until 05/15/2023 [facility] Immunizations Immunization Date Immunization Notes Care Provider Tala austin 02-19-2020 influenza, injectabl e, quadrivalent, preservative free Trudy Stewart [employer].ENTERTAINMENT & MEDIA CORRESPONDENT Work Phone: [facility] Work Phone: 02-19-2020 influenza virus vaccine, unspecified formulation Saskia Carrizales MD Work Phone: [facility] 05-22-2019 tetanus toxoid, redu alexander diphtheria toxoid, and acellular pertussis vaccine, adsorbed Trudy Stewart FIELD AUTO APPRAISER.ENTERTAINMENT & MEDIA CORRESPONDENT Work Phone: [facility] Work Phone: 02-17-2016 influenza, injectabl e, quadrivalent, contains preservative Trudy Stewart FIELD AUTO APPRAISER.ENTERTAINMENT & MEDIA CORRESPONDENT Work Phone: [facility] Work Phone: 05-24-2011 influenza virus vaccine, unspecified formulation Trudy Blancos FIELD AUTO APPRAISER.ENTERTAINMENT & MEDIA CORRESPONDENT Work Phone: [facility] 06-26-1987 tetanus and diphther ia toxoids, adsorbed, preservative free, for adult use (2 Lf of tetanus toxoid and 2 Lf of diphtheria toxoid) Trudybing Stewart FIELD AUTO APPRAISER.ENTERTAINMENT & MEDIA CORRESPONDENT Work Phone: [facility] Work Phone: 11-17-1970 trivalent poliovirus vaccine, live, oral Trudy Stewart FIELD AUTO APPRAISER.ENTERTAINMENT & MEDIA CORRESPONDENT Work Phone: [facility] Work Phone: 09-06-1970 trivalent poliovirus vaccine, live, oral Trudy Stewart FIELD AUTO APPRAISER.ENTERTAINMENT & MEDIA CORRESPONDENT Work Phone: [facility] Work Phone: Payers Date Payer Category Payer Medicare (Managed Care) [id number]. [id number] 2023 Unknown FERNANDO STEVENS X [id number] 2023-Present [phone] [address] [address] [place] [address] HMO [id number] 2022 Self-pay [id number] 2007 Medicaid [employer] [id number] 2007-Present [phone] [address] [place] [address] Medicaid [id number] 2007 Medicaid [id number] 2007 Unknown [id number] Unknown [id number] Unknown [id number] Unknown [id number] Unknown [id number] Unknown [id number] Unknown [id number] Unknown [id number] Social History Date Type Detail Facility Start: 10-06-2010 End: 04-15-2022 Tobacco smoking status MSIS Never smoked tobacco [facility] Start: 01-26-2021 End: 10-11-2023 Alcohol intake Current drinker of alcohol (finding) [facility] Start: 11-14-2019 End: 04-14-2022 History SDOH Alcohol Frequency 1 [facility] Start: 11-14-2019 End: 04-14-2022 History SDOH Alcohol Std Drinks 98 [facility] Start: 11-14-2019 End: 04-14-2022 History SDOH Social Connections Phone 5 [facility] Start: 03-03-2020 End: 04-14-2022 History SDOH Social Connections Get Together 4 [facility] Start: 11-14-2019 End: 04-14-2022 History SDOH Social Connections Membership 2 [facility] Start: 11-14-2019 End: 04-14-2022 History SDOH Social Connections Living 3 [facility] Start: 11-14-2019 End: 04-14-2022 History SDOH Physical Activity DPW 0 [facility] Start: 11-13-2019 Education 14 [facility] Start: 1960 Sex Assigned At Female [facility] Start: 10-06-2010 End: 04-15-2022 Tobacco use and exposure Smokeless tobacco non-user [facility] Start: 04-14-2022 End: 11-30-2022 History of Social function [facility] Start: 04-14-2022 End: 11-30-2022 Social connection and isolation panel [facility] How often do you att end sabianism or lutheran services? Patient refused [facility] Do you belong to any clubs or organizations such as sabianism groups, unions, fraternal or athletic groups, or school groups? No [facility] Are you now , , , , never or living with a partner? [facility] How often to you hav e a drink containing alcohol? Never [facility] How hard is it for y ou to pay for the very basics like food, housing, medical care, and heating Not very hard [facility] Do you feel stress - tense, restless, nervous, or anxious, or unable to sleep at night because your mind is troubled all the time - these days [OSQ] Very much [facility] (I/We) worried selena ellison (my/our) food would run out before (I/we) got money to buy more. Never true [facility] Start: 11-23-2022 Tobacco smoking stat us NHIS Unknown if ever smoked [facility] Start: 10-03-2017 None [facility] Start: 10-03-2017 With Family [facility] Start: 07-11-2024 Alcoholic beverage intake Ex-drinker (finding) [facility] Goals Date Patient Goal Desired Activity /State Functional Status Date Assessment Result Facility 11-27-2022 Functional status Ambulates [facility] Work Phone: 10-31-2014 Are you deaf, or do you have serious difficulty hearing No 10/31/2014 11:13 AM Malissa Vitale LPN No [facility] 10-31-2014 Are you blind, or do you have serious difficulty seeing, even when wearing glasses No 10/31/2014 11:13 AM Malissa Vitale LPN No [facility] 10-31-2014 Do you have serious difficulty walking or climbing stairs Yes 10/31/2014 11:13 AM Malissa Vitale LPN Yes [facility] 10-31-2014 Do you have difficul ty dressing or bathing No 10/31/2014 11:13 AM EDT Malissa Valdes LPN No [facility] 10-31-2014 Because of a physica l, mental, or emotional condition, do you have difficulty doing errands alone such as visiting a physician's office or shopping Yes 10/31/2014 11:13 AM EDT Malissa Valdes LPN Yes [facility] Mental Status Date Assessment Result Facility 11-27-2022 Cognitive function Voice/Name [facility] Work Phone: 10-31-2014 Because of a physica l, mental, or emotional condition, do you have serious difficulty concentrating, remembering, or making decisions No 10/31/2014 11:13 AM EDT Malissa Valdes LPN No [facility] Clinical Notes 08-31-2021 to 11-05-2024 Telephone Encounter - Sita Martin MA - 11/05/2024 8:46 AM EDTTelephone Encounter - Sita Martin MA - 11/05/2024 8:46 AM Rossi Mariano APRN.ROSALBA - 07/11/2024 11:30 AM EDT Note Date & Type Note Facility 11-05-2024 Telephone encounter Note Prescription Refill Information The patient has been identified by name and date of : Yes Caregiver verified no other encounters exist for this prescription request: Yes Caregiver confirmed with patient/requestor that no other refills are due, in the near future, with this provider at this time: Yes The last office visit in the department: 02/11/2024 Does the patient have a future office visit with this provider/department: Yes. 01/29/2025 Requested Prescriptions Pending Prescriptions Disp Refills methIMAzole (TAPAZOLE) 5 mg tablet [Pharmacy Med Name: methimazole 5 mg tablet] 45 tablet 1 Sig: Take 1/2 tablet by mouth once daily. Sita Martin MA November 05, 2024 8:46 AM [facility] 11-05-2024 Miscellaneous Notes Prescription Refill Information The patient has been identified by name and date of : Yes Caregiver verified no other encounters exist for this prescription request: Yes Caregiver confirmed with patient/requestor that no other refills are due, in the near future, with this provider at this time: Yes The last office visit in the department: 02/11/2024 Does the patient have a future office visit with this provider/department: Yes. 01/29/2025 Requested Prescriptions Pending Prescriptions Disp Refills methIMAzole (TAPAZOLE) 5 mg tablet [Pharmacy Med Name: methimazole 5 mg tablet] 45 tablet 1 Sig: Take 1/2 tablet by mouth once daily. Sita Martin MA November 05, 2024 8:46 AM documented in this encounter [facility] 08-16-2024 Telephone encounter Note Patient has been identified by name and date of : Yes Patient phones for refill(s): Requested Prescriptions Pending Prescriptions Disp Refills ibuprofen (MOTRIN) 800 mg tablet 90 tablet 0 Sig: Take 1 tablet by mouth three times a day as needed for pain. Take with food. Date of last office visit in primary care: 06/12/2024 Date of next office visit in primary care: 08/24/2024 Please advise. Thank you. Alexa Matthews LPN. [facility] 08-16-2024 Miscellaneous Notes Patient has been identified by name and date of : Yes Patient phones for refill(s): Requested Prescriptions Pending Prescriptions Disp Refills ibuprofen (MOTRIN) 800 mg tablet 90 tablet 0 Sig: Take 1 tablet by mouth three times a day as needed for pain. Take with food. Date of last office visit in primary care: 06/12/2024 Date of next office visit in primary care: 08/24/2024 Please advise. Thank you. Alexa Matthews LPN. documented in this encounter [facility] 08-07-2024 Note Patient Outreach (IN TMMN) SUSANNA VU ([id number]) 1960 F Date Time Provider Department 08/07/24 EDUARDO SHEFFIELD During your visit today, we recorded the following information about you: Allergies As of Date: 08/07/2024 Noted Allergy Reaction ZITHROMAX (AZITHROMYCIN) 03/03/2006 9 - Itching Comments: caused roof of mouth to itch and pt unable to complete course of medication. Date Reviewed: 07/11/2024 Reviewed by: Rossi Butcher APRN.ORE WASHER - Fully Assessed Visit Diagnosis:Primary hypertension [I10] Order(s):BASIC METABOLIC PANEL [SQBMP] Order #: [id number] FUTURE Prescriptions as of 08/10/2024 - ibuprofen (MOTRIN) 800 mg tablet Take 1 tablet by mouth three times a day as needed for pain. Take with food. - atenolol (TENORMIN) 25 mg tablet Take 0.5 tablets by mouth once daily. - methIMAzole (TAPAZOLE) 5 mg tablet Take 0.5 tablets by mouth once daily. - fluticasone (FLONASE) 50 mcg/actuation nasal spray Use 2 Sprays in each nostril once daily. Rinse mouth after use. - sertraline (ZOLOFT) 50 mg tablet Take 1 tablet by mouth two times a day. - omeprazole (PRILOSEC) 20 mg capsule Take 1 capsule by mouth daily before breakfast. 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] MITRAL VALVE DISORDER [I05.9] ESOPHAGEAL REFLUX [K21.9] Obesity, Class III, BMI 40-49.9 (morbid obesity*11/25/2005 AGORAPHOBIA W PANIC ATTACKS [F40.01] 12/27/2005 Recurrent major depression in partial remission*04/16/2006 OSTEOARTHROS NOS-L/LEG [[id number]] 01/03/2008 Panic Disorder with Agoraphobia [F40.01] 09/16/2009 Eating Disorder NEC 09/16/2009 Depression [F32.A] 09/16/2009 Cholelithiasis [K80.20] 06/09/2011 Disorders of bursae and tendons in shoulder reg*06/14/2011 Primary hypertension [I10] 12/11/2014 Orthostatic hypotension [I95.1] 10/02/2017 Tachycardia [R00.0] 11/28/2017 Syncope and collapse [R55] 11/09/2017 Hyperthyroidism [E05.90] 04/15/2022 History of kidney infection [Z87.440] 04/15/2022 Encounter Status:Closed by EPIC, PRODUSER on 08/10/24 [facility] 07-11-2024 History of Presen t illness Narrative HISTORY AND PHYSICAL Susanna Horace : 1960 REFERRING PHYSICIAN: Eduardo Sheffield [address] [facility] [address] CHIEF COMPLAINT: Patient presents with: Consult HPI: Susanna is a 64 year old female referred for endoscopy. Susanna notes nausea, vomiting & weight loss. October 2022 she was admitted to [facility] for gallstone ileus. Dr. Bustamante preformed laparotomy, removal of gallstone and repair of enterotomy. 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 Susanna was seen by Trudy Stewart CNP in October 2023 with c/o intermittent vomitng d/t food intolerance especially eggs. RUQ US was ordered/recommended at this time along with follow up with Dr. Camacho who she hasn't seen since her procedure Susanna was seen by Dr. Sheffield 06/12/24 with c/o unintentional weight loss d/t vomiting with every meal. RUQ US & Gastric emptying study was also recommended at this visit Susanna denies heartburn. Susanna denies dysphagia. Susanna denies a history of ulcers/ peptic ulcer disease. Susanna notes 38lb weight loss- she is unable to identify a time frame -vomiting about everything she eats -able to tolerate protein shakes -LUQ pain- no radiation to RUQ or back -pain is constant, is not aggravated by food, not relieved by anything - PCP has ordered gastric emptying study and RUQ US which haven't been completed yet - Pt was also taking Zofran but didn't notice any improvement Susanna has not undergone prior endoscopy. Current Outpatient Medications Medication Sig ibuprofen (MOTRIN) 800 mg tablet Take 1 tablet by mouth three times a day as needed for pain. Take with food. atenolol (TENORMIN) 25 mg tablet Take 0.5 tablets by mouth once daily. methIMAzole (TAPAZOLE) 5 mg tablet Take 0.5 tablets by mouth once daily. fluticasone (FLONASE) 50 mcg/actuation nasal spray Use 2 Sprays in each nostril once daily. Rinse mouth after use. sertraline (ZOLOFT) 50 mg tablet Take 1 tablet by mouth two times a day. omeprazole (PRILOSEC) 20 mg capsule Take 1 capsule by mouth daily before breakfast. ondansetron orally disintegrating (ZOFRAN ODT) 4 mg disintegrating tablet Take 1 tablet by mouth every 6 hours as needed. For nausea and vomiting No current facility-administered medications for this visit. ALLERGIES: Zithromax [Azithromycin] PAST MEDICAL HISTORY Diagnosis Date Dysthymic disorder Depression (non-psychotic) Esophageal reflux Graves disease Mitral valve disorders(424.0) Panic disorder without agoraphobia PMH - PAST MEDICAL HISTORY OF ?arthritis, knee problem Recurrent loss, unspecified as to episode of care or not applicable(646.30) PAST SURGICAL HISTORY Procedure Laterality Date DILATION & CURETTAGE DX&/THER NONOBSTETRIC Dilation & curettage LIG/TRNSXJ FLP TUBE ABDL/VAG APPR UNI/BI 05/02/1999 Tubal ligation PAST SURGICAL HISTORY OF 05/02/1999 /TL PT ED DIGESTIVE DISEASE 10/2022 Gallstone removed from lower intestine FAMILY HISTORY Problem Relation Age of Onset other (Intestinal problem) Mother Diabetes Father Cancer Father lung ca., skin cancer No Known Problems Sister Diabetes Sister other (Paralyzed) Sister other (Diya barre syndrome) Sister No Known Problems Brother Diabetes Maternal Grandmother No Known Problems Maternal Grandfather No Known Problems Paternal Grandmother Diabetes Paternal Grandfather Social History Tobacco Use Smoking status: Never Smokeless tobacco: Never Vaping Use Vaping status: Never Used Substance Use Topics Alcohol use: Not Currently Drug use: Not Currently Types: Marijuana REVIEW OF SYMPTOMS: REVIEW OF SYSTEMS: General: The patient + fatigue, + weight loss, denies weight gain, + feeling hot, and feelings of cold. Eyes: The patient denies glaucoma, denies eye injury/surgery, + glasses or contacts. Ear/Nose/Throat: The patient + allergies, denies hayfever, denies ear infections, and denies bloody noses. Cardiovascular: The patient denies chest pain, denies heart disease, denies high blood pressure, denies high cholesterol, and denies poor circulation. Respiratory: The patient denies tuberculosis, denies pneumonia, denies frequent cough, denies shortness of breath, and denies coughing up blood. Gastrointestinal: The patient denies difficulty swallowing, + acid reflux, denies ulcers, denies jaundice/hepatitis, + gallbladder problems, + vomiting, denies black or tarry stools, denies hemorrhoids, denies bleeding from rectum, denies diverticulitis, denies constipation, denies diarrhea, denies loss of stool control, and denies hernias. Kidney/Bladder: The patient denies kidney stones, denies urine infections, and denies bloody urine. Skin: The patient denies a history of skin cancer, denies bleeding/changing moles, and denies a history of skin rash. Neurologic: The patient denies a history of epilepsy/convulsions, denies headaches, denies head/spinal injuries, and denies stroke/TIA. Psychiatric: The patient denies psychiatric medications, + depression, and denies voices. Endocrine: The patient + thyroid disorders, denies diabetes, and denies hormonal problems. Hematologic: The patient denies a history of bruising, denies bleeding, and denies anemia. Infections: The patient denies a history of measles and mumps, denies rheumatic fever, and denies sexually transmitted diseases. Musculoskeletal: The patient denies back pain/injury, denies back problems, denies sciatica, denies knee/foot trouble, denies arthritis, or denies gout. PHYSICAL EXAMINATION: General: The patient is 64 year old, female well nourished, well hydrated in no acute distress. The patient is oriented to time, place, and person. VITALS: Blood pressure 106/70, pulse 90, temperature 36.1 C (97 F), temperature source Temporal, resp. rate 14, height 160 cm (5' 3), weight 94.3 kg (208 lb), last menstrual period 08/21/2007, SpO2 97%. Body mass index is 36.85 kg/m . HEENT: Normal cephalic, ataumatic, pupils are equally round, sclera are anicteric, mucous membranes are moist, oropharynx is clear. Neck has no masses, asymmetry or lymphadenopathy. Respiratory: Clear to auscultation and percussion. Normal respiratory excursion and pattern. Cardiac: Examination is regular rate and rhythm. Normal S1/S2 Abdominal exam: Soft, with no palpable masses +LUQ tenderness. No hepatosplenomegaly. No palpable hernias. Extremities: no clubbing, cyanosis or edema. No adenopathy. LABORATORY VALUES: As Noted RADIOLOGIC STUDIES: As Noted Assessment IMPRESSION: weight loss, vomiting, LUQ pain PLAN: I have reviewed my findings with the surgeon. Will plan for upper endoscopy. We discussed the risks and benefits of the planned endoscopy. I have informed the patient that complications can occur including failure to complete the endoscopy and perforation. Susanna had the opportunity to ask questions concerning the planned endoscopy. My staff has also explained the procedure to the patient in understandable terms and has given the patient printed material concerning the procedure. Susanna freely consents to surgery. I encouraged Susanna to complete the gastric emptying study along with the RU US that were previously ordered. I have explained to the patient the difference between IV conscious sedation and MAC anesthesia - and I have offered either, according to the patient's wishes. I have explained that with IV conscious sedation there is no anesthesia provider available and therefore there is a limitation of the amount of IV medications that can be given and that the patient may wake up in the middle of the procedure and/or experience pain/discomfort during the procedure. Further discussion was done and the patient was given the opportunity to ask questions and all questions were answered. Susanna chooses IV conscious sedation. Susanna was counseled that if there are changes in his/her medical condition, to let the office know if surgery should proceed. If there are changes in patient's medical condition from time of this encounter to the day of the procedure that preclude anesthesia, patient may have procedure cancelled for patient's safety. Diagnoses: (R63.4) Weight loss (primary encounter diagnosis) (R11.2) Nausea and vomiting, unspecified vomiting type (R10.12) LUQ pain Consultation requested by Dr. Sheffield for an opinion regarding weight loss nausea and vomiting, . My final recommendations will be communicated back to the requesting physician by way of shared Medical record or letter to requesting physician via US mail. Portions of this documentation were copied and pasted from previous office visit notes in order to provide a cohesive continuity of the history. The note has been reviewed and edited and updated as necessary. Rossi Butcher APRN.ROSALBA documented in this encounter [facility] 07-11-2024 Note HNO ID: [id number] Author: ROSSI BUTCHER APRN.CNP Service: ? Author Type: Nurse Practitioner Type: Progress Notes Filed: 07/11/2024 13:38 Note Text: HISTORY AND PHYSICAL Susanna Vu : 1960 REFERRING PHYSICIAN: Eduardo Sheffield [address] [facility] [address] CHIEF COMPLAINT: Patient presents with: Consult HPI: Susanna is a 64 year old female referred for endoscopy. Susanna notes nausea, vomiting AND weight loss. October 2022 she was admitted to [facility] for gallstone ileus. Dr. Bustamante preformed laparotomy, removal of gallstone and repair of enterotomy. 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 Susanna was seen by Trudy Stewart CNP in October 2023 with c/o intermittent vomitng d/t food intolerance especially eggs. RUQ US was ordered/recommended at this time along with follow up with Dr. Camacho who she hasn't seen since her procedure Susanna was seen by Dr. Sheffield 06/12/24 with c/o unintentional weight loss d/t vomiting with every meal. RUQ US AND Gastric emptying study was also recommended at this visit Susanna denies heartburn. Susanna denies dysphagia. Susanna denies a history of ulcers/ peptic ulcer disease. Susanna notes 38lb weight loss- she is unable to identify a time frame -vomiting about everything she eats -able to tolerate protein shakes -LUQ pain- no radiation to RUQ or back -pain is constant, is not aggravated by food, not relieved by anything - PCP has ordered gastric emptying study and RUQ US which haven't been completed yet - Pt was also taking Zofran but didn't notice any improvement Susanna has not undergone prior endoscopy. Current Outpatient Medications Medication Sig ibuprofen (MOTRIN) 800 mg tablet Take 1 tablet by mouth three times a day as needed for pain. Take with food. atenolol (TENORMIN) 25 mg tablet Take 0.5 tablets by mouth once daily. methIMAzole (TAPAZOLE) 5 mg tablet Take 0.5 tablets by mouth once daily. fluticasone (FLONASE) 50 mcg/actuation nasal spray Use 2 Sprays in each nostril once daily. Rinse mouth after use. sertraline (ZOLOFT) 50 mg tablet Take 1 tablet by mouth two times a day. omeprazole (PRILOSEC) 20 mg capsule Take 1 capsule by mouth daily before breakfast. ondansetron orally disintegrating (ZOFRAN ODT) 4 mg disintegrating tablet Take 1 tablet by mouth every 6 hours as needed. For nausea and vomiting No current facility-administered medications for this visit. ALLERGIES: Zithromax [Azithromycin] PAST MEDICAL HISTORY Diagnosis Date Dysthymic disorder Depression (non-psychotic) Esophageal reflux Graves disease Mitral valve disorders(424.0) Panic disorder without agoraphobia PMH - PAST MEDICAL HISTORY OF ?arthritis, knee problem Recurrent loss, unspecified as to episode of care or not applicable(646.30) PAST SURGICAL HISTORY Procedure Laterality Date DILATION AND CURETTAGE DXAND/THER NONOBSTETRIC Dilation AND curettage LIG/TRNSXJ FLP TUBE ABDL/VAG APPR UNI/BI 05/02/1999 Tubal ligation PAST SURGICAL HISTORY OF 05/02/1999 /TL PT ED DIGESTIVE DISEASE 10/2022 Gallstone removed from lower intestine FAMILY HISTORY Problem Relation Age of Onset other (Intestinal problem) Mother Diabetes Father Cancer Father lung ca., skin cancer No Known Problems Sister Diabetes Sister other (Paralyzed) Sister other (Diya barre syndrome) Sister No Known Problems Brother Diabetes Maternal Grandmother No Known Problems Maternal Grandfather No Known Problems Paternal Grandmother Diabetes Paternal Grandfather Social History Tobacco Use Smoking status: Never Smokeless tobacco: Never Vaping Use Vaping status: Never Used Substance Use Topics Alcohol use: Not Currently Drug use: Not Currently Types: Marijuana REVIEW OF SYMPTOMS: REVIEW OF SYSTEMS: General: The patient + fatigue, + weight loss, denies weight gain, + feeling hot, and feelings of cold. Eyes: The patient denies glaucoma, denies eye injury/surgery, + glasses or contacts. Ear/Nose/Throat: The patient + allergies, denies hayfever, denies ear infections, and denies bloody noses. Cardiovascular: The patient denies chest pain, denies heart disease, denies high blood pressure, denies high cholesterol, and denies poor circulation. Respiratory: The patient denies tuberculosis, denies pneumonia, denies frequent cough, denies shortness of breath, and denies coughing up blood. Gastrointestinal: The patient denies difficulty swallowing, + acid reflux, denies ulcers, denies jaundice/hepatitis, + gallbladder problems, + vomiting, denies black or tarry stools, denies hemorrhoids, denies bleeding from rectum, denies diverticulitis, denies constipation, denies diarrhea, denies loss of stool control, and denies hernias. Kidney/Bladder: The patient denies kidn (more content not included)... [facility] 07-05-2024 Telephone encounter Note Patient is calling to cancel and declining to r/s solid gastric empty test until after she see's General Surgery. [facility] 07-05-2024 Miscellaneous Notes Patient is calling to cancel and declining to r/s solid gastric empty test until after she see's General Surgery. documented in this encounter [facility] 06-14-2024 Telephone encounter Note Patient has been identified by name and date of : Yes Patient phones for refill(s): Requested Prescriptions Pending Prescriptions Disp Refills ibuprofen (MOTRIN) 800 mg tablet 90 tablet 0 Sig: Take 1 tablet by mouth three times a day as needed for pain. Take with food. Date of last office visit in primary care: 06/12/2024 Date of next office visit in primary care: 06/14/2024 Please advise. Thank you. Alexa Matthews LPN. [facility] 06-14-2024 Miscellaneous Notes Patient has been identified by name and date of : Yes Patient phones for refill(s): Requested Prescriptions Pending Prescriptions Disp Refills ibuprofen (MOTRIN) 800 mg tablet 90 tablet 0 Sig: Take 1 tablet by mouth three times a day as needed for pain. Take with food. Date of last office visit in primary care: 06/12/2024 Date of next office visit in primary care: 06/14/2024 Please advise. Thank you. Alexa Matthews LPN. documented in this encounter [facility] 06-14-2024 Telephone encounter Note Duplicate, Atenolol sent to /Jerald, 06/12/2024. Alexa Matthews LPN [facility] 06-14-2024 Miscellaneous Notes Duplicate, Atenolol sent to /Jerald, 06/12/2024. Alexa Matthews LPN documented in this encounter [facility] 06-12-2024 Instructions Eduardo Sheffield MD - 06/12/2024 2:38 PM EST BONE MINERAL DENSITY PATIENT INSTRUCTIONS Bone mineral density testing measures the amount of calcium in certain parts of your bones. This information determines how strong your bones are. The test is used to detect osteoporosis, a disease in which the bone's mineral content and density are low, increasing a person's risk of fractures. The lumbar spine (lower back) and the hip are the skeletal sites usually examined. For the test, remember that: 1. You cannot take this test if you are . 2. Eat a normal diet on the day of the test. 3. Take your medications as you normally would. 4. DO NOT take calcium supplements (such as Tums) for 24 hours before the test. 5. On the day of the test, leave valuables (jewelry or credit cards) at home. 6. The test should be performed prior to oral, rectal or IV contrast studies, or at least 7 days after any of these studies. For the test, you may be asked to wear a hospital gown. You will lie on your back, on a padded table, in a comfortable position. Generally, you can resume your usual activities immediately. documented in this encounter [facility] 06-12-2024 Note HNO ID: [id number] Author: EDUARDO SHEFFIELD MD Service: ? Author Type: Physician Type: Progress Notes Filed: 06/12/2024 15:12 Note Text: Reason for Visit Susanna Vu is a 64 year oldfemale who presents here Patient presents with: Recheck: Nutritional suppliment, Gastro consult? Gallbladder, unintentional weight loss, d/t vomiting after eating almost everyday Health Maintenance Shingrix Vaccine(1 of 2) Pneumococcal Vaccine: 50+(1 of 1 - PCV) Mammogram Screening Colorectal Cancer Screening RSV Vaccine(1 - Risk 60-74 years 1-dose series) Annual PCP Team Chronic Disease Visit Influenza Vaccine(1) Covid-19 Vaccine( season) Bone Density Screening Advance Directive Discussion HPI This is a 64-year-old woman with a past medical history of primary hypertension, hypothyroidism, depression, obesity. Since 2022 after intestinal obstruction surgery, she has not been able to eat well. She vomits each time after eating after surgery, at least majority of time. She is able to tolerate the protein shakes well. She is vomiting eggs, spaghetti , chilli, greasy foods, anything fatty. She has lost around 38 pounds Not very active, bp is on the lower side today but denies feeling tired, or lightheaded. No problem-specific Assessment AND Plan notes found for this encounter. PAST MEDICAL HISTORY Diagnosis Date Dysthymic disorder Depression (non-psychotic) Esophageal reflux Graves disease Mitral valve disorders(424.0) Panic disorder without agoraphobia PMH - PAST MEDICAL HISTORY OF ?arthritis, knee problem Recurrent loss, unspecified as to episode of care or not applicable(646.30) PAST SURGICAL HISTORY Procedure Laterality Date DILATION AND CURETTAGE DXAND/THER NONOBSTETRIC Dilation AND curettage LIG/TRNSXJ FLP TUBE ABDL/VAG APPR UNI/BI 1999 Tubal ligation PAST SURGICAL HISTORY OF 1999 /TL FAMILY HISTORY Problem Relation Age of Onset Colon Cancer Mother Diabetes Father Cancer Father lung ca., skin cancer Diabetes Maternal Grandmother Diabetes Paternal Grandfather Social History Tobacco Use Smoking status: Never Smokeless tobacco: Never Vaping Use Vaping status: Never Used Substance Use Topics Alcohol use: Yes Comment: occasional Drug use: No Past medical history, appointments, medications, allergies reviewed. Pertinent Lab/Diagnostic Studies are reviewed and discussed today Current Outpatient Medications: atenolol (TENORMIN) 25 mg tablet ibuprofen (MOTRIN) 800 mg tablet methIMAzole (TAPAZOLE) 5 mg tablet fluticasone (FLONASE) 50 mcg/actuation nasal spray sertraline (ZOLOFT) 50 mg tablet omeprazole (PRILOSEC) 20 mg capsule ondansetron orally disintegrating (ZOFRAN ODT) 4 mg disintegrating tablet Review of Systems CONSTITUTIONAL: No fevers, chills night sweats, unintended weight loss CARDIOVASCULAR: No chest pain, dyspnea, palpitations, orthopnea, PND, ankle edema. PULM: No dyspnea, unexplained cough. GI: No dysphagia/odynophagia, problematic reflux, constipation, diarrhea, changes in stool habits, hematochezia, melena. : No new urinary complaints, including dysuria, gross hematuria or pyuria. NEURO: No new balance problems, peripheral weakness/paresthesias or numbness of concern. Physical Exam BP 95/59 Pulse 76 Ht 160 cm (5' 3) Wt 94.1 kg (207 lb 6.4 oz) LMP 08/21/2007 SpO2 99% BMI 36.74 kg/m? General appearance: Well appearing, alert, in no acute distress, well nourished. Skin: Skin color, texture, turgor normal, no suspicious rashes or lesions Head: Normocephalic, no masses, lesions, tenderness or abnormalities Eyes: Anicteric sclera. Pupils are equally round and reactive to light. Extraocular movements are intact. Lungs:Normal breathing efforts, Lungs clear to auscultation. No wheezing, rhonchi, rales Heart: RRR without murmur, gallop, or rubs. Extremities: No deformities, edema, skin discoloration, clubbing or cyanosis. Good capillary refill. ASSESSMENT/PLAN: 1. Vomiting without nausea, unspecified vomiting type - ICD9: 787.03, ICD10: R11.11 (primary diagnosis) - US ABD RIGHT UPPER QUADRANT - CONSULT TO GENERAL SURGERY 2. Hyperthyroidism - ICD9: 242.90, ICD10: E05.90 - ATENOLOL 25 MG TABLET - ATENOLOL 25 MG TABLET 3. Recurrent vomiting - ICD9: 787.03, ICD10: R11.10 - US ABD RIGHT UPPER QUADRANT 4. Dyspepsia - ICD9: 536.8, ICD10: R10.13 - US ABD RIGHT UPPER QUADRANT - NM GASTRIC EMPTYING SOLID 5. Weight loss - ICD9: 783.21, ICD10: R63.4 - US ABD RIGHT UPPER QUADRANT - CONSULT TO GENERAL SURGERY 6. Nausea and vomiting, unspecified vomiting type - ICD9: 787.01, ICD10: R11.2 - US ABD RIGHT UPPER QUADRANT - NM GASTRIC EMPTYING SOLID - CONSULT TO GENERAL SURGERY Eduardo Sheffield MD Voice recognition software was used to compose this office note. Please excuse any unintended typographical errors. [facility] 06-12-2024 History of Presen t illness Narrative Reason for Visit Susanna Vu is a 64 year oldfemale who presents here Patient presents with: Recheck: Nutritional suppliment, Gastro consult? Gallbladder, unintentional weight loss, d/t vomiting after eating almost everyday Health Maintenance Shingrix Vaccine(1 of 2) Pneumococcal Vaccine: 50+(1 of 1 - PCV) Mammogram Screening Colorectal Cancer Screening RSV Vaccine(1 - Risk 60-74 years 1-dose series) Annual PCP Team Chronic Disease Visit Influenza Vaccine(1) Covid-19 Vaccine( season) Bone Density Screening Advance Directive Discussion HPI This is a 64-year-old woman with a past medical history of primary hypertension, hypothyroidism, depression, obesity. Since 2022 after intestinal obstruction surgery, she has not been able to eat well. She vomits each time after eating after surgery, at least majority of time. She is able to tolerate the protein shakes well. She is vomiting eggs, spaghetti , chilli, greasy foods, anything fatty. She has lost around 38 pounds Not very active, bp is on the lower side today but denies feeling tired, or lightheaded. No problem-specific Assessment & Plan notes found for this encounter. PAST MEDICAL HISTORY Diagnosis Date Dysthymic disorder Depression (non-psychotic) Esophageal reflux Graves disease Mitral valve disorders(424.0) Panic disorder without agoraphobia PMH - PAST MEDICAL HISTORY OF ?arthritis, knee problem Recurrent loss, unspecified as to episode of care or not applicable(646.30) PAST SURGICAL HISTORY Procedure Laterality Date DILATION & CURETTAGE DX&/THER NONOBSTETRIC Dilation & curettage LIG/TRNSXJ FLP TUBE ABDL/VAG APPR UNI/BI 1999 Tubal ligation PAST SURGICAL HISTORY OF 1999 /TL FAMILY HISTORY Problem Relation Age of Onset Colon Cancer Mother Diabetes Father Cancer Father lung ca., skin cancer Diabetes Maternal Grandmother Diabetes Paternal Grandfather Social History Tobacco Use Smoking status: Never Smokeless tobacco: Never Vaping Use Vaping status: Never Used Substance Use Topics Alcohol use: Yes Comment: occasional Drug use: No Past medical history, appointments, medications, allergies reviewed. Pertinent Lab/Diagnostic Studies are reviewed and discussed today Current Outpatient Medications: atenolol (TENORMIN) 25 mg tablet ibuprofen (MOTRIN) 800 mg tablet methIMAzole (TAPAZOLE) 5 mg tablet fluticasone (FLONASE) 50 mcg/actuation nasal spray sertraline (ZOLOFT) 50 mg tablet omeprazole (PRILOSEC) 20 mg capsule ondansetron orally disintegrating (ZOFRAN ODT) 4 mg disintegrating tablet Review of Systems CONSTITUTIONAL: No fevers, chills night sweats, unintended weight loss CARDIOVASCULAR: No chest pain, dyspnea, palpitations, orthopnea, PND, ankle edema. PULM: No dyspnea, unexplained cough. GI: No dysphagia/odynophagia, problematic reflux, constipation, diarrhea, changes in stool habits, hematochezia, melena. : No new urinary complaints, including dysuria, gross hematuria or pyuria. NEURO: No new balance problems, peripheral weakness/paresthesias or numbness of concern. Physical Exam BP 95/59 Pulse 76 Ht 160 cm (5' 3) Wt 94.1 kg (207 lb 6.4 oz) LMP 08/21/2007 SpO2 99% BMI 36.74 kg/m General appearance: Well appearing, alert, in no acute distress, well nourished. Skin: Skin color, texture, turgor normal, no suspicious rashes or lesions Head: Normocephalic, no masses, lesions, tenderness or abnormalities Eyes: Anicteric sclera. Pupils are equally round and reactive to light. Extraocular movements are intact. Lungs:Normal breathing efforts, Lungs clear to auscultation. No wheezing, rhonchi, rales Heart: RRR without murmur, gallop, or rubs. Extremities: No deformities, edema, skin discoloration, clubbing or cyanosis. Good capillary refill. ASSESSMENT/PLAN: 1. Vomiting without nausea, unspecified vomiting type - ICD9: 787.03, ICD10: R11.11 (primary diagnosis) - US ABD RIGHT UPPER QUADRANT - CONSULT TO GENERAL SURGERY 2. Hyperthyroidism - ICD9: 242.90, ICD10: E05.90 - ATENOLOL 25 MG TABLET - ATENOLOL 25 MG TABLET 3. Recurrent vomiting - ICD9: 787.03, ICD10: R11.10 - US ABD RIGHT UPPER QUADRANT 4. Dyspepsia - ICD9: 536.8, ICD10: R10.13 - US ABD RIGHT UPPER QUADRANT - NM GASTRIC EMPTYING SOLID 5. Weight loss - ICD9: 783.21, ICD10: R63.4 - US ABD RIGHT UPPER QUADRANT - CONSULT TO GENERAL SURGERY 6. Nausea and vomiting, unspecified vomiting type - ICD9: 787.01, ICD10: R11.2 - US ABD RIGHT UPPER QUADRANT - NM GASTRIC EMPTYING SOLID - CONSULT TO GENERAL SURGERY Eduardo Sheffield MD Voice recognition software was used to compose this office note. Please excuse any unintended typographical errors. documented in this encounter [facility] 06-08-2024 Telephone encounter Note Spoke with pt and information listed below given. Pt verbalizes understanding. Cheryle Woodruff LPN [facility] 06-08-2024 Miscellaneous Notes Spoke with pt and information listed below given. Pt verbalizes understanding. Cheryle Woodruff LPN Fax received and can be addressed at upcoming appointment. Patient has not been seen by PCP in over a year. Jovita Castellano from [facility] [employer] calls and reports that she is faxing over N for Nutritional supplies. Asking if this can be filled out and faxed back to [phone]. Please watch for this fax. Carmelita Conte RN documented in this encounter [facility] 06-07-2024 Telephone encounter Note Fax received and can be addressed at upcoming appointment. Patient has not been seen by PCP in over a year. [facility] 06-07[facility]24 Telephone encounter Note Jovita Castellano from [facility] calls and reports that she is faxing over CMN for Nutritional supplies. Asking if this can be filled out and faxed back to [phone]. Please watch for this fax. Carmelita Conte RN [facility] 04-10-2024 Note HNO ID: [id number] Author: SASKIA CARRIZALES MD Service: ? Author Type: Physician Type: Progress Notes Filed: 04/10/2024 14:41 Note Text: ENDOCRINOLOGY [facility] VISIT This visit was conducted via my chart I have communicated my name and active licensure. The patient's identity and physical location were verified at the time of this visit. The patient consents to proceed with the evaluation remotely. Subjective: Susanna Vu is a 63 year old female here for hyperthyroidism follow up. History in brief, Hyperthyroidism was diagnosed in September 2017 TSI was elevated (452), which confirmed the diagnosis of Graves disease. In October 2017, I started methimazole 10 mg BID. Current treatment: Methimazole 2.5 mg daily Previous treatment: Methimazole 5 mg daily Interval history: Sick with cold recently General symptoms: Fatigue:states that she always tired- unchanged She has insomnia Weight change: reports weight loss Reports that she went down 2 pant sizes Appetite change: No Change in bowel habits: intermittent constipation Temperature intolerance: chronic night sweats - needs to change clothes and sheets overnight 3-4 times per week Anxiety/Nervousness: Yes, takes zoloft Tremor: intermittent, when she doesn't eat for a while Palpitations: no Also reports arthralgia in her knees REVIEW OF SYSTEMS: Answers submitted by the patient for this visit: Core Review of Systems (Submitted on 04/03/2024) Fever : No Night sweats: Yes Recent unintentional weight change: Yes Nasal Congestion: No Hearing Loss: No Vision Disturbance: No A cough: No Difficulty Breathing?: No Chest pain: No Irregular heartbeat: No Leg Swelling: No Nausea: Yes Diarrhea: No Black tarry stools: No Difficulty Urinating?: No Awaken at Night More Than Once to Urinate?: Yes Joint pain or stiffness: Yes Muscle aches: No Leg or Foot Discomfort at Night?: No A rash: No Dizziness: No Headaches: No Memory Loss: No Seizures: No ALLERGIES: ALLERGIES Allergen Reactions Zithromax [Azithrom* Itching caused roof of mouth to itch and pt unable to complete course of medication. MEDICATIONS: Current Outpatient Medications on File Prior to Visit Medication Sig ibuprofen (MOTRIN) 800 mg tablet Take 1 tablet by mouth three times a day as needed for pain. Take with food. methIMAzole (TAPAZOLE) 5 mg tablet Take 0.5 tablets by mouth once daily. fluticasone (FLONASE) 50 mcg/actuation nasal spray Use 2 Sprays in each nostril once daily. Rinse mouth after use. sertraline (ZOLOFT) 50 mg tablet Take 1 tablet by mouth two times a day. omeprazole (PRILOSEC) 20 mg capsule Take 1 capsule by mouth daily before breakfast. ondansetron orally disintegrating (ZOFRAN ODT) 4 mg disintegrating tablet Take 1 tablet by mouth every 6 hours as needed. For nausea and vomiting atenolol (TENORMIN) 25 mg tablet Take 1 tablet by mouth once daily. No current facility-administered medications on file prior to visit. PAST MEDICAL HISTORY: PAST MEDICAL HISTORY Diagnosis Date Dysthymic disorder Depression (non-psychotic) Esophageal reflux Graves disease Mitral valve disorders(424.0) Panic disorder without agoraphobia PMH - PAST MEDICAL HISTORY OF ?arthritis, knee problem Recurrent loss, unspecified as to episode of care or not applicable(646.30) PHYSICAL EXAM: Alert and oriented x3, no acute distress, no acute distress LAB: Latest Reference Range AND Units 12/17/22 12:06 10/11/23 11:37 Free T4 0.9 - 1.7 ng/dL 0.9 0.8 (L) TSH 0.270 - 4.200 mIU/L 1.600 3.830 ASSESSMENT/PLAN: 1) Hyperthyroidism due to Graves disease 2) Weight loss Clinically, she appears euthyroid Update thyroid function test Then will adjust methimazole dose if needed If TSH is normal, then she needs to see her PCP regarding weight loss Patient has an appt scheduled next week I will send patient a message in my chart once the lab results become available Follow up in 6 months Saskia Carrizales MD [facility] 04-10-2024 History of Presen t illness Narrative ENDOCRINOLOGY [facility] VISIT This visit was conducted via my chart I have communicated my name and active licensure. The patient's identity and physical location were verified at the time of this visit. The patient consents to proceed with the evaluation remotely. Subjective: Susanna Vu is a 63 year old female here for hyperthyroidism follow up. History in brief, Hyperthyroidism was diagnosed in September 2017 TSI was elevated (452), which confirmed the diagnosis of Graves disease. In October 2017, I started methimazole 10 mg BID. Current treatment: Methimazole 2.5 mg daily Previous treatment: Methimazole 5 mg daily Interval history: Sick with cold recently General symptoms: Fatigue:states that she always tired- unchanged She has insomnia Weight change: reports weight loss Reports that she went down 2 pant sizes Appetite change: No Change in bowel habits: intermittent constipation Temperature intolerance: chronic night sweats - needs to change clothes and sheets overnight 3-4 times per week Anxiety/Nervousness: Yes, takes zoloft Tremor: intermittent, when she doesn't eat for a while Palpitations: no Also reports arthralgia in her knees REVIEW OF SYSTEMS: Answers submitted by the patient for this visit: Core Review of Systems (Submitted on 04/03/2024) Fever : No Night sweats: Yes Recent unintentional weight change: Yes Nasal Congestion: No Hearing Loss: No Vision Disturbance: No A cough: No Difficulty Breathing?: No Chest pain: No Irregular heartbeat: No Leg Swelling: No Nausea: Yes Diarrhea: No Black tarry stools: No Difficulty Urinating?: No Awaken at Night More Than Once to Urinate?: Yes Joint pain or stiffness: Yes Muscle aches: No Leg or Foot Discomfort at Night?: No A rash: No Dizziness: No Headaches: No Memory Loss: No Seizures: No ALLERGIES: ALLERGIES Allergen Reactions Zithromax [Azithrom* Itching caused roof of mouth to itch and pt unable to complete course of medication. MEDICATIONS: Current Outpatient Medications on File Prior to Visit Medication Sig ibuprofen (MOTRIN) 800 mg tablet Take 1 tablet by mouth three times a day as needed for pain. Take with food. methIMAzole (TAPAZOLE) 5 mg tablet Take 0.5 tablets by mouth once daily. fluticasone (FLONASE) 50 mcg/actuation nasal spray Use 2 Sprays in each nostril once daily. Rinse mouth after use. sertraline (ZOLOFT) 50 mg tablet Take 1 tablet by mouth two times a day. omeprazole (PRILOSEC) 20 mg capsule Take 1 capsule by mouth daily before breakfast. ondansetron orally disintegrating (ZOFRAN ODT) 4 mg disintegrating tablet Take 1 tablet by mouth every 6 hours as needed. For nausea and vomiting atenolol (TENORMIN) 25 mg tablet Take 1 tablet by mouth once daily. No current facility-administered medications on file prior to visit. PAST MEDICAL HISTORY: PAST MEDICAL HISTORY Diagnosis Date Dysthymic disorder Depression (non-psychotic) Esophageal reflux Graves disease Mitral valve disorders(424.0) Panic disorder without agoraphobia PMH - PAST MEDICAL HISTORY OF ?arthritis, knee problem Recurrent loss, unspecified as to episode of care or not applicable(646.30) PHYSICAL EXAM: Alert and oriented x3, no acute distress, no acute distress LAB: Latest Reference Range & Units 12/17/22 12:06 10/11/23 11:37 Free T4 0.9 - 1.7 ng/dL 0.9 0.8 (L) TSH 0.270 - 4.200 mIU/L 1.600 3.830 ASSESSMENT/PLAN: 1) Hyperthyroidism due to Graves disease 2) Weight loss Clinically, she appears euthyroid Update thyroid function test Then will adjust methimazole dose if needed If TSH is normal, then she needs to see her PCP regarding weight loss Patient has an appt scheduled next week I will send patient a message in my chart once the lab results become available Follow up in 6 months Saskia Carrizales MD documented in this encounter [facility] 04-03-2024 Note Patient Outreach (IN [facility]) SUSANNA VU ([id number]) 1960 F Date Time Provider Department 04/03/24 EDUARDO SHEFFIELD During your visit today, we recorded the following information about you: Allergies As of Date: 04/03/2024 Noted Allergy Reaction ZITHROMAX (AZITHROMYCIN) 03/03/2006 9 - Itching Comments: caused roof of mouth to itch and pt unable to complete course of medication. Date Reviewed: 10/11/2023 Reviewed by: Tomasa Arechiga LPN - Fully Assessed Visit Diagnosis:Primary hypertension [I10] Order(s):LIPID PANEL BASIC [SQLIPB] Order #: [id number] FUTURE Prescriptions as of 04/06/2024 - ibuprofen (MOTRIN) 800 mg tablet Take 1 tablet by mouth three times a day as needed for pain. Take with food. - methIMAzole (TAPAZOLE) 5 mg tablet Take 0.5 tablets by mouth once daily. - fluticasone (FLONASE) 50 mcg/actuation nasal spray Use 2 Sprays in each nostril once daily. Rinse mouth after use. - sertraline (ZOLOFT) 50 mg tablet Take 1 tablet by mouth two times a day. - omeprazole (PRILOSEC) 20 mg capsule Take 1 capsule by mouth daily before breakfast. - ondansetron orally disintegrating (ZOFRAN ODT) 4 mg disintegrating tablet Take 1 tablet by mouth every 6 hours as needed. For nausea and vomiting - atenolol (TENORMIN) 25 mg tablet Take 1 tablet by mouth once daily. 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] MITRAL VALVE DISORDER [I05.9] ESOPHAGEAL REFLUX [K21.9] Obesity, Class III, BMI 40-49.9 (morbid obesity*11/25/2005 AGORAPHOBIA W PANIC ATTACKS [F40.01] 12/27/2005 Recurrent major depression in partial remission*04/16/2006 OSTEOARTHROS NOS-L/LEG [[id number]] 01/03/2008 Panic Disorder with Agoraphobia [F40.01] 09/16/2009 Eating Disorder NEC 09/16/2009 Depression [F32.A] 09/16/2009 Cholelithiasis [K80.20] 06/09/2011 Disorders of bursae and tendons in shoulder reg*06/14/2011 Primary hypertension [I10] 12/11/2014 Orthostatic hypotension [I95.1] 10/02/2017 Tachycardia [R00.0] 11/28/2017 Syncope and collapse [R55] 11/09/2017 Hyperthyroidism [E05.90] 04/15/2022 History of kidney infection [Z87.440] 04/15/2022 Encounter Status:Closed by Domo, PRODUSER on 04/06/24 [facility] 03-15-2024 Telephone encounter Note Prescription Refill Information The patient has been identified by name and date of : Yes Caregiver verified no other encounters exist for this prescription request: Yes Caregiver confirmed with patient/requestor that no other refills are due, in the near future, with this provider at this time: Yes The last office visit in the department: 08/02/23 Does the patient have a future office visit with this provider/department: Yes-04/10/24 Requested Prescriptions Pending Prescriptions Disp Refills methIMAzole (TAPAZOLE) 5 mg tablet 45 tablet 1 Sig: Take 0.5 tablets by mouth once daily. Amanda Ventura MA March 15, 2024 1:11 PM [facility] 03-15-2024 Miscellaneous Notes Prescription Refill Information The patient has been identified by name and date of : Yes Caregiver verified no other encounters exist for this prescription request: Yes Caregiver confirmed with patient/requestor that no other refills are due, in the near future, with this provider at this time: Yes The last office visit in the department: 08/02/23 Does the patient have a future office visit with this provider/department: Yes-04/10/24 Requested Prescriptions Pending Prescriptions Disp Refills methIMAzole (TAPAZOLE) 5 mg tablet 45 tablet 1 Sig: Take 0.5 tablets by mouth once daily. Amanda Ventura MA March 15, 2024 1:11 PM documented in this encounter [facility] 03-15-2024 Telephone encounter Note Prescription Refill Information The patient has been identified by name and date of : Yes Caregiver verified no other encounters exist for this prescription request: Yes Caregiver confirmed with patient/requestor that no other refills are due, in the near future, with this provider at this time: Yes The last office visit in the department: 10/11/2023 Does the patient have a future office visit with this provider/department: Yes Requested Prescriptions Pending Prescriptions Disp Refills ibuprofen (MOTRIN) 800 mg tablet 90 tablet 0 Sig: Take 1 tablet by mouth three times a day as needed for pain. Take with food. Drake Barron MA March 15, 2024 10:05 AM [facility] 03-15-2024 Miscellaneous Notes Prescription Refill Information The patient has been identified by name and date of : Yes Caregiver verified no other encounters exist for this prescription request: Yes Caregiver confirmed with patient/requestor that no other refills are due, in the near future, with this provider at this time: Yes The last office visit in the department: 10/11/2023 Does the patient have a future office visit with this provider/department: Yes Requested Prescriptions Pending Prescriptions Disp Refills ibuprofen (MOTRIN) 800 mg tablet 90 tablet 0 Sig: Take 1 tablet by mouth three times a day as needed for pain. Take with food. Drake Barron MA March 15, 2024 10:05 AM documented in this encounter [facility] 01-16-2024 Telephone encounter Note Patient MyChart message requesting the following refill Refill(s) Requested: Requested Prescriptions Pending Prescriptions Disp Refills fluticasone (FLONASE) 50 mcg/actuation nasal spray 1 Each 1 Sig: Use 2 Sprays in each nostril once daily. Rinse mouth after use. sertraline (ZOLOFT) 50 mg tablet 180 tablet 3 Sig: Take 1 tablet by mouth two times a day. ALLERGIES Allergen Reactions Zithromax [Azithrom* Itching caused roof of mouth to itch and pt unable to complete course of medication. (home) [phone] (cell) Last Office Visit Date: 10/11/2023 Last Distance Health Visit: Visit date not found Future Appointment: 04/16/2024 The patients preferred pharmacy has been captured for this encounter? yes Request is for script(s) to be escript to pharmacy. Ly Jeffrey LPN [facility] 01-16-2024 Miscellaneous Notes Patient [facility] message requesting the following refill Refill(s) Requested: Requested Prescriptions Pending Prescriptions Disp Refills fluticasone (FLONASE) 50 mcg/actuation nasal spray 1 Each 1 Sig: Use 2 Sprays in each nostril once daily. Rinse mouth after use. sertraline (ZOLOFT) 50 mg tablet 180 tablet 3 Sig: Take 1 tablet by mouth two times a day. ALLERGIES Allergen Reactions Zithromax [Azithrom* Itching caused roof of mouth to itch and pt unable to complete course of medication. (home) [phone] (cell) Last Office Visit Date: 10/11/2023 Last Distance Health Visit: Visit date not found Future Appointment: 04/16/2024 The patients preferred pharmacy has been captured for this encounter? yes Request is for script(s) to be escript to pharmacy. Ly Jeffrey LPN documented in this encounter [facility] 10-11-2023 Instructions Trudy Stewart APRN.[place] - 10/11/2023 11:22 AM EDT I recommend completing an ultrasound of the right upper quadrant to check for gallstones Recommend make an appointment with Dr. Bustamante documented in this encounter [facility] 10-11-2023 History of Presen t illness Narrative SUBJECTIVE: Shingrix Vaccine(1 of 2) Never done Mammogram Screening due on 12/26/2015 Colorectal Cancer Screening due on 10/17/2018 RSV Vaccine(1 - 1-dose 60+ series) Never done Cervical Cancer Screening due on 08/09/2021 Covid-19 Vaccine( season) due on 12/31/2022 HPI Susanna Vu is a 63 year old female. 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 Since last seen she had an appointment with Dr. Carrizales endocrinology August 2023. Lab work was recommended but not yet completed. HPI excerpted from previous visit: She was admitted to the hospital November 23 through for gallstone ileus. She came in through the ER via squad. CT of abdomen and pelvis showed gallstone ileus in the mid small bowel. She was taken to surgery for laparotomy, removal of gallstone and repair of enterotomy. She underwent surgery November 23, 2022. She had a follow-up appointment with her surgeon Dr. Alma Camacho December 02, 2022. She underwent staple removal at this visit. Noted to be recovering well. She noted tolerating diet and having normal bowel function. 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 Follow-up in 2 weeks advised. Today Susanna Vu reports overall feeling improved. Still with some fatigue. She was anemic postoperatively. Reports tolerating a mild diet but intolerant of harder to digest foods. Noted nausea and loose stools with tomato soup and salad. She reports appetite is down. Weight is decreased. Has been able to maintain oral fluid intake. No fever. Incision is well-healed with scant amount of drainage at the umbilicus where she has a tiny partial-thickness open area. Currently open to air. Decreased pain at the incision site. Today notes continued nausea, vomiting 2-3 times per week of late. She notes certain foods are bothersome such as eggs. Has not followed up with surgeon since her surgery in 2022. Without report of GERD or abdominal pain currently. No reported diarrhea or constipation, BRBPR or black or tarry stools. She notes mood is stable on current medication. Likes taking the dose of Zoloft twice daily, seems more effective now. Review of Systems Gastrointestinal: Positive for nausea and vomiting. Objective BP 104/65 Pulse 61 Resp 16 LMP 08/21/2007 Physical Exam Vitals and nursing note reviewed. Constitutional: Appearance: Normal appearance. HENT: Head: Normocephalic and atraumatic. Eyes: Conjunctiva/sclera: Conjunctivae normal. Neck: Thyroid: No thyromegaly. Vascular: Normal carotid pulses. No JVD. Cardiovascular: Rate and Rhythm: Normal rate and regular rhythm. Pulses: Carotid pulses are 2+ on the right side and 2+ on the left side. Radial pulses are 2+ on the right side and 2+ on the left side. Heart sounds: Normal heart sounds. Pulmonary: Effort: Pulmonary effort is normal. Breath sounds: Normal breath sounds. Abdominal: General: Bowel sounds are normal. Palpations: Abdomen is soft. Musculoskeletal: Right lower leg: No edema. Left lower leg: No edema. Skin: General: Skin is warm and dry. Neurological: General: No focal deficit present. Mental Status: She is alert and oriented to person, place, and time. ALLERGIES Allergen Reactions Zithromax [Azithrom* Itching caused roof of mouth to itch and pt unable to complete course of medication. Medication atenolol (TENORMIN) 25 mg tablet Take 1 tablet by mouth once daily. methIMAzole (TAPAZOLE) 5 mg tablet take 1 tablet by mouth once daily. fluticasone (FLONASE) 50 mcg/actuation nasal spray Use 2 Sprays in each nostril once daily. Rinse mouth after use. ibuprofen (MOTRIN) 800 mg tablet Take 1 tablet by mouth three times a day as needed for pain. Take with food. omeprazole (PRILOSEC) 20 mg capsule Take 1 capsule by mouth daily before breakfast. sertraline (ZOLOFT) 50 mg tablet Take 1 tablet by mouth two times a day. ondansetron orally disintegrating (ZOFRAN ODT) 4 mg disintegrating tablet Take 1 tablet by mouth every 6 hours as needed. For nausea and vomiting PAST MEDICAL HISTORY Diagnosis Date Dysthymic disorder Depression (non-psychotic) Esophageal reflux Graves disease Mitral valve disorders(424.0) Panic disorder without agoraphobia PMH - PAST MEDICAL HISTORY OF ?arthritis, knee problem Recurrent loss, unspecified as to episode of care or not applicable(646.30) Social History Tobacco Use Smoking status: Never Smokeless tobacco: Never Vaping Use Vaping Use: Never used Substance Use Topics Alcohol use: Yes Comment: occasional Drug use: No ASSESSMENT/PLAN: 1. Encounter for immunization - ICD9: V03.89, ICD10: Z23 - ZOSTER VACCINE, RECOMBINANT (SHINGRIX) - ZOSTER VACCINE, RECOMBINANT (SHINGRIX) - RSV VACCINE, BIVALENT (ABRYSVO) - [employer] COVID-19 VACCINE (2022- SEASON) AGE 12+ YR 3. Left knee pain, unspecified chronicity - ICD9: 719.46, ICD10: M25.562 - IBUPROFEN 800 MG TABLET 4. Nausea - ICD9: 787.02, ICD10: R11.0 - OMEPRAZOLE 20 MG CAPSULE,DELAYED RELEASE 5. Gallstone ileus (HCC) - ICD9: 560.31, ICD10: K56.3 - US ABD RIGHT UPPER QUADRANT - ONDANSETRON 4 MG DISINTEGRATING TABLET 6. Primary hypertension - ICD9: 401.9, ICD10: I10 (primary diagnosis) controlled - Continue current medications - Encouraged sodium restriction, DASH or Mediterranean diet - Recommend regular aerobic exercise 7. Recurrent major depression in partial remission (HCC) - ICD9: 296.35, ICD10: F33.41 Stable, currently controlled, continue to monitor. I recommend completing an ultrasound of the right upper quadrant to check for gallstones Recommend make an appointment with Dr. Robby Carrizales and my labs- CBC, CMP, TSH, T4 today 6 mo follow up MD Trudy Valdivia, [employer].ENTERTAINMENT & MEDIA CORRESPONDENT Medical Decision Making: Problems: Moderate: 2+ stable chronic illnesses Data: Unique test(s) ordered: 2 Risk: Moderate: Drug management Medical Decision Making Level: 4 - Moderate documented in this encounter [facility] 10-11-2023 Note HNO ID: [id number] Author: TRUDY STEWART APRN.CNS Service: ? Author Type: Nurse Specialist Type: Progress Notes Filed: 10/11/2023 11:32 Note Text: SUBJECTIVE: Shingrix Vaccine(1 of 2) Never done Mammogram Screening due on 12/26/2015 Colorectal Cancer Screening due on 10/17/2018 RSV Vaccine(1 - 1-dose 60+ series) Never done Cervical Cancer Screening due on 08/09/2021 Covid-19 Vaccine( season) due on 12/31/2022 HPI Susanna Vu is a 63 year old female. 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 Since last seen she had an appointment with Dr. Carrizales endocrinology August 2023. Lab work was recommended but not yet completed. HPI excerpted from previous visit: She was admitted to the hospital November 23 through for gallstone ileus. She came in through the ER via squad. CT of abdomen and pelvis showed gallstone ileus in the mid small bowel. She was taken to surgery for laparotomy, removal of gallstone and repair of enterotomy. She underwent surgery November 23, 2022. She had a follow-up appointment with her surgeon Dr. Alma Camacho December 02, 2022. She underwent staple removal at this visit. Noted to be recovering well. She noted tolerating diet and having normal bowel function. 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 Follow-up in 2 weeks advised. Today Susanna Vu reports overall feeling improved. Still with some fatigue. She was anemic postoperatively. Reports tolerating a mild diet but intolerant of harder to digest foods. Noted nausea and loose stools with tomato soup and salad. She reports appetite is down. Weight is decreased. Has been able to maintain oral fluid intake. No fever. Incision is well-healed with scant amount of drainage at the umbilicus where she has a tiny partial-thickness open area. Currently open to air. Decreased pain at the incision site. Today notes continued nausea, vomiting 2-3 times per week of late. She notes certain foods are bothersome such as eggs. Has not followed up with surgeon since her surgery in 2022. Without report of GERD or abdominal pain currently. No reported diarrhea or constipation, BRBPR or black or tarry stools. She notes mood is stable on current medication. Likes taking the dose of Zoloft twice daily, seems more effective now. Review of Systems Gastrointestinal: Positive for nausea and vomiting. Objective BP 104/65 Pulse 61 Resp 16 LMP 08/21/2007 Physical Exam Vitals and nursing note reviewed. Constitutional: Appearance: Normal appearance. HENT: Head: Normocephalic and atraumatic. Eyes: Conjunctiva/sclera: Conjunctivae normal. Neck: Thyroid: No thyromegaly. Vascular: Normal carotid pulses. No JVD. Cardiovascular: Rate and Rhythm: Normal rate and regular rhythm. Pulses: Carotid pulses are 2+ on the right side and 2+ on the left side. Radial pulses are 2+ on the right side and 2+ on the left side. Heart sounds: Normal heart sounds. Pulmonary: Effort: Pulmonary effort is normal. Breath sounds: Normal breath sounds. Abdominal: General: Bowel sounds are normal. Palpations: Abdomen is soft. Musculoskeletal: Right lower leg: No edema. Left lower leg: No edema. Skin: General: Skin is warm and dry. Neurological: General: No focal deficit present. Mental Status: She is alert and oriented to person, place, and time. ALLERGIES Allergen Reactions Zithromax [Azithrom* Itching caused roof of mouth to itch and pt unable to complete course of medication. Medication atenolol (TENORMIN) 25 mg tablet Take 1 tablet by mouth once daily. methIMAzole (TAPAZOLE) 5 mg tablet take 1 tablet by mouth once daily. fluticasone (FLONASE) 50 mcg/actuation nasal spray Use 2 Sprays in each nostril once daily. Rinse mouth after use. ibuprofen (MOTRIN) 800 mg tablet Take 1 tablet by mouth three times a day as needed for pain. Take with food. omeprazole (PRILOSEC) 20 mg capsule Take 1 capsule by mouth daily before breakfast. sertraline (ZOLOFT) 50 mg tablet Take 1 tablet by mouth two times a day. ondansetron orally disintegrating (ZOFRAN ODT) 4 mg disintegrating tablet Take 1 tablet by mouth every 6 (more content not included)... [facility] 08-11-2023 Miscellaneous Notes Needs to schedule a visit and complete labs, last seen in November 2022, no upcoming visits. Patient has been identified by name and date of : Yes, Provider Date Time Patient phones for refill(s): Requested Prescriptions Pending Prescriptions Disp Refills sertraline (ZOLOFT) 50 mg tablet 180 tablet 3 Sig: Take 1 tablet by mouth two times a day. Date of last office visit in primary care: 12/17/2022 Date of next office visit in primary care: Visit date not found Please advise. Thank you. Lakeshia Anton RN. documented in this encounter [facility] 08-02-2023 History of Presen t illness Narrative ENDOCRINOLOGY DISTANCE HEALTH VISIT This visit was conducted via my chart I have communicated my name and active licensure. The patient's identity and physical location were verified at the time of this visit. The patient consents to proceed with the evaluation remotely. Subjective: Susanna Vu is a 63 year old female here for hyperthyroidism follow up. History in brief, Hyperthyroidism was diagnosed in September 2017 TSI was elevated (452), which confirmed the diagnosis of Graves disease. In October 2017, I started methimazole 10 mg BID. Current treatment: Methimazole 5 mg daily Previous treatment: Methimazole 5 mg BID Interval history: Sick with Cold right now General symptoms: Fatigue:states that she always tired She has insomnia Weight change: stable Appetite change: No Change in bowel habits: constipation- using milk of magnesia Temperature intolerance: chronic night sweats - needing to change clothes and sheets Anxiety/Nervousness: Yes, takes zoloft Tremor: No Palpitations: no Also reports arthralgia in her knees She was also noted to have vitamin D deficiency previously on 50,000 weekly She has not been on vitamin D supplements REVIEW OF SYSTEMS: Answers submitted by the patient for this visit: Core Review of Systems (Submitted on 07/27/2023) Fever : No Night sweats: Yes Recent unintentional weight change: No Nasal Congestion: No Hearing Loss: No Vision Disturbance: No A cough: No Difficulty Breathing?: No Chest pain: No Irregular heartbeat: No Leg Swelling: Yes Nausea: Yes Diarrhea: No Black tarry stools: No Difficulty Urinating?: No Awaken at Night More Than Once to Urinate?: Yes Joint pain or stiffness: Yes Muscle aches: Yes Leg or Foot Discomfort at Night?: Yes A rash: No Dizziness: Yes Headaches: Yes Memory Loss: No Seizures: No ALLERGIES: ALLERGIES Allergen Reactions Zithromax [Azithrom* Itching caused roof of mouth to itch and pt unable to complete course of medication. MEDICATIONS: Current Outpatient Medications on File Prior to Visit Medication Sig omeprazole (PRILOSEC) 20 mg capsule Take 1 capsule by mouth daily before breakfast. atenolol (TENORMIN) 25 mg tablet Take 1 tablet by mouth once daily. methIMAzole (TAPAZOLE) 5 mg tablet take 1 tablet by mouth once daily. ibuprofen (MOTRIN) 800 mg tablet Take 1 tablet by mouth three times daily as needed for pain. Take with food. sertraline (ZOLOFT) 50 mg tablet Take 1 tablet by mouth twice daily. fluticasone (FLONASE) 50 mcg/actuation nasal spray Use 2 Sprays in each nostril once daily. Rinse mouth after use. No current facility-administered medications on file prior to visit. PAST MEDICAL HISTORY: PAST MEDICAL HISTORY Diagnosis Date Dysthymic disorder Depression (non-psychotic) Esophageal reflux Graves disease Mitral valve disorders(424.0) Panic disorder without agoraphobia PMH - PAST MEDICAL HISTORY OF ?arthritis, knee problem Recurrent loss, unspecified as to episode of care or not applicable(646.30) PHYSICAL EXAM: Alert and oriented x3, no acute distress, no acute distress LAB: Latest Reference Range & Units 12/17/22 12:06 Free T4 0.9 - 1.7 ng/dL 0.9 TSH 0.270 - 4.200 mIU/L 1.600 ASSESSMENT/PLAN: 1) Hyperthyroidism due to Graves disease 2) Vitamin D deficiency Clinically, she appears hypothyroid Update thyroid function test Then will adjust methimazole dose if needed She is not on vitamin D supplements Therefore, will hold off on testing vitamin D level I will send patient a message in my chart once the lab results become available Follow up in 6 months Saskia Carrizales MD documented in this encounter [facility] 06-20-2023 Miscellaneous Notes Patient has been identified by name and date of : No Patient phones for refill(s): Requested Prescriptions Pending Prescriptions Disp Refills omeprazole (PRILOSEC) 20 mg capsule 90 capsule 0 Sig: Take 1 capsule by mouth daily before breakfast. Date of last office visit in primary care: 12/17/2022 Date of next office visit in primary care: Visit date not found Please advise. Thank you. Malissa Alexandre LPN. documented in this encounter [facility] 06-07-2023 Miscellaneous Notes Patient calling asking for a refill, was last filled by her old PCP, Dr. Sheffield. She is wondering if you can refill the medication, RX is attached with correct pharmacy. documented in this encounter [facility] 03-10-2023 Miscellaneous Notes The following approved medication requests have been transmitted electronically. Requested Prescriptions Signed Prescriptions Disp Refills omeprazole (PRILOSEC) 20 mg capsule 90 capsule 0 Sig: Take 1 capsule by mouth daily before breakfast. Authorizing Provider: DAVID MULLINS MD Patient has been identified by name and date of : Yes, Patient phones for refill(s): Requested Prescriptions Pending Prescriptions Disp Refills omeprazole (PRILOSEC) 20 mg capsule 90 capsule 0 Sig: Take 1 capsule by mouth daily before breakfast. Date of last office visit in primary care: 12/17/2022 Date of next office visit in primary care: Visit date not found Please advise. Thank you. Cherry Davila LPN. documented in this encounter [facility] 03-09-2023 Miscellaneous Notes Patient scheduled a virtual for 06/07/23 Requester: Pharmacy Last Visit in Endocrinology: Provider name: Saskia Carrizales DO , Date Visit date 11/30/22 Next Scheduled Appt in Endo: Visit date not found Last Refill: 12/23/22 Number of Refills given: 1 PSS NOTE: Patient needs scheduled appointment in Jun. Please refill for pre scriber while she is out. Requested Prescriptions Pending Prescriptions Disp Refills methIMAzole (TAPAZOLE) 5 mg tablet [Pharmacy Med Name: methimazole 5 mg tablet] 30 tablet 1 Sig: take 1 tablet by mouth once daily. Please review and advise. Sujata Dutton RN documented in this encounter [facility] 12-17-2022 History of Presen t illness Narrative SUBJECTIVE: SHINGRIX VACCINE(1 of 2) Never done MAMMOGRAM due on 12/26/2015 COLORECTAL CANCER SCREENING due on 10/17/2018 COVID-19 VACCINE(3 - Pfizer series) due on 02/18/2021 ANNUAL PCP TEAM CHRONIC DISEASE VISIT due on 06/24/2021 PAP TESTING due on 08/09/2021 HPV TESTING due on 08/09/2021 HPI Susanna Vu is a 62 year old female. 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 She came in through the ER via squad. CT of abdomen and pelvis showed gallstone ileus in the mid small bowel. She was taken to surgery for laparotomy, removal of gallstone and repair of enterotomy. She underwent surgery November 23, 2022. She had a follow-up appointment with her surgeon Dr. Alma Camacho December 02, 2022. She underwent staple removal at this visit. Noted to be recovering well. She noted tolerating diet and having normal bowel function. 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 Follow-up in 2 weeks advised. Today Susanna uV reports overall feeling improved. Still with some fatigue. She was anemic postoperatively. Reports tolerating a mild diet but intolerant of harder to digest foods. Noted nausea and loose stools with tomato soup and salad. She reports appetite is down. Weight is decreased. Has been able to maintain oral fluid intake. No fever. Incision is well-healed with scant amount of drainage at the umbilicus where she has a tiny partial-thickness open area. Currently open to air. Decreased pain at the incision site. She reports prior history of insomnia. Currently bothersome. She has used to lorazepam in the past. Intermittent use. Has worked well in the past. States she does not like sleeping pills. Review of Systems Constitutional: Positive for fatigue. Negative for fever. Gastrointestinal: Positive for abdominal pain. Objective BP 112/72 Pulse 62 Resp 16 Wt 103.9 kg (229 lb) LMP 08/21/2007 SpO2 98% BMI 39.19 kg/m Physical Exam Vitals and nursing note reviewed. Constitutional: Appearance: Normal appearance. HENT: Head: Normocephalic and atraumatic. Eyes: Conjunctiva/sclera: Conjunctivae normal. Neck: Thyroid: No thyromegaly. Vascular: Normal carotid pulses. No JVD. Cardiovascular: Rate and Rhythm: Normal rate and regular rhythm. Pulses: Carotid pulses are 2+ on the right side and 2+ on the left side. Radial pulses are 2+ on the right side and 2+ on the left side. Heart sounds: Normal heart sounds. Pulmonary: Effort: Pulmonary effort is normal. Breath sounds: Normal breath sounds. Abdominal: General: Bowel sounds are normal. Palpations: Abdomen is soft. Comments: midline incision lower abdomen to umbilicus ~10 long, well approximated edges no erythema induration or warmth is present, partial-thickness open area distal umbilicus approximately 1/16 diameter with pink wound base no drainage. Musculoskeletal: Right lower leg: No edema. Left lower leg: No edema. Skin: General: Skin is warm and dry. Neurological: General: No focal deficit present. Mental Status: She is alert and oriented to person, place, and time. ALLERGIES Allergen Reactions Zithromax [Azithrom* Itching caused roof of mouth to itch and pt unable to complete course of medication. methIMAzole (TAPAZOLE) 10 mg tablet Take 1 tablet by mouth twice daily ibuprofen (MOTRIN) 800 mg tablet Take 1 tablet by mouth three times daily as needed for pain. Take with food. sertraline (ZOLOFT) 50 mg tablet Take 1 tablet by mouth twice daily. atenolol (TENORMIN) 25 mg tablet Take 1 tablet by mouth once daily. fluticasone (FLONASE) 50 mcg/actuation nasal spray Use 2 Sprays in each nostril once daily. Rinse mouth after use. LORazepam (ATIVAN) 0.5 mg Take 1 tablet by mouth at bedtime as needed for up to 90 days. omeprazole (PRILOSEC) 20 mg capsule Take 1 capsule by mouth daily before breakfast. PAST MEDICAL HISTORY Diagnosis Date Dysthymic disorder Depression (non-psychotic) Esophageal reflux Graves disease Mitral valve disorders(424.0) Panic disorder without agoraphobia PMH - PAST MEDICAL HISTORY OF ?arthritis, knee problem Recurrent loss, unspecified as to episode of care or not applicable(646.30) Social History Tobacco Use Smoking status: Never Smokeless tobacco: Never Vaping Use Vaping Use: Never used Substance Use Topics Alcohol use: Yes Comment: occasional Drug use: No ASSESSMENT/PLAN: 1. Gallstone ileus (HCC) - ICD9: 560.31, ICD10: K56.3 (primary diagnosis) 2. SBO (small bowel obstruction) (HCC) - ICD9: 560.9, ICD10: K56.609 - CBC + DIFF 3. Blood loss anemia - ICD9: 280.0, ICD10: D50.0 - CBC + DIFF 4. Panic disorder with agoraphobia - ICD9: 300.21, ICD10: F40.01 5. Depression, unspecified depression type - ICD9: 311, ICD10: F32.A Stable, currently controlled, continue to monitor. 6. Cervical cancer screening - ICD9: V76.2, ICD10: Z12.4 - CONSULT TO INSOLE AND HEEL STIFFENER 7. Colon cancer screening - ICD9: V76.51, ICD10: Z12.11 - COLOGUARD 8. Insomnia, unspecified type - ICD9: 780.52, ICD10: G47.00 - LORAZEPAM 0.5 MG TABLET She has an upcoming appointment with her surgeon. She will let us know if wanting a second opinion. Labs today. Declines to make follow-up appointments today labs today 3-6 mo follow up .Kerline Esteves or Margaret Page schedule with INSOLE AND HEEL STIFFENER Trudy Stewart APRN.ENTERTAINMENT & MEDIA CORRESPONDENT Medical Decision Making: Problems: Moderate: Acute illness with systemic symptoms Data: Unique source(s) for external note(s) reviewed: 1 Unique test result(s) reviewed: 3+ Unique test(s) ordered: 2 Risk: Moderate: Drug management Medical Decision Making Level: 4 - Moderate documented in this encounter [facility] 12-10-2022 Miscellaneous Notes Patient phones requesting refills as follows: Pt had VV this month and nothing changed with methimazole. When receiving this refill it had 2 tablets twice daily?? I adjusted to what was given before. If appropriate [facility] Requested Prescriptions Pending Prescriptions Disp Refills methIMAzole (TAPAZOLE) 10 mg tablet [Pharmacy Med Name: methimazole 5 mg tablet] 180 tablet 3 Sig: Take 1 tablet by mouth twice daily Please review and advise. Amanda Ventura MA documented in this encounter [facility] 11-30-2022 History of Presen t illness Narrative [facility] V[facility] This visit was conducted via my chart I have communicated my name and active licensure. The patient's identity and physical location were verified at the time of this visit. The patient consents to proceed with the evaluation remotely. Subjective: Susanna Vu is a 62 year old female here for hyperthyroidism follow up. History in brief, Hyperthyroidism was diagnosed in September 2017 TSI was elevated (452), which confirmed the diagnosis of Graves disease. In October 2017, I started methimazole 10 mg BID. Current treatment: Methimazole 5 mg BID Previous treatment: Methimazole 10 mg BID Interval history: She didn't get labs drawn after last appt with me She had nausea and vomiting last week and went to the ER. Patient was found to have a gallstone, and SBO due to a large stone in her small bowel. She underwent surgery at [facility] General symptoms: Fatigue: yes, prior to the surgery, she had been feeling sluggish She reports decline in energy She has insomnia Weight change: weight loss due to surgery Appetite change: No Change in bowel habits: constipation after surgery, recent diarrhea Temperature intolerance: chronic night sweats - needing to change clothes and sheets Anxiety/Nervousness: Yes, takes zoloft Tremor: No Palpitations: no She was also noted to have vitamin D deficiency previously on 50,000 weekly Currently, she is not on vitamin D supplements REVIEW OF SYSTEMS: Answers submitted by the patient for this visit: Answers submitted by the patient for this visit: Core Review of Systems (Submitted on 11/28/2022) Fever : No Night Sweats: Yes Recent Unintentional Weight Change: No Nasal Congestion: No Hearing Loss: No Vision Disturbance: No A Cough: No Difficulty Breathing?: No Chest Pain: No Irregular Heart Beat: No Leg Swelling: Yes Nausea: No Diarrhea: No Black Tarry Stools: No Difficulty Urinating?: No Awaken at Night More Than Once to Urinate?: Yes Joint Pain or Stiffness: Yes Muscle Aches: No Leg or Foot Discomfort at Night?: No A Rash: No Dizziness: No Headaches: No Memory Loss: No Seizures: No ALLERGIES: ALLERGIES Allergen Reactions Zithromax [Azithrom* Itching caused roof of mouth to itch and pt unable to complete course of medication. MEDICATIONS: Current Outpatient Medications on File Prior to Visit Medication Sig ibuprofen (MOTRIN) 800 mg tablet Take 1 tablet by mouth three times daily as needed for pain. Take with food. sertraline (ZOLOFT) 50 mg tablet Take 1 tablet by mouth twice daily. atenolol (TENORMIN) 25 mg tablet Take 1 tablet by mouth once daily. fluticasone (FLONASE) 50 mcg/actuation nasal spray Use 2 Sprays in each nostril once daily. Rinse mouth after use. benzonatate (TESSALON PERLES) 100 mg capsule Take 1-2 capsules by mouth three times daily as needed for cough. methylPREDNISolone (MEDROL DOSE-PACK) 4 mg Dose-Pack Take medications as directed on packaging. Take with food. ondansetron orally disintegrating (ZOFRAN ODT) 4 mg disintegrating tablet Take 1 tablet by mouth every 6 hours as needed for nausea/vomiting. omeprazole (PRILOSEC) 20 mg capsule Take 1 capsule by mouth daily before breakfast. methIMAzole (TAPAZOLE) 5 mg tablet Take 1 tablet by mouth twice daily. No current facility-administered medications on file prior to visit. PAST MEDICAL HISTORY: PAST MEDICAL HISTORY Diagnosis Date Dysthymic disorder Depression (non-psychotic) Esophageal reflux Graves disease Mitral valve disorders(424.0) Panic disorder without agoraphobia PMH - PAST MEDICAL HISTORY OF ?arthritis, knee problem Recurrent loss, unspecified as to episode of care or not applicable(646.30) PHYSICAL EXAM: Alert and oriented x3, no acute distress, no acute distress LAB: Latest Reference Range & Units 10/21/21 13:21 Free T4 0.9 - 1.7 ng/dL 0.9 TSH 0.270 - 4.200 mIU/L 3.320 Free T3 2.3 - 4.1 pg/mL 2.5 ASSESSMENT/PLAN: 1) Hyperthyroidism due to Graves disease 2) Vitamin D deficiency Clinically, she appears hypothyroid Update thyroid function test Then will adjust methimazole dose if needed Check a vitamin D level I will send patient a message in my chart once the lab results become available Follow up in 3-6 months, to be determined based on lab results Saskia Carrizales MD documented in this encounter [facility] 11-27-2022 Progress note Note Date/Time November 27, 2022 8:03 am [facility] Medical Records Department [address] [place] [address] Progress Note - Surgery 11/27/22800 MR#: [id number] Acct: [id number] Name: SUSANNA VU Rep #:[id number] : 1960 62 From: Alma Camacho MD PCP: Dr. Eduardo Sheffield MD Status:ADM I N Location: [address] Subjective Subjective Patient tolerated transitional diet, had bowel movement last night. Objective Data Objective Data Vital Signs: Vital Signs Temp Pulse Resp BP Pulse Ox O2 Del Method O2 Flow Rate 97.7 F L 66 18 136/79 H 95 Room Air 4 11/27/22 05:54 11/27/22 05:54 11/27/22 05:54 11/27/22 05:54 11/27/22 05:54 11/27/22 05:54 11/23/22 18:00 Oxygen Flow Rate (L/min) 4 Oxygen Delivery Method Room Air Weight: 231 lb 7.766 oz Body Mass Index (BMI) 41.0 Intake & Output: Intake and Output for Last 24 Hours 11/25/22 11/26/22 11/27/22 23:59 23:59 23:59 Intake Total 2934 / 3134 805.75 / 805.75 Output Total 300 / 300 Balance 2934 / 3034 505.75 / 505.75 Lab / Micro Data 11/25/22 05:17 11/27/22 06:27 Labs: Laboratory Results - last 24 hr 11/26/22 08:30: Sodium 141, Potassium 3.2 L, Chloride 110 H, Carbon Dioxide 26.0, Anion Gap 5, BUN 4 L, Creatinine 0.64, Estim Creat Clear Calc 74.43, Est GFR (MDRD) Af Amer 120, Est GFR (MDRD) Non-Af 99, BUN/Creatinine Ratio 6.2 L, Glucose 95, Calcium 8.1 L, Magnesium 1.8 11/27/22 06:27: Sodium 141, Potassium 3.0 L, Chloride 110 H, Carbon Dioxide 26.0, Anion Gap 5, BUN 2 L, Creatinine 0.52 L, Estim Creat Clear Calc 91.60, EstGFR (MDRD) Af Amer 152, Est GFR (MDRD) Non-Af 126, BUN/Creatinine Ratio 3.8 L, Glucose 98, Calcium 8.5, Magnesium 1.7 Physical Exam Resp normal respiratory effort Cardio regular rate GI GI Narrative: Abdomen: Soft, nondistended, tender near incision's dressed clean dry and intact-?with candelaria, no peritoneal signs Assessment & Plan Assessment/Plan (1) Gallstone ileus of small intestine: (2) Hyperthyroidism: (3) Hypertension: (4) Morbid obesity: (5) Hypokalemia: PLAN: Plan Tolerated transitional diet, had bowel movement. May DC today. Hypertension continue home meds, Graves' disease continue home meds Continue ambulating/out of bed to chair. Hypokalemia?replace 60 now and 40 at 1 PM with plan to give patient KCl to go home with. Also encourage high potassium foods and have a recheck of her potassium in a couple days. Alma Camacho M.D. Pager: [phone] [facility] [address] [place] [address], Outpatient [facility], [address] [place] [address] Office: [phone] 11/27/22 08 <Electronically signed by Alma Camacho MD> Cosigner Signature (if applicable): CC: ~ Signed [facility] Work Phone: 1(802) 148-885107-28-2023 Discharge summary Author Alma Camacho [facility] November 26, 2022 4:53pm Note Date/Time November 26, 2022 4:51 pm [facility] Medical Records Department [address] [place] [address] Discharge Summary 11/26/22 1648 MR#: [id number] Acct: [id number] Name: SUSANNA VU Rep #:[id number] : 1960 62 From: Alma Camacho MD PCP: Dr. Eduardo Sheffield MD Status:ADM I N Location: [place] [address] Providers Date of Admission: 11/23/22 Primary Care Physician: Dr. Eduardo Sheffield MD Reason For Visit: GALLSTONE ILEUS Diagnosis Discharge Diagnosis (1) Gallstone ileus of small intestine: Status: Resolved Code(s): K56.3 - Gallstone ileus (2) Hyperthyroidism: Status: Acute Code(s): E05.90 - Thyrotoxicosis, unspecified without thyrotoxic crisis or storm (3) Hypertension: Status: Chronic Code(s): I10 - Essential (primary) hypertension (4) Morbid obesity: Status: Acute Code(s): E66.01 - Morbid (severe) obesity due to excess calories (5) Hypokalemia: Status: Acute Code(s): E87.6 - Hypokalemia Plan Tolerating clears did have more flatus will advance to transitional diet Hypertension continue home meds, Graves' disease continue home meds Continue ambulating/out of bed to chair. We will DC Zosyn after this bag this morning. Hypokalemia?replace Alma Camacho M.D. Pager: [phone] [facility] [address] [place] [address], [facility], [address] [place] [address] Office: [phone] Medications at Discharge Home Medications lorazepam 0.5 mg tablet 0.5 mg PO QHS PRN Anxiety 03/19/17 atenolol 25 mg tablet 25 mg PO DAILY blood pressure 04/21/18 ibuprofen 800 mg tablet 800 mg PO TID PRN pain 11/23/22 methimazole 5 mg tablet 10 mg PO BID thyroid 11/23/22 sertraline 50 mg tablet 50 mg PO BID depression 11/23/22 tramadol 50 mg tablet 50 mg PO Q6H PRN pain 3 days #3 tabs 11/26/22 Hospital Course Operations - (Laparotomy-removal of gallstone from small bowel and repair of enterotomy 10/2022) Procedures None Summary of Care Provided Minutes Spent on Discharge: 15 Hospital Course: Patient initially came in CT abdomen pelvis showed gallstone ileus in patient's mid small bowel. patient was taken to surgery for laparotomy removal of gallstone and repair of enterotomy. Postoperatively patient is doing well denies any nausea or vomiting having minimal flatus which did increase over couple days. Patient was tolerating clear liquids and then advance to transitional andagain tolerated was able to have a bowel movement and DC'd. During this time patient was kept on her home medications for hypertension and Graves' disease and depression. Physical Exam Resp normal respiratory effort Cardio regular rate GI GI Narrative: Abdomen: Soft, nondistended, tender near incision's dressed clean dry and intact-?with candelaria, no peritoneal signs Weight / BMI Weight Weight: 231 lb 7.766 oz Body Mass Index (BMI) 41.0 ABG / Lab / Microbiology Data 11/25/22 05:17 11/26/22 08:30 Laboratory: Laboratory Results - last 24 hr 11/26/22 08:30: Sodium 141, Potassium 3.2 L, Chloride 110 H, Carbon Dioxide 26.0, Anion Gap 5, BUN 4 L, Creatinine 0.64, Estim Creat Clear Calc 74.43, Est GFR (MDRD) Af Amer 120, Est GFR (MDRD) Non-Af 99, BUN/Creatinine Ratio 6.2 L, Glucose 95, Calcium 8.1 L, Magnesium 1.8 D/C Instructions Discharge Diet: - (Transitional diet/low fiber) Discharge Activity: May Not Drive (while taking narcotic pain medications.) May shower in (days): 1 Lifting Restrictions: no lifting >20 lbs x 2 wks, no strenuous exercise for 4 wks Call your doctor if your incision/area has: Continuous Slow Oozing, Sudden Increased Bleeding, Increased Pain/ Swelling, Increased Redness, Foul Smelling Discharge and Swelling at the incision site Call your doctor if you observe: Fever of 101 or Higher Cleanse incision/area with: Soap & Water Please Follow Up With: Alma Camacho MD When: Call the office for a follow-up appointment 10 to 12 days from surgery forstaple removal; after 5:00 PM and on the weekends call [phone] with any concerns Meaningful Use Info Meaningful Use Diagnoses (Choose all that apply): None applicable Discharge Plan Admission Admit Date/Time: 11/23/22 16:08 Attending Provider: Alma Camacho Primary Care Provider: Eduardo Sheffield Discharge Orders/Prescriptions Prescriptions: New tramadol 50 mg tablet 50 mg PO Q6H PRN (Reason: pain) 3 Days Qty: 3 0RF Continued lorazepam 0.5 MG tablet 0.5 mg PO QHS PRN (Reason: Anxiety) atenolol 25 tablet 25 mg PO DAILY ibuprofen 800 mg tablet 800 mg PO TID PRN (Reason: pain) methimazole 5 mg tablet 10 mg PO BID sertraline 50 mg tablet 50 mg PO BID Referrals / Follow Up: Eduardo Sheffield MD [Primary Care Provider] - 11/26/221652 <Electronically signed by Alma Camacho MD> Cosigner Signature (if applicable): CC: Dr. Eduardo Sheffield MD; Dr. Alma Camacho MD~ Signed [facility] Work Phone: 1(801) 540-686207-28-2023 [facility] Medical Records Department [address] [place] [address] Discharge Summary 11/26/221647 MR#: [id number] Acct: [id number] Name: SUSANNA VU Rep #: [id number] : 1960 62 From: Alma Camacho MD PCP: Dr. Eduardo Sheffield MD Status:ADM IN [facility] Providers Date of Admission: 11/23/22 Primary Care Physician: Dr. Eduardo Sheffield MD Reason For Visit: GALLSTONE ILEUS Diagnosis Discharge Diagnosis (1) Gallstone ileus of small intestine: Status: Resolved Code(s): K56.3 - Gallstone ileus (2) Hyperthyroidism: Status: Acute Code(s): E05.90 - Thyrotoxicosis, unspecified without thyrotoxic crisis or storm (3) Hypertension: Status: Chronic Code(s): I10 - Essential (primary) hypertension (4) Morbid obesity: Status: Acute Code(s): E66.01 - Morbid (severe) obesity due to excess calories (5) Hypokalemia: Status: Acute Code(s): E87.6 - Hypokalemia Plan Tolerating clears did have more flatus will advance to transitional diet Hypertension continue home meds, Graves' disease continue home meds Continue ambulating/out of bed to chair. We will DC Zosyn after this bag this morning. Hypokalemia???replace Alma Camacho M.D. Pager: [phone] [facility] [address] [place] [address], [facility], [address] [place] [address] Office: [phone] Medications at Discharge Home Medications lorazepam 0.5 mg tablet 0.5 mg PO QHS PRN Anxiety 03/19/17 atenolol 25 mg tablet 25 mg PO DAILY blood pressure 04/21/18 ibuprofen 800 mg tablet 800 mg PO TID PRN pain 11/23/22 methimazole 5 mg tablet 10 mg PO BID thyroid 11/23/22 sertraline 50 mg tablet 50 mg PO BID depression 11/23/22 tramadol 50 mg tablet 50 mg PO Q6H PRN pain 3 days #3 tabs 11/26/22 Hospital Course Operations - (Laparotomy-removal of gallstone from small bowel and repair of enterotomy 10/2022) Procedures None Summary of Care Provided Minutes Spent on Discharge: 15 Hospital Course: Patient initially came in CT abdomen pelvis showed gallstone ileus in patient's mid small bowel. patient was taken to surgery for laparotomy removal of gallstone and repair of enterotomy. Postoperatively patient is doing well denies any nausea or vomiting having minimal flatus which did increase over couple days. Patient was tolerating clear liquids and then advance to transitional and again tolerated was able to have a bowel movement and DC'd. During this time patient was kept on her home medications for hypertension and Graves' disease and depression. Physical Exam Resp normal respiratory effort Cardio regular rate GI GI Narrative: Abdomen: Soft, nondistended, tender near incision's dressed clean dry and intact-???with candelaria, no peritoneal signs Weight / BMI Weight Weight: 231 lb 7.766 oz Body Mass Index (BMI) 41.0 ABG / Lab / Microbiology Data 11/25/22 05:17 11/26/22 08:30 Laboratory: Laboratory Results - last 24 hr 11/26/22 08:30: Sodium 141, Potassium 3.2 L, Chloride 110 H, Carbon Dioxide 26.0, Anion Gap 5, BUN 4 L, Creatinine 0.64, Estim Creat Clear Calc 74.43, Est GFR (MDRD) Af Amer 120, Est GFR (MDRD) Non-Af 99, BUN/Creatinine Ratio 6.2 L, Glucose 95, Calcium 8.1 L, Magnesium 1.8 D/C Instructions Discharge Diet: - (Transitional diet/low fiber) Discharge Activity: May Not Drive (while taking narcotic pain medications.) May shower in (days): 1 Lifting Restrictions: no lifting >20 lbs x 2 wks, no strenuous exercise for 4 wks Call your doctor if your incision/area has: Continuous Slow Oozing, Sudden Increased Bleeding, Increased Pain/ Swelling, Increased Redness, Foul Smelling Discharge and Swelling at the incision site Call your doctor if you observe: Fever of 101 or Higher Cleanse incision/area with: Soap Water Please Follow Up With: Alma Camacho MD When: Call the office for a follow-up appointment 10 to 12 days from surgery for staple removal; after 5:00 PM and on the weekends call [phone] with any concerns Meaningful Use Info Meaningful Use Diagnoses (Choose all that apply): None applicable Discharge Plan Admission Admit Date/Time: 11/23/22 16:08 Attending Provider: Alma Camacho Primary Care Provider: Eduardo Sheffield Discharge Orders/Prescriptions Prescriptions: New tramadol 50 mg tablet 50 mg PO Q6H PRN (Reason: pain) 3 Days Qty: 3 0RF Continued lorazepam 0.5 MG tablet 0.5 mg PO QHS PRN (Reason: Anxiety) atenolol 25 tablet 25 mg PO DAILY ibuprofen 800 mg tablet 800 mg PO TID PRN (Reason: pain) methimazole 5 mg tablet 10 mg PO BID sertraline 50 mg tablet 50 mg PO BID Referrals / Follow Up: Eduardo Sheffield MD [Primary Care Provider] - 11/26/22 3523 Cosigner Signature (if applicable): CC: Dr. Eduardo Sheffield MD; Dr. Alma Dhaliwal (more content not included)...[facility]07-28-2023 Progress note Author Alma Camacho [facility] November 26, 2022 11:16am Note Date/Time November 26, 2022 11:1 6am [facility] Medical Records Department [address] [place] [address] Progress Note - Surgery 11/26/22 1116 MR#: [id number] Acct: [id number] Name: SUSANNA VU Rep #:[id number] : 1960 62 From: Alma Camacho MD PCP: Dr. Eduardo Sheffield MD Status:ADM I N Location: [place] [id number] Subjective Subjective Patient is having more flatus denies any nausea or vomiting, tolerating clears Objective Data Objective Data Vital Signs: Vital Signs Temp Pulse Resp BP Pulse Ox O2 Del Method O2 Flow Rate 97.9 F 67 16 143/69 H 96 Room Air 4 11/26/22 08:14 11/26/22 08:14 11/26/22 08:14 11/26/22 08:14 11/26/22 08:14 11/26/22 08:21 11/23/22 18:00 Oxygen Flow Rate (L/min) 4 Oxygen Delivery Method Room Air Weight: 231 lb 7.766 oz Body Mass Index (BMI) 41.0 Intake & Output: Intake and Output for Last 24 Hours 11/24/22 11/25/22 11/26/22 23:59 23:59 23:59 Intake Total 3242 / 3242 2934 / 3134 805.75 / 805.75 Output Total 775 / 775 300 / 300 Balance 2467 / 2467 2934 / 3034 505.75 / 505.75 Lab / Micro Data 11/25/22 05:17 11/26/22 08:30 Labs: Laboratory Results - last 24 hr 11/26/22 08:30: Sodium 141, Potassium 3.2 L, Chloride 110 H, Carbon Dioxide 26.0, Anion Gap 5, BUN 4 L, Creatinine 0.64, Estim Creat Clear Calc 74.43, Est GFR (MDRD) Af Amer 120, Est GFR (MDRD) Non-Af 99, BUN/Creatinine Ratio 6.2 L, Glucose 95, Calcium 8.1 L, Magnesium 1.8 Physical Exam Resp normal respiratory effort Cardio regular rate GI GI Narrative: Abdomen: Soft, nondistended, tender near incision's dressed clean dry and intact, no peritoneal signs Assessment & Plan Assessment/Plan (1) Gallstone ileus of small intestine: (2) Hyperthyroidism: (3) Hypertension: (4) Morbid obesity: (5) Hypokalemia: PLAN: Plan Tolerating clears did have more flatus will advance to transitional diet Hypertension continue home meds, Graves' disease continue home meds Continue ambulating/out of bed to chair. We will DC Zosyn after this bag this morning. Hypokalemia?replace Alma Camacho M.D. Pager: [phone] [facility] [address] [place] [address], [facility], [address] [place] [address] Office: [phone] 11/26/22 1111 <Electronically signed by Alma Camacho MD> Cosigner Signature (if applicable): CC: ~ Signed [facility] Work Phone: 1(853) 402-389907-27-2023 Miscellaneous Notes* Telephone Encounter - Trudy Stewart APRN.CNS - 11/25/2022 4:47 PM EDT ok * Telephone Encounter - Gabby Loredo - 11/25/2022 4:27 PM EDT Requesting mammogram screening order. Current order to 11/27/22. Patient currently admitted into hospital. Mammogram has been rescheduled to 12/23/22. [facility] Progress note Author Alma Camacho [facility] November 25, 2022 8:25am Note Date/Time November 25, 2022 8:24 am [facility] Medical Records Department [address] [place] [address] Progress Note - Surgery 11/25/22822 MR#: [id number] Acct: [id number] Name: SUSANNA VU Rep #:[id number] : 1960 62 From: Alma Camacho MD PCP: Dr. Eduardo Sheffield MD Status:ADM I N Location: [place] [place]-0 Subjective Subjective Patient denies any nausea or vomiting or pain. Patient has been ambulating up in the chair. Patient only has minimal flatus. Patient has not been toleratingsips. Objective Data Objective Data Vital Signs: Vital Signs Temp Pulse Resp BP Pulse Ox O2 Del Method O2 Flow Rate 98.4 F 88 16 145/66 H 94 Room Air 4 11/25/22 04:00 11/25/22 04:00 11/25/22 04:00 11/25/22 04:00 11/25/22 04:00 11/25/22 04:00 11/23/22 18:00 Oxygen Flow Rate (L/min) 4 Oxygen Delivery Method Room Air Weight: 231 lb 7.766 oz Body Mass Index (BMI) 41.0 Intake & Output: Intake and Output for Last 24 Hours 11/23/22 11/24/22 11/25/22 23:59 23:59 23:59 Intake Total 1192.25 / 1192.25 3242 / 3242 1012 / 1012 Output Total 775 / 775 Balance 1192.25 / 792.25 2467 / 2467 1012 / 1012 Lab / Micro Data 11/25/22 05:17 11/25/22 05:17 Labs: Laboratory Results - last 24 hr 11/25/22 05:17: WBC 5.9, RBC 3.41 L, Hgb 9.6 L, Hct 30.8 L, MCV 90.3, MCH 28.2, MCHC 31.2 L, RDW Std Deviation 42.6, RDW Coeff of Peace 13.0, Plt Count 178, MPV 11.6, Immature Gran % (Auto) 0.500, Neut % (Auto) 76.9 H, Lymph % (Auto) 12.6 L,Jasper % (Auto) 9.2, Eos % (Auto) 0.3, Baso % (Auto) 0.5, Absolute Neuts (auto) 4.5, Absolute Lymphs (auto) 0.74 L, Nucleated RBC % 0, Sodium 141, Potassium 3.1L, Chloride 112 H, Carbon Dioxide 23.0, Anion Gap 6, BUN 7, Creatinine 0.75, Estim Creat Clear Calc 63.51, Est GFR (MDRD) Af Amer 100, Est GFR (MDRD) Non-Af 83, BUN/Creatinine Ratio 9.3 L, Glucose 101, Calcium 7.8 L, Magnesium 1.7 Physical Exam Resp normal respiratory effort Cardio regular rate GI GI Narrative: Abdomen: Soft, nondistended, tender near incision's dressed clean dry and intact, no peritoneal signs Assessment & Plan Assessment/Plan (1) Gallstone ileus of small intestine: (2) Hyperthyroidism: (3) Hypertension: (4) Morbid obesity: (5) Hypokalemia: PLAN: Plan Continue sips of clears patient has increased flatus. Hypertension continue home meds, Graves' disease continue home meds Continue ambulating/out of bed to chair. Continue IV Zosyn due to inflammation in the right upper quadrant with the fistula tract. Hypokalemia?replace Alma Camacho M.D. Pager: [phone] [facility] [address] [place] [address], [address] [place] [address] Office: [phone] 11/25/22824 <Electronically signed by Alma Camacho MD> Cosigner Signature (if applicable): CC: ~ Signed [facility] Work Phone: 1(268) 224-284607-26-2023 Progress note Author Alma Camacho [facility] November 24, 2022 11:05am Note Date/Time November 24, 2022 7:22 am [facility] Medical Records Department [address] [place] [address] Progress Note - Surgery 11/24/22720 MR#: [id number] Acct: [id number] Name: SUSANNA VU Rep #:[id number] : 1960 62 From: Alma Camacho MD PCP: Dr. Eduardo Sheffield MD Status:ADM I N Location: [place] [address] Subjective Subjective Patient denies any nausea or vomiting overnight states Tylenol controls pain. Patient states she has had minimal flatus. Objective Data Objective Data Vital Signs: Vital Signs Temp Pulse Resp BP Pulse Ox O2 Del Method O2 Flow Rate 98 F 84 16 122/62 H 97 Room Air 4 11/24/22 07:00 11/24/22 07:00 11/24/22 07:00 11/24/22 07:00 11/24/22 07:00 11/24/22 07:00 11/23/22 18:00 Oxygen Flow Rate (L/min) 4 Oxygen Delivery Method Room Air Weight: 231 lb 7.766 oz Body Mass Index (BMI) 41.0 Intake & Output: Intake and Output for Last 24 Hours 11/22/22 11/23/22 11/24/22 23:59 23:59 23:59 Intake Total 1192.25 / 1192.25 1032 / 1032 Output Total 775 / 775 Balance 1192.25 / 792.25 257 / 257 Lab / Micro Data 11/24/22 05:18 11/24/22 05:18 Labs: Laboratory Results - last 24 hr 11/23/22 13:27: WBC 7.9, RBC 4.46, Hgb 12.7, Hct 38.9, MCV 87.2, MCH 28.5, MCHC 32.6, RDW Std Deviation 41.4, RDW Coeff of Peace 13.2, Plt Count 262, MPV 11.6, Immature Gran % (Auto) 0.300, Neut % (Auto) 80.6 H, Lymph % (Auto) 8.7 L, Jasper %(Auto) 10.0, Eos % (Auto) 0.0, Baso % (Auto) 0.4, Absolute Neuts (auto) 6.4, Absolute Lymphs (auto) 0.69 L, Nucleated RBC % 0, Sodium 138, Potassium 3.3 L, Chloride 106, Carbon Dioxide 23.0, Anion Gap 9, BUN 17, Creatinine 1.02, Estim Creat Clear Calc 46.70, Est GFR (MDRD) Af Amer 70, Est GFR (MDRD) Non-Af 58 L, BUN/Creatinine Ratio 16.7, Glucose 144 H, Calcium 9.2, Total Bilirubin 0.80, Direct Bilirubin 0.25, AST 12 L, ALT 13, Alkaline Phosphatase 67, Total Protein 8.0, Albumin 3.3, Globulin 4.7 H 11/23/22 16:10: Urine Color Yellow, Urine Clarity Clear, Urine pH 6.5, Ur Specific Boaz 1.010, Urine Protein 30 H, Urine Glucose (UA) Normal, Urine Ketones 5 H, Urine Occult Blood 25 H, Urine Nitrite Negative, Urine Bilirubin Negative, Urine Urobilinogen Normal, Ur Leukocyte Esterase 25 H, Urine RBC 0-5 SEEN, Urine WBC 0-5 SEEN, Ur Squamous Epith Cells 0-5 SEEN, Urine Bacteria RARE,Urine Mucus 0 SEEN 11/24/22 05:18: WBC 5.5, RBC 3.62 L, Hgb 10.4 L, Hct 31.9 L, MCV 88.1, MCH 28.7,MCHC 32.6, RDW Std Deviation 42.7, RDW Coeff of Peace 13.2, Plt Count 201, MPV 11.5, Immature Gran % (Auto) 0.400, Neut % (Auto) 71.7 H, Lymph % (Auto) 16.8 L,Jasper % (Auto) 10.5 H, Eos % (Auto) 0.2, Baso % (Auto) 0.4, Absolute Neuts (auto)4.0, Absolute Lymphs (auto) 0.93, Nucleated RBC % 0 Radiography Diagnostic Testing: Radiology Impression Abdomen/Pelvis CT 11/23/22 14:10 IMPRESSION: 1. Small bowel obstruction due to large stone in mid ileal loop concerning for gallstone ileus. 2. Pneumobilia. 3. Contracted gallbladder with possible air extending from the gallbladder fossa to the duodenum. Fistula cannot be excluded. Electronically Signed: Brett Guerrero MD at 16:19 EDT , KUB X-Ray 11/23/22 15:39 IMPRESSION: Enteric tube loops over the distal esophagus. Electronically Signed: Ricky Roblero MD at 16:31 EDT , KUB X-Ray 11/23/22 16:02 IMPRESSION: NG tube terminates over the gastric fundus with sidehole below the diaphragm. Partially visualized bowel gas pattern is nonobstructive. Electronically Signed: Ricky Roblero MD at 16:30 EDT , Physical Exam Resp normal respiratory effort Cardio regular rate GI GI Narrative: Abdomen: Soft, nondistended, tender near incision's dressed clean dry and intact, no peritoneal signs Assessment & Plan Assessment/Plan (1) Gallstone ileus of small intestine: (2) Hyperthyroidism: (3) Hypertension: (4) Morbid obesity: PLAN: Plan Okay for patient to have sips if patient does have increased flatus will advanceto clears. Hypertension continue home meds, Graves' disease continue home meds Continue ambulating out of bed to chair. Continue IV Zosyn due to inflammation in the right upper quadrant with the fistula tract. Alam Camacho M.D. Pager: [phone] [facility] [address] [place] [address], [address] [place] [id number] Office: [phone] 11/24/22 1105 <Electronically signed by Alma Camacho MD> Cosigner Signature (if applicable): CC: ~ Signed [facility] Work Phone: 1(426) 262-359907-25-[address] [facility] 11-23-2022 Discharge summary Author Sean Sanders [facility] November 23, 2022 4:35pm Note Date/Time November 23, 2022 2:15 pm [facility] Medical Records Department [address] [place] [address] Emergency Department Summary 11/23/22 MR#: [id number] Acct: [id number] Name: SUSANNA VU Rep #:[id number] : 1960 62 From: Sean Sanders MD PCP: Dr. Eduardo Sheffield MD Status:REG S DC [place] [facility] [place]PI - GI History of Present Illness Chief Complaint: Nausea/Vomiting Informant: patient Abdominal Pain/Flank Pain Onset: Days (2-3) Context: Gradual Onset Timing: Continuous and Waxes and wanes Quality: Aching and Cramping Location: - (lower abd, worse on L) Current Severity: Severe Maximum Severity: Severe Worsened by: Nothing Relieved by: Nothing Nausea/Vomiting/Emesis GI Symptom: Positive for Nausea and Vomiting Quality: Negative for Blood streaks or Coffee ground Diarrhea/Melena/Hematochezia GI Symptom: Negative for Diarrhea, Melena or Hematochezia Associated Symptoms Associated Symptoms: Negative for Dysuria, Frequency or Hematuria Narrative Narrative: Patient with a couple days of lower abdominal pain, nausea, vomiting. No feversor chills. No diarrhea. No blood in her stool or melena. No urinary symptoms. Prior no other abdominal surgeries in the past. Never had this before. Pain occasionally goes into her right mid back. Usually not radiating. Also has some discomfort of her chest after vomiting. No dyspnea, cough. [facility] Medical History (Updated 11/23/22 @ 15:[address] Sean Sanders MD) Anxiety Gallbladder calculus Graves disease History of acute pyelonephritis Home Medications lorazepam 0.5 mg tablet 0.5 mg PO QHS PRN Anxiety 03/19/17 [History Last Taken 10/02/17 20:00] sertraline 50 mg tablet 25 mg PO DAILY 03/19/17 [History Last Taken 10/02/17 10:00] atenolol 25 mg tablet 25 mg PO DAILY 04/21/18 [History Last Taken Unknown] methimazole 5 mg tablet (Tapazole) 5 mg PO TID 04/21/18 [History Last Taken Unknown] Allergy/AdvReac Type Severity Reaction Status Date / Time azithromycin Allergy Itching Verified 11/23/22 13:43 Surgical History (Updated 11/23/22 @ 14:[address] Sean Sanders MD) Previous section Social History Smoking Status: Never smoker ROS ROS ED Constitutional Constitutional ED: Denies chills or fever(s) Eyes Eyes: Denies change in vision or diplopia ENT ENT ED: Denies rhinorrhea or sore throat Cardiovascular Cardiovascular: Reports as per HPI and chest pain; Denies palpitations Respiratory/Chest Respiratory/Chest: Denies cough or dyspnea Gastrointestinal Gastrointestinal: Reports abdominal pain, nausea and vomiting; Denies diarrhea, hematemesis, hematochezia or melena Genitourinary Genitourinary ED: Denies dysuria or hematuria Musculoskeletal Musculoskeletal: Reports back pain; Denies neck pain Integumentary Denies abscess or rash Neurologic Neurologic: Denies headache(s), paresthesias or weakness Psychiatric Psychiatric: Denies anxiety or suicidal thoughts EXAM Physical Exam Const Vital Signs: 11/23/22 13:39 Temperature 98.4 F Temperature Source Temporal Pulse Rate 93 Respiratory Rate 16 Blood Pressure 131/89 H Blood Pressure Mean 103 Pulse Ox 95 Oxygen Delivery Method Room Air Positive well nourished, well developed and obese General Appearance ED: well developed and NAD Nutritional Appearance: obese HEENT Reports moist mucous membranes normocephalic and atraumatic Eyes PERRL and EOMs intact bilaterally Neck full ROM and supple Resp normal respiratory effort and clear to auscultation bilaterally Cardio regular rate, regular rhythm and no murmurs GI non-distended GI Narrative: Very tender lower abdomen worse on the left than the right, but includes the suprapubic area as well. No guarding or rebound tenderness. No pulsatile mass. No Mobile sign. Auscultation: hypoactive bowel sounds Palpation: soft Back/Spine no CVA tenderness General Back: other FROM Extremity normal to inspection General Extremety ED: Negative for edema, pulses abnormal or tenderness General Extremity: Negative for edema or pulses abnormal Neuro oriented x3, CN's II-XII intact bilaterally and no sensory deficits noted Sensorium / Orientation: awake and alert Motor Exam: strength 5/5 throughout Skin no rashes or lesions noted and no wounds MDM MDM MDM Narrative Medical decision making narrative: Labs, CT were obtained, I reviewed the images and the report which I agree with,and spoke with Dr. Camacho. Basically patient has a gallstone ileus/jejunal obstruction because of a gallstone that eroded into the duodenum from the gallbladder. Patient is doing better after IV fluids, morphine, Zofran, we willplace an NG tube, add liver enzymes upon request, and patient is going to the ORfor definitive repair. Lab Data Attestation: I reviewed the patient's lab results. Labs: Laboratory Results - last 24 hr 11/23/22 13:27 WBC 7.9 RBC 4.46 Hgb 12.7 Hct 38.9 MCV 87.2 MCH 28.5 MCHC 32.6 RDW Std Deviation 41.4 RDW Coeff of Peace 13.2 Plt Count 262 MPV 11.6 Immature Gran % (Auto) 0.300 Neut % (Auto) 80.6 H Lymph % (Auto) 8.7 L Jasper % (Auto) 10.0 Eos % (Auto) 0.0 Baso % (Auto) 0.4 Absolute Neuts (auto) 6.4 Absolute Lymphs (auto) 0.69 L Nucleated RBC % 0 Sodium 138 Potassium 3.3 L Chloride 106 Carbon Dioxide 23.0 Anion Gap 9 BUN 17 Creatinine 1.02 Estim Creat Clear Calc 46.70 Est GFR (MDRD) Af Amer 70 Est GFR (MDRD) Non-Af 58 L BUN/Creatinine Ratio 16.7 Glucose 144 H Calcium 9.2 Management Discussion w/another healthcare provider: Automotive Quality Engineer Critical Care Time Critical Care Time: Yes Critical care time (excluding procedures): 30-74 minutes (33 min), Including time spent:, Discussing w/Patient &/or Family/Knit Goods Mender, Discussing w/Consultants, Arranging Admission or Transfer and Performing Direct Patient Care at Bedside Discharge Plan Triage Chief Complaint: Nausea/Vomiting ED Provider: Sean Sanders Dx/Rx/DC Orders Clinical Impression: Gallstone ileus of small intestine Prescriptions: No Action lorazepam 0.5 MG tablet 0.5 mg PO QHS PRN (Reason: Anxiety) Patient Comments: TAKE 1 TABLET THREE TIMES DAILY NEEDED sertraline 50 MG tablet 25 mg PO DAILY Patient Comments: Take 1 tablet by mouth once daily. atenolol 25 tablet 25 mg PO DAILY methimazole [Tapazole] 5 MG tablet 5 mg PO TID Primary Care Provider: Eduardo Sheffield Referrals: Eduardo Sheffield MD [Primary Care Provider] - Disposition Disposition: Acute Care Hospital [facility] What to do if you have Problems For any increased pain, shortness of breath, bleeding, nausea or vomiting, chestpain, or any unexpected problems, contact your Primary Care Provider. Call [facility] ([phone]) or report to the closest Emergency Room. Call 911 if necessary. 11/23/22 1541 <Electronically signed by Sean Sanders MD> Cosigner Signature (if applicable): CC: Dr. Eduardo Sheffield MD ~ Signed ADDENDUM by Dr. Sean Sanders MD on 11/23/22 at 1635 Abdominal KUB obtained to verify NG tube placement, 1 view on my interpretation shows good placement in the stomach fundus. 11/23/22 1635<Electronically signed by Sean Sanders MD> Cosigner Signature (if applicable): cc: Dr. Eduardo Sheffield MD ~* Signed [facility] Work Phone: 1(794) 288-613907-25-2023 History and physical note Author Alma Camacho [facility] November 23, 2022 4:08pm Note Date/Time November 23, 2022 4:08 pm [facility] Medical Records Department [address] [place] [address] H&P Exam - Surgical 11/23/22 1606 MR#: [id number] Acct: [id number] Name: SUSANNA VU Rep #:[id number] : 1960 62 From: Alma Camacho MD PCP: Dr. Eduardo Sheffield MD Status:REG S DC [place] [facility] [place]PI - General General Date of Admission: 11/23/22 HPI Narrative SUSANNA VU, is a 62 F who presents to the ER due to abdominal pain nausea vomiting. Patient states her abdominal pain started on Tuesday along with her nausea and vomiting nothing really eat since then. Patient CT abdomen pelvis shows a gallstone ileus in the mid jejunum along with pneumobilia. Patient stateshas been having right upper quadrant pain for about the last year. Patient white blood count is within. [facility] Medical History (Updated 11/23/22 @ 15:[address] Sean Sanders MD) Anxiety Gallbladder calculus Graves disease History of acute pyelonephritis Home Medications lorazepam 0.5 mg tablet 0.5 mg PO QHS PRN Anxiety 03/19/17 [History Last Taken 10/02/17 20:00] sertraline 50 mg tablet 25 mg PO DAILY 03/19/17 [History Last Taken 10/02/17 10:00] atenolol 25 mg tablet 25 mg PO DAILY 04/21/18 [History Last Taken Unknown] methimazole 5 mg tablet (Tapazole) 5 mg PO TID 04/21/18 [History Last Taken Unknown] Allergy/AdvReac Type Severity Reaction Status Date / Time azithromycin Allergy Itching Verified 11/23/22 13:43 Surgical History (Updated 11/23/22 @ 14:[address] Sean Sanders MD) Previous section Social History Smoking Status: Never smoker Vital Signs Vital Signs Vital Signs: 11/23/22 13:39 Temperature 98.4 F Temperature Source Temporal Pulse Rate 93 Respiratory Rate 16 Blood Pressure 131/89 H Blood Pressure Mean 103 Pulse Ox 95 Oxygen Delivery Method Room Air Weight Weight: 231 lb 7.766 oz Body Mass Index (BMI) 41.0 Physical Exam Const oriented x3 Resp normal respiratory effort Cardio regular rate GI soft to palpation GI Narrative: Tender mid abdomen, no guarding or rebound. Extremity General Extremity: edema Results Lab / Micro Data 11/23/22 13:27 11/23/22 13:27 Labs: Laboratory Results - last 24 hr 11/23/22 13:27: WBC 7.9, RBC 4.46, Hgb 12.7, Hct 38.9, MCV 87.2, MCH 28.5, MCHC 32.6, RDW Std Deviation 41.4, RDW Coeff of Peace 13.2, Plt Count 262, MPV 11.6, Immature Gran % (Auto) 0.300, Neut % (Auto) 80.6 H, Lymph % (Auto) 8.7 L, Jasper %(Auto) 10.0, Eos % (Auto) 0.0, Baso % (Auto) 0.4, Absolute Neuts (auto) 6.4, Absolute Lymphs (auto) 0.69 L, Nucleated RBC % 0, Sodium 138, Potassium 3.3 L, Chloride 106, Carbon Dioxide 23.0, Anion Gap 9, BUN 17, Creatinine 1.02, Estim Creat Clear Calc 46.70, Est GFR (MDRD) Af Amer 70, Est GFR (MDRD) Non-Af 58 L, BUN/Creatinine Ratio 16.7, Glucose 144 H, Calcium 9.2 Assessment & Plan Assessment/Plan (1) Gallstone ileus of small intestine: PLAN: Plan We will plan for laparotomy, removal of gallstone, possible small bowel resection. Discussed with procedure including but not limited to risk of bleeding, infection, injury to another organ, and anesthesia. Also discussed with patient there and does not appear to be any other stones in the gallbladderwould not plan to do any surgery for the fistula tract between the duodenum and gallbladder. IV Zosyn. NG placed in the ER. Alma Camacho M.D. Pager: [phone] [facility] [address] [place] [address], [facility], [address] [place] [address] Office: [phone] 11/23/22 1608 <Electronically signed by Alma Camacho MD> Cosigner Signature (if applicable): CC: Dr. Eduardo Sheffield MD; Dr. Alma Camacho MD~ Signed [facility] Work Phone: 1(484) 844-209602-20-2023 Miscellaneous Notes* Telephone Encounter - Luana Alva RN - 06/21/2022 9:14 AM EST orders replaced. Closed. [facility] Miscellaneous Notes* Telephone Encounter - Malissa Weinstein LPN - 05/21/2022 8:27 AM EST Patient has been identified by name and date of : No Patient phones for refill(s): Requested Prescriptions Pending Prescriptions Disp Refills sertraline (ZOLOFT) 50 mg tablet 180 tablet 3 Sig: Take 1 tablet by mouth twice daily. Date of last office visit in primary care: 04/15/2022 Last 2 Encounter Wt Readings: Date: Wt: 04/15/2022 111.1 kg (245 lb) 01/26/2021 112.9 kg (249 lb) Previous labs/tests for medication: Not applicable Please advise. Thank you. Malissa Weinstein LPN [facility]23 Miscellaneous Notes* Telephone Encounter - Malissa Weinstein LPN - 05/21/2022 8:24 AM EST Patient has been identified by name and date of : No Patient phones for refill(s): Requested Prescriptions Pending Prescriptions Disp Refills atenolol (TENORMIN) 25 mg tablet 90 tablet 3 Sig: Take 1 tablet by mouth once daily. Date of last office visit in primary care: 04/15/2022 Last 2 Encounter Wt Readings: Date: Wt: 04/15/2022 111.1 kg (245 lb) 01/26/2021 112.9 kg (249 lb) Previous labs/tests for medication: Blood Pressure: BUN (mg/dL) Date Value 10/21/2021 11 11/27/2019 11 Sodium (mmol/L) Date Value 10/21/2021 139 11/27/2019 142 Last 1 Encounter BP Readings: Date: BP: 04/15/2022 100/76 Please advise. Thank you. Malissa Weinstein LPN [facility]12-[facility]-2022 Instructions* Patient Instructions* Trudy Stewart APRN.[place] - 04/15/2022 3:16 PM EST Check to see if your insurance covers shingles vaccine and what location to get the vaccine -usually best covered at your local pharmacy where you get prescriptions filled documented [facility]12[facility] History of Present illness Narrative* Trudy Stewart APRN.[place] - 04/15/2022 3:00 PM EST SUBJECTIVE Scheduled for routine visit on arrival indicates that she has been feeling ill for the last 7 days. Susanna Vu is a 61 year old female who presents with 2 days of symptoms that are worsening. Her past medical history significant for GERD, obesity, agoraphobia, depression, panic disorder, osteoarthritis, orthostatic hypotension hypertension eating disorder. PCP: Eduardo Sheffield MD. Endocrinology: Dr. Carrizales, Noted to have hyperthyroidism, Graves' disease. Treated with methimazole October 2017. She is taking methimazole dose if needed. Symptoms include: Fever (?100.4F): No or Chills: No Cough: Yes, productive Shortness of breath: No or Difficulty breathing: No Fatigue: Yes Muscle aches: No Headache: Yes, frontal New loss of smell or taste: No Sore throat: No Nasal congestion: Yes or Rhinorrhea: Yes Nausea: No or Vomiting: Yes Diarrhea: No OTC meds/remedies that patient has tried: cough drops, advil High risk category assessment Age > 60 years old Hypertension Morbid Obesity (BMI>40) Exposures: Sick contacts? Yes, , unknown illness, tested for Covid and Flu Dr Hess . She reports that she has never smoked. She has never used smokeless tobacco. HTN: Without report of headache, chest pain, palpitations, peripheral edema, orthopnea, fatigue andbilateral Last 14 Encounter BP Readings: Date: BP: 04/15/2022 100/76 01/26/2021 130/80 05/22/2019 108/72 10/05/2018 119/63 08/18/2018 124/82 08/16/2018 112/66 05/08/2018 110/68 04/20/2018 132/64 03/08/2018 102/75 12/28/2017 134/62 11/23/2017 103/66 10/11/2017 102/64 04/06/2017 132/60 08/09/2016 110/84 GERD. Notes currently controlled on PPI OBJECTIVE PHYSICAL EXAMINATION: BP 100/76 Pulse 88 Temp 36.5 C (97.7 F) Resp 16 Wt 111.1 kg (245 lb) LMP 08/21/2007 SpO2 96% BMI 41.93 kg/m PHYSICAL EXAM: BP 100/76 Pulse 88 Temp 36.5 C (97.7 F) Resp 16 Wt 111.1 kg (245 lb) LMP 08/21/2007 SpO2 96% BMI 41.93 kg/m General appearance: tired/ill appearing, alert, cooperative, pleasant, in no acute distress Head: Normocephalic Eyes: injected bilateral Ears: R TM - clear with good landmarks, nl light reflex, L TM - clear with good landmarks, nl lightreflex Nose: clear rhinorrhea, mucosa erythematous and swollen Oropharynx: moist without lesions Neck: supple and small, benign anterior cervical nodes bilaterally Heart: regular rate and rhythm, without murmur Lungs: clear to auscultation, without rales or wheeze, good air exchange Component Latest Ref Rng & Units 10/21/2021 WBC 3.70 - 11.00 k/uL 5.58 RBC 3.90 - 5.20 m/uL 4.35 Hemoglobin 11.5 - 15.5 g/dL 12.2 Hematocrit 36.0 - 46.0 % 38.1 MCV 80.0 - 100.0 fL 87.6 MCH 26.0 - 34.0 pg 28.0 MCHC 30.5 - 36.0 g/dL 32.0 RDW-CV 11.5 - 15.0 % 12.9 Platelet Count 150 - 400 k/uL 282 MPV 9.0 - 12.7 fL 11.2 Neut% % 63.7 Abs Neut (ANC) 1.45 - 7.50 k/uL 3.56 Lymph% % 27.1 Abs Lymph 1.00 - 4.00 k/uL 1.51 Jasper% % 8.1 Abs Jasper <0.87 k/uL 0.45 Eosin% % 0.2 Abs Eosin <0.46 k/uL <0.03 Baso% % 0.7 Abs Baso <0.11 k/uL 0.04 Immature Gran % % 0.2 IMMATURE GRANS (ABS) <0.10 k/uL <0.03 NRBC /100 WBC 0.0 Absolute nRBC <0.01 k/uL <0.01 DTYPE Auto Protein, Total 6.3 - 8.0 g/dL 7.4 Albumin 3.9 - 4.9 g/dL 4.0 Calcium 8.5 - 10.2 mg/dL 9.2 Bilirubin, Total 0.2 - 1.3 mg/dL 0.3 Alkaline Phosphatase 34 - 123 U/L 75 AST 13 - 35 U/L 14 ALT 7 - 38 U/L 8 Glucose 74 - 99 mg/dL 121 (H) BUN 7 - 21 mg/dL 11 Creatinine 0.58 - 0.96 mg/dL 0.75 Sodium 136 - 144 mmol/L 139 Potassium 3.7 - 5.1 mmol/L 5.0 Chloride 97 - 105 mmol/L 104 CO2 22 - 30 mmol/L 22 Anion Gap 9 - 18 mmol/L 13 eGFR >=60 mL/min/1.73m 90 Total Cholesterol, Nonfasting <200 mg/dL 242 (H) Triglycerides, Nonfasting <150 mg/dL 139 HDL Cholesterol, Nonfasting >39 mg/dL 47 LDL Cholesterol, Nonfasting <100 mg/dL 167 (H) Non HDL Cholesterol, Nonfasting <130 mg/dL 195 (H) VLDL Cholesterol, Nonfasting <30 mg/dL 28 Total Chol/HDL Ratio, Nonfasting <5.10 mg/dL 5.15 (H) LDL/HDL Ratio, Nonfasting <2.54 mg/dL 3.55 (H) HIV 12 Combo (Ag/Ab) Nonreactive Nonreactive HIV 1/2 Ab HIV Interpretation TSH 0.270 - 4.200 mIU/L 3.320 Free T4 0.9 - 1.7 ng/dL 0.9 Free T3 2.3 - 4.1 pg/mL 2.5 Hep C Antibody IA Negative Negative ASSESSMENT/PLAN (Z23) Encounter for immunization (primary encounter diagnosis) (Z12.4) Screening for cervical cancer (M25.562) Left knee pain, unspecified chronicity ASSESSMENT/PLAN: 1. Primary hypertension - ICD9: 401.9, ICD10: I10 (primary diagnosis) controlled - Continue current medication(s) - Encouraged dietary sodium restriction/DASH diet - Recommended regular aerobic exercise. - CBC + DIFF - COMP METABOLIC PANEL 2. Encounter for immunization - ICD9: V03.89, ICD10: Z23 deferred - VCharge-citizenmade COVID-19 BIVALENT BOOSTER VACCINE, AGE 12+ YR - INFLUENZA VACCINE QUADRIVALENT 6 MO - 64 YRS IM 3. Screening for cervical cancer - ICD9: V76.2, ICD10: Z12.4Endorse BSE and routine DOLL WIGS HACKLER exam - CONSULT TO GYNECOLOGY 4. Left knee pain, unspecified chronicity - ICD9: 719.46, ICD10: M25.562 - IBUPROFEN 800 MG TABLET 5. Gastroesophageal reflux disease, unspecified whether esophagitis present - ICD9: 530.81, ICD10: K21.9 Continue with PPI Refer to gastroenterology as indicated / if needed - CBC + DIFF 6. Encounter for screening for diabetes mellitus - ICD9: V77.1, ICD10: Z13.1 recent elevated glucose - HGB A1C 7. Hyperthyroidism - ICD9: 242.90, ICD10: E05.[address] Carrizales endocrinology, taking methimazole 8. Obesity, Class III, BMI 40-49.9 (morbid obesity) (HCC) - ICD9: 278.01, ICD10: E66.01 Endorse portion control and routine exercise such as walking. Refer if interested, willing to support services 9. Suspected COVID-19 virus infection - ICD9: V01.79, ICD10: Z20.822 - FLUTICASONE PROPIONATE 50 MCG/ACTUATION NASAL SPRAY,SUSPENSION - COVID WITH FLUA+B, ROUTINE - BENZONATATE 100 MG CAPSULE - METHYLPREDNISOLONE 4 MG TABLETS IN A DOSE PACK 10. Gallbladder disease - ICD9: 575.9, ICD10: K82.9 She reports known gallbladder disease for greater than 10 years, has not yet had surgery. Notes nausea and vomiting with certain foods. Endorse completing follow-up ultrasound. Follow-up with general surgery as indicated based on results. - US ABD RT UPPER QUADRANT - ONDANSETRON 4 MG DISINTEGRATING TABLET 11. Nausea and vomiting, unspecified vomiting type - ICD9: 787.01, ICD10: R11.2 - ONDANSETRON 4 MG DISINTEGRATING TABLET 12. Nausea - ICD9: 787.02, ICD10: R11.0 - OMEPRAZOLE 20 MG CAPSULE,DELAYED RELEASE Trudy Stewart APRN.ENTERTAINMENT & MEDIA CORRESPONDENT ASSESSMENT/PLAN: 1. Gastroesophageal reflux disease, unspecified whether esophagitis present - ICD9: 530.81, ICD10: K21.9 (primary diagnosis) Currently well controlled continue current treatment unchanged continue to monitor - CBC + DIFF - COMP METABOLIC PANEL 2. Recurrent major depression in partial remission (HCC) - ICD9: 296.35, ICD10: F33.41 Currently well controlled continue current treatment unchanged continue to monitor 3. Panic disorder with agoraphobia - ICD9: 300.21, ICD10: F40.01 Currently well controlled continue current treatment unchanged continue to monitor - CBC + DIFF - COMP METABOLIC PANEL - HYDROXYZINE PAMOATE 25 MG CAPSULE 4. Hypertension, essential - ICD9: 401.9, ICD10: I10 Controlled, continue current treatment unchanged continue to monitor - CBC + DIFF - COMP METABOLIC PANEL 5. Graves disease - ICD9: 242.00, ICD10: E05.00 - CBC + DIFF - COMP METABOLIC PANEL 6. Screening for lipid disorders - ICD9: V77.91, ICD10: Z13.220 - LIPID PANEL, NONFASTING 7. Screening for HIV (human immunodeficiency virus) - ICD9: V73.89, ICD10: Z11.4 - HEP C AB IA W/CONF SCRN 8. Need for hepatitis C screening test - ICD9: V73.89, ICD10: Z11.59 - HIV 1 2 COMBO(AG/AB),WITH REFLEX TO DIFFERENTIATION 9. Left knee pain, unspecified chronicity - ICD9: 719.46, ICD10: M25.562 - IBUPROFEN 800 MG TABLET 10. Hyperthyroidism - ICD9: 242.90, ICD10: E05.90 - ATENOLOL 25 MG TABLET 11. Nausea - ICD9: 787.02, ICD10: R11.0 - OMEPRAZOLE 20 MG CAPSULE,DELAYED RELEASE 12. Depression, unspecified depression type - ICD9: 311, ICD10: F32.9 Notes currently taking medications seem helpful, not currently going to counseling, no voiced SI HI - HYDROXYZINE PAMOATE 25 MG CAPSULE 13. Colon cancer screening - ICD9: V76.51, ICD10: Z12.11 - FECAL OCCULT BLOOD TEST 14. Suspected COVID-19 virus infection - ICD9: V01.79, ICD10: Z20.822 Testing in office today, home isolation until results are known, provided with written information for symptom management and self-care in - 2018 CORONAVIRUS - ONDANSETRON 4 MG DISINTEGRATING TABLET - BENZONATATE 100 MG CAPSULE - FLUTICASONE PROPIONATE 50 MCG/ACTUATION NASAL SPRAY,SUSPENSION - METHYLPREDNISOLONE 4 MG TABLETS IN A DOSE PACK Labs today Follow up with Dr. Carrizales for hyperthyroid 3 mo follow up MD Trudy Valdivia APRN.ENTERTAINMENT & MEDIA CORRESPONDENT Medical Decision Making: Problems: Low: Acute, uncomplicated illness or injury Moderate: 2+ stable chronic illnesses Data: Unique test(s) ordered: 3+ Risk: Moderate: Drug management Medical Decision Making Level: 4 - Moderate [facility] Miscellaneous Notes* Telephone Encounter - Malissa Weinstein LPN - 04/12/2022 9:02 AM EST Phoned patient to call office back to set up an appointment to get med refills Patient has been identified by name and date of : Yes Patient phones for refill(s): Requested Prescriptions Pending Prescriptions Disp Refills sertraline (ZOLOFT) 50 mg tablet 60 tablet 0 Sig: Take 1 tablet by mouth twice daily. Date of last office visit in primary care: 01/26/2021 Last 2 Encounter Wt Readings: Date: Wt: 01/26/2021 112.9 kg (249 lb) 05/22/2019 0 kg () Previous labs/tests for medication: Not applicable Please advise. Thank you. Malissa Weinstein LPN documented [facility]12[facility] History of Present illness Narrative* Saskia Carrizales MD - 04/02/2022 3:36 PM EST ENDOCRINOLOGY [facility] VISIT This visit was conducted via my chart Zoom Subjective: Susanna Vu is a 61 year old female here for hyperthyroidism follow up. History in brief, Hyperthyroidism was diagnosed in September 2017 TSI was elevated (452), which confirmed the diagnosis of Graves disease. In October 2017, I started methimazole 10 mg BID. Current treatment: Methimazole 5 mg BID Previous treatment: Methimazole 10 mg BID Interval history: No new health issues Continues to have vomiting She didn't see GI General symptoms: Fatigue: yes, feels tired occasionally She has insomnia Weight change: intentional weight loss of 10 lb Appetite change: No Menstrual irregularities: post menopause Change in bowel habits:No Temperature intolerance: chronic night sweats - needing to change clothes and sheets Anxiety/Nervousness: Yes, takes zoloft Continues to have grief from her sister's Tremor: No Palpitations: no She was also noted to have vitamin D deficiency previously on 50,000 weekly Currently, she is not on vitamin D supplements REVIEW OF SYSTEMS: Answers submitted by the patient for this visit: Core Review of Systems (Submitted on 03/26/2022) Fever : No Night Sweats: Yes Recent Unintentional Weight Change: No Nasal Congestion: No Hearing Loss: No Vision Disturbance: No A Cough: No Difficulty Breathing?: No Chest Pain: No Irregular Heart Beat: No Leg Swelling: Yes Nausea: Yes Diarrhea: Yes Black Tarry Stools: No Difficulty Urinating?: No Awaken at Night More Than Once to Urinate?: Yes Joint Pain or Stiffness: Yes Muscle Aches: No Leg or Foot Discomfort at Night?: No A Rash: No Dizziness: No Headaches: No Memory Loss: No Seizures: No ALLERGIES: ALLERGIES Allergen Reactions Zithromax [Azithrom* Itching caused roof of mouth to itch and pt unable to complete course of medication. MEDICATIONS: Current Outpatient Medications on File Prior to Visit Medication Sig atenolol (TENORMIN) 25 mg tablet Take 1 tablet by mouth once daily. fluticasone (FLONASE) 50 mcg/actuation nasal spray Use 2 Sprays in each nostril once daily. Rinse mouth after use. sertraline (ZOLOFT) 50 mg tablet Take 1 tablet by mouth twice daily. ibuprofen (MOTRIN) 800 mg tablet Take 1 tablet by mouth three times daily as needed for pain. Take with food. omeprazole (PRILOSEC) 20 mg capsule Take 1 capsule by mouth daily before breakfast. hydrOXYzine pamoate (VISTARIL) 25 mg capsule Take 1 capsule by mouth three times daily as needed. ondansetron orally disintegrating (ZOFRAN ODT) 4 mg disintegrating tablet Take 1 tablet by mouth every 6 hours as needed for nausea/vomiting. benzonatate (TESSALON PERLES) 100 mg capsule Take 1 capsule by mouth three times daily as needed. methylPREDNISolone (MEDROL DOSE-PACK) 4 mg Dose-Pack Take medications as directed on packaging. Take with food. methIMAzole (TAPAZOLE) 5 mg tablet Take 2 tablets by mouth twice daily. cholecalciferol, Vitamin D3, (VITAMIN D3) 50,000 unit cap capsule Take 1 capsule by mouth once eachweek. No current facility-administered medications on file prior to visit. PAST MEDICAL HISTORY: PAST MEDICAL HISTORY Diagnosis Date Dysthymic disorder Depression (non-psychotic) Esophageal reflux Graves disease Mitral valve disorders(424.0) Panic disorder without agoraphobia PMH - PAST MEDICAL HISTORY OF ?arthritis, knee problem Recurrent loss, unspecified as to episode of care or not applicable(806.30) PHYSICAL EXAM: Alert and oriented x3, no acute distress, no acute distress LAB: Latest Reference Range & Units 10/21/21 13:21 Free T4 0.9 - 1.7 ng/dL 0.9 TSH 0.270 - 4.200 mIU/L 3.320 Free T3 2.3 - 4.1 pg/mL 2.5 ASSESSMENT/PLAN: 1) Hyperthyroidism due to Graves disease 2) Grief 3) Vitamin D deficiency 4) Vomiting Clinically, she appears hypothyroid Update thyroid function test Then will adjust methimazole dose if needed Check a vitamin D level Recommended her to consider undergoing counseling for Grief She needs to see for further evaluation of vomiting I will send patient a message in my chart once the lab results become available Follow up in 3-6 months, to be determined based on lab results Saskia Carrizales MD documented in this encounterZ[facility]10-31-2022 Miscellaneous Notes* Telephone Encounter - Cheryle Woodruff LPN - 03/01/2022 3:21 PM EDT Spoke with pt and information listed below given. Pt verbalizes understanding. APt booked. Cheryle Woodruff LPN * Telephone Encounter - Kerline Esteves APRN.CNP - 03/01/2022 12:53 PM EDT Patient has not been seen in over a year. Needs to have annual exam. Thank you Kerline Esteves APRN.ROSALBA * Telephone Encounter - Cheryle Woodruff LPN - 03/01/2022 9:29 AM EDT Patient has been identified by name and date of : Yes Patient phones for refill(s): Requested Prescriptions Pending Prescriptions Disp Refills ibuprofen (MOTRIN) 800 mg tablet 90 tablet 1 Sig: Take 1 tablet by mouth three times daily as needed for pain. Take with food. Date of last office visit in primary care: 01/26/22 Last 2 Encounter Wt Readings: Date: Wt: 01/26/2021 112.9 kg (249 lb) 05/22/2019 0 kg () Previous labs/tests for medication: Not applicable Please advise. Thank you. Cheryle Woodruff LPN documented [facility]10-31-2022 Miscellaneous Notes* Telephone Encounter - Cheryle Woodruff LPN - 03/01/2022 3:20 PM EDT Spoke with pt and information listed below given. Pt verbalizes understanding. Apt booked. Cheryle Woodruff LPN * Telephone Encounter - Kerline Esteves APRN.CNP - 03/01/2022 12:54 PM EDT Only one month supply filled. Patient needs annual exam prior to any other refills. Thank you Kerline Esteves APRN.ROSALBA * Telephone Encounter - Cheryle Woodruff LPN - 03/01/2022 9:45 AM EDT Patient has been identified by name and date of : Yes Patient phones for refill(s): Requested Prescriptions Pending Prescriptions Disp Refills sertraline (ZOLOFT) 50 mg tablet 60 tablet 5 Sig: Take 1 tablet by mouth twice daily. Date of last office visit in primary care: 01/26/22 Last 2 Encounter Wt Readings: Date: Wt: 01/26/2021 112.9 kg (249 lb) 05/22/2019 0 kg () Previous labs/tests for medication: Not applicable Thank you. Cheryle Woodruff LPN documented [facility]10-29-2022 Miscellaneous Notes* Telephone Encounter - Catarina Dorantes LPN - 02/27/2022 7:39 AM EDT Patient phones requesting refills as follows: Requested Prescriptions Pending Prescriptions Disp Refills omeprazole (PRILOSEC) 20 mg capsule 30 capsule 2 Sig: Take 1 capsule by mouth daily before breakfast. SHIMON-01/26/21 Labs-10/21/21 NOV-none med filled 10/28/21 Please review and advise. Catarina Dorantes LPN documented in this [facility]06-29-2022 Miscellaneous Notes* Telephone Encounter - Malissa Weinstein LPN - 10/28/2021 11:51 AM EDT Patient has been identified by name and date of : Yes Patient phones for refill(s): Pending Prescriptions Disp Refills OMEPRAZOLE 20 MG CAPSULE,DELAYED RELEASE 30 capsule 2 Sig: Take 1 capsule by mouth daily before breakfast. SATNAM: No Date of last office visit in primary care: 01/26/21 Last 2 Encounter Wt Readings: Date: Wt: 01/26/2021 112.9 kg (249 lb) 05/22/2019 0 kg () Previous labs/tests for medication: Not applicable Please advise. Thank you. Malissa Weinstein LPN documented in this [facility]06-07-2022 Miscellaneous Notes* Telephone Encounter - Eleanor Malcolm LPN - 10/06/2021 12:49 PM EDT Requester: Pharmacy Last Visit in Endocrinology: Provider name: Saskia Carrizales DO , Date 09/29/21 Next Scheduled Appt in Endo: Visit date not found Last Refill: 08/12/20 Number of Refills given: 3 Pending Prescriptions Disp Refills METHIMAZOLE 5 MG TABLET 360 tablet 3 Sig: TAKE 2 TABLETS TWICE DAILY SATNAM: Yes Please review and advise. Eleanor Malcolm LPN documented in this [facility]05-02-2022 Miscellaneous Notes* Telephone Encounter - Malissa Weinstein LPN - 08/31/2021 12:48 PM EDT Patient has been identified by name and date of : Yes Patient phones for refill(s): Pending Prescriptions Disp Refills ATENOLOL 25 MG TABLET 90 tablet 3 Sig: Take 1 tablet by mouth once daily. SATNAM: No FLUTICASONE PROPIONATE 50 MCG/ACTUATION NASAL SPRAY,SUSPENSION 1 Each 1 Sig: Use 2 Sprays in each nostril once daily. Rinse mouth after use. SATNAM: No Date of last office visit in primary care: 01/26/21 Last 2 Encounter Wt Readings: Date: Wt: 01/26/2021 112.9 kg (249 lb) 05/22/2019 0 kg () Previous labs/tests for medication: Not applicable Please advise. Thank you. Malissa Weinstein LPN [facility] Diagnosis Hyperthyroidism Thyrotoxicosis without mention of goiter or other cause, without mention of thyrotoxic crisis or storm Suspected COVID-19 virus infection documented [facility] this encounter [facility] note* Diagnosis Graves disease Toxic diffuse goiter without mention of thyrotoxic crisis or storm documented in this encounter [facility] note* Diagnosis Graves disease Toxic diffuse goiter without mention of thyrotoxic crisis or storm documented in this encounter [facility] note* Diagnosis Nausea Nausea alone documented in this encounter [facility] note* Diagnosis Encounter for screening mammogram for breast cancer documented in this encounter [facility] note* Diagnosis Hyperthyroidism Thyrotoxicosis without mention of goiter or other cause, without mention of thyrotoxic crisis or storm documented in this encounter [facility] note* Diagnosis Left knee pain, unspecified chronicity documented in this encounter [facility] note* Diagnosis Graves disease- Primary Toxic diffuse goiter without mention of thyrotoxic crisis or storm Grief Adjustment disorder with depressed mood Vitamin D deficiency Unspecified vitamin D deficiency Vomiting, unspecified vomiting type, unspecified whether nausea present documented in this encounter [facility] note* Diagnosis Primary hypertension- Primary Unspecified essential hypertension Encounter for immunization Need for other specified prophylactic vaccination against single bacterial disease Screening for cervical cancer Screening for malignant neoplasm of the cervix Left knee pain, unspecified chronicity Gastroesophageal reflux disease, unspecified whether esophagitis present Encounter for screening for diabetes mellitus Screening for diabetes mellitus Hyperthyroidism Thyrotoxicosis without mention of goiter or other cause, without mention of thyrotoxic crisis or storm Obesity, Class III, BMI 40-49.9 (morbid obesity) (HCC) Morbid obesity Suspected COVID-19 virus infection Gallbladder disease Unspecified disorder of gallbladder Nausea and vomiting, unspecified vomiting type Nausea Nausea alone Depression, unspecified depression type Recurrent major depression in partial remission (HCC) Major depressive disorder, recurrent episode, in partial or unspecified remission [facility] Diagnosis Hyperthyroidism Thyrotoxicosis without mention of goiter or other cause, without mention of thyrotoxic crisis or storm [facility]* Diagnosis Hyperthyroidism- Primary Thyrotoxicosis without mention of goiter or other cause, without mention of thyrotoxic crisis or storm Vitamin D deficiency Unspecified vitamin D deficiency [facility]* Diagnosis Encounter for screening mammogram for breast cancer- Primary [facility]* Diagnosis Onset Date Resolution Status Hyperthyroidism acute Hypokalemia acute Morbid obesity acute Hypertension chronic Gallstone ileus of small intestine resolved [facility] Work Phone: Evaluation note* Diagnosis Hyperthyroidism- Primary Thyrotoxicosis without mention of goiter or other cause, without mention of thyrotoxic crisis or storm Vitamin D deficiency Unspecified vitamin D deficiency [facility]* Diagnosis Graves disease Toxic diffuse goiter without mention of thyrotoxic crisis or storm [facility]* Diagnosis Gallstone ileus (HCC)- Primary Gallstone ileus SBO (small bowel obstruction) (HCC) Unspecified intestinal obstruction Blood loss anemia Iron deficiency anemia secondary to blood loss (chronic) Panic disorder with agoraphobia Agoraphobia with panic disorder Depression, unspecified depression type Cervical cancer screening Screening for malignant neoplasm of the cervix Colon cancer screening Special screening for malignant neoplasms, colon Insomnia, unspecified type [facility]* Diagnosis Hyperthyroidism- Primary Thyrotoxicosis without mention of goiter or other cause, without mention of thyrotoxic crisis or storm [facility]* Diagnosis Nausea Nausea alone [facility]* Diagnosis Hyperthyroidism Thyrotoxicosis without mention of goiter or other cause, without mention of thyrotoxic crisis or storm [facility]* Diagnosis Nausea Nausea alone [facility]* Diagnosis Recurrent major depression in partial remission (HCC)- Primary Major depressive disorder, recurrent episode, in partial or unspecified remission Primary hypertension Unspecified essential hypertension [facility]* Diagnosis Graves disease- Primary Toxic diffuse goiter without mention of thyrotoxic crisis or storm [facility]* Diagnosis Primary hypertension- Primary Unspecified essential hypertension Encounter for immunization Need for other specified prophylactic vaccination against single bacterial disease Left knee pain, unspecified chronicity Nausea Nausea alone Gallstone ileus (HCC) Gallstone ileus Recurrent major depression in partial remission (HCC) Major depressive disorder, recurrent episode, in partial or unspecified remission documented in this encounter [facility] note* Diagnosis Hyperthyroidism Thyrotoxicosis without mention of goiter or other cause, without mention of thyrotoxic crisis or storm [facility]* Diagnosis Hypertension, essential- Primary Unspecified essential hypertension OBESITY NOS Obesity, unspecified Encounter for screening mammogram for malignant neoplasm of breast Other screening mammogram Routine health maintenance Routine general medical examination at a health care facility Pain in joint, lower leg, left- Primary Need for prophylactic vaccination and inoculation against influenza Depression Depressive disorder, not elsewhere classified AGORAPHOBIA W PANIC ATTACKS Agoraphobia with panic disorder Hypertension, essential Unspecified essential hypertension OBESITY NOS Obesity, unspecified Acute laryngopharyngitis Routine health maintenance Routine general medical examination at a health care facility Pain in joint, lower leg, left- Primary Depression Depressive disorder, not elsewhere classified Hypertension, essential Unspecified essential hypertension OBESITY NOS Obesity, unspecified Anxiety Anxiety state, unspecified Upper respiratory tract infection, unspecified type Essential hypertension with goal blood pressure less than 140/90- Primary OBESITY NOS Obesity, unspecified Left knee pain, unspecified chronicity Recurrent major depression in partial remission (HCC) Major depressive disorder, recurrent episode, in partial or unspecified remission Special screening for malignant neoplasms, colon Suspected COVID-19 virus infection documented in this encounter [facility] note* Diagnosis Hypertension, essential- Primary Unspecified essential hypertension OBESITY NOS Obesity, unspecified Encounter for screening mammogram for malignant neoplasm of breast Other screening mammogram Routine health maintenance Routine general medical examination at a health care facility Pain in joint, lower leg, left- Primary Need for prophylactic vaccination and inoculation against influenza Depression Depressive disorder, not elsewhere classified AGORAPHOBIA W PANIC ATTACKS Agoraphobia with panic disorder Hypertension, essential Unspecified essential hypertension OBESITY NOS Obesity, unspecified Acute laryngopharyngitis Routine health maintenance Routine general medical examination at a health care facility Pain in joint, lower leg, left- Primary Depression Depressive disorder, not elsewhere classified Hypertension, essential Unspecified essential hypertension OBESITY NOS Obesity, unspecified Anxiety Anxiety state, unspecified Upper respiratory tract infection, unspecified type Essential hypertension with goal blood pressure less than 140/90- Primary OBESITY NOS Obesity, unspecified Left knee pain, unspecified chronicity Recurrent major depression in partial remission (HCC) Major depressive disorder, recurrent episode, in partial or unspecified remission Special screening for malignant neoplasms, colon Left knee pain, unspecified chronicity [facility]* Diagnosis Hypertension, essential- Primary Unspecified essential hypertension OBESITY NOS Obesity, unspecified Encounter for screening mammogram for malignant neoplasm of breast Other screening mammogram Routine health maintenance Routine general medical examination at a health care facility Pain in joint, lower leg, left- Primary Need for prophylactic vaccination and inoculation against influenza Depression Depressive disorder, not elsewhere classified AGORAPHOBIA W PANIC ATTACKS Agoraphobia with panic disorder Hypertension, essential Unspecified essential hypertension OBESITY NOS Obesity, unspecified Acute laryngopharyngitis Routine health maintenance Routine general medical examination at a health care facility Pain in joint, lower leg, left- Primary Depression Depressive disorder, not elsewhere classified Hypertension, essential Unspecified essential hypertension OBESITY NOS Obesity, unspecified Anxiety Anxiety state, unspecified Upper respiratory tract infection, unspecified type Essential hypertension with goal blood pressure less than 140/90- Primary OBESITY NOS Obesity, unspecified Left knee pain, unspecified chronicity Recurrent major depression in partial remission (HCC) Major depressive disorder, recurrent episode, in partial or unspecified remission Special screening for malignant neoplasms, colon Hyperthyroidism Thyrotoxicosis without mention of goiter or other cause, without mention of thyrotoxic crisis or storm [facility]* Diagnosis Hypertension, essential- Primary Unspecified essential hypertension OBESITY NOS Obesity, unspecified Encounter for screening mammogram for malignant neoplasm of breast Other screening mammogram Routine health maintenance Routine general medical examination at a health care facility Pain in joint, lower leg, left- Primary Need for prophylactic vaccination and inoculation against influenza Depression Depressive disorder, not elsewhere classified AGORAPHOBIA W PANIC ATTACKS Agoraphobia with panic disorder Hypertension, essential Unspecified essential hypertension OBESITY NOS Obesity, unspecified Acute laryngopharyngitis Routine health maintenance Routine general medical examination at a health care facility Pain in joint, lower leg, left- Primary Depression Depressive disorder, not elsewhere classified Hypertension, essential Unspecified essential hypertension OBESITY NOS Obesity, unspecified Anxiety Anxiety state, unspecified Upper respiratory tract infection, unspecified type Essential hypertension with goal blood pressure less than 140/90- Primary OBESITY NOS Obesity, unspecified Left knee pain, unspecified chronicity Recurrent major depression in partial remission (HCC) Major depressive disorder, recurrent episode, in partial or unspecified remission Special screening for malignant neoplasms, colon Primary hypertension Unspecified essential hypertension documented in this encounter [facility] note* Diagnosis Hypertension, essential- Primary Unspecified essential hypertension OBESITY NOS Obesity, unspecified Encounter for screening mammogram for malignant neoplasm of breast Other screening mammogram Routine health maintenance Routine general medical examination at a health care facility Pain in joint, lower leg, left- Primary Need for prophylactic vaccination and inoculation against influenza Depression Depressive disorder, not elsewhere classified AGORAPHOBIA W PANIC ATTACKS Agoraphobia with panic disorder Hypertension, essential Unspecified essential hypertension OBESITY NOS Obesity, unspecified Acute laryngopharyngitis Routine health maintenance Routine general medical examination at a health care facility Pain in joint, lower leg, left- Primary Depression Depressive disorder, not elsewhere classified Hypertension, essential Unspecified essential hypertension OBESITY NOS Obesity, unspecified Anxiety Anxiety state, unspecified Upper respiratory tract infection, unspecified type Essential hypertension with goal blood pressure less than 140/90- Primary OBESITY NOS Obesity, unspecified Left knee pain, unspecified chronicity Recurrent major depression in partial remission (HCC) Major depressive disorder, recurrent episode, in partial or unspecified remission Special screening for malignant neoplasms, colon Graves disease- Primary Toxic diffuse goiter without mention of thyrotoxic crisis or storm Hyperthyroidism Thyrotoxicosis without mention of goiter or other cause, without mention of thyrotoxic crisis or storm Abnormal weight loss Loss of weight documented in this encounter [facility] note* Diagnosis Hypertension, essential- Primary Unspecified essential hypertension OBESITY NOS Obesity, unspecified Encounter for screening mammogram for malignant neoplasm of breast Other screening mammogram Routine health maintenance Routine general medical examination at a health care facility Pain in joint, lower leg, left- Primary Need for prophylactic vaccination and inoculation against influenza Depression Depressive disorder, not elsewhere classified AGORAPHOBIA W PANIC ATTACKS Agoraphobia with panic disorder Hypertension, essential Unspecified essential hypertension OBESITY NOS Obesity, unspecified Acute laryngopharyngitis Routine health maintenance Routine general medical examination at a health care facility Pain in joint, lower leg, left- Primary Depression Depressive disorder, not elsewhere classified Hypertension, essential Unspecified essential hypertension OBESITY NOS Obesity, unspecified Anxiety Anxiety state, unspecified Upper respiratory tract infection, unspecified type Essential hypertension with goal blood pressure less than 140/90- Primary OBESITY NOS Obesity, unspecified Left knee pain, unspecified chronicity Recurrent major depression in partial remission (HCC) Major depressive disorder, recurrent episode, in partial or unspecified remission Special screening for malignant neoplasms, colon Vomiting without nausea, unspecified vomiting type- Primary Hyperthyroidism Thyrotoxicosis without mention of goiter or other cause, without mention of thyrotoxic crisis or storm Recurrent vomiting Vomiting alone Dyspepsia Dyspepsia and other specified disorders of function of stomach Weight loss Loss of weight Nausea and vomiting, unspecified vomiting type Vitamin B12 deficiency Other B-complex deficiencies Vitamin D deficiency Unspecified vitamin D deficiency Low serum prealbumin Asymptomatic menopause Encounter for screening for osteoporosis Special screening for osteoporosis Encounter for screening [facility] for breast cancer [facility] Diagnosis Hypertension, essential- Primary Unspecified essential hypertension OBESITY NOS Obesity, unspecified Encounter for screening mammogram for malignant neoplasm of breast Other screening mammogram Routine health maintenance Routine general medical examination at a health care facility Pain in joint, lower leg, left- Primary Need for prophylactic vaccination and inoculation against influenza Depression Depressive disorder, not elsewhere classified AGORAPHOBIA W PANIC ATTACKS Agoraphobia with panic disorder Hypertension, essential Unspecified essential hypertension OBESITY NOS Obesity, unspecified Acute laryngopharyngitis Routine health maintenance Routine general medical examination at a health care facility Pain in joint, lower leg, left- Primary Depression Depressive disorder, not elsewhere classified Hypertension, essential Unspecified essential hypertension OBESITY NOS Obesity, unspecified Anxiety Anxiety state, unspecified Upper respiratory tract infection, unspecified type Essential hypertension with goal blood pressure less than 140/90- Primary OBESITY NOS Obesity, unspecified Left knee pain, unspecified chronicity Recurrent major depression in partial remission (HCC) Major depressive disorder, recurrent episode, in partial or unspecified remission Special screening for malignant neoplasms, colon Hyperthyroidism Thyrotoxicosis without mention of goiter or other cause, without mention of thyrotoxic crisis or storm [facility] Diagnosis Hypertension, essential- Primary Unspecified essential hypertension OBESITY NOS Obesity, unspecified Encounter for screening mammogram for malignant neoplasm of breast Other screening mammogram Routine health maintenance Routine general medical examination at a health care facility Pain in joint, lower leg, left- Primary Need for prophylactic vaccination and inoculation against influenza Depression Depressive disorder, not elsewhere classified AGORAPHOBIA W PANIC ATTACKS Agoraphobia with panic disorder Hypertension, essential Unspecified essential hypertension OBESITY NOS Obesity, unspecified Acute laryngopharyngitis Routine health maintenance Routine general medical examination at a health care facility Pain in joint, lower leg, left- Primary Depression Depressive disorder, not elsewhere classified Hypertension, essential Unspecified essential hypertension OBESITY NOS Obesity, unspecified Anxiety Anxiety state, unspecified Upper respiratory tract infection, unspecified type Essential hypertension with goal blood pressure less than 140/90- Primary OBESITY NOS Obesity, unspecified Left knee pain, unspecified chronicity Recurrent major depression in partial remission (HCC) Major depressive disorder, recurrent episode, in partial or unspecified remission Special screening for malignant neoplasms, colon Left knee pain, unspecified chronicity documented in this encounter [facility] note* Diagnosis Hypertension, essential- Primary Unspecified essential hypertension OBESITY NOS Obesity, unspecified Encounter for screening mammogram for malignant neoplasm of breast Other screening mammogram Routine health maintenance Routine general medical examination at a health care facility Pain in joint, lower leg, left- Primary Need for prophylactic vaccination and inoculation against influenza Depression Depressive disorder, not elsewhere classified AGORAPHOBIA W PANIC ATTACKS Agoraphobia with panic disorder Hypertension, essential Unspecified essential hypertension OBESITY NOS Obesity, unspecified Acute laryngopharyngitis Routine health maintenance Routine general medical examination at a health care facility Pain in joint, lower leg, left- Primary Depression Depressive disorder, not elsewhere classified Hypertension, essential Unspecified essential hypertension OBESITY NOS Obesity, unspecified Anxiety Anxiety state, unspecified Upper respiratory tract infection, unspecified type Essential hypertension with goal blood pressure less than 140/90- Primary OBESITY NOS Obesity, unspecified Left knee pain, unspecified chronicity Recurrent major depression in partial remission (HCC) Major depressive disorder, recurrent episode, in partial or unspecified remission Special screening for malignant neoplasms, colon Hyperthyroidism Thyrotoxicosis without mention of goiter or other cause, without mention of thyrotoxic crisis or storm [facility] Diagnosis Hypertension, essential- Primary Unspecified essential hypertension OBESITY NOS Obesity, unspecified Encounter for screening mammogram for malignant neoplasm of breast Other screening mammogram Routine health maintenance Routine general medical examination at a health care facility Pain in joint, lower leg, left- Primary Need for prophylactic vaccination and inoculation against influenza Depression Depressive disorder, not elsewhere classified AGORAPHOBIA W PANIC ATTACKS Agoraphobia with panic disorder Hypertension, essential Unspecified essential hypertension OBESITY NOS Obesity, unspecified Acute laryngopharyngitis Routine health maintenance Routine general medical examination at a health care facility Pain in joint, lower leg, left- Primary Depression Depressive disorder, not elsewhere classified Hypertension, essential Unspecified essential hypertension OBESITY NOS Obesity, unspecified Anxiety Anxiety state, unspecified Upper respiratory tract infection, unspecified type Essential hypertension with goal blood pressure less than 140/90- Primary OBESITY NOS Obesity, unspecified Left knee pain, unspecified chronicity Recurrent major depression in partial remission (HCC) Major depressive disorder, recurrent episode, in partial or unspecified remission Special screening for malignant neoplasms, colon Weight loss- Primary Loss of weight Nausea and vomiting, unspecified vomiting type LUQ pain Abdominal pain, left upper quadrant [facility] Diagnosis Hypertension, essential- Primary Unspecified essential hypertension OBESITY NOS Obesity, unspecified Encounter for screening mammogram for malignant neoplasm of breast Other screening mammogram Routine health maintenance Routine general medical examination at a health care facility Pain in joint, lower leg, left- Primary Need for prophylactic vaccination and inoculation against influenza Depression Depressive disorder, not elsewhere classified AGORAPHOBIA W PANIC ATTACKS Agoraphobia with panic disorder Hypertension, essential Unspecified essential hypertension OBESITY NOS Obesity, unspecified Acute laryngopharyngitis Routine health maintenance Routine general medical examination at a health care facility Pain in joint, lower leg, left- Primary Depression Depressive disorder, not elsewhere classified Hypertension, essential Unspecified essential hypertension OBESITY NOS Obesity, unspecified Anxiety Anxiety state, unspecified Upper respiratory tract infection, unspecified type Essential hypertension with goal blood pressure less than 140/90- Primary OBESITY NOS Obesity, unspecified Left knee pain, unspecified chronicity Recurrent major depression in partial remission Major depressive disorder, recurrent episode, in partial or unspecified remission Special screening for malignant neoplasms, colon Primary hypertension Unspecified essential hypertension [facility]* Diagnosis Hypertension, essential- Primary Unspecified essential hypertension OBESITY NOS Obesity, unspecified Encounter for screening mammogram for malignant neoplasm of breast Other screening mammogram Routine health maintenance Routine general medical examination at a health care facility Pain in joint, lower leg, left- Primary Need for prophylactic vaccination and inoculation against influenza Depression Depressive disorder, not elsewhere classified AGORAPHOBIA W PANIC ATTACKS Agoraphobia with panic disorder Hypertension, essential Unspecified essential hypertension OBESITY NOS Obesity, unspecified Acute laryngopharyngitis Routine health maintenance Routine general medical examination at a health care facility Pain in joint, lower leg, left- Primary Depression Depressive disorder, not elsewhere classified Hypertension, essential Unspecified essential hypertension OBESITY NOS Obesity, unspecified Anxiety Anxiety state, unspecified Upper respiratory tract infection, unspecified type Essential hypertension with goal blood pressure less than 140/90- Primary OBESITY NOS Obesity, unspecified Left knee pain, unspecified chronicity Recurrent major depression in partial remission Major depressive disorder, recurrent episode, in partial or unspecified remission Special screening for malignant neoplasms, colon Left knee pain, unspecified chronicity [facility]* Diagnosis Hypertension, essential- Primary Unspecified essential hypertension OBESITY NOS Obesity, unspecified Encounter for screening mammogram for malignant neoplasm of breast Other screening mammogram Routine health maintenance Routine general medical examination at a health care facility Pain in joint, lower leg, left- Primary Need for prophylactic vaccination and inoculation against influenza Depression Depressive disorder, not elsewhere classified AGORAPHOBIA W PANIC ATTACKS Agoraphobia with panic disorder Hypertension, essential Unspecified essential hypertension OBESITY NOS Obesity, unspecified Acute laryngopharyngitis Routine health maintenance Routine general medical examination at a health care facility Pain in joint, lower leg, left- Primary Depression Depressive disorder, not elsewhere classified Hypertension, essential Unspecified essential hypertension OBESITY NOS Obesity, unspecified Anxiety Anxiety state, unspecified Upper respiratory tract infection, unspecified type Essential hypertension with goal blood pressure less than 140/90- Primary OBESITY NOS Obesity, unspecified Left knee pain, unspecified chronicity Recurrent major depression in partial remission Major depressive disorder, recurrent episode, in partial or unspecified remission Special screening for malignant neoplasms, colon Hyperthyroidism Thyrotoxicosis without mention of goiter or other cause, without mention of thyrotoxic crisis or storm documented in this encounter [facility] for referral (narrative)* Diagnostic Procedure Only (Routine) - Pending Review Specialty Diagnoses / Procedures Referred By Nena perez Referred To Contact [facility] Diagnoses Encounter for screening mammogram for breast cancer Procedures RIO SCREENING SCREENING MAMMOGRAPHY BI 2-VIEW BREAST INC CAD Eduardo Sheffield MD [address] [place] [address] [facility] [address] [place] [id number] Referral ID Status Reason Start Date Expiration Date Visits Requested Visits Authorized [id number] Pending Review Auto-Generat ed Referral 10/28/2021 11/27/2022 1 1 [facility] for referral (narrative)* Diagnostic Procedure Only (Routine) - Pending Review Specialty Diagnoses / Procedures Referred By Nena t Referred To Contact [facility] Diagnoses Gallbladder disease Procedures US ABD RT UPPER QUADRANT US ABDOMINAL REAL TIME W/IMAGE LIMITED Trduy Stewart APRN.ENTERTAINMENT & MEDIA CORRESPONDENT [address] [place] [address] [facility] Referral ID Status Reason Start Date Expiration Date Visits Requested Visits Authorized [id number] Pending Review Auto-Generat ed Referral 2 05/15/2023 1 1 * Consult, Test, Treat (Routine) - Authorized Specialty Diagnoses / Procedures Referred By Nena t Referred To Contact Gynecology Diagnoses Screening for cervical cancer Procedures CONSULT TO GYNECOLOGY OFFICE/OUTPATIENT [facility] 60-74 MINUTES Trudy Stewart APRN.ENTERTAINMENT & MEDIA CORRESPONDENT [address] [place] [address] Referral ID Status Reason Start Date Expiration Date Visits Requested Visits Authorized [id number] Authorized PCP Requested Referral Auto-Generate d Referral 2 04/15/2023 1 [facility] Diagnostic Procedure Only (Routine) - Pending Review Specialty Diagnoses / Procedures Referred By Nena t Referred To Contact [facility] Diagnoses Encounter for screening mammogram for breast cancer Procedures RIO SCREENING W DOT SCREENING DIGITAL BREAST TOMOSYNTHESIS BI SCREENING MAMMOGRAPHY BI 2-VIEW BREAST INC CAD Trudy Stewart APRN.ENTERTAINMENT & MEDIA CORRESPONDENT [address] [place] [address] [facility] [address] [place] [address] Referral ID Status Reason Start Date Expiration Date Visits Requested Visits Authorized [id number] Pending Review Auto-Generat ed Referral 11/25/2022 12/25/2023 1 1 * Diagnostic Procedure Only (Routine) - Pending Review Specialty Diagnoses / Procedures Referred By Nena t Referred To Contact [facility] Diagnoses Encounter for screening mammogram for breast cancer Procedures RIO SCREENING SCREENING MAMMOGRAPHY BI 2-VIEW BREAST INC CAD Trudy Stewart APRN.ENTERTAINMENT & MEDIA CORRESPONDENT [address] [place] [address] [facility] [address] [place] [address] Referral ID Status Reason Start Date Expiration Date Visits Requested Visits Authorized [id number] Pending Review Auto-Generat ed Referral 11/25/2022 12/25/2023 1 1 [facility] Diagnostic Procedure Only (Routine) - Authorized Specialty Diagnoses / Procedures Referred By Nena perez Referred To Contact [facility] Diagnoses Gallstone ileus (HCC) Procedures US ABD RIGHT UPPER QUADRANT US ABDOMINAL REAL TIME W/IMAGE LIMITED Trudy Stewart APRN.ENTERTAINMENT & MEDIA CORRESPONDENT [address] [place] [address] [place] [address] Referral ID Status Reason Start Date Expiration Date Visits Requested Visits Authorized [id number] Authorized Auto-Generat ed Referral 10/11/2023 11/09/2024 1 1 [facility] Chief Complaint and Reason for Visit Chief Complaint nausea, vomiting GALLSTONE ILEUS GALLSTONE ILEUS GALLSTONE ILEUS GALLSTONE ILEUS GALLSTONE ILEUS Reason for Visit Hyperthyroidism Hypokalemia Morbid obesity Hypertension Gallstone ileus of small intestine Family History Relationship Condition Age at Onset Recorded Date/T jihan Unknown Family History?No pertinent history Unkno wn October 03, 2017 3:34am Family History?No pertinent history Unkno wn October 03, 2017 3:34am Advance Directives Advance Directive Response Recorded Date/ Time Living Will No November 23, 2022 6:54pm Power of [employer] System Administrator No November 23 6:54pm Summary Purpose Reason for Referral Specialty Diagnoses / Procedures Referred By Nena perez Referred To Contact Diagnoses Cervical cancer screening Procedures CONSULT TO INSOLE AND HEEL STIFFENER OFFICE/OUTPATIENT [facility] MDM 60-74 MINUTES Trudy Stewart APRN.ENTERTAINMENT & MEDIA CORRESPONDENT [address] [place] [address] Referral ID Status Reason Start Date Expiration Date Visits Requested Visits Authorized [id number] Authorized PCP Requested Referral Auto-Generate d Referral 12/17/2022 12/17/2023 1 1 Additional Source Comments Source Comments (unrecognize d section and content) In the event this informatio n is protected by the Federal Confidentiality of Alcohol and Drug Abuse Patient Records regulations: The Federal rules restrict any use of the information to criminally investigate or prosecute any alcohol or drug abuse patient.[facility] event this information is protected by the Federal Confidentiality of Alcohol and Drug Abuse Patient Records regulations: The Federal rules restrict any use of the information to criminally investigate or prosecute any alcohol or drug abuse patient.[facility] the event this information is protected by the Federal Confidentiality of Alcohol and Drug Abuse Patient Records regulations: The Federal rules restrict any use of the information to criminally investigate or prosecute any alcohol or drug abuse patient.[facility] the event this information is protected by the Federal Confidentiality of Alcohol and Drug Abuse Patient Records regulations: The Federal rules restrict any use of the information to criminally investigate or prosecute any alcohol or drug abuse patient.[facility] the event this information is protected by the Federal Confidentiality of Alcohol and Drug Abuse Patient Records regulations: The Federal rules restrict any use of the information to criminally investigate or prosecute any alcohol or drug abuse patient.[facility] the event this information is protected by the Federal Confidentiality of Alcohol and Drug Abuse Patient Records regulations: The Federal rules restrict any use of the information to criminally investigate or prosecute any alcohol or drug abuse patient.[facility] the event this information is protected by the Federal Confidentiality of Alcohol and Drug Abuse Patient Records regulations: The Federal rules restrict any use of the information to criminally investigate or prosecute any alcohol or drug abuse patient.[facility] the event this information is protected by the Federal Confidentiality of Alcohol and Drug Abuse Patient Records regulations: The Federal rules restrict any use of the information to criminally investigate or prosecute any alcohol or drug abuse patient.[facility] the event this information is protected by the Federal Confidentiality of Alcohol and Drug Abuse Patient Records regulations: The Federal rules restrict any use of the information to criminally investigate or prosecute any alcohol or drug abuse patient.[facility] the event this information is protected by the Federal Confidentiality of Alcohol and Drug Abuse Patient Records regulations: The Federal rules restrict any use of the information to criminally investigate or prosecute any alcohol or drug abuse patient.[facility] the event this information is protected by the Federal Confidentiality of Alcohol and Drug Abuse Patient Records regulations: The Federal rules restrict any use of the information to criminally investigate or prosecute any alcohol or drug abuse patient.[facility] the event this information is protected by the Federal Confidentiality of Alcohol and Drug Abuse Patient Records regulations: The Federal rules restrict any use of the information to criminally investigate or prosecute any alcohol or drug abuse patient.[facility] the event this information is protected by the Federal Confidentiality of Alcohol and Drug Abuse Patient Records regulations: The Federal rules restrict any use of the information to criminally investigate or prosecute any alcohol or drug abuse patient.[facility] the event this information is protected by the Federal Confidentiality of Alcohol and Drug Abuse Patient Records regulations: The Federal rules restrict any use of the information to criminally investigate or prosecute any alcohol or drug abuse patient.[facility] the event this information is protected by the Federal Confidentiality of Alcohol and Drug Abuse Patient Records regulations: The Federal rules restrict any use of the information to criminally investigate or prosecute any alcohol or drug abuse patient.[facility] the event this information is protected by the Federal Confidentiality of Alcohol and Drug Abuse Patient Records regulations: The Federal rules restrict any use of the information to criminally investigate or prosecute any alcohol or drug abuse patient.[facility] the event this information is protected by the Federal Confidentiality of Alcohol and Drug Abuse Patient Records regulations: The Federal rules restrict any use of the information to criminally investigate or prosecute any alcohol or drug abuse patient.[facility] the event this information is protected by the Federal Confidentiality of Alcohol and Drug Abuse Patient Records regulations: The Federal rules restrict any use of the information to criminally investigate or prosecute any alcohol or drug abuse patient.[facility] the event this information is protected by the Federal Confidentiality of Alcohol and Drug Abuse Patient Records regulations: The Federal rules restrict any use of the information to criminally investigate or prosecute any alcohol or drug abuse patient.[facility] the event this information is protected by the Federal Confidentiality of Alcohol and Drug Abuse Patient Records regulations: The Federal rules restrict any use of the information to criminally investigate or prosecute any alcohol or drug abuse patient.[facility] the event this information is protected by the Federal Confidentiality of Alcohol and Drug Abuse Patient Records regulations: The Federal rules restrict any use of the information to criminally investigate or prosecute any alcohol or drug abuse patient.[facility] the event this information is protected by the Federal Confidentiality of Alcohol and Drug Abuse Patient Records regulations: The Federal rules restrict any use of the information to criminally investigate or prosecute any alcohol or drug abuse patient.[facility] the event this information is protected by the Federal Confidentiality of Alcohol and Drug Abuse Patient Records regulations: The Federal rules restrict any use of the information to criminally investigate or prosecute any alcohol or drug abuse patient.[facility] the event this information is protected by the Federal Confidentiality of Alcohol and Drug Abuse Patient Records regulations: The Federal rules restrict any use of the information to criminally investigate or prosecute any alcohol or drug abuse patient.[facility] the event this information is protected by the Federal Confidentiality of Alcohol and Drug Abuse Patient Records regulations: The Federal rules restrict any use of the information to criminally investigate or prosecute any alcohol or drug abuse patient.[facility] the event this information is protected by the Federal Confidentiality of Alcohol and Drug Abuse Patient Records regulations: The Federal rules restrict any use of the information to criminally investigate or prosecute any alcohol or drug abuse patient.[facility] the event this information is protected by the Federal Confidentiality of Alcohol and Drug Abuse Patient Records regulations: The Federal rules restrict any use of the information to criminally investigate or prosecute any alcohol or drug abuse patient.[facility] the event this information is protected by the Federal Confidentiality of Alcohol and Drug Abuse Patient Records regulations: The Federal rules restrict any use of the information to criminally investigate or prosecute any alcohol or drug abuse patient.[facility] the event this information is protected by the Federal Confidentiality of Alcohol and Drug Abuse Patient Records regulations: The Federal rules restrict any use of the information to criminally investigate or prosecute any alcohol or drug abuse patient.[facility] the event this information is protected by the Federal Confidentiality of Alcohol and Drug Abuse Patient Records regulations: The Federal rules restrict any use of the information to criminally investigate or prosecute any alcohol or drug abuse patient.[facility]In the event this information is protected by the Federal Confidentiality of Alcohol and Drug Abuse Patient Records regulations: The Federal rules restrict any use of the information to criminally investigate or prosecute any alcohol or drug abuse patient.[facility] the event this information is protected by the Federal Confidentiality of Alcohol and Drug Abuse Patient Records regulations: The Federal rules restrict any use of the information to criminally investigate or prosecute any alcohol or drug abuse patient.[facility] the event this information is protected by the Federal Confidentiality of Alcohol and Drug Abuse Patient Records regulations: The Federal rules restrict any use of the information to criminally investigate or prosecute any alcohol or drug abuse patient.[facility]In the event this information is protected by the Federal Confidentiality of Alcohol and Drug Abuse Patient Records regulations: The Federal rules restrict any use of the information to criminally investigate or prosecute any alcohol or drug abuse patient.[facility]In the event this information is protected by the Federal Confidentiality of Alcohol and Drug Abuse Patient Records regulations: The Federal rules restrict any use of the information to criminally investigate or prosecute any alcohol or drug abuse patient.[facility] the event this information is protected by the Federal Confidentiality of Alcohol and Drug Abuse Patient Records regulations: The Federal rules restrict any use of the information to criminally investigate or prosecute any alcohol or drug abuse patient.[facility]In the event this information is protected by the Federal Confidentiality of Alcohol and Drug Abuse Patient Records regulations: The Federal rules restrict any use of the information to criminally investigate or prosecute any alcohol or drug abuse patient.[facility]In the event this information is protected by the Federal Confidentiality of Alcohol and Drug Abuse Patient Records regulations: The Federal rules restrict any use of the information to criminally investigate or prosecute any alcohol or drug abuse patient.[facility] the event this information is protected by the Federal Confidentiality of Alcohol and Drug Abuse Patient Records regulations: The Federal rules restrict any use of the information to criminally investigate or prosecute any alcohol or drug abuse patient.[facility]In the event this information is protected by the Federal Confidentiality of Alcohol and Drug Abuse Patient Records regulations: The Federal rules restrict any use of the information to criminally investigate or prosecute any alcohol or drug abuse patient.[facility]In the event this information is protected by the Federal Confidentiality of Alcohol and Drug Abuse Patient Records regulations: The Federal rules restrict any use of the information to criminally investigate or prosecute any alcohol or drug abuse patient.[facility]In the event this information is protected by the Federal Confidentiality of Alcohol and Drug Abuse Patient Records regulations: The Federal rules restrict any use of the information to criminally investigate or prosecute any alcohol or drug abuse patient.[facility] Reason for Visit (unrecogniz ed section and content) Reason Onset Date Comments Refill Request 08/30/2021 Reason Comments Refill Request Reason Onset Date Comments Refill Request 10/28/2021 Reason Onset Date Comments Refill Request 02/26/2022 Reason Comments Thyroid Problem Reason Onset Date Comments Refill Request 04/11/2022 Reason Comments Medication Follow-up Not seen since 01/26. Sinusitis Reason Onset Date Comments Refill Request 05/20/2022 Reason Comments Orders Mammogram Reason Comments Hospital F/U Reason Onset Date Comments Refill Request 03/09/2023 Reason Onset Date Comments Refill Request 06/07/2023 Reason Onset Date Comments Refill Request 06/18/2023 Reason Onset Date Comments Refill Request 08/11/2023 Reason Comments Follow Up Reason Onset Date Comments Refill Request 01/14/2024 Reason Onset Date Comments Refill Request 03/15/2024 Reason Comments Electronic Communication Reason Comments Recheck Nutritional supplime nt, Gastro consult? Gallbladder, unintentional weight loss, d/t vomiting after eating almost everyday Specialty Diagnoses / Procedures Referred By Nena perez Referred To Contact Internal Medicine / INTERNAL MEDICINE Diagnoses Hypertension 6 month follow up Procedures [address] [facility] [address] [place] [address] Phone: tel: Eduardo Sheffield MD [address] [place] [address] Phone: tel: fax: Referral ID Status Reason Start Date Expiration Date Visits Requested Visits Authorized [id number] New Request Patient Cleared - INN Insurance Found Financial Clearance Not Required 06/12/2024 09/10/2024 1 1 Reason Onset Date Comments Refill Request 06/14/2024 Reason Onset Date Comments Refill Request 06/17/2024 Reason Comments Consult Specialty Diagnoses / Procedures Referred By Nena perez Referred To Contact General Surgery Diagnoses Weight loss Vomiting without nausea, unspecified vomiting type Nausea and vomiting, unspecified vomiting type Procedures CONSULT TO GENERAL SURGERY OFFICE/OUTPATIENT [facility] 60 MINUTES Eduardo Sheffield MD [address] [place] [address] Phone: tel: fax: Referral ID Status Reason Start Date Expiration Date V isits Requested Visits Authorized [id number] Closed PCP Requested Referral 06/12/2024 06/12/2025 1 1 Reason Onset Date Comments Refill Request 08/15/2024 Reason Comments Orders Patient Update Care Teams (unrecognized sec tion and content) Lifestyle Block Farmer Relationship Specialty Start Date End Date Eduardo Sheffield MD [address] [facility] [place] [address] PCP - General Internal Medicine 10/31/14 Lifestyle Block Farmer Relationship Specialty Start Date End Date Eduardo Sheffield MD [address] [place] [address] PCP - General Internal Medicine 10/31/14 Lifestyle Block Farmer Relationship Specialty Start Date End Date Eduardo Sheffield MD [address] [place] [place] [address] PCP - General Internal Medicine 10/31/14 Lifestyle Block Farmer Relationship Specialty Start Date End Date Eduardo Sheffield MD [address] [facility] [address] PCP - General Internal Medicine 10/31/14 Lifestyle Block Farmer Relationship Specialty Start Date End Date Eduardo Sheffield MD [address] [facility] [place] [address] PCP - General Internal Medicine 10/31/14 Lifestyle Block Farmer Relationship Specialty Start Date End Date Eduardo Sheffield MD [address] [facility] [place] [address] PCP - General Internal Medicine 10/31/14 Lifestyle Block Farmer Relationship Specialty Start Date End Date Eduardo Sheffield MD [address] [facility] [place] [address] PCP - General Internal Medicine 10/31/14 Lifestyle Block Farmer Relationship Specialty Start Date End Date Eduardo Sheffield MD [address] [place] [place] [address] PCP - General Internal Medicine 10/31/14 Lifestyle Block Farmer Relationship Specialty Start Date End Date Eduardo Sheffield MD [address] [facility] [place] [address] PCP - General Internal Medicine 10/31/14 Lifestyle Block Farmer Relationship Specialty Start Date End Date Eduardo Sheffield MD [address] [place] [address] PCP - General Internal Medicine 10/31/14 Lifestyle Block Farmer Relationship Specialty Start Date End Date Eduardo Sheffield MD [address] [place] [address] PCP - General Internal Medicine 10/31/14 Lifestyle Block Farmer Relationship Specialty Start Date End Date Eduardo Sheffield MD [address] [place], [place] [address] PCP - General Internal Medicine 10/31/14 Team Status: Active Member Role Status Dates Dr. Eduardo Sheffield MD Family Provider Active Dr. Eduardo Sheffield MD Primary Care Provider Active Team Status: Active Member Role Status Dates Dr. Eduardo Sheffield MD Primary Care Provider Active Dr. Sean Sanders MD Emergency Provider Active Dr. Alma Camacho MD Attending Provider, Other Pro vider Active Team Status: Active Member Role Status Dates Dr. Eduardo Sheffield MD Primary Care Provider Active Dr. Sean Sanders MD Emergency Provider Active Dr. Alma Camacho MD Admit Provider, Attending Provider, Other Provider Active Team Status: Inactive Member Role Status Dates Dr. Eduardo Sheffield MD Primary Care Provider Active Dr. Sean Sanders MD Emergency Provider Active Dr. Alma Camacho MD Admit Provider, Attending Pro vider Active Lifestyle Block Farmer Relationship Specialty Start Date End Date Eduardo Sheffield MD [address] [facility] [place], [place] [address] PCP - General Internal Medicine 10/31/14 Lifestyle Block Farmer Relationship Specialty Start Date End Date Eduardo Sheffield MD [address] [place] [address] PCP - General Internal Medicine 10/31/14 Lifestyle Block Farmer Relationship Specialty Start Date End Date Eduardo Sheffield MD [address] [place] [address] PCP - General Internal Medicine 10/31/14 Lifestyle Block Farmer Relationship Specialty Start Date End Date Eduardo Sheffield MD [address] [place] [address] PCP - General Internal Medicine 10/31/14 Lifestyle Block Farmer Relationship Specialty Start Date End Date Eduardo Sheffield MD [address] [place] [address] PCP - General Internal Medicine 10/31/14 Lifestyle Block Farmer Relationship Specialty Start Date End Date Eduardo Sheffield MD [address] [place] [address] PCP - General Internal Medicine 10/31/14 Lifestyle Block Farmer Relationship Specialty Start Date End Date Eduardo Sheffield MD [address] [place] [address] PCP - General Internal Medicine 10/31/14 Lifestyle Block Farmer Relationship Specialty Start Date End Date Eduardo Sheffield MD [address] [place] [address] PCP - General Internal Medicine 10/31/14 Lifestyle Block Farmer Relationship Specialty Start Date End Date Eduardo Sheffield MD [address] [place] [address] PCP - General Internal Medicine 10/31/14 Lifestyle Block Farmer Relationship Specialty Start Date End Date Eduardo Sheffield MD [address] [place], [place] [address] PCP - General Internal Medicine 10/31/14 Lifestyle Block Farmer Relationship Specialty Start Date End Date Eduardo Sheffield MD [address] [place] [address] PCP - General Internal Medicine 10/31/14 Lifestyle Block Farmer Relationship Specialty Start Date End Date Eduardo Sheffield MD [address] [place] [address] PCP - General Internal Medicine 10/31/14 Lifestyle Block Farmer Relationship Specialty Start Date End Date Eduardo Sheffield MD [address] [place] [address] PCP - General Internal Medicine 10/31/14 Lifestyle Block Farmer Relationship Specialty Start Date End Date Eduardo Sheffield MD [address] [place] [address] PCP - General Internal Medicine 10/31/14 Margaret Page PA-C [address] [place] [address] Brim Pouncing Machine Operator Family Medicine 04/08/24 Kerline Esteves APRN.CNP [address] [place] [address] Brim Pouncing Machine Operator Internal Medicine 04/08/24 Jocelin Swenson PA-C [address] [place] [address] Brim Pouncing Machine Operator Family Medicine 04/08/24 Lifestyle Block Farmer Relationship Specialty Start Date End Date Eduardo Sheffield MD [address] [facility] [place] [address] PCP - General Internal Medicine 10/31/14 Margaret Page PA-C [address] [place] [address] Brim Pouncing Machine Operator Family Medicine 04/08/24 Kerline Esteves APRN.ORE WASHER [address] [place] [address] Brim Pouncing Machine Operator Internal Medicine 04/08/24 Jocelin Swenson PA-C [address] [place] [address] Brim Pouncing Machine Operator Family Medicine 04/08/24 Lifestyle Block Farmer Relationship Specialty Start Date End Date Eduardo Sheffield MD [address] [place] [address] PCP - General Internal Medicine 10/31/14 Margaret Page PA-C [address] [place] [address] Brim Pouncing Machine Operator Family Medicine 04/08/24 Kerline Esteves, FIELD AUTO APPRAISER.ORE WASHER [address] [place] [address] Brim Pouncing Machine Operator Internal Medicine 04/08/24 Jocelin Swenson PA-C [address] [facility] [place] [address] Brim Pouncing Machine Operator Family Medicine 04/08/24 Lifestyle Block Farmer Relationship Specialty Start Date End Date Eduardo Sheffield MD [address] [place] [address] PCP - General Internal Medicine 10/31/14 Margaret Page PA-C [address] [place] [address] Brim Pouncing Machine Operator Family Medicine 04/08/24 Kerline Esteves APRN.ORE WASHER [address] [place] [address] Brim Pouncing Machine Operator Internal Medicine 04/08/24 Jocelin Swenson PA-C [address] [place] [address] Brim Pouncing Machine Operator Family Medicine 04/08/24 Lifestyle Block Farmer Relationship Specialty Start Date End Date Eduardo Sheffield MD [address] [place] [address] PCP - General Internal Medicine 10/31/14 Margaret Page PA-C [address] [place] [address] Brim Pouncing Machine Operator Family Medicine 04/08/24 Kerline Esteves APRN.ORE WASHER [address] [place] [address] Brim Pouncing Machine Operator Internal Medicine 04/08/24 Jocelin Swenson PA-C [address] [place] [address] Brim Pouncing Machine Operator Family Medicine 04/08/24 Lifestyle Block Farmer Relationship Specialty Start Date End Date Eduardo Sheffield MD [address] [place] [address] PCP - General Internal Medicine 10/31/14 Margaret Page PA-C [address] [place] [address] Brim Pouncing Machine Operator Family Medicine 04/08/24 Kerline Esteves, GUMARO.ORE WASHER [address] [place] [address] Brim Pouncing Machine Operator Internal Medicine 04/08/24 Jocelin Swenson PA-C [address] [place] [address] [facility] 04/08/24 Lifestyle Block Farmer Relationship Specialty Start Date End Date Eduardo Sheffield MD [address] [place] [address] PCP - General Internal Medicine 10/31/14 Kerline Esteves, FIELD AUTO APPRAISER.ORE WASHER [address] [place] [address] [facility] 04/08/24 Lifestyle Block Farmer Relationship Specialty Start Date End Date Eduardo Sheffield MD [address] [place] [address] PCP - General Internal Medicine 10/31/14 Kerline Esteves, FIELD AUTO APPRAISER.ORE WASHER [address] [place] [address] [facility] 04/08/24 Lifestyle Block Farmer Relationship Specialty Start Date End Date Eduardo Sheffield MD [address] [place] [address] PCP - General Internal Medicine 10/31/14 Margaret Page PA-C [address] [place] [address] [facility] 04/08/24 07/22/24 Kerline Esteves APRN.ORE WASHER [address] [place] [address] [facility] 04/08/24 Jocelin Swenson PA-C [address] [place], [place] [address] [facility] 04/08/24 07/22/24 Lifestyle Block Farmer Relationship Specialty Start Date End Date Eduardo Sheffield MD [address] [place], [place] [address] PCP - General Internal Medicine 10/31/14 Kerline Esteves APRN.ORE WASHER [address] [place] [address] [facility] 04/08/24 INFORMATION SOURCE (unrecogn ized section and content) DATE CREATED AUTHOR 12/13/2022 [facility] DATE CREATED AUTHOR AUTHOR'S BREE ATION 09/06/2024 [facility] FOR RECORDS PERTAINING TO PATIENTS WHO ARE OR HAVE BEEN ENROLLED IN A CHEMICAL DEPENDENCY/SUBSTANCEABUSE PROGRAM, SOME INFORMATION MAY BE OMITTED. This clinical summary was aggregated from multiple sources. Caution should be exercised in using it in the provision of clinical care. This summary normalizes information from multiple sources, and as a consequence, information in this document may materially change the coding, format and clinical context of patient data. In addition, data may be omitted in some cases. CLINICAL DECISIONS SHOULD BE BASED ON THE PRIMARY CLINICAL RECORDS. [facility] provides no warranty or guarantee of the accuracy or completeness of information in this document.
--- NOTE | 2025-02-02 00:35 | ED.VIS.FALL ---
HPI HPI - Fall History of Present Illness Chief Complaint: Fall Informant: patient Narrative Narrative: Patient is a 64-year-old female presenting to the ED after a fall resulting in facial trauma. - Patient reports tripping over an exercise bike while taking her dog outside, resulting in a fall onto the concrete surface at her front door. - Describes the fall as a face-plant, with significant bleeding from the nose. - Complains of numbness and swelling in the upper lip. - Denies headaches, emesis, or changes in vision. - Denies use of anticoagulants. - Reports pre-existing dental decay, noting a possible tooth fracture during the fall. [facility] Medical History Hypertension Anxiety Graves disease History of acute pyelonephritis Home Medications ?Medication ?Instructions ?Recorded ?Last Taken ?Type lorazepam 0.5 mg tablet 0.5 mg PO QHS PRN Anxiety 03/19/17 10/02/17 20:00 History atenolol 25 mg tablet 25 mg PO DAILY blood pressure 04/21/18 11/23/22 History ibuprofen 800 mg tablet 800 mg PO TID PRN pain 11/23/22 Unknown History methimazole 5 mg tablet 10 mg PO BID thyroid 11/23/22 11/23/22 History sertraline 50 mg tablet 50 mg PO BID depression 11/23/22 11/23/22 History tramadol 50 mg tablet 50 mg PO Q6H PRN pain 3 days #3 11/26/22 Unknown Rx tabs potassium chloride 20 mEq 20 - 40 meq (1 - 2 x 20 mEq) PO 11/27/22 Unknown Rx tablet,extended release DAILY PRN hypokalemia #7 tabs Allergy/AdvReac Type Severity Reaction Status Date / Time azithromycin Allergy Itching Verified 02/01/25 22:53 Surgical History Previous section S/P laparotomy Social History household members: spouse housing: house Smoking Status: Never smoker ROS ROS ED ROS Narrative Head: (-) headache, (-) facial pain Eyes: (-) visual changes Gastrointestinal: (-) vomiting Skin: (+) facial bleeding, (+) facial swelling Neurological: (+) oral numbness upper lip and nose Eyes Eyes: Denies change in vision Cardiovascular Cardiovascular: Denies chest pain Respiratory/Chest Respiratory/Chest: Denies dyspnea Gastrointestinal Gastrointestinal: Denies abdominal pain or nausea Musculoskeletal Musculoskeletal: Denies back pain or neck pain Integumentary Reports laceration Neurologic Neurologic: Denies headache(s), paresthesias or weakness EXAM Physical Exam Const Vital Signs: 02/01/25 22:53 02/01/25 22:56 02/02/25 00:48 Temperature 98.4 F 97 F L Temperature Source Temporal Pulse Rate 77 95 Respiratory Rate 18 15 Respiratory Effort Normal Non-Labored Respiratory Depth Normal Respiratory Pattern Normal Blood Pressure 168/76 H 146/94 H Blood Pressure Mean 106 111 Pulse Ox 95 96 96 Oxygen Delivery Method Room Air Room Air Positive well nourished and well developed General Appearance ED: well developed and NAD HEENT HEENT Narrative: Bruising and swelling about the nasal bridge, no nasal bone tenderness; swelling and mucosal ecchymosis of the upper lip, including the philtrum, without laceration there; severe dental decay, no obvious dental injury; No Qiu sign, no raccoon eyes, no CSF otorhinorrhea, no hemotympanum. Eyes Eyes Narrative: pupils equal, round, reactive to light, extraocular movements intact. Neck full ROM General: Negative for tenderness Chest Wall inspection of chest normal and palpation of chest normal Resp normal respiratory effort GI non-tender and non-distended Auscultation: normoactive bowel sounds Palpation: soft Back/Spine Cervical Spine: Negative for cervical spine tenderness Thoracic Spine / Upper Back: Negative for ROM limited or thoracic spinal tenderness Lumbar Spine / Lower Back: Negative for lumbar spinal tenderness Neuro oriented x3, CN's II-XII intact bilaterally, no focal motor deficits and no sensory deficits noted Claudia Coma Scale: document GCS findings Spontaneous Obeys Commands Oriented 15 Sensorium / Orientation: alert Psych mental status grossly normal and thought process normal Skin Skin Narrative: Laceration to dorsum of nose 0.5 cm total, stellate, partial-thickness, minimal bleeding no foreign material MDM MDM MDM Narrative Medical decision making narrative: Procedure Note: After topical L-E-T was placed for 20 minutes, the area was cleansed thoroughly with chlorhexidine. There was good hemostasis, the area was dried, and then I repaired the laceration with Dermabond. The laceration measured 0.5 cm, was stellate, partial thickness, and clean, with no contamination. The procedure was tolerated well, and there were no complications. She does not have nasal bone tenderness, although there is some swelling, so I do not think she needs any X-rays of her nose. My suspicion for fracture is low. However, if she experiences asymmetry or cosmetic issues, she has been given ENT follow-up, though my suspicion for her needing it is very low. With regard to this injury, it was localized to her nose and upper lip. I do not think she needs a head or facial CT, as my suspicion for any additional facial fracture is very low. She is comfortable with this overall plan. Procedures Lacerations nose: Length: 0.5 cm Depth: Skin Shape: Stellate Prep: Sterile Conditions and Chlorhexadine Laceration repair: Dermabond Discharge Plan Triage Chief Complaint: Fall ED Provider: Sean Sanders Dx/Rx/DC Orders Clinical Impression: Laceration of nose, Contusion of nose, Contusion of lip, initial encounter, Fall from slip, trip, or stumble Instructions: ED Laceration, Skin Adhesive Prescriptions: No Action lorazepam 0.5 MG tablet 0.5 mg PO QHS PRN (Reason: Anxiety) atenolol 25 tablet 25 mg PO DAILY ibuprofen 800 mg tablet 800 mg PO TID PRN (Reason: pain) methimazole 5 mg tablet 10 mg PO BID sertraline 50 mg tablet 50 mg PO BID tramadol 50 mg tablet 50 mg PO Q6H PRN (Reason: pain) 3 Days Qty: 3 0RF potassium chloride 20 mEq tablet extended release 20 - 40 meq PO DAILY PRN (Reason: hypokalemia) Qty: 7 0RF Primary Care Provider: Helen Rouse Referrals: Helen Rouse MD [Primary Care Provider, Internal Medicine] Mark Sage MD [Med Staff - Active Staff, Ear Nose Throat (ENT)] Referral Note: As needed in 1 week if you are concerned about the cosmetics of your nose once the swelling goes down Activity Restrictions/Additional Instructions: - If you notice any asymmetry or cosmetic concerns with your nose as the swelling improves, please arrange a follow-up appointment with an ENT specialist. Print Language: Danish Disposition Disposition: Home, Self Care Discharge Date/Time: 02/02/25 00:48
[2025-02-02 00:48] VITALS: BP 146/94; PULSE 95; RESP 15; TEMP 36.1; O2SAT 96
== END 2025-02-02 00:48 | disposition home or self-care (01) ==
PROVIDERS: Emergency Provider Emergency Medicine; PCP Internal Medicine; Visit Provider Emergency Medicine
DX: S01.21XA Laceration without foreign body of nose, initial encounter (principal); W18.09XA Striking against other object with subsequent fall, initial encounter; Y93.K1 Activity, walking an animal; I10 Essential (primary) hypertension; Z79.899 Other long term (current) drug therapy
CPT/HCPCS: 12011; 99282